=== PATIENT | female | born 1960 | race American Indian/Alaskan Native ===

== ENCOUNTER 2017-01-28 10:41 | Observation (INO) | payer OTHER ==
[2017-01-28 10:41] VITALS: BMI 53.7
[2017-01-28 10:53] VITALS: RESP 16; TEMP 98.1; O2SAT 100
[2017-01-28] MEDS ORDERED: Sodium Chloride 0.9% 500 ML IV STA (11:12)
[2017-01-28 11:28] LABS: ADD MANUAL DIFF? NO
[2017-01-28 11:34] LABS: BASO # 0.02 K/mm3 (0.0-2.0); BASO % 0.5 % (0.0-3.0); EOS % 0.2 % (1.5-5.0); GRAN # 2.98 (1.4-6.5); GRAN % 68.5 % (50.0-68.0); HEMATOCRIT 31.8 % (36.0-48.0); LYMPH # 1.1 (1.2-3.4); LYMPH % 25.5 % (22.0-35.0); MEAN CELL VOLUME 75.7 fL (80.0-105.0); MEAN CORPUSCULAR HEMOGLOBIN 22.9 pg (25.0-35.0); MEAN CORPUSCULAR HGB CONC 30.2 g/dl (31.0-37.0); MEAN PLATELET VOLUME 10.1 fl (7.0-11.0); MONO # 0.2 (0.1-0.6); MONO % 5.3 % (1.0-6.0); PLATELET COUNT 340 10^3/uL (120.0-450.0); RED CELL DISTRIBUTION WIDTH 15.3 % (11.5-14.5); WHITE BLOOD COUNT 4.4 10^3/ul (4.5-11.0)
--- NOTE | 2017-01-28 11:35 | ED PDOC ---
Arrival/HPI - General Chief Complaint: Seizure Time Seen by Provider: 01/28/17 11:12 Historian: Patient - History of Present Illness Narrative History of Present Illness (Text): 01/28/17 11:33 56 year old female whose past medical history includes seizures presents to the emergency department after seizure at grocery store prior to arrival. Patient states she was at the store when she felt a bad taste in her mouth and a flickering in her vision which usually occurs with her seizures. Patient states she fell but was caught by another person who witnessed seizure like activity. No head trauma. No pain. Patient reports she has a history of seizures and is on Trileptal, Topamax, and Keppra. Last seizure was last November which was when she started Topamax. No fever, cough, or urinary symptoms. Neurologist: Dr. Jamison Time/Duration: Prior to Arrival Symptom Onset: Sudden Symptom Course: Resolved Modifying Factors (Text): None Past Medical History - Provider Review Nursing Documentation Reviewed: Yes - Infectious Disease Hx of Infectious Diseases: None - Tetanus Immunization Tetanus Immunization: Unknown - Cardiac Hx Pacemaker: No - Neurological Hx Paralysis: No Hx Seizures: Yes - Hematological/Oncological Hx Blood Transfusions: No - Musculoskeletal/Rheumatological Hx Musculoskeletal Disorders: Yes - Psychiatric Hx Emotional Abuse: No Hx Physical Abuse: No Hx Substance Use: No - Surgical History Hx Coronary Stent: Yes - Anesthesia Hx Anesthesia Reactions: No Hx Malignant Hyperthermia: No - Suicidal Assessment Feels Threatened In Home Enviroment: No Family/Social History - Physician Review Nursing Documentation Reviewed: Yes Family/Social History: Unknown Family HX Smoking Status: Former Smoker Hx Alcohol Use: No Hx Substance Use: No Hx Substance Use Treatment: No Allergies/Home Meds Allergies/Adverse Reactions: Allergies Penicillins Allergy (Verified 01/28/17 10:54) ANAPHYLAXIS Home Medications: Home Meds Medication Instructions Recorded Confirmed Metoprolol Succinate 50 mg PO DAILY 08/01/13 01/28/17 Simvastatin 40 mg PO QPM 12/25/13 01/28/17 Clopidogrel [Plavix] 75 mg PO DAILY 01/28/17 01/28/17 Cyanocobalamin [Vitamin B12] 1,000 mcg PO DAILY 01/28/17 01/28/17 Cyclobenzaprine [Flexeril] 5 mg PO BID 01/28/17 01/28/17 Ergocalciferol [Drisdol 50,000 1 tab PO .WEEKLY 01/28/17 01/28/17 Intl Units Cap] Ibuprofen [Motrin Tab] 800 mg PO QID 01/28/17 01/28/17 Lisinopril [Zestril] 20 mg PO DAILY 01/28/17 01/28/17 OXcarbazepine [Trileptal] 600 mg PO DAILY 01/28/17 01/28/17 Topiramate [Topamax] 100 mg PO BID 01/28/17 01/28/17 amLODIPine [Norvasc] 10 mg PO DAILY 01/28/17 01/28/17 levETIRAcetam [Keppra] 1,000 mg PO DAILY 01/28/17 01/28/17 metFORMIN [glucOPHAGE] 1,000 mg PO BID 01/28/17 01/28/17 Review of Systems - Physician Review All systems were reviewed & negative as marked: Yes - Review of Systems Constitutional: absent: Fevers Respiratory: absent: Cough Neurological: Seizure Physical Exam Vital Signs Reviewed: Yes Vital Signs Temp Pulse Resp BP Pulse Ox 01/28/17 13:47 60 16 136/58 L 100 01/28/17 10:46 98.1 F 61 16 153/69 H 100 Temperature: Afebrile Blood Pressure: Normal Pulse: Regular Respiratory Rate: Normal Appearance: Positive for: Well-Appearing, Non-Toxic, Comfortable Pain Distress: None Mental Status: Positive for: Alert and Oriented X 3 Finger Stick Blood Glucose: 139 - Systems Exam Head: Present: Atraumatic, Normocephalic Pupils: Present: PERRL Extroacular Muscles: Present: EOMI Conjunctiva: Present: Normal Mouth: Present: Moist Mucous Membranes, Other (No tongue biting) Neck: Present: Normal Range of Motion Respiratory/Chest: Present: Clear to Auscultation, Good Air Exchange. No: Respiratory Distress, Accessory Muscle Use Cardiovascular: Present: Regular Rate and Rhythm, Normal S1, S2. No: Murmurs Abdomen: Present: Normal Bowel Sounds. No: Tenderness, Distention, Peritoneal Signs Back: Present: Normal Inspection Upper Extremity: Present: Normal Inspection. No: Cyanosis, Edema Lower Extremity: Present: Normal Inspection. No: Edema Neurological: Present: GCS=15, CN II-XII Intact, Speech Normal, Motor Func Grossly Intact, Normal Sensory Function Skin: Present: Warm, Dry, Normal Color. No: Rashes Psychiatric: Present: Alert, Oriented x 3, Normal Insight, Normal Concentration Medical Decision Making ED Course and Treatment: Impression: 56 year old female whose past medical history includes seizures presents to the emergency department after seizure at grocery store prior to arrival. Differential Diagnosis included but are not limited to: Seizure r/o electrolyte imbalance Plan: -- CT Head, EKG, -- Labs -- Reassess and disposition Prior Visits: Notes and results from previous visits were reviewed. Patient last seen in the ED on 08/01/13 for leg pain and discharged home. - RAD Interpretation Narrative RAD Interpretations (Text): CT Head Laborer Livestock: Franklin Nice MD IMPRESSION: No acute findings. Radiology Orders: 01/28/17 11:12 HEAD W/O CONTRAST [CT] [employer] Project Manager: Radiologist - EKG Interpretation Interpreted by ED Physician: Yes (EKG shows sinus bradycardia at 55 BPM, otherwise normal) Type: 12 lead EKG - Medication Orders Current Medication Orders: Discontinued Medications Sodium Chloride (Sodium Chloride 0.9%) 500 mls @ 1,000 mls/hr IV .Q30M STA Stop: 01/28/17 11:41 Last Admin: 01/28/17 11:46 Dose: 1,000 mls/hr ED OBSERVATION Date of observation admission: 01/28/17 Time of observation admission: 11:15 - Observation admission statement Patient is being placed in observation because:: seizure - Goals of Observation Goals of observation are:: monitor patient in ER - Progress Note Progress Note: 01/28/17 11:15 On initial exam patient is alert, answering questions 01/28/17 13:15 Patient resting comfortably in no acute distress. Labs reviewed normal. CT head negative. Patient was observed in the ED for 3 hours without any seizure activity. She just had her medication changed in November. I put a page out to Dr. Giles, her Neurologist without a call back. She wants to follow up with him and feels safe going home with f/u. She's reliable for follow up. She will return with any concerns or worsening symptoms. - Scribe Statement The provider has reviewed the documentation as recorded by the Homero Mohamud Provider Scribe Attestation: All medical record entries made by the Josueiblupe were at my direction and personally dictated by me. I have reviewed the chart and agree that the record accurately reflects my personal performance of the history, physical exam, medical decision making, and the department course for this patient. I have also personally directed, reviewed, and agree with the discharge instructions and disposition. Disposition/Present on Arrival - Present on Arrival Any Indicators Present on Arrival: No History of DVT/PE: No History of Uncontrolled Diabetes: No Urinary Catheter: No History of Decub. Ulcer: No History Surgical Site Infection Following: None - Disposition Have Diagnosis and Disposition been Completed?: Yes Diagnosis: Seizure Disposition: HOME/ ROUTINE Disposition Time: 14:07 Patient Plan: Discharge Condition: IMPROVED
[2017-01-28 12:05] LABS: ALB/GLOB RATIO 1.5 (1.1-1.8); ALKALINE PHOSPHATASE 110 U/L (38-133); ALT/SGPT 21 U/L (7-56); AST/SGOT 21 U/L (15-39); BILIRUBIN,TOTAL 0.5 mg/dL (0.2-1.3); BLOOD UREA NITROGEN 8 mg/dL (7-21); CALCIUM 9.3 mg/dL (8.4-10.5); CARBON DIOXIDE 22 mmol/L (21-33); GFR AFRICAN-AMERICAN > 60; GLUCOSE,RANDOM 100 mg/dL (70-110); MAGNESIUM 1.8 mg/dL (1.7-2.2); POTASSIUM 3.7 mmol/L (3.6-5.0); SODIUM 142 mmol/L (132-148); TOTAL PROTEIN 7.4 g/dL (5.8-8.3)
[2017-01-28 12:15] LABS: CHLORIDE 111 mmol/L (98-107)
--- NOTE | 2017-01-28 12:24 | CT ---
PROCEDURE: CT HEAD WITHOUT CONTRAST. HISTORY: seizure COMPARISON: None available. TECHNIQUE: Axial computed tomography images were obtained through the head/brain without intravenous contrast. Radiation dose: Total exam DLP = 733 mGy-cm. This CT exam was performed using one or more of the following dose reduction techniques: Automated exposure control, adjustment of the mA and/or kV according to patient size, and/or use of iterative reconstruction technique. FINDINGS: HEMORRHAGE: No intracranial hemorrhage. BRAIN: No mass effect or edema. No atrophy or chronic microvascular ischemic changes. VENTRICLES: Unremarkable. No hydrocephalus. CALVARIUM: Unremarkable. PARANASAL SINUSES: Unremarkable as visualized. No significant inflammatory changes. MASTOID AIR CELLS: Unremarkable as visualized. No inflammatory changes. OTHER FINDINGS: None. IMPRESSION: No acute findings
[2017-01-28 13:50] VITALS: BP 136/58; PULSE 60
--- NOTE | 2017-01-28 16:46 | CARD ---
APPROVED REPORT EKG Measurement Heart [id number] <Conclusion> Sinus bradycardia with sinus arrhythmia Otherwise normal ECG
== END 2017-01-28 13:58 | disposition home or self-care (01) ==
LOC: ED 10:41 → EROBSV 11:15
PROVIDERS: ADMIT Emergency Medicine; ATTEND Emergency Medicine
DX: R56.9 Unspecified convulsions (principal)
CPT/HCPCS: 70450; 80053; 83735; 85025; 93005; 96360; 96361; 99284; G0378; J7040

== ENCOUNTER 2017-11-28 17:08 | Inpatient (IN) | payer OTHER ==
[2017-11-28 17:09] VITALS: BMI 47.2
[2017-11-28] MEDS ORDERED: Sodium Chloride 0.9% 1,000 ML IV STA (17:22)
[2017-11-28] MEDS ORDERED: Fosphenytoin 1,000 MG in Sodium Chloride 0.9% 50 ML IV STA (17:25)
[2017-11-28] MEDS ORDERED: Propofol 10 mg/ml 500 MG/50 ML VIAL IV PRN ×2 (17:25→18:18)
--- NOTE | 2017-11-28 17:31 | ED PDOC ---
Arrival/HPI - General Chief Complaint: Cardiac Arrest Time Seen by Provider: 11/28/17 17:17 - History of Present Illness Narrative History of Present Illness (Text): 11/28/17 17:33 Patient is a 57 y/o F brought in after ROSC. Patient called 911 after finding her daughter collapsed in cardiac arrest. EMS arrived on scene approximately 430 and then found the patient in cardiac arrest also. Patient was found in asystole. Patient inbuated in field and IO placed. ACLS resuscitation with CPR started and was given epi x 3, narcan 6mg, was found to be in vfib, given amiodarone 150 and then 300mg, defibrillated 6 times and then found to have ROSC. [facility] cleared scene of carbon monoxide and paramedics report that apt was dirty but had no drug paraphernalia Past Medical History - Infectious Disease Hx of Infectious Diseases: None - Psychiatric Hx Substance Use: No Family/Social History Family/Social History: No Known Family HX Smoking Status: Unknown If Ever Smoked Hx Alcohol Use: No Hx Substance Use: No Allergies/Home Meds Allergies/Adverse Reactions: Allergies Unobtainable Allergy (Verified 11/28/17 17:09) Home Medications: Home Meds Medication Instructions Recorded Confirmed Unobtainable 11/28/17 11/28/17 Review of Systems - Review of Systems Systems not reviewed;Unavailable: Intubated Physical Exam Vital Signs Temp Pulse Resp BP Pulse Ox 11/28/17 19:05 62 22 94/45 L 100 11/28/17 19:01 84 16 115/60 98 11/28/17 18:29 97.1 F L 89 18 114/49 L 99 11/28/17 17:21 91 H 16 104/60 97 Temperature: Afebrile Blood Pressure: Normal Pulse: Regular Respiratory Rate: Other (spontaneously breathing over vent) Finger Stick Blood Glucose: 232 - Systems Exam Head: Present: Atraumatic, Normocephalic Pupils: Present: Pinpoint Extroacular Muscles: Present: Other (opens eyes spontaneously) Mouth: Present: Moist Mucous Membranes, Other (+ gag, ETT tube in oropharynx) Respiratory/Chest: Present: Other (clear with bagging b/l) Cardiovascular: Present: Regular Rate and Rhythm Abdomen: No: Distention Breast/Axillary: Present: Other (moist axilla) Upper Extremity: Present: Normal Inspection, Other (spontaneous non-purposeful movement of upper extremities) Lower Extremity: Present: Normal Inspection, Other (no movement) Psychiatric: Present: Other (intubated) Medical Decision Making ED Course and Treatment: 11/28/17 17:35 Normal fs on arrival. Non-purposeful movement of upper extremities. EKG showed NSR at 90bpm with non-specific st changes. Dr. Dc, code heart evaluated and cleared from code heart. Began to have seizure like activity of R face. Cerebryx load ordered and versed given. Full set of labs sent. Cxray confirmed tube placement. Spoke to Dr. Dc. Does not meet code heart criteria. 11/28/2017 18:05 Chest X-ray FINDINGS: LUNGS: No active pulmonary disease. PLEURA: No significant pleural effusion identified, no pneumothorax apparent. CARDIOVASCULAR: No radiographic findings to suggest acute or significant cardiovascular disease. OSSEOUS STRUCTURES: No significant abnormalities. VISUALIZED UPPER ABDOMEN: Normal. OTHER FINDINGS: Satisfactory position of endotracheal tube. The nasogastric tube is coiled in the proximal stomach, the tip is distally in the antrum near the pylorus IMPRESSION: No active pulmonary disease. Support apparatus described in detail above including satisfactorily positioned endotracheal tube. Dictator: Rishi Cardoso MD 11/28/2017 18:[address] FINDINGS: HEMORRHAGE: No intracranial hemorrhage. BRAIN: Normal mares-white matter differentiation and density are appreciated throughout the cerebrum and cerebellum with the brainstem appearing unremarkable as well. There is no mass effect. There is no suspicious extra-axial fluid collection and the midline brain anatomy appears diffusely unremarkable. VENTRICLES: Unremarkable. No hydrocephalus. CALVARIUM: Unremarkable. PARANASAL SINUSES: Multifocal ethmoid and left sphenoid sinusitis. MASTOID AIR CELLS: Unremarkable as visualized. No inflammatory changes. OTHER FINDINGS: Nasogastric and endotracheal tubes identified within the oral cavity with the tip off the images. IMPRESSION: Unremarkable unenhanced CT of the Head. Dictator: Matthew Allred MD Spoke to Dr. Martinez. Patient may be a candidate for hypothermic cooling. 11/28/17 18:32 ICU evaluating and are requesting amiodarone. Dr. Ambrose accepted. Broad spectrum antibiotics due to elevated WBC, and elevated lactate ordered and 30cc/ kg IVF ordered after blood and urine culture. It is unclear if this was a primary cardiac event from the shock of daughters or related to tox. Presentation does not fit specific toxidrome and blood tox so far negative. Trop x 1 negative. ICU to consider hypothermic protocol. - Critical Care Critical Care Minutes: 30 minutes - Lab Interpretations Microbiology Results: Microbiology Results 11/28/17 17:17 Blood Blood Culture - Preliminary NO GROWTH AFTER 3 DAYS Lab Results: 11/28/17 17:45 11/28/17 17:45 Lab Results 11/28/17 18:00: TSH 3rd Generation 4.41 11/28/17 18:00: Hemoglobin A1c 6.0 11/28/17 18:00: Magnesium 1.9 11/28/17 18:00: Procalcitonin 0.07 L 11/28/17 18:00: pCO2 34 L, pO2 278.0 H, HCO3 14.2 L, ABG pH 7.23 L, ABG Total CO2 15.2 L, ABG O2 Saturation 99.9 H, ABG Base Excess -12.3 L, ABG Potassium 3.6 , Glucose 195 H, Lactate 4.0 H*, Mechanical Rate 18, FiO2 100.0, Tidal Volume 500, PEEP 5, Sodium 143.0, Chloride 117.0 H, Arterial Blood Potassium 3.6 11/28/17 17:45: Digoxin < 0.4 L 11/28/17 17:45: Alcohol, Quantitative < 10 11/28/17 17:45: Phenytoin < 3 L 11/28/17 17:45: Salicylates < 1 L, Acetaminophen < 10.0 L 11/28/17 17:45: Sodium 144, Potassium 3.7, Chloride 111 H, Carbon Dioxide 12 L, Anion Gap 24 H, BUN 11, Creatinine 1.5 H, Est GFR ( Amer) 44, Est GFR ( Non-Af Amer) 36, Random Glucose 260 H, Calcium 9.1, Phosphorus 7.6 H, Magnesium 1.9, Total Bilirubin 0.3, AST 303 H, ALT 280 H, Alkaline Phosphatase 118, Total Creatine Kinase 156, Troponin I 0.06, Total Protein 7.0, Albumin 4.4, Globulin 2.6, Albumin/Globulin Ratio 1.7 11/28/17 17:45: WBC 20.9 H, RBC 4.25, Hgb 9.9 L, Hct 31.7 L, MCV 74.6 L, MCH 23.3 L, MCHC 31.2, RDW 15.8 H, Plt Count 348, MPV 9.7, Gran % 63.3, Lymph % ( Auto) 31.7, Gilchrist % (Auto) 4.4, Eos % (Auto) 0.4 L, Baso % (Auto) 0.2, Gran # 13.21 H, Lymph # (Auto) 6.6 H, Gilchrist # (Auto) 0.9 H, Eos # (Auto) 0.1, Baso # ( Auto) 0.04 11/28/17 17:18: Iron 104, TIBC 264 L, % Saturation 40 11/28/17 17:18: Ferritin 1140.0 - RAD Interpretation Radiology Orders: 11/28/17 17:18 CHEST PORTABLE [RAD] Stat 11/28/17 17:25 HEAD W/O (CODE STROKE) [CT] Stat - Medication Orders Current Medication Orders: Albuterol/Ipratropium (Duoneb 3 Mg/0.5 Mg (3 Ml) Ud) 3 ml IH Q2H PRN PRN Reason: Shortness of Breath Last Admin: 12/01/17 05:20 Dose: 3 ml Albuterol/Ipratropium (Duoneb 3 Mg/0.5 Mg (3 Ml) Ud) 3 ml IH [id number] ANTONINO Last Admin: 12/02/17 07:30 Dose: 3 ml Amlodipine Besylate (Norvasc) 10 mg PO DAILY [facility] Last Admin: 12/01/17 10:40 Dose: 10 mg MAR Blood Pressure Document 12/01/17 10:40 AE (Rec: 12/01/17 10:40 AE [id number]) Blood Pressure Blood Pressure (100/60-150/90) 151/80 Artificial Tears (Artificial Tears) 1 ml OU TID PRN PRN Reason: Dry eyes Last Admin: 11/30/17 16:00 Dose: 1 drop Aspirin (Aspirin Chewable) 81 mg PO DAILY [facility] Last Admin: 12/01/17 10:40 Dose: 81 mg Hydralazine HCl (Apresoline) 10 mg IVP Q6H PRN PRN Reason: SBP>170 Last Admin: 11/30/17 20:02 Dose: 10 mg IVP Administration Document 11/30/17 20:02 ID (Rec: 11/30/17 20:03 ID [id number]) Charges for Administration # of IVP Administrations 1 OCT Pulse and Blood Pressure Document 11/30/17 20:02 ID (Rec: 11/30/17 20:03 ID [id number]) Pulse Pulse Rate (60-90) 96 Blood Pressure Blood Pressure (100/60-150/90) 173/74 Cefepime HCl (Maxipime 2gm) 2 gm in 100 mls @ 100 mls/hr IVPB Q12 ANTONINO PRN Reason: Protocol Stop: 12/03/17 22:01 Last Admin: 12/01/17 22:44 Dose: 100 mls/hr eMAR Start Stop Document 12/01/17 22:44 ID (Rec: 12/01/17 22:44 ID [id number]) Intravenous Solution Start Date 12/01/17 Start Time 22:44 End Date 12/01/17 Nicardipine HCl (Cardene Iv Premix) 20 mg in 200 mls @ 100 mls/hr IV .Q2H PRN; Protocol; 10 MG/HR PRN Reason: TITRATE PER MD ORDER Last Admin: 11/29/17 16:15 Dose: 100 mls/hr eMAR Start Stop Document 11/29/17 16:15 JFG (Rec: 11/29/17 17:24 JFG [id number]) Intravenous Solution Start Date 11/29/17 Start Time 17:24 Titration Intervention Document 11/29/17 16:15 JFG (Rec: 11/29/17 17:24 JFG [id number]) Titration Dosing Titration Dose 10 IV Rate 100 Insulin Human Regular 100 (units/ Sodium Chloride) 100 mls @ 4 mls/hr IV .Q24H PRN; Protocol; 4 UNITS/HR PRN Reason: TITRATE PER MD ORDER Acetaminophen (Ofirmev) 1,000 mg in 100 mls @ 400 mls/hr IVPB Q6H PRN PRN Reason: Temperature Stop: 12/02/17 10:33 Last Admin: 12/02/17 06:55 Dose: 400 mls/hr eMAR Start Stop Document 12/02/17 06:55 ID (Rec: 12/02/17 06:55 ID [id number]) Intravenous Solution Start Date 12/02/17 Start Time 06:55 End Date 12/02/17 MAR Pain Assessment Document 12/02/17 06:55 ID (Rec: 12/02/17 06:55 ID [id number]) Pain Reassessment Is this a pain reassessment? No Heparin Sodium/Sodium Chloride (Heparin 51347 Units/250ml 1/2 Normal Saline) 25 ,000 units in 250 mls @ 12.474 mls/hr IV .Q20H3M ANTONINO; 10 UNITS/KG/HR PRN Reason: Protocol Last Titration: 12/02/17 06:19 Dose: 12 units/kg/hr, 14.969 mls/hr Titration Intervention Document 12/02/17 06:19 ID (Rec: 12/02/17 06:26 ID [id number]) Titration Intake Titration Intake 50 Cumulative Intake 50 Cumulative Intake (Rx) 300 Waste Amount 0 Container Volume 200 Titration Dosing Titration Dose 12 IV Rate 14.969 Intake/Decrease Increased Cumulative Dose 50398 Levetiracetam 1,000 mg/ Sodium (Chloride) 110 mls @ 460 mls/hr IV Q12 ANTONINO Last Admin: 12/01/17 22:44 Dose: 460 mls/hr eMAR Start Stop Document 12/01/17 22:44 ID (Rec: 12/01/17 22:44 ID [id number]) Intravenous Solution Start Date 12/01/17 Start Time 22:44 End Date 12/01/17 Daptomycin 780 mg/ Sodium (Chloride) 100 mls @ 200 mls/hr IV QOD ANTONINO Stop: 12/11/17 10:29 Last Admin: 12/01/17 10:34 Dose: 200 mls/hr eMAR Start Stop Document 12/01/17 10:34 AE (Rec: 12/01/17 10:34 AE [id number]) Intravenous Solution Start Date 12/01/17 Start Time 10:34 End Date 12/01/17 End time 11:34 Total Infusion Time 60 Propofol (Diprivan) 1,000 mg in 100 mls @ 3.919 mls/hr IV .Q24H PRN; Protocol; 5 MCG/KG/MIN PRN Reason: TITRATE PER MD ORDER Last Admin: 12/02/17 06:17 Dose: 25 mcg/kg/min, 19.595 mls/hr eMAR Start Stop Document 12/02/17 06:17 ID (Rec: 04/30/18 06:17 ID [id number]) Intravenous Solution Start Date 12/02/17 Start Time 06:17 End Date 12/02/17 Herrera Agitation Sedation Document 12/02/17 06:17 ID (Rec: 12/02/17 06:17 ID [id number]) Herrera Agitation Sedation Scale Herrera Agitation Sedation Scale Score +1 Restless Anxious bu movements not aggressive vigorous Titration Intervention Document 12/02/17 06:17 ID (Rec: 12/02/17 06:17 ID [id number]) Titration Intake Cumulative Intake (Rx) 200 Waste Amount 0 Container Volume 100 Titration Dosing Titration Dose 25 IV Rate 19.595 Intake/Decrease Started/Running Cumulative Dose 2000 Lorazepam (Ativan) 2 mg IVP Q6H PRN; Protocol PRN Reason: Seizure activity Last Admin: 12/02/17 06:16 Dose: 2 mg IVP Administration Document 12/02/17 06:16 ID (Rec: 12/02/17 06:16 ID [id number]) Charges for Administration # of IVP Administrations 1 Behavioural Document 12/02/17 06:16 ID (Rec: 12/02/17 06:16 ID [id number]) Maintenance Maintenance Dose Yes Behavior Behavior for Medication: Anxiety Methylprednisolone (Solu-Medrol) 20 mg IVP Q8H [facility] Last Admin: 12/02/17 01:00 Dose: 20 mg IVP Administration Document 12/02/17 01:00 ID (Rec: 12/02/17 02:28 ID [id number]) Charges for Administration # of IVP Administrations 1 Metoprolol Tartrate (Lopressor) 50 mg PO BID [facility] Last Admin: 12/01/17 17:19 Dose: 50 mg MAR Pulse and Blood Pressure Document 12/01/17 17:19 AE (Rec: 12/01/17 17:19 AE [id number]) Pulse Pulse Rate (60-90) 94 Blood Pressure Blood Pressure (100/60-150/90) 146/69 Pantoprazole Sodium (Protonix Inj) 40 mg IVP Q12 [facility] Last Admin: 12/01/17 22:52 Dose: 40 mg IVP Administration Document 12/01/17 22:52 ID (Rec: 12/01/17 22:52 ID [id number]) Charges for Administration # of IVP Administrations 1 Discontinued Medications Albuterol/Ipratropium (Duoneb 3 Mg/0.5 Mg (3 Ml) Ud) 3 ml IH [id number] ANTONINO Last Admin: 12/01/17 11:14 Dose: 3 ml Albuterol/Ipratropium (Duoneb 3 Mg/0.5 Mg (3 Ml) Ud) 3 ml IH Q6 ANTONINO Last Admin: 12/01/17 14:59 Dose: 3 ml Albuterol/Ipratropium (Duoneb 3 Mg/0.5 Mg (3 Ml) Ud) 3 ml IH [id number] ANTONINO Cisatracurium Besylate (Nimbex) 20 mg IV ONCE ONE Stop: 11/29/17 13:15 Cisatracurium Besylate (Nimbex) 19 mg IV ONCE ONE Stop: 11/29/17 13:15 Last Admin: 11/29/17 14:07 Dose: 19 mg eMAR Start Stop Document 11/29/17 14:07 JFG (Rec: 11/29/17 14:07 JFG [id number]) Intravenous Solution Start Date 11/29/17 Start Time 13:55 End Date 11/29/17 Gelatin (Gelfoam Size 100) 1 spg MM ONCE ONE Stop: 11/30/17 00:27 Last Admin: 11/30/17 01:05 Dose: 1 spg Heparin Sodium (Porcine) (Heparin) 5,000 units SC Q12 ANTONINO PRN Reason: Protocol Last Admin: 11/28/17 22:25 Dose: 5,000 units Subcutaneous Administrations Document 11/28/17 22:25 KGD (Rec: 11/28/17 22:25 KGD [facility] [place]) Injection Site MAR Injection Site Right Abdomen Charges for Administration # of Subcutaneous Administrations 1 Heparin Sodium (Porcine) (Heparin) 8,700 units 70 units/kg (8700 units) IV ONCE ONE PRN Reason: Protocol Stop: 11/29/17 08:18 Last Admin: 11/29/17 08:35 Dose: 8,700 units eMAR Start Stop Document 11/29/17 08:35 JFG (Rec: 11/29/17 08:36 JFG [id number]) Intravenous Solution Start Date 11/29/17 Start Time 08:36 Hydralazine HCl (Apresoline) 10 mg IVP Q8 PRN PRN Reason: Systolic Blood Pressure Last Admin: 11/30/17 06:16 Dose: 10 mg IVP Administration Document 11/30/17 06:16 PD (Rec: 11/30/17 06:16 PD [id number]) Charges for Administration # of IVP Administrations 1 MAR Pulse and Blood Pressure Document 11/30/17 06:16 PD (Rec: 11/30/17 06:16 PD [id number]) Pulse Pulse Rate (60-90) 98 Blood Pressure Blood Pressure (100/60-150/90) 193/83 Sodium Chloride (Sodium Chloride 0.9%) 1,000 mls @ 999 mls/hr IV .Q1H1M STA Stop: 11/28/17 18:22 Last Admin: 11/28/17 18:16 Dose: 999 mls/hr eMAR Start Stop Document 11/28/17 18:16 EQ (Rec: 11/28/17 18:16 EQ [id number]) Intravenous Solution Start Date 11/28/17 Start Time 18:16 Fosphenytoin Sodium 1,000 mg/ (Sodium Chloride) 70 mls @ 100 mls/hr IV STAT STA Stop: 11/28/17 18:06 Last Admin: 11/28/17 18:15 Dose: 100 mls/hr eMAR Start Stop Document 11/28/17 18:15 EQ (Rec: 11/28/17 18:15 EQ [id number]) Intravenous Solution Start Date 11/28/17 Start Time 18:15 Propofol (Diprivan) 500 mg in 50 mls @ 3.742 mls/hr IV .[id number] PRN; Protocol; 5 MCG/KG/MIN PRN Reason: TITRATE PER MD ORDER Amiodarone HCl/Dextrose (Nexterone 360 Mg In D5w 200 Ml (Premix)) 360 mg in 200 mls @ 33.333 mls/hr IV .Q6H ANTONINO; 1 MG/MIN PRN Reason: Protocol Last Admin: 11/29/17 00:30 Dose: 33.333 mls/hr eMAR Start Stop Document 11/29/17 00:30 KGD (Rec: 11/29/17 01:08 KGD [id number]) Intravenous Solution Start Date 11/29/17 Start Time 01:08 Vancomycin HCl (Vancomycin 1gm) 1 gm in 250 mls @ 167 mls/hr IVPB STAT STA PRN Reason: Protocol Stop: 11/28/17 20:00 Last Admin: 11/28/17 18:43 Dose: 167 mls/hr eMAR Start Stop Document 11/28/17 18:43 EQ (Rec: 11/28/17 18:43 EQ [id number]) Intravenous Solution Start Date 11/28/17 Start Time 18:43 Piperacillin Sod/Tazobactam Sod (Zosyn 3.375 In Ns 100ml) 100 mls @ 200 mls/hr IVPB STAT STA PRN Reason: Protocol Stop: 11/28/17 19:00 Last Admin: 11/28/17 18:41 Dose: 200 mls/hr eMAR Start Stop Document 11/28/17 18:41 EQ (Rec: 11/28/17 18:42 EQ [id number]) Intravenous Solution Start Date 11/28/17 Start Time 18:42 Sodium Chloride (Sodium Chloride 0.9%) 2,000 mls @ 999 mls/hr IV .Q2H1M STA Stop: 11/28/17 20:32 Last Admin: 11/28/17 18:43 Dose: 999 mls/hr eMAR Start Stop Document 11/28/17 18:43 EQ (Rec: 11/28/17 18:43 EQ [id number]) Intravenous Solution Start Date 11/28/17 Start Time 18:43 Sodium Chloride 1,000 ml/ IV (SUPPLIES) 1,000 mls @ 7,484.28 mls/hr IV ONCE ONE PRN Reason: 60 ML/KG/HR Stop: 11/28/17 18:35 Last Admin: 11/28/17 18:43 Dose: 7,484.28 mls/hr eMAR Start Stop Document 11/28/17 18:43 EQ (Rec: 11/28/17 18:44 EQ [id number]) Intravenous Solution Start Date 11/28/17 Start Time 18:44 Vancomycin HCl (Vancomycin 1gm) 1 gm in 250 mls @ 167 mls/hr IVPB DAILY ANTONINO PRN Reason: Protocol Last Admin: 11/30/17 09:37 Dose: 167 mls/hr eMAR Start Stop Document 11/30/17 09:37 AE (Rec: 11/30/17 09:38 AE [id number]) Intravenous Solution Start Date 11/30/17 Start Time 09:38 End Date 11/30/17 End time 11:00 Total Infusion Time 82 Sodium Chloride (Sodium Chloride 0.9%) 1,000 mls @ 100 mls/hr IV .Q10H ANTONINO Last Admin: 11/29/17 07:06 Dose: 100 mls/hr eMAR Start Stop Document 11/29/17 07:06 JFG (Rec: 11/29/17 09:06 JFG [id number]) Intravenous Solution Start Date 11/29/17 Start Time 07:06 End Date 11/29/17 End time 17:06 Total Infusion Time 600 Propofol (Diprivan) 1,000 mg in 100 mls @ 3.742 mls/hr IV .Q24H PRN; Protocol; 5 MCG/KG/MIN PRN Reason: TITRATE PER MD ORDER Last Admin: 11/30/17 03:15 Dose: 40 mcg/kg/min, 29.937 mls/hr eMAR Start Stop Document 11/30/17 03:15 PD (Rec: 11/30/17 03:16 PD [id number]) Intravenous Solution Start Date 11/30/17 Start Time 03:16 Herrera Agitation Sedation Document 11/30/17 03:15 PD (Rec: 11/30/17 03:16 PD [id number]) Herrera Agitation Sedation Scale Herrera Agitation Sedation Scale Score -1 Drowsy Titration Intervention Document 11/30/17 03:15 PD (Rec: 11/30/17 03:16 PD [id number]) Titration Intake Cumulative Intake (Rx) 700 Waste Amount 0 Container Volume 100 Titration Dosing Titration Dose 40 IV Rate 29.937 Intake/Decrease Started/Running Cumulative Dose 7000 Calcium Gluconate 1,000 mg/ (Dextrose) 110 mls @ 110 mls/hr IVPB ONCE ONE Stop: 11/29/17 08:40 Last Admin: 11/29/17 08:39 Dose: 110 mls/hr eMAR Start Stop Document 11/29/17 08:39 JFG (Rec: 11/29/17 08:39 JFG [id number]) Intravenous Solution Start Date 11/29/17 Start Time 09:39 End Date 11/29/17 End time 10:39 Total Infusion Time 60 Magnesium Sulfate/Dextrose (Magnesium Sulfate 1 Gm/100 Ml D5w) 1 gm in 100 mls @ 100 mls/hr IVPB ONCE ONE Stop: 11/29/17 08:40 Last Admin: 11/29/17 08:38 Dose: 100 mls/hr eMAR Start Stop Document 11/29/17 08:38 [facility] (Rec: 11/29/17 08:39 [facility] [id number]) Intravenous Solution Start Date 11/29/17 Start Time 08:39 End Date 11/29/17 End time 09:39 Total Infusion Time 60 Heparin Sodium/Sodium Chloride (Heparin 63461 Units/250ml 1/2 Normal Saline) 25 ,000 units in 250 mls @ 14.969 mls/hr IV .[id number] ANTONINO; 12 UNITS/KG/HR PRN Reason: Protocol Last Titration: 11/29/17 16:53 Dose: 0 units/kg/hr, 0 mls/hr Titration Intervention Document 11/29/17 16:53 [facility] (Rec: 11/29/17 16:54 [facility] [id number]) Titration Intake Titration Intake 150 Cumulative Intake 150 Cumulative Intake (Rx) 150 Waste Amount 0 Container Volume 100 Titration Dosing Titration Dose 0 IV Rate 0 Intake/Decrease Paused Cumulative Dose 17327 Fentanyl Citrate (Fentanyl Citrate/Sodium Chloride 1 Mg/100 Ml) 1,000 mcg in 100 mls @ 2 mls/hr IV .Q24H PRN; Protocol; 20 MCG/HR PRN Reason: TITRATE PER MD ORDER Last Titration: 11/29/17 19:35 Dose: 30 mcg/hr, 3 mls/hr Herrera Agitation Sedation Document 11/29/17 19:35 [facility] (Rec: 11/29/17 20:18 [facility] [id number]) Herrera Agitation Sedation Scale Herrera Agitation Sedation Scale Score +2 Agitated: Frequent non- purposeful movement, fights ventilator Titration Intervention Document 11/29/17 19:35 [facility] (Rec: 11/29/17 20:18 [facility] [id number]) Titration Intake Titration Intake 1 Cumulative Intake 13 Cumulative Intake (Rx) 13 Waste Amount 0 Container Volume 87 Titration Dosing Titration Dose 30 IV Rate 3 Intake/Decrease Increased Cumulative Dose 130 Levetiracetam 1,000 mg/ Sodium (Chloride) 110 mls @ 440 mls/hr IV ONCE ONE Stop: 11/29/17 13:13 Last Admin: 11/29/17 13:46 Dose: 440 mls/hr eMAR Start Stop Document 11/29/17 13:46 JFG (Rec: 11/29/17 13:46 [facility] [id number]) Intravenous Solution Start Date 11/29/17 Start Time 13:46 End Date 11/29/17 End time 14:01 Total Infusion Time 15 Cisatracurium Besylate 100 mg/ (Sodium Chloride) 260 mls @ 9.72 mls/hr IV .Q24H PRN; Protocol; 0.5 MCG/KG/MIN PRN Reason: TITRATE PER MD ORDER Cisatracurium Besylate 200 mg/ (Sodium Chloride) 270 mls @ 5.05 mls/hr IV .Q24H PRN; Protocol; 0.5 MCG/KG/MIN PRN Reason: TITRATE PER MD ORDER Last Titration: 11/29/17 15:00 Dose: 0 mcg/kg/min, 0 mls/hr Titration Intervention Document 11/29/17 15:00 JF (Rec: 11/29/17 15:39 [facility] [id number]) Titration Intake Titration Intake 2 Cumulative Intake 2 Cumulative Intake (Rx) 2 Waste Amount 0 Container Volume 268 Titration Dosing Titration Dose 0 IV Rate 0 Intake/Decrease Paused Cumulative Dose 1.4814 Levetiracetam 1,000 mg/ Sodium (Chloride) 110 mls @ 460 mls/hr IV DAILY ANTONINO Last Admin: 11/30/17 09:38 Dose: 460 mls/hr eMAR Start Stop Document 11/30/17 09:38 AE (Rec: 11/30/17 09:39 AE [id number]) Intravenous Solution Start Date 11/30/17 Start Time 09:38 End Date 11/30/17 End time 10:00 Total Infusion Time 22 Nicardipine HCl (Cardene Iv Premix) 20 mg in 200 mls @ 50 mls/hr IV .Q4H PRN; Protocol; 5 MG/HR PRN Reason: TITRATE PER MD ORDER Last Admin: 11/29/17 15:29 Dose: 50 mls/hr eMAR Start Stop Document 11/29/17 15:29 JF (Rec: 04/27/18 15:29 JF [id number]) Intravenous Solution Start Date 11/29/17 Start Time 15:29 Nicardipine HCl (Cardene Iv Premix) 20 mg in 200 mls @ 50 mls/hr IV .Q4H PRN; Protocol; 5 MG/HR PRN Reason: TITRATE PER MD ORDER Potassium Chloride (Potassium Chloride 20 Meq/100 Ml) 20 meq in 100 mls @ 50 mls/hr IVPB Q2H ANTONINO Stop: 11/29/17 21:14 Last Admin: 11/29/17 19:45 Dose: 50 mls/hr eMAR Start Stop Document 11/29/17 19:45 PD (Rec: 11/29/17 21:18 PD [id number]) Intravenous Solution Start Date 11/29/17 Start Time 19:45 Sodium Bicarbonate 150 meq/ (Dextrose) 1,150 mls @ 150 mls/hr IV .Q7H40M ANTONINO Last Admin: 11/30/17 03:10 Dose: 150 mls/hr eMAR Start Stop Document 11/30/17 03:10 PD (Rec: 11/30/17 03:10 PD [id number]) Intravenous Solution Start Date 11/30/17 Start Time 03:10 Potassium Chloride (Potassium Chloride 10 Meq/100 Ml) 10 meq in 100 mls @ 50 mls/hr IVPB Q2H ANTONINO Stop: 12/01/17 11:44 Last Admin: 12/01/17 10:35 Dose: 50 mls/hr eMAR Start Stop Document 12/01/17 10:35 AE (Rec: 12/01/17 10:36 AE [id number]) Intravenous Solution Start Date 12/01/17 Start Time 10:35 End Date 12/01/17 End time 12:35 Total Infusion Time 120 Daptomycin 780 mg/ Sodium (Chloride) 100 mls @ 200 mls/hr IV QOD ANTONINO Stop: 12/01/17 10:29 Lorazepam (Ativan) 2 mg IVP ONCE ONE PRN Reason: Protocol Stop: 12/01/17 05:01 Last Admin: 12/01/17 05:09 Dose: 2 mg IVP Administration Document 12/01/17 05:09 ID (Rec: 12/01/17 05:10 ID [id number]) Charges for Administration # of IVP Administrations 1 Behavioural Document 12/01/17 05:09 ID (Rec: 12/01/17 05:10 ID [id number]) Maintenance Maintenance Dose Yes Behavior Behavior for Medication: Dangers to self/others Lorazepam (Ativan) 4 mg IVP ONCE STA PRN Reason: Protocol Stop: 12/01/17 11:40 Last Admin: 12/01/17 12:06 Dose: 4 mg IVP Administration Document 12/01/17 12:06 AE (Rec: 12/01/17 12:06 AE [place] [id number]) Charges for Administration # of IVP Administrations 1 Behavioural Document 12/01/17 12:06 AE (Rec: 12/01/17 12:06 AE [place] [id number]) Maintenance Maintenance Dose No Nonmedicinal Nonmedicinal Interventions See nurse's notes Behavior Behavior for Medication: Anxiety Behavior Comment seizure Metoprolol Tartrate (Lopressor) 25 mg PO BID ANTONINO Last Admin: 11/30/17 17:38 Dose: 25 mg MAR Pulse and Blood Pressure Document 11/30/17 17:38 AE (Rec: 11/30/17 17:39 AE [place] [id number]) Pulse Pulse Rate (60-90) 117 Blood Pressure Blood Pressure (100/60-150/90) 166/68 Midazolam HCl (Versed Inj) 5 mg IV ONCE ONE Stop: 11/28/17 18:31 Last Admin: 11/28/17 18:34 Dose: 5 mg eMAR Start Stop Document 11/28/17 18:34 EQ (Rec: 11/28/17 18:34 EQ [id number]) Intravenous Solution Start Date 11/28/17 Start Time 18:34 Potassium Chloride (Potassium Chloride Oral Soln) 20 meq PO STAT STA Stop: 12/01/17 07:39 Last Admin: 12/01/17 08:22 Dose: 20 meq Sodium Bicarbonate (Sodium Bicarbonate 8.4% (50 Meq) Syringe) 100 meq IVP ONCE ONE Stop: 11/28/17 21:34 Last Admin: 11/28/17 22:19 Dose: 100 meq IVP Administration Document 11/28/17 22:19 KGD (Rec: 11/28/17 22:21 KGD [facility] [place]) Charges for Administration # of IVP Administrations 1 Sodium Bicarbonate (Sodium Bicarbonate 8.4% (50 Meq) Syringe) 100 meq IVP ONCE ONE Stop: 11/29/17 03:56 Last Admin: 11/29/17 04:36 Dose: 100 meq IVP Administration Document 11/29/17 04:36 KGD (Rec: 11/29/17 04:37 KGD [id number]) Charges for Administration # of IVP Administrations 1 NIHSS Scale ([place]) Time Performed: 17:42 - How Severe is the [place]oke Baseline Level of Consciousness: 3=Unresponsive LOC to Questions: 0=Both comments correct (unable to assess) LOC to commands: 0=Obeys both correctly (unable to assess) Best Gaze: 0=Normal (unable to assess) Visual: 0=No visual loss (unable to assess) Facial: 0=Normal Motor Arm - Left: 2=Falls before 10 sec Motor Arm - Right: 2=Falls before 10 sec Motor Leg - Left: 4=No movement Motor Leg - Right: 4=No movement Limb Ataxia: 0=Absent (unable to assess) Sensory: 0=Normal (unable to assess) Best Language: 3=Mute Dysarthia: 0=Normal articulation (unable to assess) Extinction & Inattention (Neglect): 0=Normal, no object (unable to assess) Score: 18 Risk Level: Mod/Sev Stroke Risk Disposition/Present on Arrival - Present on Arrival Any Indicators Present on Arrival: No History of DVT/PE: No History of Uncontrolled Diabetes: No Urinary Catheter: No History of Decub. Ulcer: No History Surgical Site Infection Following: None - Disposition Have Diagnosis and Disposition been Completed?: Yes Diagnosis: Cardiac arrest, Seizure, Altered mental status, Leukocytosis Disposition: HOSPITALIZED Disposition Time: 18:29 Patient Plan: ICU Patient Problems: Current Active Problems Problem Status Onset Acute kidney injury Acute Altered mental status Acute Cardiac arrest Acute HTN (hypertension) Acute Hematuria Acute Leukocytosis Acute SIRS (systemic inflammatory response syndrome) Acute Seizure Acute Condition: CRITICAL
[2017-11-28] MEDS ORDERED: Propofol 10 mg/ml 500 MG/50 ML VIAL IV SCH (17:45)
[2017-11-28 18:01] LABS: BASO # 0.04 K/mm3 (0.0-2.0); BASO % 0.2 % (0.0-3.0); EOS # 0.1 (0.0-0.7); EOS % 0.4 % (1.5-5.0); GRAN # 13.21 (1.4-6.5); GRAN % 63.3 % (50.0-68.0); HEMOGLOBIN 9.9 g/dL (12.0-16.0); LYMPH # 6.6 (1.2-3.4); LYMPH % 31.7 % (22.0-35.0); MEAN CELL VOLUME 74.6 fl (80.0-105.0); MEAN CORPUSCULAR HEMOGLOBIN 23.3 pg (25.0-35.0); MEAN CORPUSCULAR HGB CONC 31.2 g/dl (31.0-37.0); MEAN PLATELET VOLUME 9.7 fl (7.0-11.0); MONO # 0.9 (0.1-0.6); MONO % 4.4 % (1.0-6.0); RBC 4.25 10^6/uL (3.5-6.1); RED CELL DISTRIBUTION WIDTH 15.8 % (11.5-14.5); WHITE BLOOD COUNT 20.9 10^3/ul (4.5-11.0)
--- NOTE | 2017-11-28 18:07 | RAD ---
HISTORY: Cardiac arrest. COMPARISON: No prior. FINDINGS: LUNGS: No active pulmonary disease. PLEURA: No significant pleural effusion identified, no pneumothorax apparent. CARDIOVASCULAR: No radiographic findings to suggest acute or significant cardiovascular disease. OSSEOUS STRUCTURES: No significant abnormalities. VISUALIZED UPPER ABDOMEN: Normal. OTHER FINDINGS: Satisfactory position of endotracheal tube. The nasogastric tube is coiled in the proximal stomach, the tip is distally in the antrum near the pylorus IMPRESSION: No active pulmonary disease. Support apparatus described in detail above including satisfactorily positioned endotracheal tube.
[2017-11-28 18:10] LABS: ALB/GLOB RATIO 1.7 (1.1-1.8); ALBUMIN 4.4 g/dL (3.0-4.8); CALCIUM 9.1 mg/dL (8.4-10.5)
[2017-11-28 18:10] LABS: ARTERIAL BLOOD GAS HCO3 14.2 mmol/L (21-28); ARTERIAL BLOOD GAS O2 SAT 99.9 % (95-98); ARTERIAL BLOOD GAS PCO2 34 mm/Hg (35-45); ARTERIAL BLOOD GAS PH 7.23 (7.35-7.45); ARTERIAL BLOOD GAS TCO2 15.2 mmol.L (22-28)
[2017-11-28 18:11] LABS: ACETAMINOPHEN < 10.0 ug/ml (10.0-20.0); SALICYLATE < 1 mg/dL (2.0-20.0)
--- NOTE | 2017-11-28 18:19 | CT ---
PROCEDURE: CT HEAD WITHOUT CONTRAST. HISTORY: altered COMPARISON: None available. TECHNIQUE: Axial computed tomography images were obtained through the head/brain without intravenous contrast. Radiation dose: Total exam DLP = 936.67 mGy-cm. This CT exam was performed using one or more of the following dose reduction techniques: Automated exposure control, adjustment of the mA and/or kV according to patient size, and/or use of iterative reconstruction technique. FINDINGS: HEMORRHAGE: No intracranial hemorrhage. BRAIN: Normal mares-white matter differentiation and density are appreciated throughout the cerebrum and cerebellum with the brainstem appearing unremarkable as well. There is no mass effect. There is no suspicious extra-axial fluid collection and the midline brain anatomy appears diffusely unremarkable. VENTRICLES: Unremarkable. No hydrocephalus. CALVARIUM: Unremarkable. PARANASAL SINUSES: Multifocal ethmoid and left sphenoid sinusitis. MASTOID AIR CELLS: Unremarkable as visualized. No inflammatory changes. OTHER FINDINGS: Nasogastric and endotracheal tubes identified within the oral cavity with the tip off the images. IMPRESSION: Unremarkable unenhanced CT of the Head. Findings discussed with Dr. Mayo 11/28/2017 6:10 p.m. with written down and read back verification. .
[2017-11-28 18:21] LABS: TROPONIN I 0.06 ng/mL
[2017-11-28] MEDS ORDERED: Midazolam 50 mg/10 ml Inj IVP STA (18:28)
[2017-11-28] MEDS ORDERED: Midazolam 2 MG/2 ML VIAL IV ONE (18:30)
[2017-11-28] MEDS ORDERED: Piperacillin/Tazobact 3.375 gm 100 ML IVPB STA (18:31)
[2017-11-28] MEDS ORDERED: Vancomycin 1gm in NS 250ml 1 GM/250 ML BAG IVPB STA (18:31)
--- NOTE | 2017-11-28 18:31 | CP.PCM.CON ---
History of Present Illness - History of Present Illness History of Present Illness: CRITICAL CARE CONSULT NOTE HPI Patient is 57yo female with unknown PMHx presented to the ER s/p cardiac arrest. As per the ER staff, who provided all of the history, patient called EMS for relative who had collapsed. When EMS arrived patient was found to be pulseless, cardiac arrest, asystole, given multiple epinephrine, and then found to be in VFib, shocked several times, ROSC achieved. Pt had pulse when arrived to the ER, already intubated. Currently intubated, off sedation, no response to noxious/verbal stimuli. CT head negative, CXR clear. NSR on monitor. PMHx unknown PSHx uknown MEds unknown ROS intubated FHX unknown Review of Systems - Review of Systems Review of Systems: intubated Past Patient History - Infectious Disease Hx of Infectious Diseases: None - Past Social History Smoking Status: Unknown If Ever Smoked - PSYCHIATRIC Hx Substance Use: No Meds Allergies/Adverse Reactions: Allergies Allergy/AdvReac Type Severity Reaction Status Date / Time Unobtainable Allergy Verified 11/28/17 17:09 - Medications Medications: Current Medications Amiodarone HCl/Dextrose (Nexterone 360 Mg In D5w 200 Ml (Premix)) 360 mg in 200 mls @ 33.333 mls/hr IV .Q6H ANTONINO; 1 MG/MIN PRN Reason: Protocol Propofol (Diprivan) 500 mg in 50 mls @ 3.742 mls/hr IV .[id number] PRN; Protocol; 5 MCG/KG/MIN PRN Reason: TITRATE PER MD ORDER Physical Exam - Constitutional Appears: Non-toxic, No Acute Distress Additional comments: obese - Head Exam Head Exam: ATRAUMATIC - ENT Exam ENT Exam: Mucous Membranes Moist - Respiratory Exam Respiratory Exam: Clear to Auscultation Bilateral, NORMAL BREATHING PATTERN - Cardiovascular Exam Cardiovascular Exam: REGULAR RHYTHM, +S1, +S2 - GI/Abdominal Exam GI & Abdominal Exam: Normal Bowel Sounds, Soft - Neurological Exam Neurological exam: Altered - Skin Skin Exam: Normal Color, Warm Results - Labs Result Diagrams: 11/28/17 17:45 11/28/17 17:45 Labs: Laboratory Results - last 24 hr 11/28/17 11/28/17 11/28/17 17:45 17:45 17:45 WBC 20.9 H RBC 4.25 Hgb 9.9 L Hct 31.7 L MCV 74.6 L MCH 23.3 L MCHC 31.2 RDW 15.8 H Plt Count 348 MPV 9.7 Gran % 63.3 Lymph % (Auto) 31.7 Ocean % (Auto) 4.4 Eos % (Auto) 0.4 L Baso % (Auto) 0.2 Gran # 13.21 H Lymph # (Auto) 6.6 H Ocean # (Auto) 0.9 H Eos # (Auto) 0.1 Baso # (Auto) 0.04 pCO2 pO2 HCO3 ABG pH ABG Total CO2 ABG O2 Saturation ABG Base Excess ABG Potassium Glucose Lactate Mechanical Rate FiO2 Tidal Volume PEEP Sodium 144 Potassium 3.7 Chloride 111 H Carbon Dioxide 12 L Anion Gap 24 H BUN 11 Creatinine 1.5 H Est GFR ( Amer) 44 Est GFR (Non-Af Amer) 36 Random Glucose 260 H Calcium 9.1 Phosphorus 7.6 H Magnesium 1.9 Total Bilirubin 0.3 AST 303 H ALT 280 H Alkaline Phosphatase 118 Total Creatine Kinase 156 Troponin I 0.06 Total Protein 7.0 Albumin 4.4 Globulin 2.6 Albumin/Globulin Ratio 1.7 Arterial Blood Potassium Digoxin Salicylates < 1 L Acetaminophen < 10.0 L Phenytoin Alcohol, Quantitative 11/28/17 11/28/17 11/28/17 17:45 17:45 17:45 WBC RBC Hgb Hct MCV MCH MCHC RDW Plt Count MPV Gran % Lymph % (Auto) Ocean % (Auto) Eos % (Auto) Baso % (Auto) Gran # Lymph # (Auto) Ocean # (Auto) Eos # (Auto) Baso # (Auto) pCO2 pO2 HCO3 ABG pH ABG Total CO2 ABG O2 Saturation ABG Base Excess ABG Potassium Glucose Lactate Mechanical Rate FiO2 Tidal Volume PEEP Sodium Potassium Chloride Carbon Dioxide Anion Gap BUN Creatinine Est GFR ( Amer) Est GFR (Non-Af Amer) Random Glucose Calcium Phosphorus Magnesium Total Bilirubin AST ALT Alkaline Phosphatase Total Creatine Kinase Troponin I Total Protein Albumin Globulin Albumin/Globulin Ratio Arterial Blood Potassium Digoxin < 0.4 L Salicylates Acetaminophen Phenytoin < 3 L Alcohol, Quantitative < 10 11/28/17 18:00 WBC RBC Hgb Hct MCV MCH MCHC RDW Plt Count MPV Gran % Lymph % (Auto) Ocean % (Auto) Eos % (Auto) Baso % (Auto) Gran # Lymph # (Auto) Ocean # (Auto) Eos # (Auto) Baso # (Auto) pCO2 34 L pO2 278.0 H HCO3 14.2 L ABG pH 7.23 L ABG Total CO2 15.2 L ABG O2 Saturation 99.9 H ABG Base Excess -12.3 L ABG Potassium 3.6 Glucose 195 H Lactate 4.0 H* Mechanical Rate 18 FiO2 100.0 Tidal Volume 500 PEEP 5 Sodium 143.0 Potassium Chloride 117.0 H Carbon Dioxide Anion Gap BUN Creatinine Est GFR ( Amer) Est GFR (Non-Af Amer) Random Glucose Calcium Phosphorus Magnesium Total Bilirubin AST ALT Alkaline Phosphatase Total Creatine Kinase Troponin I Total Protein Albumin Globulin Albumin/Globulin Ratio Arterial Blood Potassium 3.6 Digoxin Salicylates Acetaminophen Phenytoin Alcohol, Quantitative Assessment & Plan - Assessment and Plan (Free Text) Assessment: 57yo female a/w s/p cardiac arrest Cardiac Arrest, s/p ROSC Ventricular fibrillation Leukocytosis - currently afebrile, HD stable, comfortable in NAD, no response to verbal/ noxious stimuli - unknown down time in the field - CT head neg, CXR without consolidation - has leukocytosis on labs, can possibly be reactive - utox pending - given Vfib arerst, would initiate hypothermic protocol Recommend: - cont with vent support, low tidal vol vntilaiton, ABG acceptable oxygenation, lower TV to 400cc - Panculture, UCx, BCx, Procal - Broad spectrum antibiotics, Vanco, Cefepime - obtain ECHO - repeat Cardiac enzymes - cardiology eval - initiate hypothermic protocol - EKG in 6 hours - would start amiodarone drip - monitor electrolytes - monitor HH - obtain UA, Ulytes - Utox - renal sono - FS control - neurology consult - repeat CT head in morning - EEG - NPO - GI ppx - DVT ppx, HSQ - Monitor in MICU Critical care time 40 minutes
[2017-11-28] MEDS ORDERED: Sodium Chloride 0.9% 2,000 ML IV STA (18:32)
[2017-11-28] MEDS: Amiodarone 360 mg/D5W 200 ml 360 MG/200 ML BAG IV SCH (18:34)
--- NOTE | 2017-11-28 18:55 | CP.PCM.HP ---
History of Present Illness - History of Present Illness History of Present Illness: CC: Cardiac Arrest HPI: Pt is a 57 yo F with unknown PMH brought in by EMS due to cardiac arrest. Per EMS, patient lives in an apartment and the neighbor who lives below her heard a loud thump and called EMS. On arrival, patient was found to be in cardiac arrest, pulseless and asystole. In the field, the patient was intubated , given multiple rounds of epinephrine, and eventually converted into ventricular fibrillation. At that point, she was defibrillated multiple times and ROSC was achieved. Of note, patient's daughter was also in cardiac arrest, but was pronounced in the field. At time of examination, patient was still intubated on sedation. ROS limited due to patient's current mental status. PMH: Unknown Surg: Unknown All: Unknown SH: Unknown FHx: Unknown PMD: Joon Present on Admission - Present on Admission Any Indicators Present on Admission: No Review of Systems - Review of Systems Review of Systems: Unable to obtain ROS due to patient's current mental status. Past Patient History - Infectious Disease Hx of Infectious Diseases: None - Past Social History Smoking Status: Unknown If Ever Smoked - PSYCHIATRIC Hx Substance Use: No Meds Allergies/Adverse Reactions: Allergies Allergy/AdvReac Type Severity Reaction Status Date / Time Unobtainable Allergy Verified 11/28/17 17:09 Physical Exam - Constitutional Appears: No Acute Distress - Head Exam Head Exam: NORMAL INSPECTION - Eye Exam Pupil Exam: Miosis - ENT Exam ENT Exam: Mucous Membranes Moist, Normal Exam - Neck Exam Neck exam: Positive for: Normal Inspection - Respiratory Exam Respiratory Exam: Clear to Auscultation Bilateral. absent: Rales, Rhonchi, Wheezes - Cardiovascular Exam Cardiovascular Exam: RRR, +S1, +S2. absent: Diastolic murmur, Gallop, Rubs, Systolic Murmur - GI/Abdominal Exam GI & Abdominal Exam: Soft. absent: Distended, Mass, Rigid - Extremities Exam Extremities exam: Positive for: normal inspection - Neurological Exam Neurological exam: Altered - Skin Skin Exam: Dry, Intact, Normal Color, Warm Results - Vital Signs Recent Vital Signs: Last Vital Signs Temp 97.1 F L 11/28/17 18:29 Pulse 89 11/28/17 18:29 Resp 18 11/28/17 18:29 BP 114/49 L 11/28/17 18:29 Pulse Ox 99 11/28/17 18:29 - Labs Result Diagrams: 11/28/17 17:45 11/28/17 17:45 Assessment & Plan - Assessment and Plan (Free Text) Assessment: 57 yo F with unknown PMH admitted for evaluation and treatment for cardiac arrest with ROSC. Plan: 1. Cardiac Arrest with ROSC - Admitted to ICU, intubated, sedated (propofol) - Vent management per ICU - Initially pulseless, asystole - multiple rounds of epinephrine and amiodarone given - Converted to v-fib - defibrillated multiple times - ROSC achieved - EKG showed NSR at 93 bpm with QTc 507 - Repeat EKG in 6 hrs - Troponin 0.06, trend x2 - CXR showed no active disease - ABG s/p intubation: pH 7.23, pCO2 34, pO2 278, HCO3 13, Lactate 4.0 - HgbA1c, TSH, Lipid panel ordered - Echo ordered - Amiodarone drip - Hypothermic protocol - Cardio consulted 2. Altered Mental Status - NIHSS score in ED 35 - Head CT negative - Repeat Head CT in AM - Digoxin, ASA, phenytoin, EtOH serum negative - UDS ordered - Levetiracetam level ordered - EEG ordered - Aspiration precautions - Seizure precautions - High risk fall precautions - Neurochecks - Neuro consulted 3. Leukocytosis - WBC 20.9 - Blood and urine cultures ordered - Procal ordered - UA ordered - Vancomycin, Zosyn, Cefepime ordered 4. Lactic Acidosis - Likely 2/2 hypoxia - Lactate 4.0 - Anion gap 21 5. Transaminitis - AST/ALT 303/280 - Serum tylenol negative - Hep panel ordered 6. Anemia - Hgb 9.9 - Microcytic, hypochromic - Iron studies ordered - Stool for occult blood ordered 7. LAURITA - Cr 1.5 - IVF - Cont to monitor GI/DVT PPx - Protonix - Heparin Pt seen and discussed in detail with Dr. Pfeiffer. Dillan Cain, PGY1
[2017-11-28 19:59] LABS: IRON 104 ug/dL (45-180)
[2017-11-28 20:08] LABS: % IRON SATURATION 40 % (20-55); TOTAL IRON BINDING CAPACITY 264 ug/dL (265-497)
[2017-11-28 20:50] LABS: VENOUS BLOOD GAS PO2 44 mm/Hg (30-55)
[2017-11-28 21:09] LABS: VENOUS BLOOD PH 7.14 (7.32-7.43)
[2017-11-28] MEDS ORDERED: Sodium Bicarbonate (8.4%) 50 Meq Syringe IVP ONE (21:33)
[2017-11-28 22:00] LABS: URINE BILIRUBIN NEGATIVE (NEGATIVE); URINE BLOOD LARGE (NEGATIVE); URINE GLUCOSE (UA) NEGATIVE (NEGATIVE); URINE LEUKOCYTE ESTERASE NEGATIVE Leu/uL (NEGATIVE); URINE PROTEIN 30 mg/dL (<30 mg/dL); URINE UROBILINOGEN 0.2 E.U./dL (<1 E.U./dL)
[2017-11-28 22:01] LABS: URINE APPEARANCE TURBID (CLEAR); URINE COLOR YELLOW (YELLOW)
[2017-11-28 22:04] LABS: URINE BACTERIA FEW (NEG); URINE WBC 0 - 2 /hpf (0-6)
[2017-11-28 22:05] LABS: URINE COARSE GRANULAR CAST LARGE /hpf (0-2)
[2017-11-28] MEDS: Sodium Chloride 0.9% 1,000 ML IV SCH (22:25)
[2017-11-28 22:34] LABS: BARBITURATES, UR NEGATIVE (NEGATIVE); BENZODIAZEPINES, UR POSITIVE (NEGATIVE); OPIATES, UR NEGATIVE (NEGATIVE); PHENCYCLIDINE, UR NEGATIVE (NEGATIVE)
[2017-11-28] MEDS: Propofol 10 mg/ml 1,000 MG/100 ML VIAL IV PRN (22:41)
[2017-11-28] MEDS: Cefepime IV 2 gm in NS 2 GM/100 ML BAG IVPB SCH (22:41)
[2017-11-29] MEDS: Amiodarone 360 mg/D5W 200 ml 360 MG/200 ML BAG IV SCH (00:30)
[2017-11-29] MEDS: Propofol 10 mg/ml 1,000 MG/100 ML VIAL IV PRN ×5 (01:06→20:42)
[2017-11-29 02:27] LABS: VENOUS BLOOD GAS BASE EXCESS -11.5 mmol/L (0.0-2.0); VENOUS BLOOD GAS PO2 27 mm/Hg (30-55)
[2017-11-29 02:38] LABS: HEMOGLOBIN 10.5 g/dL (12.0-16.0); MEAN CELL VOLUME 75.2 fl (80.0-105.0); MEAN CORPUSCULAR HGB CONC 33.2 g/dl (31.0-37.0); MEAN PLATELET VOLUME 9.7 fl (7.0-11.0); RBC 4.2 10^6/uL (3.5-6.1); RED CELL DISTRIBUTION WIDTH 16.2 % (11.5-14.5); WHITE BLOOD COUNT 17.4 10^3/ul (4.5-11.0)
[2017-11-29 02:45] LABS: VENOUS BLOOD PH 7.12 (7.32-7.43)
[2017-11-29 02:58] LABS: ALB/GLOB RATIO 1.4 (1.1-1.8); CALCIUM 7.9 mg/dL (8.4-10.5)
[2017-11-29 03:02] LABS: PARTIAL THROMBOPLASTIN TIME 25.6 Seconds (25.1-36.5); PROTHROMBIN TIME 11.4 SECONDS (9.4-12.5)
[2017-11-29 03:45] LABS: ARTERIAL BLOOD GAS HCO3 14.7 mmol/L (21-28); ARTERIAL BLOOD GAS O2 SAT 99.7 % (95-98); ARTERIAL BLOOD GAS PCO2 35 mm/Hg (35-45); ARTERIAL BLOOD GAS PH 7.23 (7.35-7.45); ARTERIAL BLOOD GAS TCO2 15.8 mmol.L (22-28)
[2017-11-29] MEDS ORDERED: Sodium Bicarbonate (8.4%) 50 Meq Syringe IVP ONE (03:55)
[2017-11-29] MEDS: Sodium Chloride 0.9% 1,000 ML IV SCH (07:06)
[2017-11-29 07:08] LABS: VENOUS BLOOD GAS BASE EXCESS -11.3 mmol/L (0.0-2.0); VENOUS BLOOD GAS PO2 43 mm/Hg (30-55)
[2017-11-29 07:09] LABS: GRAN # 12.76 (1.4-6.5); GRAN % 85.2 % (50.0-68.0); HEMOGLOBIN 10.1 g/dL (12.0-16.0); LYMPH # 1.3 (1.2-3.4); MEAN CORPUSCULAR HEMOGLOBIN 25.5 pg (25.0-35.0); MEAN PLATELET VOLUME 9.9 fl (7.0-11.0); MONO # 0.9 (0.1-0.6); MONO % 5.8 % (1.0-6.0); RBC 3.96 10^6/uL (3.5-6.1); RED CELL DISTRIBUTION WIDTH 16.3 % (11.5-14.5)
[2017-11-29 07:15] LABS: VENOUS BLOOD PH 7.11 (7.32-7.43)
[2017-11-29 07:16] LABS: INR 1.01 (0.93-1.08); PROTHROMBIN TIME 11.6 SECONDS (9.4-12.5)
[2017-11-29] MEDS ORDERED: Magnesium Sulfate 1 gm in D5W 1 GM/100 ML BAG IVPB ONE (07:41)
[2017-11-29 07:48] LABS: CALCIUM 7.3 mg/dL (8.4-10.5); GFR AFRICAN-AMERICAN 51; GFR NON-AFRICAN AMERICAN 43; HDL CHOLESTEROL 79 mg/dL (29-60)
[2017-11-29 07:54] LABS: ALB/GLOB RATIO 1.3 (1.1-1.8); ALBUMIN 3.8 g/dL (3.0-4.8); ALT/SGPT 217 U/L (7-56); AST/SGOT 332 U/L (14-36); BLOOD UREA NITROGEN 21 mg/dL (7-21)
[2017-11-29 08:13] LABS: LDL CHOLESTEROL < 30 mg/dL (0-129)
[2017-11-29] MEDS ORDERED: Heparin25000 units/250ml 1/2NS 25,000 UNITS/250 ML BAG IV SCH (08:15)
--- NOTE | 2017-11-29 08:21 | CP.CCUPN ---
<Lorenzo Stern - Last Filed: 11/29/17 14:19> CCU Subjective - Physician Review Subjective (Free Text): Patient seen and examined at bedside sedated and intubated. PRVC settings FiO2 40 PEEP 5 RR 20 TV 400. 11/29/17 14:21 CCU Objective - Vital Signs / Intake & Output Vital Signs (Last 4 hours): Vital Signs Pulse BP Pulse Ox 11/29/17 06:00 48 L 11/29/17 04:30 44 L 126/68 100 Intake and Output (Last 8hrs): Intake & Output 11/28/17 11/29/17 11/29/17 22:59 06:59 14:59 Intake Total 200 Balance 200 Weight 124.738 kg Intake: IV 200 Other: Voiding Method Indwelling Catheter - Physical Exam Head: Positive for: Atraumatic, Normocephalic Pupils: Positive for: Pinpoint Extroacular Muscles: Positive for: Other (opens eyes spontaneously) Mouth: Positive for: Moist Mucous Membranes, Other (+ gag, ETT tube in oropharynx) Respiratory/Chest: Positive for: Clear to Auscultation, Other (clear with bagging b/l) Cardiovascular: Positive for: Regular Rate and Rhythm, Bradycardic Abdomen: Negative for: Distention Breast/Axillary: Positive for: Other (moist axilla) Upper Extremity: Positive for: Normal Inspection, Other (spontaneous non- purposeful movement of upper extremities) Lower Extremity: Positive for: Normal Inspection, Other (no movement) Neurological: Negative for: GCS=15 (3), Speech Normal Skin: Positive for: Cold Psychiatric: Positive for: Other (intubated) - Medications Active Medications: Active Medications Generic Name Dose Route Start Last Admin Trade Name Freq PRN Reason Stop Dose Admin Cefepime HCl 2 gm in 100 mls @ 100 mls/hr 11/28/17 22:00 11/28/17 22:41 Maxipime 2gm IVPB 12/03/17 22:01 100 mls/hr Q12 ANTONINO Administration Protocol Vancomycin HCl 1 gm in 250 mls @ 167 mls/hr 11/29/17 10:00 Vancomycin 1gm IVPB DAILY ANTONINO Protocol Sodium Chloride 1,000 mls @ 100 mls/hr 11/28/17 19:45 11/28/17 22:25 Sodium Chloride 0.9% IV 100 mls/hr .Q10H ANTONINO Administration Propofol 1,000 mg in 100 mls @ 3.742 mls/hr 11/28/17 19:00 11/29/17 03:59 Diprivan IV 25 mcg/kg/min .Q24H PRN 18.711 mls/hr TITRATE PER MD ORDER Administration Protocol 5 MCG/KG/MIN Calcium Gluconate 1,000 mg/ 110 mls @ 110 mls/hr 11/29/17 07:41 Dextrose IVPB 11/29/17 08:40 ONCE ONE Magnesium Sulfate/Dextrose 1 gm in 100 mls @ 100 mls/hr 11/29/17 07:41 Magnesium Sulfate 1 Gm/100 Ml D5w IVPB 11/29/17 08:40 ONCE ONE Heparin Sodium/Sodium Chloride 25,000 units in 250 mls @ 14.969 mls/hr 08:15 Heparin 17499 Units/250ml 1/2 Normal Saline IV .[id number] ANTONINO Protocol 12 UNITS/KG/HR Pantoprazole Sodium 40 mg 11/28/17 22:00 11/28/17 22:25 Protonix Inj IVP 40 mg Q12 ANTONINO Administration - Patient Studies Lab Studies: Lab Studies 11/29/17 11/29/17 11/29/17 Range/Units 06:50 06:50 06:50 WBC (4.5-11.0) 10^3/ul RBC (3.5-6.1) 10^6/uL Hgb (12.0-16.0) g/dL Hct (36.0-48.0) % MCV (80.0-105.0) fl MCH (25.0-35.0) pg MCHC (31.0-37.0) g/dl RDW (11.5-14.5) % Plt Count (120.0-450.0) 10^3/uL MPV (7.0-11.0) fl Gran % (50.0-68.0) % Lymph % (Auto) (22.0-35.0) % Ransom % (Auto) (1.0-6.0) % Eos % (Auto) (1.5-5.0) % Baso % (Auto) (0.0-3.0) % Gran # (1.4-6.5) Lymph # (Auto) (1.2-3.4) Ransom # (Auto) (0.1-0.6) Eos # (Auto) (0.0-0.7) Baso # (Auto) (0.0-2.0) K/mm3 PT 11.6 (9.4-12.5) SECONDS INR 1.01 (0.93-1.08) APTT 27.0 (25.1-36.5) Seconds pCO2 (35-45) mm/Hg pO2 43 (30-55) mm/Hg HCO3 (21-28) mmol/L ABG pH (7.35-7.45) ABG Total CO2 (22-28) mmol.L ABG O2 Saturation (95-98) % ABG Base Excess (-2.0-3.0) mmol/L ABG Potassium (3.6-5.2) mmol/L VBG pH 7.11 L* (7.32-7.43) VBG pCO2 59.0 (40-60) VBG HCO3 18.7 L (21-28) mmol/l VBG Total CO2 20.5 L (22-28) mmol.L VBG O2 Sat (Calc) 77.4 H (40-65) % VBG Base Excess -11.3 L (0.0-2.0) mmol/L VBG Potassium 3.9 (3.6-5.2) mmol/L Sodium 138.0 141 (132-148) mmol/L Chloride 109.0 H 109 H (98-107) mmol/L Glucose 116 H (65-105) mg/dl Lactate 4.0 H* (0.7-2.1) mmol/L Mechanical Rate FiO2 21.0 % Tidal Volume PEEP Potassium 4.1 (3.6-5.0) mmol/L Carbon Dioxide 16 L (21-33) mmol/L Anion Gap 21 H (10-20) BUN 21 (7-21) mg/dL Creatinine 1.3 H (0.7-1.2) mg/dl Est GFR ( Amer) 51 Est GFR (Non-Af Amer) 43 POC Glucose (mg/dL) (65-110) mg/dL Random Glucose 110 (70-110) mg/dL Calcium 7.3 L (8.4-10.5) mg/dL Phosphorus 3.6 (2.5-4.5) mg/dL Magnesium 1.5 L (1.7-2.2) mg/dL Total Bilirubin 0.7 (0.2-1.3) mg/dL AST 332 H (14-36) U/L ALT 217 H (7-56) U/L Alkaline Phosphatase 86 (38-126) U/L Troponin I 3.29 H* D ng/mL Total Protein 6.7 (5.8-8.3) g/dL Albumin 3.8 (3.0-4.8) g/dL Globulin 2.9 gm/dL Albumin/Globulin Ratio 1.3 (1.1-1.8) Cholesterol 170 (130-200) mg/dL LDL Cholesterol Direct < 30 (0-129) mg/dL HDL Cholesterol 79 H (29-60) mg/dL Arterial Blood Potassium (3.6-5.2) mmol/L Venous Blood Potassium 3.9 (3.6-5.2) mmol/L Urine Color (YELLOW) Urine Appearance (CLEAR) Urine pH (4.7-8.0) Ur Specific Wolcott (1.005-1.035) Urine Protein (<30 mg/dL) mg/dL Urine Glucose (UA) (NEGATIVE) mg/dL Urine Ketones (NEGATIVE) mg/dL Urine Blood (NEGATIVE) Urine Nitrate (NEGATIVE) Urine Bilirubin (NEGATIVE) Urine Urobilinogen (<1 E.U./dL) E.U./dL Ur Leukocyte Esterase (NEGATIVE) Tree/uL Urine RBC (0-2) /hpf Urine WBC (0-6) /hpf Urine Bacteria (NEG) Coarse Granular Casts (0-2) /hpf Urine Opiates Screen (NEGATIVE) Urine Methadone Screen (NEGATIVE) Ur Barbiturates Screen (NEGATIVE) Ur Phencyclidine Scrn (NEGATIVE) Ur Amphetamines Screen (NEGATIVE) U Benzodiazepines Scrn (NEGATIVE) U Oth Cocaine Metabols (NEGATIVE) U Cannabinoids Screen (NEGATIVE) 11/29/17 11/29/17 11/29/17 Range/Units 06:50 03:41 02:07 WBC 15.0 H (4.5-11.0) 10^3/ul RBC 3.96 (3.5-6.1) 10^6/uL Hgb 10.1 L (12.0-16.0) g/dL Hct 29.7 L (36.0-48.0) % MCV 75.0 L (80.0-105.0) fl MCH 25.5 (25.0-35.0) pg MCHC 34.0 (31.0-37.0) g/dl RDW 16.3 H (11.5-14.5) % Plt Count 294 (120.0-450.0) 10^3/uL MPV 9.9 (7.0-11.0) fl Gran % 85.2 H (50.0-68.0) % Lymph % (Auto) 9.0 L (22.0-35.0) % Ransom % (Auto) 5.8 (1.0-6.0) % Eos % (Auto) 0.0 L (1.5-5.0) % Baso % (Auto) 0.0 (0.0-3.0) % Gran # 12.76 H (1.4-6.5) Lymph # (Auto) 1.3 (1.2-3.4) Ransom # (Auto) 0.9 H (0.1-0.6) Eos # (Auto) 0.0 (0.0-0.7) Baso # (Auto) 0.00 (0.0-2.0) K/mm3 PT 11.4 (9.4-12.5) SECONDS INR 1.00 (0.93-1.08) APTT 25.6 (25.1-36.5) Seconds pCO2 35 (35-45) mm/Hg pO2 237.0 H (30-55) mm/Hg HCO3 14.7 L (21-28) mmol/L ABG pH 7.23 L (7.35-7.45) ABG Total CO2 15.8 L (22-28) mmol.L ABG O2 Saturation 99.7 H (95-98) % ABG Base Excess -11.9 L (-2.0-3.0) mmol/L ABG Potassium 3.4 L (3.6-5.2) mmol/L VBG pH (7.32-7.43) VBG pCO2 (40-60) VBG HCO3 (21-28) mmol/l VBG Total CO2 (22-28) mmol.L VBG O2 Sat (Calc) (40-65) % VBG Base Excess (0.0-2.0) mmol/L VBG Potassium (3.6-5.2) mmol/L Sodium 146.0 (132-148) mmol/L Chloride 120.0 H (98-107) mmol/L Glucose 178 H (65-105) mg/dl Lactate 2.9 H (0.7-2.1) mmol/L Mechanical Rate 20 FiO2 60.0 % Tidal Volume 400 PEEP 5 Potassium (3.6-5.0) mmol/L Carbon Dioxide (21-33) mmol/L Anion Gap (10-20) BUN (7-21) mg/dL Creatinine (0.7-1.2) mg/dl Est GFR ( Amer) Est GFR (Non-Af Amer) POC Glucose (mg/dL) (65-110) mg/dL Random Glucose (70-110) mg/dL Calcium (8.4-10.5) mg/dL Phosphorus (2.5-4.5) mg/dL Magnesium (1.7-2.2) mg/dL Total Bilirubin (0.2-1.3) mg/dL AST (14-36) U/L ALT (7-56) U/L Alkaline Phosphatase (38-126) U/L Troponin I ng/mL Total Protein (5.8-8.3) g/dL Albumin (3.0-4.8) g/dL Globulin gm/dL Albumin/Globulin Ratio (1.1-1.8) Cholesterol (130-200) mg/dL LDL Cholesterol Direct (0-129) mg/dL HDL Cholesterol (29-60) mg/dL Arterial Blood Potassium 3.4 L (3.6-5.2) mmol/L Venous Blood Potassium (3.6-5.2) mmol/L Urine Color (YELLOW) Urine Appearance (CLEAR) Urine pH (4.7-8.0) Ur Specific Wolcott (1.005-1.035) Urine Protein (<30 mg/dL) mg/dL Urine Glucose (UA) (NEGATIVE) mg/dL Urine Ketones (NEGATIVE) mg/dL Urine Blood (NEGATIVE) Urine Nitrate (NEGATIVE) Urine Bilirubin (NEGATIVE) Urine Urobilinogen (<1 E.U./dL) E.U./dL Ur Leukocyte Esterase (NEGATIVE) Tree/uL Urine RBC (0-2) /hpf Urine WBC (0-6) /hpf Urine Bacteria (NEG) Coarse Granular Casts (0-2) /hpf Urine Opiates Screen (NEGATIVE) Urine Methadone Screen (NEGATIVE) Ur Barbiturates Screen (NEGATIVE) Ur Phencyclidine Scrn (NEGATIVE) Ur Amphetamines Screen (NEGATIVE) U Benzodiazepines Scrn (NEGATIVE) U Oth Cocaine Metabols (NEGATIVE) U Cannabinoids Screen (NEGATIVE) 11/29/17 11/29/17 11/29/17 Range/Units 02:07 02:07 02:07 WBC 17.4 H (4.5-11.0) 10^3/ul RBC 4.20 (3.5-6.1) 10^6/uL Hgb 10.5 L (12.0-16.0) g/dL Hct 31.6 L (36.0-48.0) % MCV 75.2 L (80.0-105.0) fl MCH 25.0 (25.0-35.0) pg MCHC 33.2 (31.0-37.0) g/dl RDW 16.2 H (11.5-14.5) % Plt Count 324 (120.0-450.0) 10^3/uL MPV 9.7 (7.0-11.0) fl Gran % (50.0-68.0) % Lymph % (Auto) (22.0-35.0) % Ransom % (Auto) (1.0-6.0) % Eos % (Auto) (1.5-5.0) % Baso % (Auto) (0.0-3.0) % Gran # (1.4-6.5) Lymph # (Auto) (1.2-3.4) Ransom # (Auto) (0.1-0.6) Eos # (Auto) (0.0-0.7) Baso # (Auto) (0.0-2.0) K/mm3 PT (9.4-12.5) SECONDS INR (0.93-1.08) APTT (25.1-36.5) Seconds pCO2 (35-45) mm/Hg pO2 27 L (30-55) mm/Hg HCO3 (21-28) mmol/L ABG pH (7.35-7.45) ABG Total CO2 (22-28) mmol.L ABG O2 Saturation (95-98) % ABG Base Excess (-2.0-3.0) mmol/L ABG Potassium (3.6-5.2) mmol/L VBG pH 7.12 L* (7.32-7.43) VBG pCO2 56.0 (40-60) VBG HCO3 18.2 L (21-28) mmol/l VBG Total CO2 19.9 L (22-28) mmol.L VBG O2 Sat (Calc) 48.3 (40-65) % VBG Base Excess -11.5 L (0.0-2.0) mmol/L VBG Potassium 3.7 (3.6-5.2) mmol/L Sodium 142 139.0 (132-148) mmol/L Chloride 110 H 110.0 H (98-107) mmol/L Glucose 178 H (65-105) mg/dl Lactate 3.4 H (0.7-2.1) mmol/L Mechanical Rate FiO2 21.0 % Tidal Volume PEEP Potassium 3.8 (3.6-5.0) mmol/L Carbon Dioxide 17 L (21-33) mmol/L Anion Gap 19 (10-20) BUN 18 (7-21) mg/dL Creatinine 1.4 H (0.7-1.2) mg/dl Est GFR ( Amer) 47 Est GFR (Non-Af Amer) 39 POC Glucose (mg/dL) (65-110) mg/dL Random Glucose 170 H (70-110) mg/dL Calcium 7.9 L (8.4-10.5) mg/dL Phosphorus 3.5 (2.5-4.5) mg/dL Magnesium 1.6 L (1.7-2.2) mg/dL Total Bilirubin 0.2 (0.2-1.3) mg/dL AST 372 H D (14-36) U/L ALT 258 H (7-56) U/L Alkaline Phosphatase 96 (38-126) U/L Troponin I ng/mL Total Protein 6.8 (5.8-8.3) g/dL Albumin 4.0 (3.0-4.8) g/dL Globulin 2.8 gm/dL Albumin/Globulin Ratio 1.4 (1.1-1.8) Cholesterol (130-200) mg/dL LDL Cholesterol Direct (0-129) mg/dL HDL Cholesterol (29-60) mg/dL Arterial Blood Potassium (3.6-5.2) mmol/L Venous Blood Potassium 3.7 (3.6-5.2) mmol/L Urine Color (YELLOW) Urine Appearance (CLEAR) Urine pH (4.7-8.0) Ur Specific Wolcott (1.005-1.035) Urine Protein (<30 mg/dL) mg/dL Urine Glucose (UA) (NEGATIVE) mg/dL Urine Ketones (NEGATIVE) mg/dL Urine Blood (NEGATIVE) Urine Nitrate (NEGATIVE) Urine Bilirubin (NEGATIVE) Urine Urobilinogen (<1 E.U./dL) E.U./dL Ur Leukocyte Esterase (NEGATIVE) Tree/uL Urine RBC (0-2) /hpf Urine WBC (0-6) /hpf Urine Bacteria (NEG) Coarse Granular Casts (0-2) /hpf Urine Opiates Screen (NEGATIVE) Urine Methadone Screen (NEGATIVE) Ur Barbiturates Screen (NEGATIVE) Ur Phencyclidine Scrn (NEGATIVE) Ur Amphetamines Screen (NEGATIVE) U Benzodiazepines Scrn (NEGATIVE) U Oth Cocaine Metabols (NEGATIVE) U Cannabinoids Screen (NEGATIVE) 11/29/17 11/28/17 11/28/17 Range/Units 01:13 21:40 21:40 WBC (4.5-11.0) 10^3/ul RBC (3.5-6.1) 10^6/uL Hgb (12.0-16.0) g/dL Hct (36.0-48.0) % MCV (80.0-105.0) fl MCH (25.0-35.0) pg MCHC (31.0-37.0) g/dl RDW (11.5-14.5) % Plt Count (120.0-450.0) 10^3/uL MPV (7.0-11.0) fl Gran % (50.0-68.0) % Lymph % (Auto) (22.0-35.0) % Ransom % (Auto) (1.0-6.0) % Eos % (Auto) (1.5-5.0) % Baso % (Auto) (0.0-3.0) % Gran # (1.4-6.5) Lymph # (Auto) (1.2-3.4) Ransom # (Auto) (0.1-0.6) Eos # (Auto) (0.0-0.7) Baso # (Auto) (0.0-2.0) K/mm3 PT (9.4-12.5) SECONDS INR (0.93-1.08) APTT (25.1-36.5) Seconds pCO2 (35-45) mm/Hg pO2 (30-55) mm/Hg HCO3 (21-28) mmol/L ABG pH (7.35-7.45) ABG Total CO2 (22-28) mmol.L ABG O2 Saturation (95-98) % ABG Base Excess (-2.0-3.0) mmol/L ABG Potassium (3.6-5.2) mmol/L VBG pH (7.32-7.43) VBG pCO2 (40-60) VBG HCO3 (21-28) mmol/l VBG Total CO2 (22-28) mmol.L VBG O2 Sat (Calc) (40-65) % VBG Base Excess (0.0-2.0) mmol/L VBG Potassium (3.6-5.2) mmol/L Sodium (132-148) mmol/L Chloride (98-107) mmol/L Glucose (65-105) mg/dl Lactate (0.7-2.1) mmol/L Mechanical Rate FiO2 % Tidal Volume PEEP Potassium (3.6-5.0) mmol/L Carbon Dioxide (21-33) mmol/L Anion Gap (10-20) BUN (7-21) mg/dL Creatinine (0.7-1.2) mg/dl Est GFR ( Amer) Est GFR (Non-Af Amer) POC Glucose (mg/dL) 169 H (65-110) mg/dL Random Glucose (70-110) mg/dL Calcium (8.4-10.5) mg/dL Phosphorus (2.5-4.5) mg/dL Magnesium (1.7-2.2) mg/dL Total Bilirubin (0.2-1.3) mg/dL AST (14-36) U/L ALT (7-56) U/L Alkaline Phosphatase (38-126) U/L Troponin I ng/mL Total Protein (5.8-8.3) g/dL Albumin (3.0-4.8) g/dL Globulin gm/dL Albumin/Globulin Ratio (1.1-1.8) Cholesterol (130-200) mg/dL LDL Cholesterol Direct (0-129) mg/dL HDL Cholesterol (29-60) mg/dL Arterial Blood Potassium (3.6-5.2) mmol/L Venous Blood Potassium (3.6-5.2) mmol/L Urine Color Yellow (YELLOW) Urine Appearance Turbid (CLEAR) Urine pH 5.0 (4.7-8.0) Ur Specific Wolcott 1.025 (1.005-1.035) Urine Protein 30 H (<30 mg/dL) mg/dL Urine Glucose (UA) Negative (NEGATIVE) mg/dL Urine Ketones Negative (NEGATIVE) mg/dL Urine Blood Large H (NEGATIVE) Urine Nitrate Negative (NEGATIVE) Urine Bilirubin Negative (NEGATIVE) Urine Urobilinogen 0.2 (<1 E.U./dL) E.U./dL Ur Leukocyte Esterase Negative (NEGATIVE) Tree/uL Urine RBC 1 - 3 (0-2) /hpf Urine WBC 0 - 2 (0-6) /hpf Urine Bacteria Few (NEG) Coarse Granular Casts Large H (0-2) /hpf Urine Opiates Screen Negative (NEGATIVE) Urine Methadone Screen Negative (NEGATIVE) Ur Barbiturates Screen Negative (NEGATIVE) Ur Phencyclidine Scrn Negative (NEGATIVE) Ur Amphetamines Screen Negative (NEGATIVE) U Benzodiazepines Scrn Positive (NEGATIVE) U Oth Cocaine Metabols Negative (NEGATIVE) U Cannabinoids Screen Negative (NEGATIVE) 11/28/17 11/28/17 Range/Units 20:30 20:30 WBC (4.5-11.0) 10^3/ul RBC (3.5-6.1) 10^6/uL Hgb (12.0-16.0) g/dL Hct (36.0-48.0) % MCV (80.0-105.0) fl MCH (25.0-35.0) pg MCHC (31.0-37.0) g/dl RDW (11.5-14.5) % Plt Count (120.0-450.0) 10^3/uL MPV (7.0-11.0) fl Gran % (50.0-68.0) % Lymph % (Auto) (22.0-35.0) % Ransom % (Auto) (1.0-6.0) % Eos % (Auto) (1.5-5.0) % Baso % (Auto) (0.0-3.0) % Gran # (1.4-6.5) Lymph # (Auto) (1.2-3.4) Ransom # (Auto) (0.1-0.6) Eos # (Auto) (0.0-0.7) Baso # (Auto) (0.0-2.0) K/mm3 PT (9.4-12.5) SECONDS INR (0.93-1.08) APTT (25.1-36.5) Seconds pCO2 (35-45) mm/Hg pO2 44 (30-55) mm/Hg HCO3 (21-28) mmol/L ABG pH (7.35-7.45) ABG Total CO2 (22-28) mmol.L ABG O2 Saturation (95-98) % ABG Base Excess (-2.0-3.0) mmol/L ABG Potassium (3.6-5.2) mmol/L VBG pH 7.14 L* (7.32-7.43) VBG pCO2 50.0 (40-60) VBG HCO3 17.0 L (21-28) mmol/l VBG Total CO2 18.5 L (22-28) mmol.L VBG O2 Sat (Calc) 75.7 H (40-65) % VBG Base Excess -12.0 L (0.0-2.0) mmol/L VBG Potassium 4.3 (3.6-5.2) mmol/L Sodium 144.0 (132-148) mmol/L Chloride 118.0 H (98-107) mmol/L Glucose 241 H (65-105) mg/dl Lactate 2.2 H (0.7-2.1) mmol/L Mechanical Rate FiO2 21.0 % Tidal Volume PEEP Potassium (3.6-5.0) mmol/L Carbon Dioxide (21-33) mmol/L Anion Gap (10-20) BUN (7-21) mg/dL Creatinine (0.7-1.2) mg/dl Est GFR ( Amer) Est GFR (Non-Af Amer) POC Glucose (mg/dL) (65-110) mg/dL Random Glucose (70-110) mg/dL Calcium (8.4-10.5) mg/dL Phosphorus (2.5-4.5) mg/dL Magnesium (1.7-2.2) mg/dL Total Bilirubin (0.2-1.3) mg/dL AST (14-36) U/L ALT (7-56) U/L Alkaline Phosphatase (38-126) U/L Troponin I 1.32 H* D ng/mL Total Protein (5.8-8.3) g/dL Albumin (3.0-4.8) g/dL Globulin gm/dL Albumin/Globulin Ratio (1.1-1.8) Cholesterol (130-200) mg/dL LDL Cholesterol Direct (0-129) mg/dL HDL Cholesterol (29-60) mg/dL Arterial Blood Potassium (3.6-5.2) mmol/L Venous Blood Potassium 4.3 (3.6-5.2) mmol/L Urine Color (YELLOW) Urine Appearance (CLEAR) Urine pH (4.7-8.0) Ur Specific Wolcott (1.005-1.035) Urine Protein (<30 mg/dL) mg/dL Urine Glucose (UA) (NEGATIVE) mg/dL Urine Ketones (NEGATIVE) mg/dL Urine Blood (NEGATIVE) Urine Nitrate (NEGATIVE) Urine Bilirubin (NEGATIVE) Urine Urobilinogen (<1 E.U./dL) E.U./dL Ur Leukocyte Esterase (NEGATIVE) Tree/uL Urine RBC (0-2) /hpf Urine WBC (0-6) /hpf Urine Bacteria (NEG) Coarse Granular Casts (0-2) /hpf Urine Opiates Screen (NEGATIVE) Urine Methadone Screen (NEGATIVE) Ur Barbiturates Screen (NEGATIVE) Ur Phencyclidine Scrn (NEGATIVE) Ur Amphetamines Screen (NEGATIVE) U Benzodiazepines Scrn (NEGATIVE) U Oth Cocaine Metabols (NEGATIVE) U Cannabinoids Screen (NEGATIVE) Laboratory Results - last 24 hr 11/28/17 11/28/17 11/28/17 20:30 20:30 21:40 WBC RBC Hgb Hct MCV MCH MCHC RDW Plt Count MPV Gran % Lymph % (Auto) Ransom % (Auto) Eos % (Auto) Baso % (Auto) Gran # Lymph # (Auto) Ransom # (Auto) Eos # (Auto) Baso # (Auto) PT INR APTT pCO2 pO2 44 HCO3 ABG pH ABG Total CO2 ABG O2 Saturation ABG Base Excess ABG Potassium VBG pH 7.14 L* VBG pCO2 50.0 VBG HCO3 17.0 L VBG Total CO2 18.5 L VBG O2 Sat (Calc) 75.7 H VBG Base Excess -12.0 L VBG Potassium 4.3 Sodium 144.0 Chloride 118.0 H Glucose 241 H Lactate 2.2 H Mechanical Rate FiO2 21.0 Tidal Volume PEEP Potassium Carbon Dioxide Anion Gap BUN Creatinine Est GFR ( Amer) Est GFR (Non-Af Amer) POC Glucose (mg/dL) Random Glucose Calcium Phosphorus Magnesium Total Bilirubin AST ALT Alkaline Phosphatase Troponin I 1.32 H* D Total Protein Albumin Globulin Albumin/Globulin Ratio Cholesterol LDL Cholesterol Direct HDL Cholesterol Arterial Blood Potassium Venous Blood Potassium 4.3 Urine Color Yellow Urine Appearance Turbid Urine pH 5.0 Ur Specific Wolcott 1.025 Urine Protein 30 H Urine Glucose (UA) Negative Urine Ketones Negative Urine Blood Large H Urine Nitrate Negative Urine Bilirubin Negative Urine Urobilinogen 0.2 Ur Leukocyte Esterase Negative Urine RBC 1 - 3 Urine WBC 0 - 2 Urine Bacteria Few Coarse Granular Casts Large H Urine Opiates Screen Urine Methadone Screen Ur Barbiturates Screen Ur Phencyclidine Scrn Ur Amphetamines Screen U Benzodiazepines Scrn U Oth Cocaine Metabols U Cannabinoids Screen 11/28/17 11/29/17 11/29/17 21:40 01:13 02:07 WBC RBC Hgb Hct MCV MCH MCHC RDW Plt Count MPV Gran % Lymph % (Auto) Ransom % (Auto) Eos % (Auto) Baso % (Auto) Gran # Lymph # (Auto) Ransom # (Auto) Eos # (Auto) Baso # (Auto) PT INR APTT pCO2 pO2 27 L HCO3 ABG pH ABG Total CO2 ABG O2 Saturation ABG Base Excess ABG Potassium VBG pH 7.12 L* VBG pCO2 56.0 VBG HCO3 18.2 L VBG Total CO2 19.9 L VBG O2 Sat (Calc) 48.3 VBG Base Excess -11.5 L VBG Potassium 3.7 Sodium 139.0 Chloride 110.0 H Glucose 178 H Lactate 3.4 H Mechanical Rate FiO2 21.0 Tidal Volume PEEP Potassium Carbon Dioxide Anion Gap BUN Creatinine Est GFR ( Amer) Est GFR (Non-Af Amer) POC Glucose (mg/dL) 169 H Random Glucose Calcium Phosphorus Magnesium Total Bilirubin AST ALT Alkaline Phosphatase Troponin I Total Protein Albumin Globulin Albumin/Globulin Ratio Cholesterol LDL Cholesterol Direct HDL Cholesterol Arterial Blood Potassium Venous Blood Potassium 3.7 Urine Color Urine Appearance Urine pH Ur Specific [place] Urine Protein Urine Glucose (UA) Urine Ketones Urine Blood Urine Nitrate Urine Bilirubin Urine Urobilinogen Ur Leukocyte Esterase Urine RBC Urine WBC Urine Bacteria Coarse Granular Casts Urine Opiates Screen Negative Urine Methadone Screen Negative Ur Barbiturates Screen Negative Ur Phencyclidine Scrn Negative Ur Amphetamines Screen Negative U Benzodiazepines Scrn Positive U Oth Cocaine Metabols Negative U Cannabinoids Screen Negative 11/29/17 11/29/17 11/29/17 02:07 02:07 02:07 WBC 17.4 H RBC 4.20 Hgb 10.5 L Hct 31.6 L MCV 75.2 L MCH 25.0 MCHC 33.2 RDW 16.2 H Plt Count 324 MPV 9.7 Gran % Lymph % (Auto) Ransom % (Auto) Eos % (Auto) Baso % (Auto) Gran # Lymph # (Auto) Ransom # (Auto) Eos # (Auto) Baso # (Auto) PT 11.4 INR 1.00 APTT 25.6 pCO2 pO2 HCO3 ABG pH ABG Total CO2 ABG O2 Saturation ABG Base Excess ABG Potassium VBG pH VBG pCO2 VBG HCO3 VBG Total CO2 VBG O2 Sat (Calc) VBG Base Excess VBG Potassium Sodium 142 Chloride 110 H Glucose Lactate Mechanical Rate FiO2 Tidal Volume PEEP Potassium 3.8 Carbon Dioxide 17 L Anion Gap 19 BUN 18 Creatinine 1.4 H Est GFR ( Amer) 47 Est GFR (Non-Af Amer) 39 POC Glucose (mg/dL) Random Glucose 170 H Calcium 7.9 L Phosphorus 3.5 Magnesium 1.6 L Total Bilirubin 0.2 AST 372 H D ALT 258 H Alkaline Phosphatase 96 Troponin I Total Protein 6.8 Albumin 4.0 Globulin 2.8 Albumin/Globulin Ratio 1.4 Cholesterol LDL Cholesterol Direct HDL Cholesterol Arterial Blood Potassium Venous Blood Potassium Urine Color Urine Appearance Urine pH Ur Specific [place] Urine Protein Urine Glucose (UA) Urine Ketones Urine Blood Urine Nitrate Urine Bilirubin Urine Urobilinogen Ur Leukocyte Esterase Urine RBC Urine WBC Urine Bacteria Coarse Granular Casts Urine Opiates Screen Urine Methadone Screen Ur Barbiturates Screen Ur Phencyclidine Scrn Ur Amphetamines Screen U Benzodiazepines Scrn U Oth Cocaine Metabols U Cannabinoids Screen 11/29/17 11/29/17 11/29/17 03:41 06:50 06:50 WBC 15.0 H RBC 3.96 Hgb 10.1 L Hct 29.7 L MCV 75.0 L MCH 25.5 MCHC 34.0 RDW 16.3 H Plt Count 294 MPV 9.9 Gran % 85.2 H Lymph % (Auto) 9.0 L Ransom % (Auto) 5.8 Eos % (Auto) 0.0 L Baso % (Auto) 0.0 Gran # 12.76 H Lymph # (Auto) 1.3 Ransom # (Auto) 0.9 H Eos # (Auto) 0.0 Baso # (Auto) 0.00 PT INR APTT pCO2 35 pO2 237.0 H HCO3 14.7 L ABG pH 7.23 L ABG Total CO2 15.8 L ABG O2 Saturation 99.7 H ABG Base Excess -11.9 L ABG Potassium 3.4 L VBG pH VBG pCO2 VBG HCO3 VBG Total CO2 VBG O2 Sat (Calc) VBG Base Excess VBG Potassium Sodium 146.0 141 Chloride 120.0 H 109 H Glucose 178 H Lactate 2.9 H Mechanical Rate 20 FiO2 60.0 Tidal Volume 400 PEEP 5 Potassium 4.1 Carbon Dioxide 16 L Anion Gap 21 H BUN 21 Creatinine 1.3 H Est GFR ( Amer) 51 Est GFR (Non-Af Amer) 43 POC Glucose (mg/dL) Random Glucose 110 Calcium 7.3 L Phosphorus 3.6 Magnesium 1.5 L Total Bilirubin 0.7 AST 332 H ALT 217 H Alkaline Phosphatase 86 Troponin I 3.29 H* D Total Protein 6.7 Albumin 3.8 Globulin 2.9 Albumin/Globulin Ratio 1.3 Cholesterol 170 LDL Cholesterol Direct < 30 HDL Cholesterol 79 H Arterial Blood Potassium 3.4 L Venous Blood Potassium Urine Color Urine Appearance Urine pH Ur Specific [place] Urine Protein Urine Glucose (UA) Urine Ketones Urine Blood Urine Nitrate Urine Bilirubin Urine Urobilinogen Ur Leukocyte Esterase Urine RBC Urine WBC Urine Bacteria Coarse Granular Casts Urine Opiates Screen Urine Methadone Screen Ur Barbiturates Screen Ur Phencyclidine Scrn Ur Amphetamines Screen U Benzodiazepines Scrn U Oth Cocaine Metabols U Cannabinoids Screen 11/29/17 11/29/17 06:50 06:50 WBC RBC Hgb Hct MCV MCH MCHC RDW Plt Count MPV Gran % Lymph % (Auto) Ransom % (Auto) Eos % (Auto) Baso % (Auto) Gran # Lymph # (Auto) Ransom # (Auto) Eos # (Auto) Baso # (Auto) PT 11.6 INR 1.01 APTT 27.0 pCO2 pO2 43 HCO3 ABG pH ABG Total CO2 ABG O2 Saturation ABG Base Excess ABG Potassium VBG pH 7.11 L* VBG pCO2 59.0 VBG HCO3 18.7 L VBG Total CO2 20.5 L VBG O2 Sat (Calc) 77.4 H VBG Base Excess -11.3 L VBG Potassium 3.9 Sodium 138.0 Chloride 109.0 H Glucose 116 H Lactate 4.0 H* Mechanical Rate FiO2 21.0 Tidal Volume PEEP Potassium Carbon Dioxide Anion Gap BUN Creatinine Est GFR ( Amer) Est GFR (Non-Af Amer) POC Glucose (mg/dL) Random Glucose Calcium Phosphorus Magnesium Total Bilirubin AST ALT Alkaline Phosphatase Troponin I Total Protein Albumin Globulin Albumin/Globulin Ratio Cholesterol LDL Cholesterol Direct HDL Cholesterol Arterial Blood Potassium Venous Blood Potassium 3.9 Urine Color Urine Appearance Urine pH Ur Specific [place] Urine Protein Urine Glucose (UA) Urine Ketones Urine Blood Urine Nitrate Urine Bilirubin Urine Urobilinogen Ur Leukocyte Esterase Urine RBC Urine WBC Urine Bacteria Coarse Granular Casts Urine Opiates Screen Urine Methadone Screen Ur Barbiturates Screen Ur Phencyclidine Scrn Ur Amphetamines Screen U Benzodiazepines Scrn U Oth Cocaine Metabols U Cannabinoids Screen Fingerstick Blood Sugar Results: 232 Review of Systems - Review of Systems Systems not reviewed;Unavailable: Intubated Assessment/Plan - Assessment and Plan (Free Text) Assessment: 57 year old female s/p cardiac arrest found to be in ventricular fibrillation presenting with leukocytosis. Neuro/Psych -Intubated and sedated on fentanyl and propofol. Nimbex started. -GCS 4 -Start keppra IV -Neurology consulted -Carbamazepine and keppra level ordered; results pending -Hypothermia protocol Cardiovascular -Maintain MAP>65 -Amiodarone drip discontinued -Maintain normotensive -Elevated cardiac enzymes; previous EKGs show bradycardia, Heparin drip started -Cardiology on consult -Follow up on official echo read -Hypothermia protocol Pulmonary -Maintain SpO2>92% -FiO2 40 PEEP 5 RR 20 TV 400 -Continuous ABGs -EEG performed; results pending Infectious Disease -Leukocytosis; downtrending -Cefepime and vanc started -Procalcitonin pending -CXR negative Endocrine -Maintain euglycemia and hypothermia -TSH within normal limits Renal -LAURITA -Continue with fluids -Maintain euvolemia -Replete electrolytes as needed -Hypocalcemia and Hypomagnesemia; repleted Gastrointestinal -Monitor liver enzymes; elevation most likely due to shock -GI prophylaxis -accuchecks q2 for hypothermia protocol. Start insulin drip if blood glucose > 250 Hematologic -H&H stable -Heparin drip started -Monitor PT/PTT <Daryl Nina - Last Filed: 11/29/17 17:34> CCU Objective - Vital Signs / Intake & Output Vital Signs (Last 4 hours): Vital Signs Temp Pulse BP Pulse Ox 11/29/17 16:31 91.6 F L 97 H 161/69 H 100 11/29/17 16:30 91.6 F L 98 H 100 11/29/17 16:22 91.4 F L 99 H 187/68 H 100 11/29/17 16:20 91.4 F L 100 H 100 11/29/17 16:10 91.2 F L 99 H 204/72 H 98 11/29/17 16:01 90.9 F L 98 H 201/74 H 98 11/29/17 16:00 90.9 F L 98 H 98 11/29/17 15:50 90.7 F L 96 H 98 11/29/17 15:44 90.5 F L 94 H 240/85 H 99 11/29/17 15:42 90.5 F L 94 H 222/91 H 98 11/29/17 15:40 90.3 F L 91 H 98 11/29/17 15:31 90.1 F L 87 233/96 H 98 11/29/17 15:30 90.1 F L 86 99 11/29/17 15:22 90.1 F L 95 H 251/93 H 100 11/29/17 15:20 32.3 F L 84 100 11/29/17 15:15 32.3 F L 78 232/91 H 11/29/17 15:10 32.3 F L 75 100 11/29/17 15:06 32.4 F L 70 252/88 H 100 11/29/17 15:02 32.4 F L 67 239/101 H 11/29/17 15:00 32.5 F L 68 100 11/29/17 14:50 32.7 F L 55 L 100 11/29/17 14:40 33.0 F L 51 L 100 11/29/17 14:32 33.3 F L 51 L 171/85 H 11/29/17 14:30 33.4 F L 47 L 100 11/29/17 14:20 33.5 F L 48 L 100 11/29/17 14:10 33.6 F L 50 L 100 11/29/17 14:00 33.7 F L 56 L 141/79 11/29/17 13:50 33.8 F L 52 L 100 11/29/17 13:40 33.9 F L 51 L 100 11/29/17 13:31 33.9 F L 50 L 144/84 100 11/29/17 13:30 33.9 F L 50 L 100 11/29/17 13:20 34.0 F L 51 L 100 Intake and Output (Last 8hrs): Intake & Output 11/29/17 11/29/17 11/29/17 06:59 14:59 22:59 Intake Total 200 247 154 Balance 200 247 154 Intake: IV 200 247 154 - Medications Active Medications: Active Medications Generic Name Dose Route Start Last Admin Trade Name Freq PRN Reason Stop Dose Admin Cefepime HCl 2 gm in 100 mls @ 100 mls/hr 11/28/17 22:00 11/29/17 09:50 Maxipime 2gm IVPB 12/03/17 22:01 100 mls/hr Q12 ANTONINO Administration Protocol Vancomycin HCl 1 gm in 250 mls @ 167 mls/hr 11/29/17 10:00 11/29/17 11:35 Vancomycin 1gm IVPB 167 mls/hr DAILY ANTONINO Administration Protocol Propofol 1,000 mg in 100 mls @ 3.742 mls/hr 11/28/17 19:00 11/29/17 16:50 Diprivan IV 5 mcg/kg/min .Q24H PRN 3.742 mls/hr TITRATE PER MD ORDER Titration Protocol 5 MCG/KG/MIN Heparin Sodium/Sodium Chloride 25,000 units in 250 mls @ 14.969 mls/hr 08:15 11/29/17 16:53 Heparin 16701 Units/250ml 1/2 Normal Saline IV 0 units/kg/hr .[id number] ANTONINO 0 mls/hr Protocol Titration 12 UNITS/KG/HR Fentanyl Citrate 1,000 mcg in 100 mls @ 2 mls/hr 11/29/17 12:16 11/29/17 14: 49 Fentanyl Citrate/Sodium Chloride 1 Mg/100 Ml IV 0 mcg/hr .Q24H PRN 0 mls/hr TITRATE PER MD ORDER Titration Protocol 20 MCG/HR Cisatracurium Besylate 200 mg/ 270 mls @ 5.05 mls/hr 11/29/17 13:09 11/29/17 15:00 Sodium Chloride IV 0 mcg/kg/min .Q24H PRN 0 mls/hr TITRATE PER MD ORDER Titration Protocol 0.5 MCG/KG/MIN Levetiracetam 1,000 mg/ Sodium 110 mls @ 460 mls/hr 11/30/17 10:00 Chloride IV DAILY ANTONINO Nicardipine HCl 20 mg in 200 mls @ 100 mls/hr 11/29/17 16:36 Cardene Iv Premix IV .Q2H PRN TITRATE PER MD ORDER Protocol 10 MG/HR Potassium Chloride 20 meq in 100 mls @ 50 mls/hr 11/29/17 17:15 Potassium Chloride 20 Meq/100 Ml IVPB 11/29/17 21:14 Q2H ANTONINO Potassium Chloride 20 meq in 100 mls @ 50 mls/hr 11/29/17 17:15 Potassium Chloride 20 Meq/100 Ml IVPB 11/29/17 21:14 Q2H ANTONINO Sodium Bicarbonate 150 meq/ 1,150 mls @ 150 mls/hr 11/29/17 17:15 Dextrose IV .[id number] ANTONINO Pantoprazole Sodium 40 mg 11/28/17 22:00 11/29/17 09:51 Protonix Inj IVP 40 mg Q12 ANTONINO Administration - Patient Studies Lab Studies: Lab Studies 11/29/17 11/29/17 11/29/17 Range/Units 16:19 16:19 16:19 WBC 20.8 H D (4.5-11.0) 10^3/ul RBC 4.25 (3.5-6.1) 10^6/uL Hgb 9.8 L (12.0-16.0) g/dL Hct 31.4 L (36.0-48.0) % MCV 73.9 L (80.0-105.0) fl MCH 23.1 L (25.0-35.0) pg MCHC 31.2 (31.0-37.0) g/dl RDW 16.1 H (11.5-14.5) % Plt Count 305 (120.0-450.0) 10^3/uL MPV 9.4 (7.0-11.0) fl Gran % 82.1 H (50.0-68.0) % Lymph % (Auto) 12.7 L (22.0-35.0) % Ransom % (Auto) 5.2 (1.0-6.0) % Eos % (Auto) 0.0 L (1.5-5.0) % Baso % (Auto) 0.0 (0.0-3.0) % Gran # 17.04 H (1.4-6.5) Lymph # (Auto) 2.6 (1.2-3.4) Ransom # (Auto) 1.1 H (0.1-0.6) Eos # (Auto) 0.0 (0.0-0.7) Baso # (Auto) 0.01 (0.0-2.0) K/mm3 PT (9.4-12.5) SECONDS INR (0.93-1.08) APTT > 400.0 H* (25.1-36.5) Seconds pCO2 (35-45) mm/Hg pO2 (30-55) mm/Hg HCO3 (21-28) mmol/L ABG pH (7.35-7.45) ABG Total CO2 (22-28) mmol.L ABG O2 Saturation (95-98) % ABG Base Excess (-2.0-3.0) mmol/L ABG Potassium (3.6-5.2) mmol/L VBG pH (7.32-7.43) VBG pCO2 (40-60) VBG HCO3 (21-28) mmol/l VBG Total CO2 (22-28) mmol.L VBG O2 Sat (Calc) (40-65) % VBG Base Excess (0.0-2.0) mmol/L VBG Potassium (3.6-5.2) mmol/L Sodium 142 (132-148) mmol/L Chloride 114 H (98-107) mmol/L Glucose (65-105) mg/dl Lactate (0.7-2.1) mmol/L Mechanical Rate FiO2 % Tidal Volume PEEP Potassium 2.6 L* D (3.6-5.0) mmol/L Carbon Dioxide 13 L (21-33) mmol/L Anion Gap 18 (10-20) BUN 24 H (7-21) mg/dL Creatinine 1.2 (0.7-1.2) mg/dl Est GFR ( Amer) 56 Est GFR (Non-Af Amer) 47 POC Glucose (mg/dL) (65-110) mg/dL Random Glucose 353 H* D (70-110) mg/dL Calcium 7.5 L (8.4-10.5) mg/dL Phosphorus (2.5-4.5) mg/dL Magnesium (1.7-2.2) mg/dL Total Bilirubin (0.2-1.3) mg/dL AST (14-36) U/L ALT (7-56) U/L Alkaline Phosphatase (38-126) U/L Troponin I ng/mL Total Protein (5.8-8.3) g/dL Albumin (3.0-4.8) g/dL Globulin gm/dL Albumin/Globulin Ratio (1.1-1.8) Triglycerides (35-160) mg/dL Cholesterol (130-200) mg/dL LDL Cholesterol Direct (0-129) mg/dL HDL Cholesterol (29-60) mg/dL Arterial Blood Potassium (3.6-5.2) mmol/L Venous Blood Potassium (3.6-5.2) mmol/L Urine Color (YELLOW) Urine Appearance (CLEAR) Urine pH (4.7-8.0) Ur Specific Wolcott (1.005-1.035) Urine Protein (<30 mg/dL) mg/dL Urine Glucose (UA) (NEGATIVE) mg/dL Urine Ketones (NEGATIVE) mg/dL Urine Blood (NEGATIVE) Urine Nitrate (NEGATIVE) Urine Bilirubin (NEGATIVE) Urine Urobilinogen (<1 E.U./dL) E.U./dL Ur Leukocyte Esterase (NEGATIVE) Tree/uL Urine RBC (0-2) /hpf Urine WBC (0-6) /hpf Urine Bacteria (NEG) Coarse Granular Casts (0-2) /hpf Urine Opiates Screen (NEGATIVE) Urine Methadone Screen (NEGATIVE) Ur Barbiturates Screen (NEGATIVE) Ur Phencyclidine Scrn (NEGATIVE) Ur Amphetamines Screen (NEGATIVE) U Benzodiazepines Scrn (NEGATIVE) U Oth Cocaine Metabols (NEGATIVE) U Cannabinoids Screen (NEGATIVE) Hepatitis A IgM Ab (NEGATIVE) Hep Bs Antigen (NEGATIVE) Hep B Core IgM Ab (NEGATIVE) Hepatitis C Antibody (NEGATIVE) 11/29/17 11/29/17 11/29/17 Range/Units 12:42 09:10 06:50 WBC (4.5-11.0) 10^3/ul RBC (3.5-6.1) 10^6/uL Hgb (12.0-16.0) g/dL Hct (36.0-48.0) % MCV (80.0-105.0) fl MCH (25.0-35.0) pg MCHC (31.0-37.0) g/dl RDW (11.5-14.5) % Plt Count (120.0-450.0) 10^3/uL MPV (7.0-11.0) fl Gran % (50.0-68.0) % Lymph % (Auto) (22.0-35.0) % Ransom % (Auto) (1.0-6.0) % Eos % (Auto) (1.5-5.0) % Baso % (Auto) (0.0-3.0) % Gran # (1.4-6.5) Lymph # (Auto) (1.2-3.4) Ransom # (Auto) (0.1-0.6) Eos # (Auto) (0.0-0.7) Baso # (Auto) (0.0-2.0) K/mm3 PT (9.4-12.5) SECONDS INR (0.93-1.08) APTT (25.1-36.5) Seconds pCO2 38 (35-45) mm/Hg pO2 150.0 H 43 (30-55) mm/Hg HCO3 16.7 L (21-28) mmol/L ABG pH 7.25 L (7.35-7.45) ABG Total CO2 17.9 L (22-28) mmol.L ABG O2 Saturation 99.9 H (95-98) % ABG Base Excess -9.9 L (-2.0-3.0) mmol/L ABG Potassium 3.3 L (3.6-5.2) mmol/L VBG pH 7.11 L* (7.32-7.43) VBG pCO2 59.0 (40-60) VBG HCO3 18.7 L (21-28) mmol/l VBG Total CO2 20.5 L (22-28) mmol.L VBG O2 Sat (Calc) 77.4 H (40-65) % VBG Base Excess -11.3 L (0.0-2.0) mmol/L VBG Potassium 3.9 (3.6-5.2) mmol/L Sodium 148.0 138.0 (132-148) mmol/L Chloride 121.0 H 109.0 H (98-107) mmol/L Glucose 119 H 116 H (65-105) mg/dl Lactate 2.4 H 4.0 H* (0.7-2.1) mmol/L Mechanical Rate 20 FiO2 40.0 21.0 % Tidal Volume 400 PEEP 5 Potassium (3.6-5.0) mmol/L Carbon Dioxide (21-33) mmol/L Anion Gap (10-20) BUN (7-21) mg/dL Creatinine (0.7-1.2) mg/dl Est GFR ( Amer) Est GFR (Non-Af Amer) POC Glucose (mg/dL) 129 H (65-110) mg/dL Random Glucose (70-110) mg/dL Calcium (8.4-10.5) mg/dL Phosphorus (2.5-4.5) mg/dL Magnesium (1.7-2.2) mg/dL Total Bilirubin (0.2-1.3) mg/dL AST (14-36) U/L ALT (7-56) U/L Alkaline Phosphatase (38-126) U/L Troponin I ng/mL Total Protein (5.8-8.3) g/dL Albumin (3.0-4.8) g/dL Globulin gm/dL Albumin/Globulin Ratio (1.1-1.8) Triglycerides (35-160) mg/dL Cholesterol (130-200) mg/dL LDL Cholesterol Direct (0-129) mg/dL HDL Cholesterol (29-60) mg/dL Arterial Blood Potassium 3.3 L (3.6-5.2) mmol/L Venous Blood Potassium 3.9 (3.6-5.2) mmol/L Urine Color (YELLOW) Urine Appearance (CLEAR) Urine pH (4.7-8.0) Ur Specific Wolcott (1.005-1.035) Urine Protein (<30 mg/dL) mg/dL Urine Glucose (UA) (NEGATIVE) mg/dL Urine Ketones (NEGATIVE) mg/dL Urine Blood (NEGATIVE) Urine Nitrate (NEGATIVE) Urine Bilirubin (NEGATIVE) Urine Urobilinogen (<1 E.U./dL) E.U./dL Ur Leukocyte Esterase (NEGATIVE) Tree/uL Urine RBC (0-2) /hpf Urine WBC (0-6) /hpf Urine Bacteria (NEG) Coarse Granular Casts (0-2) /hpf Urine Opiates Screen (NEGATIVE) Urine Methadone Screen (NEGATIVE) Ur Barbiturates Screen (NEGATIVE) Ur Phencyclidine Scrn (NEGATIVE) Ur Amphetamines Screen (NEGATIVE) U Benzodiazepines Scrn (NEGATIVE) U Oth Cocaine Metabols (NEGATIVE) U Cannabinoids Screen (NEGATIVE) Hepatitis A IgM Ab (NEGATIVE) Hep Bs Antigen (NEGATIVE) Hep B Core IgM Ab (NEGATIVE) Hepatitis C Antibody (NEGATIVE) 11/29/17 11/29/17 11/29/17 Range/Units 06:50 06:50 06:50 WBC 15.0 H (4.5-11.0) 10^3/ul RBC 3.96 (3.5-6.1) 10^6/uL Hgb 10.1 L (12.0-16.0) g/dL Hct 29.7 L (36.0-48.0) % MCV 75.0 L (80.0-105.0) fl MCH 25.5 (25.0-35.0) pg MCHC 34.0 (31.0-37.0) g/dl RDW 16.3 H (11.5-14.5) % Plt Count 294 (120.0-450.0) 10^3/uL MPV 9.9 (7.0-11.0) fl Gran % 85.2 H (50.0-68.0) % Lymph % (Auto) 9.0 L (22.0-35.0) % Ransom % (Auto) 5.8 (1.0-6.0) % Eos % (Auto) 0.0 L (1.5-5.0) % Baso % (Auto) 0.0 (0.0-3.0) % Gran # 12.76 H (1.4-6.5) Lymph # (Auto) 1.3 (1.2-3.4) Ransom # (Auto) 0.9 H (0.1-0.6) Eos # (Auto) 0.0 (0.0-0.7) Baso # (Auto) 0.00 (0.0-2.0) K/mm3 PT 11.6 (9.4-12.5) SECONDS INR 1.01 (0.93-1.08) APTT 27.0 (25.1-36.5) Seconds pCO2 (35-45) mm/Hg pO2 (30-55) mm/Hg HCO3 (21-28) mmol/L ABG pH (7.35-7.45) ABG Total CO2 (22-28) mmol.L ABG O2 Saturation (95-98) % ABG Base Excess (-2.0-3.0) mmol/L ABG Potassium (3.6-5.2) mmol/L VBG pH (7.32-7.43) VBG pCO2 (40-60) VBG HCO3 (21-28) mmol/l VBG Total CO2 (22-28) mmol.L VBG O2 Sat (Calc) (40-65) % VBG Base Excess (0.0-2.0) mmol/L VBG Potassium (3.6-5.2) mmol/L Sodium 141 (132-148) mmol/L Chloride 109 H (98-107) mmol/L Glucose (65-105) mg/dl Lactate (0.7-2.1) mmol/L Mechanical Rate FiO2 % Tidal Volume PEEP Potassium 4.1 (3.6-5.0) mmol/L Carbon Dioxide 16 L (21-33) mmol/L Anion Gap 21 H (10-20) BUN 21 (7-21) mg/dL Creatinine 1.3 H (0.7-1.2) mg/dl Est GFR ( Amer) 51 Est GFR (Non-Af Amer) 43 POC Glucose (mg/dL) (65-110) mg/dL Random Glucose 110 (70-110) mg/dL Calcium 7.3 L (8.4-10.5) mg/dL Phosphorus 3.6 (2.5-4.5) mg/dL Magnesium 1.5 L (1.7-2.2) mg/dL Total Bilirubin 0.7 (0.2-1.3) mg/dL AST 332 H (14-36) U/L ALT 217 H (7-56) U/L Alkaline Phosphatase 86 (38-126) U/L Troponin I 3.29 H* D ng/mL Total Protein 6.7 (5.8-8.3) g/dL Albumin 3.8 (3.0-4.8) g/dL Globulin 2.9 gm/dL Albumin/Globulin Ratio 1.3 (1.1-1.8) Triglycerides 3074 H (35-160) mg/dL Cholesterol 170 (130-200) mg/dL LDL Cholesterol Direct < 30 (0-129) mg/dL HDL Cholesterol 79 H (29-60) mg/dL Arterial Blood Potassium (3.6-5.2) mmol/L Venous Blood Potassium (3.6-5.2) mmol/L Urine Color (YELLOW) Urine Appearance (CLEAR) Urine pH (4.7-8.0) Ur Specific Wolcott (1.005-1.035) Urine Protein (<30 mg/dL) mg/dL Urine Glucose (UA) (NEGATIVE) mg/dL Urine Ketones (NEGATIVE) mg/dL Urine Blood (NEGATIVE) Urine Nitrate (NEGATIVE) Urine Bilirubin (NEGATIVE) Urine Urobilinogen (<1 E.U./dL) E.U./dL Ur Leukocyte Esterase (NEGATIVE) Tree/uL Urine RBC (0-2) /hpf Urine WBC (0-6) /hpf Urine Bacteria (NEG) Coarse Granular Casts (0-2) /hpf Urine Opiates Screen (NEGATIVE) Urine Methadone Screen (NEGATIVE) Ur Barbiturates Screen (NEGATIVE) Ur Phencyclidine Scrn (NEGATIVE) Ur Amphetamines Screen (NEGATIVE) U Benzodiazepines Scrn (NEGATIVE) U Oth Cocaine Metabols (NEGATIVE) U Cannabinoids Screen (NEGATIVE) Hepatitis A IgM Ab (NEGATIVE) Hep Bs Antigen (NEGATIVE) Hep B Core IgM Ab (NEGATIVE) Hepatitis C Antibody (NEGATIVE) 11/29/17 11/29/17 11/29/17 Range/Units 03:41 02:07 02:07 WBC 17.4 H (4.5-11.0) 10^3/ul RBC 4.20 (3.5-6.1) 10^6/uL Hgb 10.5 L (12.0-16.0) g/dL Hct 31.6 L (36.0-48.0) % MCV 75.2 L (80.0-105.0) fl MCH 25.0 (25.0-35.0) pg MCHC 33.2 (31.0-37.0) g/dl RDW 16.2 H (11.5-14.5) % Plt Count 324 (120.0-450.0) 10^3/uL MPV 9.7 (7.0-11.0) fl Gran % (50.0-68.0) % Lymph % (Auto) (22.0-35.0) % Ransom % (Auto) (1.0-6.0) % Eos % (Auto) (1.5-5.0) % Baso % (Auto) (0.0-3.0) % Gran # (1.4-6.5) Lymph # (Auto) (1.2-3.4) Ransom # (Auto) (0.1-0.6) Eos # (Auto) (0.0-0.7) Baso # (Auto) (0.0-2.0) K/mm3 PT 11.4 (9.4-12.5) SECONDS INR 1.00 (0.93-1.08) APTT 25.6 (25.1-36.5) Seconds pCO2 35 (35-45) mm/Hg pO2 237.0 H (30-55) mm/Hg HCO3 14.7 L (21-28) mmol/L ABG pH 7.23 L (7.35-7.45) ABG Total CO2 15.8 L (22-28) mmol.L ABG O2 Saturation 99.7 H (95-98) % ABG Base Excess -11.9 L (-2.0-3.0) mmol/L ABG Potassium 3.4 L (3.6-5.2) mmol/L VBG pH (7.32-7.43) VBG pCO2 (40-60) VBG HCO3 (21-28) mmol/l VBG Total CO2 (22-28) mmol.L VBG O2 Sat (Calc) (40-65) % VBG Base Excess (0.0-2.0) mmol/L VBG Potassium (3.6-5.2) mmol/L Sodium 146.0 (132-148) mmol/L Chloride 120.0 H (98-107) mmol/L Glucose 178 H (65-105) mg/dl Lactate 2.9 H (0.7-2.1) mmol/L Mechanical Rate 20 FiO2 60.0 % Tidal Volume 400 PEEP 5 Potassium (3.6-5.0) mmol/L Carbon Dioxide (21-33) mmol/L Anion Gap (10-20) BUN (7-21) mg/dL Creatinine (0.7-1.2) mg/dl Est GFR ( Amer) Est GFR (Non-Af Amer) POC Glucose (mg/dL) (65-110) mg/dL Random Glucose (70-110) mg/dL Calcium (8.4-10.5) mg/dL Phosphorus (2.5-4.5) mg/dL Magnesium (1.7-2.2) mg/dL Total Bilirubin (0.2-1.3) mg/dL AST (14-36) U/L ALT (7-56) U/L Alkaline Phosphatase (38-126) U/L Troponin I ng/mL Total Protein (5.8-8.3) g/dL Albumin (3.0-4.8) g/dL Globulin gm/dL Albumin/Globulin Ratio (1.1-1.8) Triglycerides (35-160) mg/dL Cholesterol (130-200) mg/dL LDL Cholesterol Direct (0-129) mg/dL HDL Cholesterol (29-60) mg/dL Arterial Blood Potassium 3.4 L (3.6-5.2) mmol/L Venous Blood Potassium (3.6-5.2) mmol/L Urine Color (YELLOW) Urine Appearance (CLEAR) Urine pH (4.7-8.0) Ur Specific Wolcott (1.005-1.035) Urine Protein (<30 mg/dL) mg/dL Urine Glucose (UA) (NEGATIVE) mg/dL Urine Ketones (NEGATIVE) mg/dL Urine Blood (NEGATIVE) Urine Nitrate (NEGATIVE) Urine Bilirubin (NEGATIVE) Urine Urobilinogen (<1 E.U./dL) E.U./dL Ur Leukocyte Esterase (NEGATIVE) Tree/uL Urine RBC (0-2) /hpf Urine WBC (0-6) /hpf Urine Bacteria (NEG) Coarse Granular Casts (0-2) /hpf Urine Opiates Screen (NEGATIVE) Urine Methadone Screen (NEGATIVE) Ur Barbiturates Screen (NEGATIVE) Ur Phencyclidine Scrn (NEGATIVE) Ur Amphetamines Screen (NEGATIVE) U Benzodiazepines Scrn (NEGATIVE) U Oth Cocaine Metabols (NEGATIVE) U Cannabinoids Screen (NEGATIVE) Hepatitis A IgM Ab (NEGATIVE) Hep Bs Antigen (NEGATIVE) Hep B Core IgM Ab (NEGATIVE) Hepatitis C Antibody (NEGATIVE) 11/29/17 11/29/17 11/29/17 Range/Units 02:07 02:07 01:13 WBC (4.5-11.0) 10^3/ul RBC (3.5-6.1) 10^6/uL Hgb (12.0-16.0) g/dL Hct (36.0-48.0) % MCV (80.0-105.0) fl MCH (25.0-35.0) pg MCHC (31.0-37.0) g/dl RDW (11.5-14.5) % Plt Count (120.0-450.0) 10^3/uL MPV (7.0-11.0) fl Gran % (50.0-68.0) % Lymph % (Auto) (22.0-35.0) % Ransom % (Auto) (1.0-6.0) % Eos % (Auto) (1.5-5.0) % Baso % (Auto) (0.0-3.0) % Gran # (1.4-6.5) Lymph # (Auto) (1.2-3.4) Ransom # (Auto) (0.1-0.6) Eos # (Auto) (0.0-0.7) Baso # (Auto) (0.0-2.0) K/mm3 PT (9.4-12.5) SECONDS INR (0.93-1.08) APTT (25.1-36.5) Seconds pCO2 (35-45) mm/Hg pO2 27 L (30-55) mm/Hg HCO3 (21-28) mmol/L ABG pH (7.35-7.45) ABG Total CO2 (22-28) mmol.L ABG O2 Saturation (95-98) % ABG Base Excess (-2.0-3.0) mmol/L ABG Potassium (3.6-5.2) mmol/L VBG pH 7.12 L* (7.32-7.43) VBG pCO2 56.0 (40-60) VBG HCO3 18.2 L (21-28) mmol/l VBG Total CO2 19.9 L (22-28) mmol.L VBG O2 Sat (Calc) 48.3 (40-65) % VBG Base Excess -11.5 L (0.0-2.0) mmol/L VBG Potassium 3.7 (3.6-5.2) mmol/L Sodium 142 139.0 (132-148) mmol/L Chloride 110 H 110.0 H (98-107) mmol/L Glucose 178 H (65-105) mg/dl Lactate 3.4 H (0.7-2.1) mmol/L Mechanical Rate FiO2 21.0 % Tidal Volume PEEP Potassium 3.8 (3.6-5.0) mmol/L Carbon Dioxide 17 L (21-33) mmol/L Anion Gap 19 (10-20) BUN 18 (7-21) mg/dL Creatinine 1.4 H (0.7-1.2) mg/dl Est GFR ( Amer) 47 Est GFR (Non-Af Amer) 39 POC Glucose (mg/dL) 169 H (65-110) mg/dL Random Glucose 170 H (70-110) mg/dL Calcium 7.9 L (8.4-10.5) mg/dL Phosphorus 3.5 (2.5-4.5) mg/dL Magnesium 1.6 L (1.7-2.2) mg/dL Total Bilirubin 0.2 (0.2-1.3) mg/dL AST 372 H D (14-36) U/L ALT 258 H (7-56) U/L Alkaline Phosphatase 96 (38-126) U/L Troponin I ng/mL Total Protein 6.8 (5.8-8.3) g/dL Albumin 4.0 (3.0-4.8) g/dL Globulin 2.8 gm/dL Albumin/Globulin Ratio 1.4 (1.1-1.8) Triglycerides (35-160) mg/dL Cholesterol (130-200) mg/dL LDL Cholesterol Direct (0-129) mg/dL HDL Cholesterol (29-60) mg/dL Arterial Blood Potassium (3.6-5.2) mmol/L Venous Blood Potassium 3.7 (3.6-5.2) mmol/L Urine Color (YELLOW) Urine Appearance (CLEAR) Urine pH (4.7-8.0) Ur Specific Wolcott (1.005-1.035) Urine Protein (<30 mg/dL) mg/dL Urine Glucose (UA) (NEGATIVE) mg/dL Urine Ketones (NEGATIVE) mg/dL Urine Blood (NEGATIVE) Urine Nitrate (NEGATIVE) Urine Bilirubin (NEGATIVE) Urine Urobilinogen (<1 E.U./dL) E.U./dL Ur Leukocyte Esterase (NEGATIVE) Tree/uL Urine RBC (0-2) /hpf Urine WBC (0-6) /hpf Urine Bacteria (NEG) Coarse Granular Casts (0-2) /hpf Urine Opiates Screen (NEGATIVE) Urine Methadone Screen (NEGATIVE) Ur Barbiturates Screen (NEGATIVE) Ur Phencyclidine Scrn (NEGATIVE) Ur Amphetamines Screen (NEGATIVE) U Benzodiazepines Scrn (NEGATIVE) U Oth Cocaine Metabols (NEGATIVE) U Cannabinoids Screen (NEGATIVE) Hepatitis A IgM Ab (NEGATIVE) Hep Bs Antigen (NEGATIVE) Hep B Core IgM Ab (NEGATIVE) Hepatitis C Antibody (NEGATIVE) 11/28/17 11/28/17 11/28/17 Range/Units 21:40 21:40 20:30 WBC (4.5-11.0) 10^3/ul RBC (3.5-6.1) 10^6/uL Hgb (12.0-16.0) g/dL Hct (36.0-48.0) % MCV (80.0-105.0) fl MCH (25.0-35.0) pg MCHC (31.0-37.0) g/dl RDW (11.5-14.5) % Plt Count (120.0-450.0) 10^3/uL MPV (7.0-11.0) fl Gran % (50.0-68.0) % Lymph % (Auto) (22.0-35.0) % Ransom % (Auto) (1.0-6.0) % Eos % (Auto) (1.5-5.0) % Baso % (Auto) (0.0-3.0) % Gran # (1.4-6.5) Lymph # (Auto) (1.2-3.4) Ransom # (Auto) (0.1-0.6) Eos # (Auto) (0.0-0.7) Baso # (Auto) (0.0-2.0) K/mm3 PT (9.4-12.5) SECONDS INR (0.93-1.08) APTT (25.1-36.5) Seconds pCO2 (35-45) mm/Hg pO2 (30-55) mm/Hg HCO3 (21-28) mmol/L ABG pH (7.35-7.45) ABG Total CO2 (22-28) mmol.L ABG O2 Saturation (95-98) % ABG Base Excess (-2.0-3.0) mmol/L ABG Potassium (3.6-5.2) mmol/L VBG pH (7.32-7.43) VBG pCO2 (40-60) VBG HCO3 (21-28) mmol/l VBG Total CO2 (22-28) mmol.L VBG O2 Sat (Calc) (40-65) % VBG Base Excess (0.0-2.0) mmol/L VBG Potassium (3.6-5.2) mmol/L Sodium (132-148) mmol/L Chloride (98-107) mmol/L Glucose (65-105) mg/dl Lactate (0.7-2.1) mmol/L Mechanical Rate FiO2 % Tidal Volume PEEP Potassium (3.6-5.0) mmol/L Carbon Dioxide (21-33) mmol/L Anion Gap (10-20) BUN (7-21) mg/dL Creatinine (0.7-1.2) mg/dl Est GFR ( Amer) Est GFR (Non-Af Amer) POC Glucose (mg/dL) (65-110) mg/dL Random Glucose (70-110) mg/dL Calcium (8.4-10.5) mg/dL Phosphorus (2.5-4.5) mg/dL Magnesium (1.7-2.2) mg/dL Total Bilirubin (0.2-1.3) mg/dL AST (14-36) U/L ALT (7-56) U/L Alkaline Phosphatase (38-126) U/L Troponin I 1.32 H* D ng/mL Total Protein (5.8-8.3) g/dL Albumin (3.0-4.8) g/dL Globulin gm/dL Albumin/Globulin Ratio (1.1-1.8) Triglycerides (35-160) mg/dL Cholesterol (130-200) mg/dL LDL Cholesterol Direct (0-129) mg/dL HDL Cholesterol (29-60) mg/dL Arterial Blood Potassium (3.6-5.2) mmol/L Venous Blood Potassium (3.6-5.2) mmol/L Urine Color Yellow (YELLOW) Urine Appearance Turbid (CLEAR) Urine pH 5.0 (4.7-8.0) Ur Specific Wolcott 1.025 (1.005-1.035) Urine Protein 30 H (<30 mg/dL) mg/dL Urine Glucose (UA) Negative (NEGATIVE) mg/dL Urine Ketones Negative (NEGATIVE) mg/dL Urine Blood Large H (NEGATIVE) Urine Nitrate Negative (NEGATIVE) Urine Bilirubin Negative (NEGATIVE) Urine Urobilinogen 0.2 (<1 E.U./dL) E.U./dL Ur Leukocyte Esterase Negative (NEGATIVE) Tree/uL Urine RBC 1 - 3 (0-2) /hpf Urine WBC 0 - 2 (0-6) /hpf Urine Bacteria Few (NEG) Coarse Granular Casts Large H (0-2) /hpf Urine Opiates Screen Negative (NEGATIVE) Urine Methadone Screen Negative (NEGATIVE) Ur Barbiturates Screen Negative (NEGATIVE) Ur Phencyclidine Scrn Negative (NEGATIVE) Ur Amphetamines Screen Negative (NEGATIVE) U Benzodiazepines Scrn Positive (NEGATIVE) U Oth Cocaine Metabols Negative (NEGATIVE) U Cannabinoids Screen Negative (NEGATIVE) Hepatitis A IgM Ab (NEGATIVE) Hep Bs Antigen (NEGATIVE) Hep B Core IgM Ab (NEGATIVE) Hepatitis C Antibody (NEGATIVE) 11/28/17 11/28/17 Range/Units 20:30 20:30 WBC (4.5-11.0) 10^3/ul RBC (3.5-6.1) 10^6/uL Hgb (12.0-16.0) g/dL Hct (36.0-48.0) % MCV (80.0-105.0) fl MCH (25.0-35.0) pg MCHC (31.0-37.0) g/dl RDW (11.5-14.5) % Plt Count (120.0-450.0) 10^3/uL MPV (7.0-11.0) fl Gran % (50.0-68.0) % Lymph % (Auto) (22.0-35.0) % Ransom % (Auto) (1.0-6.0) % Eos % (Auto) (1.5-5.0) % Baso % (Auto) (0.0-3.0) % Gran # (1.4-6.5) Lymph # (Auto) (1.2-3.4) Ransom # (Auto) (0.1-0.6) Eos # (Auto) (0.0-0.7) Baso # (Auto) (0.0-2.0) K/mm3 PT (9.4-12.5) SECONDS INR (0.93-1.08) APTT (25.1-36.5) Seconds pCO2 (35-45) mm/Hg pO2 44 (30-55) mm/Hg HCO3 (21-28) mmol/L ABG pH (7.35-7.45) ABG Total CO2 (22-28) mmol.L ABG O2 Saturation (95-98) % ABG Base Excess (-2.0-3.0) mmol/L ABG Potassium (3.6-5.2) mmol/L VBG pH 7.14 L* (7.32-7.43) VBG pCO2 50.0 (40-60) VBG HCO3 17.0 L (21-28) mmol/l VBG Total CO2 18.5 L (22-28) mmol.L VBG O2 Sat (Calc) 75.7 H (40-65) % VBG Base Excess -12.0 L (0.0-2.0) mmol/L VBG Potassium 4.3 (3.6-5.2) mmol/L Sodium 144.0 (132-148) mmol/L Chloride 118.0 H (98-107) mmol/L Glucose 241 H (65-105) mg/dl Lactate 2.2 H (0.7-2.1) mmol/L Mechanical Rate FiO2 21.0 % Tidal Volume PEEP Potassium (3.6-5.0) mmol/L Carbon Dioxide (21-33) mmol/L Anion Gap (10-20) BUN (7-21) mg/dL Creatinine (0.7-1.2) mg/dl Est GFR ( Amer) Est GFR (Non-Af Amer) POC Glucose (mg/dL) (65-110) mg/dL Random Glucose (70-110) mg/dL Calcium (8.4-10.5) mg/dL Phosphorus (2.5-4.5) mg/dL Magnesium (1.7-2.2) mg/dL Total Bilirubin (0.2-1.3) mg/dL AST (14-36) U/L ALT (7-56) U/L Alkaline Phosphatase (38-126) U/L Troponin I ng/mL Total Protein (5.8-8.3) g/dL Albumin (3.0-4.8) g/dL Globulin gm/dL Albumin/Globulin Ratio (1.1-1.8) Triglycerides (35-160) mg/dL Cholesterol (130-200) mg/dL LDL Cholesterol Direct (0-129) mg/dL HDL Cholesterol (29-60) mg/dL Arterial Blood Potassium (3.6-5.2) mmol/L Venous Blood Potassium 4.3 (3.6-5.2) mmol/L Urine Color (YELLOW) Urine Appearance (CLEAR) Urine pH (4.7-8.0) Ur Specific [place] (1.005-1.035) Urine Protein (<30 mg/dL) mg/dL Urine Glucose (UA) (NEGATIVE) mg/dL Urine Ketones (NEGATIVE) mg/dL Urine Blood (NEGATIVE) Urine Nitrate (NEGATIVE) Urine Bilirubin (NEGATIVE) Urine Urobilinogen (<1 E.U./dL) E.U./dL Ur Leukocyte Esterase (NEGATIVE) Tree/uL Urine RBC (0-2) /hpf Urine WBC (0-6) /hpf Urine Bacteria (NEG) Coarse Granular Casts (0-2) /hpf Urine Opiates Screen (NEGATIVE) Urine Methadone Screen (NEGATIVE) Ur Barbiturates Screen (NEGATIVE) Ur Phencyclidine Scrn (NEGATIVE) Ur Amphetamines Screen (NEGATIVE) U Benzodiazepines Scrn (NEGATIVE) U Oth Cocaine Metabols (NEGATIVE) U Cannabinoids Screen (NEGATIVE) Hepatitis A IgM Ab Negative (NEGATIVE) Hep Bs Antigen Negative (NEGATIVE) Hep B Core IgM Ab Negative (NEGATIVE) Hepatitis C Antibody Negative (NEGATIVE) Laboratory Results - last 24 hr 11/28/17 11/28/17 11/28/17 20:30 20:30 20:30 WBC RBC Hgb Hct MCV MCH MCHC RDW Plt Count MPV Gran % Lymph % (Auto) Ransom % (Auto) Eos % (Auto) Baso % (Auto) Gran # Lymph # (Auto) Ransom # (Auto) Eos # (Auto) Baso # (Auto) PT INR APTT pCO2 pO2 44 HCO3 ABG pH ABG Total CO2 ABG O2 Saturation ABG Base Excess ABG Potassium VBG pH 7.14 L* VBG pCO2 50.0 VBG HCO3 17.0 L VBG Total CO2 18.5 L VBG O2 Sat (Calc) 75.7 H VBG Base Excess -12.0 L VBG Potassium 4.3 Sodium 144.0 Chloride 118.0 H Glucose 241 H Lactate 2.2 H Mechanical Rate FiO2 21.0 Tidal Volume PEEP Potassium Carbon Dioxide Anion Gap BUN Creatinine Est GFR ( Amer) Est GFR (Non-Af Amer) POC Glucose (mg/dL) Random Glucose Calcium Phosphorus Magnesium Total Bilirubin AST ALT Alkaline Phosphatase Troponin I 1.32 H* D Total Protein Albumin Globulin Albumin/Globulin Ratio Triglycerides Cholesterol LDL Cholesterol Direct HDL Cholesterol Arterial Blood Potassium Venous Blood Potassium 4.3 Urine Color Urine Appearance Urine pH Ur Specific Wol[place] Urine Protein Urine Glucose (UA) Urine Ketones Urine Blood Urine Nitrate Urine Bilirubin Urine Urobilinogen Ur Leukocyte Esterase Urine RBC Urine WBC Urine Bacteria Coarse Granular Casts Urine Opiates Screen Urine Methadone Screen Ur Barbiturates Screen Ur Phencyclidine Scrn Ur Amphetamines Screen U Benzodiazepines Scrn U Oth Cocaine Metabols U Cannabinoids Screen Hepatitis A IgM Ab Negative Hep Bs Antigen Negative Hep B Core IgM Ab Negative Hepatitis C Antibody Negative 11/28/17 11/28/17 11/29/17 21:40 21:40 01:13 WBC RBC Hgb Hct MCV MCH MCHC RDW Plt Count MPV Gran % Lymph % (Auto) Ransom % (Auto) Eos % (Auto) Baso % (Auto) Gran # Lymph # (Auto) Ransom # (Auto) Eos # (Auto) Baso # (Auto) PT INR APTT pCO2 pO2 HCO3 ABG pH ABG Total CO2 ABG O2 Saturation ABG Base Excess ABG Potassium VBG pH VBG pCO2 VBG HCO3 VBG Total CO2 VBG O2 Sat (Calc) VBG Base Excess VBG Potassium Sodium Chloride Glucose Lactate Mechanical Rate FiO2 Tidal Volume PEEP Potassium Carbon Dioxide Anion Gap BUN Creatinine Est GFR ( Amer) Est GFR (Non-Af Amer) POC Glucose (mg/dL) 169 H Random Glucose Calcium Phosphorus Magnesium Total Bilirubin AST ALT Alkaline Phosphatase Troponin I Total Protein Albumin Globulin Albumin/Globulin Ratio Triglycerides Cholesterol LDL Cholesterol Direct HDL Cholesterol Arterial Blood Potassium Venous Blood Potassium Urine Color Yellow Urine Appearance Turbid Urine pH 5.0 Ur Specific Wolcott 1.025 Urine Protein 30 H Urine Glucose (UA) Negative Urine Ketones Negative Urine Blood Large H Urine Nitrate Negative Urine Bilirubin Negative Urine Urobilinogen 0.2 Ur Leukocyte Esterase Negative Urine RBC 1 - 3 Urine WBC 0 - 2 Urine Bacteria Few Coarse Granular Casts Large H Urine Opiates Screen Negative Urine Methadone Screen Negative Ur Barbiturates Screen Negative Ur Phencyclidine Scrn Negative Ur Amphetamines Screen Negative U Benzodiazepines Scrn Positive U Oth Cocaine Metabols Negative U Cannabinoids Screen Negative Hepatitis A IgM Ab Hep Bs Antigen Hep B Core IgM Ab Hepatitis C Antibody 11/29/17 11/29/17 11/29/17 02:07 02:07 02:07 WBC 17.4 H RBC 4.20 Hgb 10.5 L Hct 31.6 L MCV 75.2 L MCH 25.0 MCHC 33.2 RDW 16.2 H Plt Count 324 MPV 9.7 Gran % Lymph % (Auto) Ransom % (Auto) Eos % (Auto) Baso % (Auto) Gran # Lymph # (Auto) Ransom # (Auto) Eos # (Auto) Baso # (Auto) PT INR APTT pCO2 pO2 27 L HCO3 ABG pH ABG Total CO2 ABG O2 Saturation ABG Base Excess ABG Potassium VBG pH 7.12 L* VBG pCO2 56.0 VBG HCO3 18.2 L VBG Total CO2 19.9 L VBG O2 Sat (Calc) 48.3 VBG Base Excess -11.5 L VBG Potassium 3.7 Sodium 139.0 142 Chloride 110.0 H 110 H Glucose 178 H Lactate 3.4 H Mechanical Rate FiO2 21.0 Tidal Volume PEEP Potassium 3.8 Carbon Dioxide 17 L Anion Gap 19 BUN 18 Creatinine 1.4 H Est GFR ( Amer) 47 Est GFR (Non-Af Amer) 39 POC Glucose (mg/dL) Random Glucose 170 H Calcium 7.9 L Phosphorus 3.5 Magnesium 1.6 L Total Bilirubin 0.2 AST 372 H D ALT 258 H Alkaline Phosphatase 96 Troponin I Total Protein 6.8 Albumin 4.0 Globulin 2.8 Albumin/Globulin Ratio 1.4 Triglycerides Cholesterol LDL Cholesterol Direct HDL Cholesterol Arterial Blood Potassium Venous Blood Potassium 3.7 Urine Color Urine Appearance Urine pH Ur Specific Wol[place] Urine Protein Urine Glucose (UA) Urine Ketones Urine Blood Urine Nitrate Urine Bilirubin Urine Urobilinogen Ur Leukocyte Esterase Urine RBC Urine WBC Urine Bacteria Coarse Granular Casts Urine Opiates Screen Urine Methadone Screen Ur Barbiturates Screen Ur Phencyclidine Scrn Ur Amphetamines Screen U Benzodiazepines Scrn U Oth Cocaine Metabols U Cannabinoids Screen Hepatitis A IgM Ab Hep Bs Antigen Hep B Core IgM Ab Hepatitis C Antibody 11/29/17 11/29/17 11/29/17 02:07 03:41 06:50 WBC 15.0 H RBC 3.96 Hgb 10.1 L Hct 29.7 L MCV 75.0 L MCH 25.5 MCHC 34.0 RDW 16.3 H Plt Count 294 MPV 9.9 Gran % 85.2 H Lymph % (Auto) 9.0 L Ransom % (Auto) 5.8 Eos % (Auto) 0.0 L Baso % (Auto) 0.0 Gran # 12.76 H Lymph # (Auto) 1.3 Ransom # (Auto) 0.9 H Eos # (Auto) 0.0 Baso # (Auto) 0.00 PT 11.4 INR 1.00 APTT 25.6 pCO2 35 pO2 237.0 H HCO3 14.7 L ABG pH 7.23 L ABG Total CO2 15.8 L ABG O2 Saturation 99.7 H ABG Base Excess -11.9 L ABG Potassium 3.4 L VBG pH VBG pCO2 VBG HCO3 VBG Total CO2 VBG O2 Sat (Calc) VBG Base Excess VBG Potassium Sodium 146.0 Chloride 120.0 H Glucose 178 H Lactate 2.9 H Mechanical Rate 20 FiO2 60.0 Tidal Volume 400 PEEP 5 Potassium Carbon Dioxide Anion Gap BUN Creatinine Est GFR ( Amer) Est GFR (Non-Af Amer) POC Glucose (mg/dL) Random Glucose Calcium Phosphorus Magnesium Total Bilirubin AST ALT Alkaline Phosphatase Troponin I Total Protein Albumin Globulin Albumin/Globulin Ratio Triglycerides Cholesterol LDL Cholesterol Direct HDL Cholesterol Arterial Blood Potassium 3.4 L Venous Blood Potassium Urine Color Urine Appearance Urine pH Ur Specific [place] Urine Protein Urine Glucose (UA) Urine Ketones Urine Blood Urine Nitrate Urine Bilirubin Urine Urobilinogen Ur Leukocyte Esterase Urine RBC Urine WBC Urine Bacteria Coarse Granular Casts Urine Opiates Screen Urine Methadone Screen Ur Barbiturates Screen Ur Phencyclidine Scrn Ur Amphetamines Screen U Benzodiazepines Scrn U Oth Cocaine Metabols U Cannabinoids Screen Hepatitis A IgM Ab Hep Bs Antigen Hep B Core IgM Ab Hepatitis C Antibody 11/29/17 11/29/17 11/29/17 06:50 06:50 06:50 WBC RBC Hgb Hct MCV MCH MCHC RDW Plt Count MPV Gran % Lymph % (Auto) Ransom % (Auto) Eos % (Auto) Baso % (Auto) Gran # Lymph # (Auto) Ransom # (Auto) Eos # (Auto) Baso # (Auto) PT 11.6 INR 1.01 APTT 27.0 pCO2 pO2 43 HCO3 ABG pH ABG Total CO2 ABG O2 Saturation ABG Base Excess ABG Potassium VBG pH 7.11 L* VBG pCO2 59.0 VBG HCO3 18.7 L VBG Total CO2 20.5 L VBG O2 Sat (Calc) 77.4 H VBG Base Excess -11.3 L VBG Potassium 3.9 Sodium 141 138.0 Chloride 109 H 109.0 H Glucose 116 H Lactate 4.0 H* Mechanical Rate FiO2 21.0 Tidal Volume PEEP Potassium 4.1 Carbon Dioxide 16 L Anion Gap 21 H BUN 21 Creatinine 1.3 H Est GFR ( Amer) 51 Est GFR (Non-Af Amer) 43 POC Glucose (mg/dL) Random Glucose 110 Calcium 7.3 L Phosphorus 3.6 Magnesium 1.5 L Total Bilirubin 0.7 AST 332 H ALT 217 H Alkaline Phosphatase 86 Troponin I 3.29 H* D Total Protein 6.7 Albumin 3.8 Globulin 2.9 Albumin/Globulin Ratio 1.3 Triglycerides 3074 H Cholesterol 170 LDL Cholesterol Direct < 30 HDL Cholesterol 79 H Arterial Blood Potassium Venous Blood Potassium 3.9 Urine Color Urine Appearance Urine pH Ur Specific [place] Urine Protein Urine Glucose (UA) Urine Ketones Urine Blood Urine Nitrate Urine Bilirubin Urine Urobilinogen Ur Leukocyte Esterase Urine RBC Urine WBC Urine Bacteria Coarse Granular Casts Urine Opiates Screen Urine Methadone Screen Ur Barbiturates Screen Ur Phencyclidine Scrn Ur Amphetamines Screen U Benzodiazepines Scrn U Oth Cocaine Metabols U Cannabinoids Screen Hepatitis A IgM Ab Hep Bs Antigen Hep B Core IgM Ab Hepatitis C Antibody 11/29/17 11/29/17 11/29/17 09:10 12:42 16:19 WBC RBC Hgb Hct MCV MCH MCHC RDW Plt Count MPV Gran % Lymph % (Auto) Ransom % (Auto) Eos % (Auto) Baso % (Auto) Gran # Lymph # (Auto) Ransom # (Auto) Eos # (Auto) Baso # (Auto) PT INR APTT > 400.0 H* pCO2 38 pO2 150.0 H HCO3 16.7 L ABG pH 7.25 L ABG Total CO2 17.9 L ABG O2 Saturation 99.9 H ABG Base Excess -9.9 L ABG Potassium 3.3 L VBG pH VBG pCO2 VBG HCO3 VBG Total CO2 VBG O2 Sat (Calc) VBG Base Excess VBG Potassium Sodium 148.0 Chloride 121.0 H Glucose 119 H Lactate 2.4 H Mechanical Rate 20 FiO2 40.0 Tidal Volume 400 PEEP 5 Potassium Carbon Dioxide Anion Gap BUN Creatinine Est GFR ( Amer) Est GFR (Non-Af Amer) POC Glucose (mg/dL) 129 H Random Glucose Calcium Phosphorus Magnesium Total Bilirubin AST ALT Alkaline Phosphatase Troponin I Total Protein Albumin Globulin Albumin/Globulin Ratio Triglycerides Cholesterol LDL Cholesterol Direct HDL Cholesterol Arterial Blood Potassium 3.3 L Venous Blood Potassium Urine Color Urine Appearance Urine pH Ur Specific [place] Urine Protein Urine Glucose (UA) Urine Ketones Urine Blood Urine Nitrate Urine Bilirubin Urine Urobilinogen Ur Leukocyte Esterase Urine RBC Urine WBC Urine Bacteria Coarse Granular Casts Urine Opiates Screen Urine Methadone Screen Ur Barbiturates Screen Ur Phencyclidine Scrn Ur Amphetamines Screen U Benzodiazepines Scrn U Oth Cocaine Metabols U Cannabinoids Screen Hepatitis A IgM Ab Hep Bs Antigen Hep B Core IgM Ab Hepatitis C Antibody 11/29/17 11/29/17 16:19 16:19 WBC 20.8 H D RBC 4.25 Hgb 9.8 L Hct 31.4 L MCV 73.9 L MCH 23.1 L MCHC 31.2 RDW 16.1 H Plt Count 305 MPV 9.4 Gran % 82.1 H Lymph % (Auto) 12.7 L Ransom % (Auto) 5.2 Eos % (Auto) 0.0 L Baso % (Auto) 0.0 Gran # 17.04 H Lymph # (Auto) 2.6 Ransom # (Auto) 1.1 H Eos # (Auto) 0.0 Baso # (Auto) 0.01 PT INR APTT pCO2 pO2 HCO3 ABG pH ABG Total CO2 ABG O2 Saturation ABG Base Excess ABG Potassium VBG pH VBG pCO2 VBG HCO3 VBG Total CO2 VBG O2 Sat (Calc) VBG Base Excess VBG Potassium Sodium 142 Chloride 114 H Glucose Lactate Mechanical Rate FiO2 Tidal Volume PEEP Potassium 2.6 L* D Carbon Dioxide 13 L Anion Gap 18 BUN 24 H Creatinine 1.2 Est GFR ( Amer) 56 Est GFR (Non-Af Amer) 47 POC Glucose (mg/dL) Random Glucose 353 H* D Calcium 7.5 L Phosphorus Magnesium Total Bilirubin AST ALT Alkaline Phosphatase Troponin I Total Protein Albumin Globulin Albumin/Globulin Ratio Triglycerides Cholesterol LDL Cholesterol Direct HDL Cholesterol Arterial Blood Potassium Venous Blood Potassium Urine Color Urine Appearance Urine pH Ur Specific [place] Urine Protein Urine Glucose (UA) Urine Ketones Urine Blood Urine Nitrate Urine Bilirubin Urine Urobilinogen Ur Leukocyte Esterase Urine RBC Urine WBC Urine Bacteria Coarse Granular Casts Urine Opiates Screen Urine Methadone Screen Ur Barbiturates Screen Ur Phencyclidine Scrn Ur Amphetamines Screen U Benzodiazepines Scrn U Oth Cocaine Metabols U Cannabinoids Screen Hepatitis A IgM Ab Hep Bs Antigen Hep B Core IgM Ab Hepatitis C Antibody EKG/Cardiology Studies: Cardiology / EKG Studies 11/28/17 17:11 EKG [ELECTROCARDIOGRAM] Stat Comment: Reason For Exam: CARDIAC ARREST 11/29/17 10:30 EKG [ELECTROCARDIOGRAM] Routine Comment: Reason For Exam: cardiac arrest Attending/Attestation - Attestation I have personally seen and examined this patient.: Yes I have fully participated in the care of the patient.: Yes I have reviewed all pertinent clinical information: Yes Notes (Text): 11/29/17 17:13 57 yo female admitted to [facility] for out of hospital cardiac arrest, now on therapeutic hypothermia, which will be completed around 6:30 pm, at which point we will start gradual warming up (not to exceed 0.5 C/hr). 1. Neuro: EEG done: no seizures, on propofol for sedation, keppra, nimbex to prevent shivering, will repeat CTH and EEG as per protocol 2. CVS: Echo: no significant RV or LV dysfunction, bradycardia resolved spontaneously, now hypertensive_nuicardipine started. cardiology is following up -->will decide timing of PCI, meanwhile on heparin drip, troponin trending, aspirin. no bb-ers as was bradycardic, no statins--transaminitis 3. Lungs: Low vt vent 4-8 cc/pbw, ppl<30, HOB>35, oral hygiene 4. GI: NPO until warmed up, GI prophylaxis, LFTs are up due to shock liver likely, will hold statins 5. ID: leukocytosis-->septic workup, ID consult, abx, procal 6. Endo: low threshold for insulin drip if BG starts rising (hypothermia can cause insulin resistance), meanwhile accu q2 7. Nephro/fluids: correct lites aggressively, switch ivf to bicarb drip, correct hyperchloremia, supplement IVF for "cold" diuresis ccm time 40 min
[2017-11-29 08:52] LABS: TROPONIN I 3.29 ng/mL
--- NOTE | 2017-11-29 08:56 | CARD ---
APPROVED REPORT EKG Measurement Heart [id number] <Conclusion> Normal sinus rhythm Non Specific ST_T Changes.
--- NOTE | 2017-11-29 09:18 | RAD ---
HISTORY: intubated COMPARISON: November 28, 2017. FINDINGS: LUNGS: No active pulmonary disease. PLEURA: No significant pleural effusion identified, no pneumothorax apparent. CARDIOVASCULAR: No radiographic findings to suggest acute or significant cardiovascular disease. OSSEOUS STRUCTURES: No significant abnormalities. VISUALIZED UPPER ABDOMEN: Normal. OTHER FINDINGS: Satisfactory position of endotracheal tube. Stable position of nasogastric tube which appears to be coiled in the stomach. IMPRESSION: No significant interval change compared to the prior examination(s).
[2017-11-29 09:22] LABS: ARTERIAL BLOOD GAS HCO3 16.7 mmol/L (21-28); ARTERIAL BLOOD GAS O2 SAT 99.9 % (95-98); ARTERIAL BLOOD GAS PCO2 38 mm/Hg (35-45); ARTERIAL BLOOD GAS PH 7.25 (7.35-7.45); ARTERIAL BLOOD GAS TCO2 17.9 mmol.L (22-28)
--- NOTE | 2017-11-29 09:25 | CP.PCM.PN ---
<PaytonKrystian - Last Filed: 11/29/17 11:35> Subjective - Date & Time of Evaluation Date of Evaluation: 11/29/17 Time of Evaluation: 09:21 - Subjective Subjective: Medicine Progress Note Pt seen and examined at bedside. No acute overnight events. On further chart review, patient had some [facility] ED visits in the past under , which revealed history of seizures on Trileptal, Keprra, and Topamax in 2017. Patient currently intubated and sedated on propofol. ROS unobtainable due to patients current mental status. Objective - Vital Signs/Intake and Output Vital Signs (last 24 hours): Temp Pulse Resp BP Pulse Ox 35.2 F L 48 L 30 H 126/68 100 11/28/17 22:10 11/29/17 06:00 11/28/17 23:20 11/29/17 04:30 11/29/17 04:30 Intake and Output: 11/29/17 11/29/17 06:59 18:59 Intake Total 200 Balance 200 - Medications Medications: Current Medications Cefepime HCl (Maxipime 2gm) 2 gm in 100 mls @ 100 mls/hr IVPB Q12 ANTONINO PRN Reason: Protocol Stop: 12/03/17 22:01 Last Admin: 11/28/17 22:41 Dose: 100 mls/hr Vancomycin HCl (Vancomycin 1gm) 1 gm in 250 mls @ 167 mls/hr IVPB DAILY ANTONINO PRN Reason: Protocol Sodium Chloride (Sodium Chloride 0.9%) 1,000 mls @ 100 mls/hr IV .Q10H ANTONINO Last Admin: 11/29/17 07:06 Dose: 100 mls/hr Propofol (Diprivan) 1,000 mg in 100 mls @ 3.742 mls/hr IV .Q24H PRN; Protocol; 5 MCG/KG/MIN PRN Reason: TITRATE PER MD ORDER Last Admin: 11/29/17 03:59 Dose: 25 mcg/kg/min, 18.711 mls/hr Heparin Sodium/Sodium Chloride (Heparin 70141 Units/250ml 1/2 Normal Saline) 25 ,000 units in 250 mls @ 14.969 mls/hr IV .[id number] ANTONINO; 12 UNITS/KG/HR PRN Reason: Protocol Last Admin: 11/29/17 08:36 Dose: 12 units/kg/hr, 14.969 mls/hr Pantoprazole Sodium (Protonix Inj) 40 mg IVP Q12 [facility] Last Admin: 11/28/17 22:25 Dose: 40 mg - Labs Labs: 11/29/17 06:50 11/29/17 06:50 PT 11.6 SECONDS (9.4-12.5) 11/29/17 06:50 INR 1.01 (0.93-1.08) 11/29/17 06:50 APTT 27.0 Seconds (25.1-36.5) 11/29/17 06:50 - Constitutional Appears: No Acute Distress - Head Exam Head Exam: NORMAL INSPECTION - Eye Exam Eye Exam: Normal appearance - ENT Exam ENT Exam: Normal Exam - Neck Exam Neck Exam: Normal Inspection - Respiratory Exam Respiratory Exam: Clear to Ausculation Bilateral. absent: Rales, Rhonchi, Wheezes - Cardiovascular Exam Cardiovascular Exam: RRR, +S1, +S2. absent: Gallop, Rubs, Murmur - GI/Abdominal Exam GI & Abdominal Exam: Soft. absent: Firm, Rigid, Tenderness, Rebound - Extremities Exam Extremities Exam: Normal Inspection - Neurological Exam Neurological Exam: absent: Alert, Awake, Oriented x3 - Skin Skin Exam: Dry, Intact, Normal Color, Warm Assessment and Plan - Assessment and Plan (Free Text) Assessment: 57 yo F with unknown PMH admitted for evaluation and treatment for cardiac arrest with ROSC. Plan: 1. Cardiac Arrest with ROSC - Admitted to ICU, intubated, sedated (propofol) - Vent management per ICU - Initially pulseless, asystole - multiple rounds of epinephrine and amiodarone given - Converted to v-fib - defibrillated multiple times - ROSC achieved - EKG showed NSR at 93 bpm with QTc 507 - Troponin 0.06, 1.32, 3.29 - Heparin drip started - CXR showed no active disease - ABG s/p intubation: pH 7.23, pCO2 34, pO2 278, HCO3 13, Lactate 4.0 - HgbA1c ordered - TSH WNL - Lipid panel: Total 170, LDL < 30, HDL 79, TG 3074 - Echo ordered - Hypothermic protocol - Cardio consulted 2. Altered Mental Status - NIHSS score in ED 35 - Head CT negative - Repeat Head CT in AM - Digoxin, ASA, phenytoin, EtOH serum negative - UDS positive for benzodiazepines - Levetiracetam level ordered - EEG ordered - Aspiration precautions - Seizure precautions - High risk fall precautions - Neurochecks - Neuro consulted 3. Leukocytosis - WBC 20.9 -> 15 - Blood and urine cultures ordered - Procal ordered - UA ordered - Cont Vancomycin, Cefepime 4. Lactic Acidosis - Likely 2/2 hypoxia - Lactate 4.0, 2.2, 3.4, 2.9, 4.0 - Anion gap 21 -> 15 5. Transaminitis - AST/ALT 303/280 -> 372/258 - Serum tylenol negative - Hep panel ordered 6. Anemia - Hgb stable - Microcytic, hypochromic - Iron studies ordered - Stool for occult blood ordered 7. LAURITA - Cr 1.4 - Baseline on previous ED admission WNL - IVF - Cont to monitor GI/DVT PPx - Protonix - Heparin Pt seen and discussed in detail with Dr. Ambrose. Dillan Cain, PGY1 <[place] Ambrose - Last Filed: 12/01/17 11:19> Objective - Vital Signs/Intake and Output Vital Signs (last 24 hours): Temp Pulse Resp BP Pulse Ox 34.0 F L 51 L 22 147/77 100 11/29/17 13:20 11/29/17 13:20 11/29/17 07:37 11/29/17 13:01 11/29/17 13:20 Intake and Output: 11/29/17 11/29/17 06:59 18:59 Intake Total 200 249 Balance 200 249 - Medications Medications: Current Medications Cefepime HCl (Maxipime 2gm) 2 gm in 100 mls @ 100 mls/hr IVPB Q12 ANTONINO PRN Reason: Protocol Stop: 12/03/17 22:01 Last Admin: 11/29/17 09:50 Dose: 100 mls/hr Vancomycin HCl (Vancomycin 1gm) 1 gm in 250 mls @ 167 mls/hr IVPB DAILY ANTONINO PRN Reason: Protocol Last Admin: 11/29/17 11:35 Dose: 167 mls/hr Sodium Chloride (Sodium Chloride 0.9%) 1,000 mls @ 100 mls/hr IV .Q10H [facility] Last Admin: 11/29/17 07:06 Dose: 100 mls/hr Propofol (Diprivan) 1,000 mg in 100 mls @ 3.742 mls/hr IV .Q24H PRN; Protocol; 5 MCG/KG/MIN PRN Reason: TITRATE PER MD ORDER Last Titration: 11/29/17 14:49 Dose: 0 mcg/kg/min, 0 mls/hr Heparin Sodium/Sodium Chloride (Heparin 57631 Units/250ml 1/2 Normal Saline) 25 ,000 units in 250 mls @ 14.969 mls/hr IV .[id number] ANTONINO; 12 UNITS/KG/HR PRN Reason: Protocol Last Admin: 11/29/17 08:36 Dose: 12 units/kg/hr, 14.969 mls/hr Fentanyl Citrate (Fentanyl Citrate/Sodium Chloride 1 Mg/100 Ml) 1,000 mcg in 100 mls @ 2 mls/hr IV .Q24H PRN; Protocol; 20 MCG/HR PRN Reason: TITRATE PER MD ORDER Last Titration: 11/29/17 14:49 Dose: 0 mcg/hr, 0 mls/hr Cisatracurium Besylate 200 mg/ (Sodium Chloride) 270 mls @ 5.05 mls/hr IV .Q24H PRN; Protocol; 0.5 MCG/KG/MIN PRN Reason: TITRATE PER MD ORDER Last Titration: 11/29/17 15:00 Dose: 0 mcg/kg/min, 0 mls/hr Levetiracetam 1,000 mg/ Sodium (Chloride) 110 mls @ 460 mls/hr IV DAILY [facility] Nicardipine HCl (Cardene Iv Premix) 20 mg in 200 mls @ 50 mls/hr IV .Q4H PRN; Protocol; 5 MG/HR PRN Reason: TITRATE PER MD ORDER Pantoprazole Sodium (Protonix Inj) 40 mg IVP Q12 ANTONINO Last Admin: 11/29/17 09:51 Dose: 40 mg - Labs Labs: 11/29/17 06:50 11/29/17 06:50 PT 11.6 SECONDS (9.4-12.5) 11/29/17 06:50 INR 1.01 (0.93-1.08) 11/29/17 06:50 APTT 27.0 Seconds (25.1-36.5) 11/29/17 06:50 Attending/Attestation - Attestation I have personally seen and examined this patient.: Yes I have fully participated in the care of the patient.: Yes I have reviewed all pertinent clinical information, including history, physical exam and plan: Yes Notes (Text): I have seen and examined the patient at bedside. Agree with the above note with the following additions/ exceptions: Briefly this is 57 year old female with possible seizure history who was admitted with cardiac arrest with ROSC. Patient was intubated in the field. Downtime is unknown. She is on propofol, fentanyl and neuromuscular blockade cisatracurium. Upon admission, she had leukocytosis and elevated LA. Cultures pending. She is on vancomycin and cefepime. Echo revealed EF of 55% and mild LV diastolic dysfunction. Troponins are elevated post cardiac arrest/ debrillation. She is on heparin drip. Neuro and cardio on board. EEG result pending. She is on hypothermia protocol. Patient has transaminitis. UDS positive for BZ only. Patient has a son who is on his way from [place]. Prognosis is poor. Patient is critically ill.
[2017-11-29] MEDS: Cefepime IV 2 gm in NS 2 GM/100 ML BAG IVPB SCH ×2 (09:50→21:28)
--- NOTE | 2017-11-29 10:50 | CP.PCM.CON ---
<Santy Nj - Last Filed: 11/29/17 13:14> History of Present Illness - History of Present Illness History of Present Illness: Neurology Consult Note - Dr. Martinez CC: Cardiac Arrest HPI: 57 F with a PMHx of seizures on Trileptal, Keprra, and Topamax presented to [facility] with ROSC s/p cardiac arrest in the field. As per chart review, EMS found patient unresponsive and pulseless after the patient made a phonecall to EMS for help regarding her daughter being unresponsive. EMS arrived on scene approximately 4:30pm and found the patient in cardiac arrest as well. Patient was found in asystole. Patient inbuated in field and IO placed. ACLS resuscitation with CPR started and was given epinephrine x 3, narcan 6mg, was found to be in vfib, given amiodarone 150 and then 300mg, defibrillated 6 times and then found to have ROSC. As per EMS, pt's home was cleared of carbon monoxide and paramedics report that apt was dirty but had no drug paraphernalia. Pt had ROSC when arrived to the ER, already intubated. Pt was seen and examined at bedside. Pt is intubated, off sedation, no response to noxious/verbal stimuli. CT head negative, CXR clear. NSR on monitor. 12 point ROS unobtainable due to pt condition. PMHx: seizures on Trileptal, Keprra, and Topamax (as per most recent chart - 2017 under different name) PSHx: uknown FamHx: Unknown Meds: MAR Reviewed Allergies: Unobtainable Review of Systems - Review of Systems Systems not reviewed;Unavailable: Acuity of Condition, Altered Mental Status Past Patient History - Infectious Disease Hx of Infectious Diseases: None - Past Social History Smoking Status: Unknown If Ever Smoked - CARDIAC Hx Hypertension: Yes - NEUROLOGICAL Hx Seizures: Yes - MUSCULOSKELETAL/RHEUMATOLOGICAL Hx Falls: Yes (SEIZURES) - PSYCHIATRIC Hx Substance Use: No Meds Allergies/Adverse Reactions: Allergies Allergy/AdvReac Type Severity Reaction Status Date / Time Unobtainable Allergy Verified 11/28/17 17:09 - Medications Medications: Current Medications Cefepime HCl (Maxipime 2gm) 2 gm in 100 mls @ 100 mls/hr IVPB Q12 ANTONINO PRN Reason: Protocol Stop: 12/03/17 22:01 Last Admin: 11/29/17 09:50 Dose: 100 mls/hr Vancomycin HCl (Vancomycin 1gm) 1 gm in 250 mls @ 167 mls/hr IVPB DAILY ANTONINO PRN Reason: Protocol Sodium Chloride (Sodium Chloride 0.9%) 1,000 mls @ 100 mls/hr IV .Q10H ANTONINO Last Admin: 11/29/17 07:06 Dose: 100 mls/hr Propofol (Diprivan) 1,000 mg in 100 mls @ 3.742 mls/hr IV .Q24H PRN; Protocol; 5 MCG/KG/MIN PRN Reason: TITRATE PER MD ORDER Last Admin: 11/29/17 09:48 Dose: 25 mcg/kg/min, 18.711 mls/hr Heparin Sodium/Sodium Chloride (Heparin 61653 Units/250ml 1/2 Normal Saline) 25 ,000 units in 250 mls @ 14.969 mls/hr IV .[id number] ANTONINO; 12 UNITS/KG/HR PRN Reason: Protocol Last Admin: 11/29/17 08:36 Dose: 12 units/kg/hr, 14.969 mls/hr Pantoprazole Sodium (Protonix Inj) 40 mg IVP Q12 ANTONINO Last Admin: 11/29/17 09:51 Dose: 40 mg Results - Vital Signs Recent Vital Signs: Last Vital Signs Temp 35.2 F L 11/28/17 22:10 Pulse 49 L 11/29/17 09:31 Resp 22 11/29/17 07:37 BP 141/67 11/29/17 09:31 Pulse Ox 100 11/29/17 09:31 - Labs Result Diagrams: 11/29/17 06:50 11/29/17 06:50 Labs: Laboratory Results - last 24 hr 11/28/17 11/28/17 11/28/17 20:30 20:30 21:40 WBC RBC Hgb Hct MCV MCH MCHC RDW Plt Count MPV Gran % Lymph % (Auto) [place] % (Auto) Eos % (Auto) Baso % (Auto) Gran # Lymph # (Auto) Fleming # (Auto) Eos # (Auto) Baso # (Auto) PT INR APTT pCO2 pO2 44 HCO3 ABG pH ABG Total CO2 ABG O2 Saturation ABG Base Excess ABG Potassium VBG pH 7.14 L* VBG pCO2 50.0 VBG HCO3 17.0 L VBG Total CO2 18.5 L VBG O2 Sat (Calc) 75.7 H VBG Base Excess -12.0 L VBG Potassium 4.3 Sodium 144.0 Chloride 118.0 H Glucose 241 H Lactate 2.2 H Mechanical Rate FiO2 21.0 Tidal Volume PEEP Potassium Carbon Dioxide Anion Gap BUN Creatinine Est GFR ( Amer) Est GFR (Non-Af Amer) POC Glucose (mg/dL) Random Glucose Calcium Phosphorus Magnesium Total Bilirubin AST ALT Alkaline Phosphatase Troponin I 1.32 H* D Total Protein Albumin Globulin Albumin/Globulin Ratio Triglycerides Cholesterol LDL Cholesterol Direct HDL Cholesterol Arterial Blood Potassium Venous Blood Potassium 4.3 Urine Color Yellow Urine Appearance Turbid Urine pH 5.0 Ur Specific [place] 1.025 Urine Protein 30 H Urine Glucose (UA) Negative Urine Ketones Negative Urine Blood Large H Urine Nitrate Negative Urine Bilirubin Negative Urine Urobilinogen 0.2 Ur Leukocyte Esterase Negative Urine RBC 1 - 3 Urine WBC 0 - 2 Urine Bacteria Few Coarse Granular Casts Large H Urine Opiates Screen Urine Methadone Screen Ur Barbiturates Screen Ur Phencyclidine Scrn Ur Amphetamines Screen U Benzodiazepines Scrn U Oth Cocaine Metabols U Cannabinoids Screen 11/28/17 11/29/17 11/29/17 21:40 01:13 02:07 WBC RBC Hgb Hct MCV MCH MCHC RDW Plt Count MPV Gran % Lymph % (Auto) [place] % (Auto) Eos % (Auto) Baso % (Auto) Gran # Lymph # (Auto) [place] # (Auto) Eos # (Auto) Baso # (Auto) PT INR APTT pCO2 pO2 27 L HCO3 ABG pH ABG Total CO2 ABG O2 Saturation ABG Base Excess ABG Potassium VBG pH 7.12 L* VBG pCO2 56.0 VBG HCO3 18.2 L VBG Total CO2 19.9 L VBG O2 Sat (Calc) 48.3 VBG Base Excess -11.5 L VBG Potassium 3.7 Sodium 139.0 Chloride 110.0 H Glucose 178 H Lactate 3.4 H Mechanical Rate FiO2 21.0 Tidal Volume PEEP Potassium Carbon Dioxide Anion Gap BUN Creatinine Est GFR ( Amer) Est GFR (Non-Af Amer) POC Glucose (mg/dL) 169 H Random Glucose Calcium Phosphorus Magnesium Total Bilirubin AST ALT Alkaline Phosphatase Troponin I Total Protein Albumin Globulin Albumin/Globulin Ratio Triglycerides Cholesterol LDL Cholesterol Direct HDL Cholesterol Arterial Blood Potassium Venous Blood Potassium 3.7 Urine Color Urine Appearance Urine pH Ur Specific [place] Urine Protein Urine Glucose (UA) Urine Ketones Urine Blood Urine Nitrate Urine Bilirubin Urine Urobilinogen Ur Leukocyte Esterase Urine RBC Urine WBC Urine Bacteria Coarse Granular Casts Urine Opiates Screen Negative Urine Methadone Screen Negative Ur Barbiturates Screen Negative Ur Phencyclidine Scrn Negative Ur Amphetamines Screen Negative U Benzodiazepines Scrn Positive U Oth Cocaine Metabols Negative U Cannabinoids Screen Negative 11/29/17 11/29/17 11/29/17 02:07 02:07 02:07 WBC 17.4 H RBC 4.20 Hgb 10.5 L Hct 31.6 L MCV 75.2 L MCH 25.0 MCHC 33.2 RDW 16.2 H Plt Count 324 MPV 9.7 Gran % Lymph % (Auto) [place] % (Auto) Eos % (Auto) Baso % (Auto) Gran # Lymph # (Auto) [place] # (Auto) Eos # (Auto) Baso # (Auto) PT 11.4 INR 1.00 APTT 25.6 pCO2 pO2 HCO3 ABG pH ABG Total CO2 ABG O2 Saturation ABG Base Excess ABG Potassium VBG pH VBG pCO2 VBG HCO3 VBG Total CO2 VBG O2 Sat (Calc) VBG Base Excess VBG Potassium Sodium 142 Chloride 110 H Glucose Lactate Mechanical Rate FiO2 Tidal Volume PEEP Potassium 3.8 Carbon Dioxide 17 L Anion Gap 19 BUN 18 Creatinine 1.4 H Est GFR ( Amer) 47 Est GFR (Non-Af Amer) 39 POC Glucose (mg/dL) Random Glucose 170 H Calcium 7.9 L Phosphorus 3.5 Magnesium 1.6 L Total Bilirubin 0.2 AST 372 H D ALT 258 H Alkaline Phosphatase 96 Troponin I Total Protein 6.8 Albumin 4.0 Globulin 2.8 Albumin/Globulin Ratio 1.4 Triglycerides Cholesterol LDL Cholesterol Direct HDL Cholesterol Arterial Blood Potassium Venous Blood Potassium Urine Color Urine Appearance Urine pH Ur Specific [place] Urine Protein Urine Glucose (UA) Urine Ketones Urine Blood Urine Nitrate Urine Bilirubin Urine Urobilinogen Ur Leukocyte Esterase Urine RBC Urine WBC Urine Bacteria Coarse Granular Casts Urine Opiates Screen Urine Methadone Screen Ur Barbiturates Screen Ur Phencyclidine Scrn Ur Amphetamines Screen U Benzodiazepines Scrn U Oth Cocaine Metabols U Cannabinoids Screen 11/29/17 11/29/1718 03:41 06:50 06:50 WBC 15.0 H RBC 3.96 Hgb 10.1 L Hct 29.7 L MCV 75.0 L MCH 25.5 MCHC 34.0 RDW 16.3 H Plt Count 294 MPV 9.9 Gran % 85.2 H Lymph % (Auto) 9.0 L [place] % (Auto) 5.8 Eos % (Auto) 0.0 L Baso % (Auto) 0.0 Gran # 12.76 H Lymph # (Auto) 1.3 Fleming # (Auto) 0.9 H Eos # (Auto) 0.0 Baso # (Auto) 0.00 PT INR APTT pCO2 35 pO2 237.0 H HCO3 14.7 L ABG pH 7.23 L ABG Total CO2 15.8 L ABG O2 Saturation 99.7 H ABG Base Excess -11.9 L ABG Potassium 3.4 L VBG pH VBG pCO2 VBG HCO3 VBG Total CO2 VBG O2 Sat (Calc) VBG Base Excess VBG Potassium Sodium 146.0 141 Chloride 120.0 H 109 H Glucose 178 H Lactate 2.9 H Mechanical Rate 20 FiO2 60.0 Tidal Volume 400 PEEP 5 Potassium 4.1 Carbon Dioxide 16 L Anion Gap 21 H BUN 21 Creatinine 1.3 H Est GFR ( Amer) 51 Est GFR (Non-Af Amer) 43 POC Glucose (mg/dL) Random Glucose 110 Calcium 7.3 L Phosphorus 3.6 Magnesium 1.5 L Total Bilirubin 0.7 AST 332 H ALT 217 H Alkaline Phosphatase 86 Troponin I 3.29 H* D Total Protein 6.7 Albumin 3.8 Globulin 2.9 Albumin/Globulin Ratio 1.3 Triglycerides 3074 H Cholesterol 170 LDL Cholesterol Direct < 30 HDL Cholesterol 79 H Arterial Blood Potassium 3.4 L Venous Blood Potassium Urine Color Urine Appearance Urine pH Ur Specific [place] Urine Protein Urine Glucose (UA) Urine Ketones Urine Blood Urine Nitrate Urine Bilirubin Urine Urobilinogen Ur Leukocyte Esterase Urine RBC Urine WBC Urine Bacteria Coarse Granular Casts Urine Opiates Screen Urine Methadone Screen Ur Barbiturates Screen Ur Phencyclidine Scrn Ur Amphetamines Screen U Benzodiazepines Scrn U Oth Cocaine Metabols U Cannabinoids Screen 11/29/17 11/29/17 11/29/17 06:50 06:50 09:10 WBC RBC Hgb Hct MCV MCH MCHC RDW Plt Count MPV Gran % Lymph % (Auto) [place] % (Auto) Eos % (Auto) Baso % (Auto) Gran # Lymph # (Auto) [place] # (Auto) Eos # (Auto) Baso # (Auto) PT 11.6 INR 1.01 APTT 27.0 pCO2 38 pO2 43 150.0 H HCO3 16.7 L ABG pH 7.25 L ABG Total CO2 17.9 L ABG O2 Saturation 99.9 H ABG Base Excess -9.9 L ABG Potassium 3.3 L VBG pH 7.11 L* VBG pCO2 59.0 VBG HCO3 18.7 L VBG Total CO2 20.5 L VBG O2 Sat (Calc) 77.4 H VBG Base Excess -11.3 L VBG Potassium 3.9 Sodium 138.0 148.0 Chloride 109.0 H 121.0 H Glucose 116 H 119 H Lactate 4.0 H* 2.4 H Mechanical Rate 20 FiO2 21.0 40.0 Tidal Volume 400 PEEP 5 Potassium Carbon Dioxide Anion Gap BUN Creatinine Est GFR ( Amer) Est GFR (Non-Af Amer) POC Glucose (mg/dL) Random Glucose Calcium Phosphorus Magnesium Total Bilirubin AST ALT Alkaline Phosphatase Troponin I Total Protein Albumin Globulin Albumin/Globulin Ratio Triglycerides Cholesterol LDL Cholesterol Direct HDL Cholesterol Arterial Blood Potassium 3.3 L Venous Blood Potassium 3.9 Urine Color Urine Appearance Urine pH Ur Specific [place] Urine Protein Urine Glucose (UA) Urine Ketones Urine Blood Urine Nitrate Urine Bilirubin Urine Urobilinogen Ur Leukocyte Esterase Urine RBC Urine WBC Urine Bacteria Coarse Granular Casts Urine Opiates Screen Urine Methadone Screen Ur Barbiturates Screen Ur Phencyclidine Scrn Ur Amphetamines Screen U Benzodiazepines Scrn U Oth Cocaine Metabols U Cannabinoids Screen Assessment & Plan - Assessment and Plan (Free Text) Assessment: 57 F with a PMHx of seizures on Trileptal, Keprra, and Topamax presented to [facility] ED with ROSC s/p Vfib arrest in the field. Pt was administered epinephrine x 3 , narcan 6mg, was found to be in vfib, given amiodarone 150 and then 300mg, defibrillated 6 times and then found to have ROSC. Unknown downtime in field. NIHHS of 35 in ED. Hypothermic protocol initiated, on amiodarone drip, UDS positive for benzodiazepines, Levetiracetam level ordered, TG profoundly elevated. Pt is currently afebrile with leukocytosis, HD stable, no response to verbal/noxious stimuli. Maintain aspiration precautions, Seizure precautions, and continue neurochecks. Recommend repeat imaging, MRI, EEG, Echocardiogram, fu septic workup and renal us. <Ronald Martinez - Last Filed: 11/29/17 18:32> Meds - Medications Medications: Current Medications Cefepime HCl (Maxipime 2gm) 2 gm in 100 mls @ 100 mls/hr IVPB Q12 ANTONINO PRN Reason: Protocol Stop: 12/03/17 22:01 Last Admin: 11/29/17 09:50 Dose: 100 mls/hr Vancomycin HCl (Vancomycin 1gm) 1 gm in 250 mls @ 167 mls/hr IVPB DAILY ANTONINO PRN Reason: Protocol Last Admin: 11/29/17 11:35 Dose: 167 mls/hr Propofol (Diprivan) 1,000 mg in 100 mls @ 3.742 mls/hr IV .Q24H PRN; Protocol; 5 MCG/KG/MIN PRN Reason: TITRATE PER MD ORDER Last Titration: 11/29/17 17:30 Dose: 15 mcg/kg/min, 11.226 mls/hr Heparin Sodium/Sodium Chloride (Heparin 13749 Units/250ml 1/2 Normal Saline) 25 ,000 units in 250 mls @ 14.969 mls/hr IV .[id number] ANTONINO; 12 UNITS/KG/HR PRN Reason: Protocol Last Titration: 11/29/17 16:53 Dose: 0 units/kg/hr, 0 mls/hr Fentanyl Citrate (Fentanyl Citrate/Sodium Chloride 1 Mg/100 Ml) 1,000 mcg in 100 mls @ 2 mls/hr IV .Q24H PRN; Protocol; 20 MCG/HR PRN Reason: TITRATE PER MD ORDER Last Titration: 11/29/17 14:49 Dose: 0 mcg/hr, 0 mls/hr Cisatracurium Besylate 200 mg/ (Sodium Chloride) 270 mls @ 5.05 mls/hr IV .Q24H PRN; Protocol; 0.5 MCG/KG/MIN PRN Reason: TITRATE PER MD ORDER Last Titration: 11/29/17 15:00 Dose: 0 mcg/kg/min, 0 mls/hr Levetiracetam 1,000 mg/ Sodium (Chloride) 110 mls @ 460 mls/hr IV DAILY ANTONINO Nicardipine HCl (Cardene Iv Premix) 20 mg in 200 mls @ 100 mls/hr IV .Q2H PRN; Protocol; 10 MG/HR PRN Reason: TITRATE PER MD ORDER Last Admin: 11/29/17 16:15 Dose: 100 mls/hr Potassium Chloride (Potassium Chloride 20 Meq/100 Ml) 20 meq in 100 mls @ 50 mls/hr IVPB Q2H ANTONINO Stop: 11/29/17 21:14 Last Admin: 11/29/17 17:22 Dose: 50 mls/hr Sodium Bicarbonate 150 meq/ (Dextrose) 1,150 mls @ 150 mls/hr IV .Q7H40M ANTONINO Insulin Human Regular 100 (units/ Sodium Chloride) 100 mls @ 4 mls/hr IV .Q24H PRN; Protocol; 4 UNITS/HR PRN Reason: TITRATE PER MD ORDER Pantoprazole Sodium (Protonix Inj) 40 mg IVP Q12 ANTONINO Last Admin: 11/29/17 09:51 Dose: 40 mg Results - Vital Signs Recent Vital Signs: Last Vital Signs Temp 91.6 F L 11/29/17 16:31 Pulse 97 H 11/29/17 16:31 Resp 22 11/29/17 07:37 BP 161/69 H 11/29/17 16:31 Pulse Ox 100 11/29/17 16:31 - Labs Result Diagrams: 11/29/17 16:19 11/29/17 16:19 Labs: Laboratory Results - last 24 hr 11/28/17 11/28/17 11/28/17 20:30 20:30 20:30 WBC RBC Hgb Hct MCV MCH MCHC RDW Plt Count MPV Gran % Lymph % (Auto) [place] % (Auto) Eos % (Auto) Baso % (Auto) Gran # Lymph # (Auto) [place] # (Auto) Eos # (Auto) Baso # (Auto) PT INR APTT pCO2 pO2 44 HCO3 ABG pH ABG Total CO2 ABG O2 Saturation ABG Base Excess ABG Potassium VBG pH 7.14 L* VBG pCO2 50.0 VBG HCO3 17.0 L VBG Total CO2 18.5 L VBG O2 Sat (Calc) 75.7 H VBG Base Excess -12.0 L VBG Potassium 4.3 Sodium 144.0 Chloride 118.0 H Glucose 241 H Lactate 2.2 H Mechanical Rate FiO2 21.0 Tidal Volume PEEP Potassium Carbon Dioxide Anion Gap BUN Creatinine Est GFR ( Amer) Est GFR (Non-Af Amer) POC Glucose (mg/dL) Random Glucose Calcium Phosphorus Magnesium Total Bilirubin AST ALT Alkaline Phosphatase Troponin I 1.32 H* D Total Protein Albumin Globulin Albumin/Globulin Ratio Triglycerides Cholesterol LDL Cholesterol Direct HDL Cholesterol Arterial Blood Potassium Venous Blood Potassium 4.3 Urine Color Urine Appearance Urine pH Ur Specific [place] Urine Protein Urine Glucose (UA) Urine Ketones Urine Blood Urine Nitrate Urine Bilirubin Urine Urobilinogen Ur Leukocyte Esterase Urine RBC Urine WBC Urine Bacteria Coarse Granular Casts Urine Opiates Screen Urine Methadone Screen Ur Barbiturates Screen Ur Phencyclidine Scrn Ur Amphetamines Screen U Benzodiazepines Scrn U Oth Cocaine Metabols U Cannabinoids Screen Hepatitis A IgM Ab Negative Hep Bs Antigen Negative Hep B Core IgM Ab Negative Hepatitis C Antibody Negative 11/28/17 11/28/17 11/29/17 21:40 21:40 01:13 WBC RBC Hgb Hct MCV MCH MCHC RDW Plt Count MPV Gran % Lymph % (Auto) [place] % (Auto) Eos % (Auto) Baso % (Auto) Gran # Lymph # (Auto) [place] # (Auto) Eos # (Auto) Baso # (Auto) PT INR APTT pCO2 pO2 HCO3 ABG pH ABG Total CO2 ABG O2 Saturation ABG Base Excess ABG Potassium VBG pH VBG pCO2 VBG HCO3 VBG Total CO2 VBG O2 Sat (Calc) VBG Base Excess VBG Potassium Sodium Chloride Glucose Lactate Mechanical Rate FiO2 Tidal Volume PEEP Potassium Carbon Dioxide Anion Gap BUN Creatinine Est GFR ( Amer) Est GFR (Non-Af Amer) POC Glucose (mg/dL) 169 H Random Glucose Calcium Phosphorus Magnesium Total Bilirubin AST ALT Alkaline Phosphatase Troponin I Total Protein Albumin Globulin Albumin/Globulin Ratio Triglycerides Cholesterol LDL Cholesterol Direct HDL Cholesterol Arterial Blood Potassium Venous Blood Potassium Urine Color Yellow Urine Appearance Turbid Urine pH 5.0 Ur Specific [place] 1.025 Urine Protein 30 H Urine Glucose (UA) Negative Urine Ketones Negative Urine Blood Large H Urine Nitrate Negative Urine Bilirubin Negative Urine Urobilinogen 0.2 Ur Leukocyte Esterase Negative Urine RBC 1 - 3 Urine WBC 0 - 2 Urine Bacteria Few Coarse Granular Casts Large H Urine Opiates Screen Negative Urine Methadone Screen Negative Ur Barbiturates Screen Negative Ur Phencyclidine Scrn Negative Ur Amphetamines Screen Negative U Benzodiazepines Scrn Positive U Oth Cocaine Metabols Negative U Cannabinoids Screen Negative Hepatitis A IgM Ab Hep Bs Antigen Hep B Core IgM Ab Hepatitis C Antibody 11/29/17 11/29/17 11/29/17 02:07 02:07 02:07 WBC 17.4 H RBC 4.20 Hgb 10.5 L Hct 31.6 L MCV 75.2 L MCH 25.0 MCHC 33.2 RDW 16.2 H Plt Count 324 MPV 9.7 Gran % Lymph % (Auto) [place] % (Auto) Eos % (Auto) Baso % (Auto) Gran # Lymph # (Auto) [place] # (Auto) Eos # (Auto) Baso # (Auto) PT INR APTT pCO2 pO2 27 L HCO3 ABG pH ABG Total CO2 ABG O2 Saturation ABG Base Excess ABG Potassium VBG pH 7.12 L* VBG pCO2 56.0 VBG HCO3 18.2 L VBG Total CO2 19.9 L VBG O2 Sat (Calc) 48.3 VBG Base Excess -11.5 L VBG Potassium 3.7 Sodium 139.0 142 Chloride 110.0 H 110 H Glucose 178 H Lactate 3.4 H Mechanical Rate FiO2 21.0 Tidal Volume PEEP Potassium 3.8 Carbon Dioxide 17 L Anion Gap 19 BUN 18 Creatinine 1.4 H Est GFR ( Amer) 47 Est GFR (Non-Af Amer) 39 POC Glucose (mg/dL) Random Glucose 170 H Calcium 7.9 L Phosphorus 3.5 Magnesium 1.6 L Total Bilirubin 0.2 AST 372 H D ALT 258 H Alkaline Phosphatase 96 Troponin I Total Protein 6.8 Albumin 4.0 Globulin 2.8 Albumin/Globulin Ratio 1.4 Triglycerides Cholesterol LDL Cholesterol Direct HDL Cholesterol Arterial Blood Potassium Venous Blood Potassium 3.7 Urine Color Urine Appearance Urine pH Ur Specific [place] Urine Protein Urine Glucose (UA) Urine Ketones Urine Blood Urine Nitrate Urine Bilirubin Urine Urobilinogen Ur Leukocyte Esterase Urine RBC Urine WBC Urine Bacteria Coarse Granular Casts Urine Opiates Screen Urine Methadone Screen Ur Barbiturates Screen Ur Phencyclidine Scrn Ur Amphetamines Screen U Benzodiazepines Scrn U Oth Cocaine Metabols U Cannabinoids Screen Hepatitis A IgM Ab Hep Bs Antigen Hep B Core IgM Ab Hepatitis C Antibody 04/11/29/17 11/29/17 02:07 03:41 06:50 WBC 15.0 H RBC 3.96 Hgb 10.1 L Hct 29.7 L MCV 75.0 L MCH 25.5 MCHC 34.0 RDW 16.3 H Plt Count 294 MPV 9.9 Gran % 85.2 H Lymph % (Auto) 9.0 L [place] % (Auto) 5.8 Eos % (Auto) 0.0 L Baso % (Auto) 0.0 Gran # 12.76 H Lymph # (Auto) 1.3 [place] # (Auto) 0.9 H Eos # (Auto) 0.0 Baso # (Auto) 0.00 PT 11.4 INR 1.00 APTT 25.6 pCO2 35 pO2 237.0 H HCO3 14.7 L ABG pH 7.23 L ABG Total CO2 15.8 L ABG O2 Saturation 99.7 H ABG Base Excess -11.9 L ABG Potassium 3.4 L VBG pH VBG pCO2 VBG HCO3 VBG Total CO2 VBG O2 Sat (Calc) VBG Base Excess VBG Potassium Sodium 146.0 Chloride 120.0 H Glucose 178 H Lactate 2.9 H Mechanical Rate 20 FiO2 60.0 Tidal Volume 400 PEEP 5 Potassium Carbon Dioxide Anion Gap BUN Creatinine Est GFR ( Amer) Est GFR (Non-Af Amer) POC Glucose (mg/dL) Random Glucose Calcium Phosphorus Magnesium Total Bilirubin AST ALT Alkaline Phosphatase Troponin I Total Protein Albumin Globulin Albumin/Globulin Ratio Triglycerides Cholesterol LDL Cholesterol Direct HDL Cholesterol Arterial Blood Potassium 3.4 L Venous Blood Potassium Urine Color Urine Appearance Urine pH Ur Specific [place] Urine Protein Urine Glucose (UA) Urine Ketones Urine Blood Urine Nitrate Urine Bilirubin Urine Urobilinogen Ur Leukocyte Esterase Urine RBC Urine WBC Urine Bacteria Coarse Granular Casts Urine Opiates Screen Urine Methadone Screen Ur Barbiturates Screen Ur Phencyclidine Scrn Ur Amphetamines Screen U Benzodiazepines Scrn U Oth Cocaine Metabols U Cannabinoids Screen Hepatitis A IgM Ab Hep Bs Antigen Hep B Core IgM Ab Hepatitis C Antibody 11/29/17 11/29/17 11/29/17 06:50 06:50 06:50 WBC RBC Hgb Hct MCV MCH MCHC RDW Plt Count MPV Gran % Lymph % (Auto) [place] % (Auto) Eos % (Auto) Baso % (Auto) Gran # Lymph # (Auto) [place] # (Auto) Eos # (Auto) Baso # (Auto) PT 11.6 INR 1.01 APTT 27.0 pCO2 pO2 43 HCO3 ABG pH ABG Total CO2 ABG O2 Saturation ABG Base Excess ABG Potassium VBG pH 7.11 L* VBG pCO2 59.0 VBG HCO3 18.7 L VBG Total CO2 20.5 L VBG O2 Sat (Calc) 77.4 H VBG Base Excess -11.3 L VBG Potassium 3.9 Sodium 141 138.0 Chloride 109 H 109.0 H Glucose 116 H Lactate 4.0 H* Mechanical Rate FiO2 21.0 Tidal Volume PEEP Potassium 4.1 Carbon Dioxide 16 L Anion Gap 21 H BUN 21 Creatinine 1.3 H Est GFR ( Amer) 51 Est GFR (Non-Af Amer) 43 POC Glucose (mg/dL) Random Glucose 110 Calcium 7.3 L Phosphorus 3.6 Magnesium 1.5 L Total Bilirubin 0.7 AST 332 H ALT 217 H Alkaline Phosphatase 86 Troponin I 3.29 H* D Total Protein 6.7 Albumin 3.8 Globulin 2.9 Albumin/Globulin Ratio 1.3 Triglycerides 3074 H Cholesterol 170 LDL Cholesterol Direct < 30 HDL Cholesterol 79 H Arterial Blood Potassium Venous Blood Potassium 3.9 Urine Color Urine Appearance Urine pH Ur Specific [place] Urine Protein Urine Glucose (UA) Urine Ketones Urine Blood Urine Nitrate Urine Bilirubin Urine Urobilinogen Ur Leukocyte Esterase Urine RBC Urine WBC Urine Bacteria Coarse Granular Casts Urine Opiates Screen Urine Methadone Screen Ur Barbiturates Screen Ur Phencyclidine Scrn Ur Amphetamines Screen U Benzodiazepines Scrn U Oth Cocaine Metabols U Cannabinoids Screen Hepatitis A IgM Ab Hep Bs Antigen Hep B Core IgM Ab Hepatitis C Antibody 11/29/17 11/29/17 11/29/17 09:10 12:42 16:19 WBC RBC Hgb Hct MCV MCH MCHC RDW Plt Count MPV Gran % Lymph % (Auto) [place] % (Auto) Eos % (Auto) Baso % (Auto) Gran # Lymph # (Auto) [place] # (Auto) Eos # (Auto) Baso # (Auto) PT INR APTT > 400.0 H* pCO2 38 pO2 150.0 H HCO3 16.7 L ABG pH 7.25 L ABG Total CO2 17.9 L ABG O2 Saturation 99.9 H ABG Base Excess -9.9 L ABG Potassium 3.3 L VBG pH VBG pCO2 VBG HCO3 VBG Total CO2 VBG O2 Sat (Calc) VBG Base Excess VBG Potassium Sodium 148.0 Chloride 121.0 H Glucose 119 H Lactate 2.4 H Mechanical Rate 20 FiO2 40.0 Tidal Volume 400 PEEP 5 Potassium Carbon Dioxide Anion Gap BUN Creatinine Est GFR ( Amer) Est GFR (Non-Af Amer) POC Glucose (mg/dL) 129 H Random Glucose Calcium Phosphorus Magnesium Total Bilirubin AST ALT Alkaline Phosphatase Troponin I Total Protein Albumin Globulin Albumin/Globulin Ratio Triglycerides Cholesterol LDL Cholesterol Direct HDL Cholesterol Arterial Blood Potassium 3.3 L Venous Blood Potassium Urine Color Urine Appearance Urine pH Ur Specific [place] Urine Protein Urine Glucose (UA) Urine Ketones Urine Blood Urine Nitrate Urine Bilirubin Urine Urobilinogen Ur Leukocyte Esterase Urine RBC Urine WBC Urine Bacteria Coarse Granular Casts Urine Opiates Screen Urine Methadone Screen Ur Barbiturates Screen Ur Phencyclidine Scrn Ur Amphetamines Screen U Benzodiazepines Scrn U Oth Cocaine Metabols U Cannabinoids Screen Hepatitis A IgM Ab Hep Bs Antigen Hep B Core IgM Ab Hepatitis C Antibody 11/29/17 11/29/17 16:19 16:19 WBC 20.8 H D RBC 4.25 Hgb 9.8 L Hct 31.4 L MCV 73.9 L MCH 23.1 L MCHC 31.2 RDW 16.1 H Plt Count 305 MPV 9.4 Gran % 82.1 H Lymph % (Auto) 12.7 L [place] % (Auto) 5.2 Eos % (Auto) 0.0 L Baso % (Auto) 0.0 Gran # 17.04 H Lymph # (Auto) 2.6 [place] # (Auto) 1.1 H Eos # (Auto) 0.0 Baso # (Auto) 0.01 PT INR APTT pCO2 pO2 HCO3 ABG pH ABG Total CO2 ABG O2 Saturation ABG Base Excess ABG Potassium VBG pH VBG pCO2 VBG HCO3 VBG Total CO2 VBG O2 Sat (Calc) VBG Base Excess VBG Potassium Sodium 142 Chloride 114 H Glucose Lactate Mechanical Rate FiO2 Tidal Volume PEEP Potassium 2.6 L* D Carbon Dioxide 13 L Anion Gap 18 BUN 24 H Creatinine 1.2 Est GFR ( Amer) 56 Est GFR (Non-Af Amer) 47 POC Glucose (mg/dL) Random Glucose 353 H* D Calcium 7.5 L Phosphorus Magnesium Total Bilirubin AST ALT Alkaline Phosphatase Troponin I Total Protein Albumin Globulin Albumin/Globulin Ratio Triglycerides Cholesterol LDL Cholesterol Direct HDL Cholesterol Arterial Blood Potassium Venous Blood Potassium Urine Color Urine Appearance Urine pH Ur Specific [place] Urine Protein Urine Glucose (UA) Urine Ketones Urine Blood Urine Nitrate Urine Bilirubin Urine Urobilinogen Ur Leukocyte Esterase Urine RBC Urine WBC Urine Bacteria Coarse Granular Casts Urine Opiates Screen Urine Methadone Screen Ur Barbiturates Screen Ur Phencyclidine Scrn Ur Amphetamines Screen U Benzodiazepines Scrn U Oth Cocaine Metabols U Cannabinoids Screen Hepatitis A IgM Ab Hep Bs Antigen Hep B Core IgM Ab Hepatitis C Antibody Attending/Attestation - Attestation I have personally seen and examined this patient.: Yes I have fully participated in the care of the patient.: Yes I have reviewed all pertinent clinical information: Yes
[2017-11-29] MEDS: Vancomycin 1gm in NS 250ml 1 GM/250 ML BAG IVPB SCH (11:35)
[2017-11-29] MEDS ORDERED: Fentanyl 1000mcg/100ml NS 1,000 MCG/100 ML BAG IV PRN (12:16)
[2017-11-29 12:44] LABS: HEPATITIS B SURFACE AG Negative (NEGATIVE)
[2017-11-29 12:51] LABS: HEPATITIS B CORE AB NEGATIVE (NEGATIVE)
[2017-11-29] MEDS ORDERED: levETIRAcetam 1,000 MG in Sodium Chloride 0.9% 100 ML IV ONE (12:59)
[2017-11-29 13:02] LABS: HEPATITIS C ANTIBODY NEGATIVE (NEGATIVE)
[2017-11-29] MEDS ORDERED: Cisatracurium Besylate 100 MG in Sodium Chloride 0.9% 250 ML IV PRN (13:02)
[2017-11-29] MEDS ORDERED: Cisatracurium Besylate 200 MG in Sodium Chloride 0.9% 250 ML IV PRN (13:09)
[2017-11-29 13:26] LABS: HEPATITIS A IGM NEGATIVE (NEGATIVE)
--- NOTE | 2017-11-29 14:39 | CARD ---
APPROVED REPORT EKG Measurement Heart [id number] <Conclusion> Marked sinus bradycardia Nonspecific T wave abnormality Prolonged QT Abnormal ECG
[2017-11-29] MEDS ORDERED: Nicardipine 20 MG/200 ML 20 MG/200 ML BAG IV PRN ×3 (15:18→16:36)
--- NOTE | 2017-11-29 16:05 | CARD ---
APPROVED REPORT EXAM: Two-dimensional and M-mode echocardiogram with Doppler and color Doppler. INDICATION 2D DIMENSIONS IVSd1.0 (0.7-1.1cm)LVDd4.8 (3.9-5.9cm) PWd1.1 (0.7-1.1cm)LVDs3.4 (2.5-4.0cm) FS (%) 28.9 %LVEF (%)55.6 (>50%) M-Mode DIMENSIONS Left Atrium (MM)3.60 (2.5-4.0cm)Aortic Root3.10 (2.2-3.7cm) Aortic Cusp Exc.1.60 (1.5-2.0cm) Aortic Valve AoV Peak Ythjhdwl630.0cm/[place] Peak GR.16mmHg Mitral Valve MV E Rrigmwkc084.0cm/sMV A Eynqporv47.3cm/sE/A ratio1.2 TDI Lateral E' Peak V9.36cm/sMedial E' Peak V7.60cm/sE/Lateral E'12.3 E/Medial E'15.1 Tricuspid Valve TR Peak Aoxzqqqk082fs/sRAP [id number] Peak Gr.25mmHg [id number] LEFT VENTRICLE The left ventricle is normal size. There is normal left ventricular wall thickness. LV Anterior Wall shows mild Hypokinesis. Overall LV Systolic Function is still Adequate with LV Ej Fr 55%. RIGHT VENTRICLE The right ventricle is normal size. The right ventricular systolic function is normal. ATRIA The left atrium size is normal. The right atrium size is normal. AORTIC VALVE The aortic valve is thickened but opens well. MITRAL VALVE The mitral valve is thickened but opens well. Mitral regurgitation is mild. TRICUSPID VALVE The tricuspid valve is normal in structure. There is trace tricuspid regurgitation. RVSP 35mm Hg. PULMONIC VALVE There is trace pulmonic valvular regurgitation. PERICARDIAL EFFUSION There is no pericardial effusion. <Conclusion> ECHO Done while Patient lying in Supine Position and on Respirator. The left ventricle is normal size. There is normal left ventricular wall thickness. LV Anterior Wall shows mild Hypokinesis. Overall LV Systolic Function is still Adequate with LV Ej Fr 55%. Mild LV Diastolic Dysfunction Present. The right ventricle is normal size. The right ventricular systolic function is normal. The right atrium size is normal. The left atrium size is normal. The aortic valve is thickened but opens well. The mitral valve is thickened but opens well. Mitral regurgitation is mild. The tricuspid valve is normal in structure.RVSP 35mm Hg. There is trace tricuspid regurgitation. There is trace pulmonic valvular regurgitation. There is no pericardial effusion.
[2017-11-29 16:35] LABS: BASO # 0.01 K/mm3 (0.0-2.0); GRAN # 17.04 (1.4-6.5); GRAN % 82.1 % (50.0-68.0); HEMOGLOBIN 9.8 g/dL (12.0-16.0); LYMPH # 2.6 (1.2-3.4); LYMPH % 12.7 % (22.0-35.0); MEAN CELL VOLUME 73.9 fl (80.0-105.0); MEAN CORPUSCULAR HEMOGLOBIN 23.1 pg (25.0-35.0); MEAN CORPUSCULAR HGB CONC 31.2 g/dl (31.0-37.0); MEAN PLATELET VOLUME 9.4 fl (7.0-11.0); MONO # 1.1 (0.1-0.6); MONO % 5.2 % (1.0-6.0); RBC 4.25 10^6/uL (3.5-6.1); RED CELL DISTRIBUTION WIDTH 16.1 % (11.5-14.5); WHITE BLOOD COUNT 20.8 10^3/ul (4.5-11.0)
[2017-11-29 16:59] LABS: CALCIUM 7.5 mg/dL (8.4-10.5)
[2017-11-29] MEDS ORDERED: Insulin Regular 100 UNITS in Sodium Chloride 0.9% 99 ML IV PRN (17:32)
[2017-11-29] MEDS: Sodium Bicarbonate 8.4% 150 MEQ in Dextrose 5% In Water 1,000 ML IV SCH (18:32)
--- NOTE | 2017-11-29 20:01 | CP.PCM.PN ---
Addendum entered and electronically signed by Linnea Crobin DO 11/30/17 00:27 : Bleeding from venapuncture site from phelebotomy. Gelfoam ordered VS stable Original Note: <Linnea Corbin - Last Filed: 11/29/17 23:22> Subjective - Date & Time of Evaluation Date of Evaluation: 11/29/17 Time of Evaluation: 19:55 - Subjective Subjective: PGY-[address] Bentley CC: blood in ET tube S: Pt coughs and bright red blood seen in ET tube. Respiratory therapist flushes the ET tube and confirmed that there is no more bleed. APTT was 400 at around 4pm. Heparin gtt was stopped at 4pm O: HR 67, 143/74, RR 18, POx 99, PRVC O2 40/Peep 5/rr 20/tv 400 GEN: Intubated, sedated by fentynl Card: regular s1 s2 Pulm: BS CTA b/l but diminished throughout. (+) rhonchi Skin: cap refill < 2s A/P: Transient bleed seen in ET tube due to supratherapeutic INR in the setting of possible platelet dysfunction during hypothermic protocol - CBC, coags stat - CXR - Continue to hold heparin - Notified Dr. eBntley Objective - Vital Signs/Intake and Output Vital Signs (last 24 hours): Temp Pulse Resp BP Pulse Ox 94.3 F L 65 22 139/60 100 11/29/17 18:50 11/29/17 18:50 11/29/17 07:37 11/29/17 18:30 11/29/17 18:50 Intake and Output: 11/29/17 11/30/17 18:59 06:59 Intake Total 420 Balance 420 - Medications Medications: Current Medications Cefepime HCl (Maxipime 2gm) 2 gm in 100 mls @ 100 mls/hr IVPB Q12 [facility] PRN Reason: Protocol Stop: 12/03/17 22:01 Last Admin: 11/29/17 09:50 Dose: 100 mls/hr Vancomycin HCl (Vancomycin 1gm) 1 gm in 250 mls @ 167 mls/hr IVPB DAILY [facility] PRN Reason: Protocol Last Admin: 11/29/17 11:35 Dose: 167 mls/hr Propofol (Diprivan) 1,000 mg in 100 mls @ 3.742 mls/hr IV .Q24H PRN; Protocol; 5 MCG/KG/MIN PRN Reason: TITRATE PER MD ORDER Last Titration: 11/29/17 18:50 Dose: 20 mcg/kg/min, 14.969 mls/hr Heparin Sodium/Sodium Chloride (Heparin 65779 Units/250ml 1/2 Normal Saline) 25 ,000 units in 250 mls @ 14.969 mls/hr IV .[id number] [facility]; 12 UNITS/KG/HR PRN Reason: Protocol Last Titration: 11/29/17 16:53 Dose: 0 units/kg/hr, 0 mls/hr Fentanyl Citrate (Fentanyl Citrate/Sodium Chloride 1 Mg/100 Ml) 1,000 mcg in 100 mls @ 2 mls/hr IV .Q24H PRN; Protocol; 20 MCG/HR PRN Reason: TITRATE PER MD ORDER Last Titration: 11/29/17 18:45 Dose: 10 mcg/hr, 1 mls/hr Cisatracurium Besylate 200 mg/ (Sodium Chloride) 270 mls @ 5.05 mls/hr IV .Q24H PRN; Protocol; 0.5 MCG/KG/MIN PRN Reason: TITRATE PER MD ORDER Last Titration: 11/29/17 15:00 Dose: 0 mcg/kg/min, 0 mls/hr Levetiracetam 1,000 mg/ Sodium (Chloride) 110 mls @ 460 mls/hr IV DAILY [facility] Nicardipine HCl (Cardene Iv Premix) 20 mg in 200 mls @ 100 mls/hr IV .Q2H PRN; Protocol; 10 MG/HR PRN Reason: TITRATE PER MD ORDER Last Admin: 11/29/17 16:15 Dose: 100 mls/hr Potassium Chloride (Potassium Chloride 20 Meq/100 Ml) 20 meq in 100 mls @ 50 mls/hr IVPB Q2H [facility] Stop: 11/29/17 21:14 Last Admin: 11/29/17 17:22 Dose: 50 mls/hr Sodium Bicarbonate 150 meq/ (Dextrose) 1,150 mls @ 150 mls/hr IV .Q7H40M [facility] Last Admin: 11/29/17 18:32 Dose: 150 mls/hr Insulin Human Regular 100 (units/ Sodium Chloride) 100 mls @ 4 mls/hr IV .Q24H PRN; Protocol; 4 UNITS/HR PRN Reason: TITRATE PER MD ORDER Pantoprazole Sodium (Protonix Inj) 40 mg IVP Q12 [facility] Last Admin: 11/29/17 09:51 Dose: 40 mg - Labs Labs: 11/29/17 16:19 11/29/17 16:19 PT 11.6 SECONDS (9.4-12.5) 11/29/17 06:50 INR 1.01 (0.93-1.08) 11/29/17 06:50 APTT > 400.0 Seconds (25.1-36.5) H* 11/29/17 16:19 <Sukhwinder Bentley - Last Filed: 12/01/17 02:23> Objective - Vital Signs/Intake and Output Vital Signs (last 24 hours): Temp Pulse Resp BP Pulse Ox 101.5 F H 109 H 23 173/74 H 99 11/30/17 18:01 11/30/17 22:00 11/30/17 13:42 11/30/17 20:02 11/30/17 18:01 Intake and Output: 11/30/17 12/01/17 18:59 06:59 Intake Total 1338 Output Total 650 Balance 688 - Medications Medications: Current Medications Albuterol/Ipratropium (Duoneb 3 Mg/0.5 Mg (3 Ml) Ud) 3 ml IH [id number] [facility] Last Admin: 11/30/17 20:51 Dose: 3 ml Amlodipine Besylate (Norvasc) 10 mg PO DAILY [facility] Last Admin: 11/30/17 11:25 Dose: 10 mg Artificial Tears (Artificial Tears) 1 ml OU TID PRN PRN Reason: Dry eyes Last Admin: 11/30/17 16:00 Dose: 1 drop Aspirin (Aspirin Chewable) 81 mg PO DAILY [facility] Last Admin: 11/30/17 11:26 Dose: 81 mg Hydralazine HCl (Apresoline) 10 mg IVP Q6H PRN PRN Reason: SBP>170 Last Admin: 11/30/17 20:02 Dose: 10 mg Cefepime HCl (Maxipime 2gm) 2 gm in 100 mls @ 100 mls/hr IVPB Q12 [facility] PRN Reason: Protocol Stop: 12/03/17 22:01 Last Admin: 11/30/17 21:03 Dose: 100 mls/hr Vancomycin HCl (Vancomycin 1gm) 1 gm in 250 mls @ 167 mls/hr IVPB DAILY [facility] PRN Reason: Protocol Last Admin: 11/30/17 09:37 Dose: 167 mls/hr Heparin Sodium/Sodium Chloride (Heparin 45288 Units/250ml 1/2 Normal Saline) 25 ,000 units in 250 mls @ 14.969 mls/hr IV .[id number] [facility]; 12 UNITS/KG/HR PRN Reason: Protocol Last Titration: 11/29/17 16:53 Dose: 0 units/kg/hr, 0 mls/hr Levetiracetam 1,000 mg/ Sodium (Chloride) 110 mls @ 460 mls/hr IV DAILY [facility] Last Admin: 11/30/17 09:38 Dose: 460 mls/hr Nicardipine HCl (Cardene Iv Premix) 20 mg in 200 mls @ 100 mls/hr IV .Q2H PRN; Protocol; 10 MG/HR PRN Reason: TITRATE PER MD ORDER Last Admin: 11/29/17 16:15 Dose: 100 mls/hr Insulin Human Regular 100 (units/ Sodium Chloride) 100 mls @ 4 mls/hr IV .Q24H PRN; Protocol; 4 UNITS/HR PRN Reason: TITRATE PER MD ORDER Acetaminophen (Ofirmev) 1,000 mg in 100 mls @ 400 mls/hr IVPB Q6H PRN PRN Reason: Temperature Stop: 12/02/17 10:33 Last Admin: 11/30/17 21:51 Dose: 400 mls/hr Heparin Sodium/Sodium Chloride (Heparin 22659 Units/250ml 1/2 Normal Saline) 25 ,000 units in 250 mls @ 12.474 mls/hr IV .Q20H3M [facility]; 10 UNITS/KG/HR PRN Reason: Protocol Last Admin: 11/30/17 20:01 Dose: 10 units/kg/hr, 12.474 mls/hr Methylprednisolone (Solu-Medrol) 20 mg IVP Q8H [facility] Last Admin: 11/30/17 17:38 Dose: 20 mg Metoprolol Tartrate (Lopressor) 25 mg PO BID [facility] Last Admin: 11/30/17 17:38 Dose: 25 mg Pantoprazole Sodium (Protonix Inj) 40 mg IVP Q12 [facility] Last Admin: 11/30/17 21:56 Dose: 40 mg - Labs Labs: 11/30/17 07:50 11/30/17 07:50 PT 12.0 SECONDS (9.4-12.5) 11/30/17 07:50 INR 1.04 (0.93-1.08) 11/30/17 07:50 APTT 28.1 Seconds (25.1-36.5) 11/30/17 07:50 Attending/Attestation - Attestation I have personally seen and examined this patient.: Yes I have fully participated in the care of the patient.: Yes I have reviewed all pertinent clinical information, including history, physical exam and plan: Yes Notes (Text): 12/01/17 02:23 Agree.
[2017-11-29 20:42] LABS: BASO # 0.01 K/mm3 (0.0-2.0); BASO % 0.1 % (0.0-3.0); EOS % 0.1 % (1.5-5.0); GRAN # 17.15 (1.4-6.5); GRAN % 88.9 % (50.0-68.0); HEMOGLOBIN 9.9 g/dL (12.0-16.0); LYMPH # 1.1 (1.2-3.4); LYMPH % 5.9 % (22.0-35.0); MEAN CELL VOLUME 75.4 fl (80.0-105.0); MEAN CORPUSCULAR HEMOGLOBIN 23.4 pg (25.0-35.0); MEAN PLATELET VOLUME 9.8 fl (7.0-11.0); RBC 4.23 10^6/uL (3.5-6.1); RED CELL DISTRIBUTION WIDTH 16.4 % (11.5-14.5); WHITE BLOOD COUNT 19.3 10^3/ul (4.5-11.0)
[2017-11-29 21:01] LABS: INR 1.14 (0.93-1.08)
[2017-11-29 21:02] LABS: PARTIAL THROMBOPLASTIN TIME > 400.0 Seconds (25.1-36.5)
[2017-11-30] MEDS: Propofol 10 mg/ml 1,000 MG/100 ML VIAL IV PRN ×2 (00:10→03:15)
[2017-11-30] MEDS ORDERED: Absorbable Gelatin Sponge Size 100 MM ONE (00:26)
[2017-11-30] MEDS: Sodium Bicarbonate 8.4% 150 MEQ in Dextrose 5% In Water 1,000 ML IV SCH (03:10)
[2017-11-30 06:01] LABS: ARTERIAL BLOOD GAS HCO3 17.5 mmol/L (21-28); ARTERIAL BLOOD GAS O2 SAT 99.8 % (95-98); ARTERIAL BLOOD GAS PCO2 31 mm/Hg (35-45); ARTERIAL BLOOD GAS PH 7.36 (7.35-7.45); ARTERIAL BLOOD GAS TCO2 18.5 mmol.L (22-28)
--- NOTE | 2017-11-30 07:47 | CP.PCM.PN ---
<Jose Ramsey - Last Filed: 11/30/17 10:13> Subjective - Date & Time of Evaluation Date of Evaluation: 11/30/17 Time of Evaluation: 09:50 - Subjective Subjective: Subjective: Patient seen and examined. Overnight there was bright red blood noted in the ET tube. ET tube was flushed and it was confirmed that there is active bleed. Heparin gtt was stopped at 4pm due to elevated aPTT. Taken off sedation. Eyes open spontaneous. Does not respond to verbal stimuli or follow commands. 12-point review of systems cannot be ascertained at this time due to altered mental status Physical Examination: - Constitutional Appears: No Acute Distress - Head Exam Head Exam: NORMAL INSPECTION - Eye Exam Eye Exam: Normal appearance - ENT Exam ENT Exam: Normal Exam - Neck Exam Neck Exam: Normal Inspection - Respiratory Exam Respiratory Exam: Clear to Ausculation Bilateral. absent: Rales, Rhonchi, Wheezes - Cardiovascular Exam Cardiovascular Exam: RRR, +S1, +S2. absent: Gallop, Rubs, Murmur - GI/Abdominal Exam GI & Abdominal Exam: Soft. absent: Firm, Rigid, Tenderness, Rebound - Extremities Exam Extremities Exam: Normal Inspection - Neurological Exam Neurological Exam: Eyes open spontaneously, breathing over vent, absent: Alert, Awake, Oriented x3 - Skin Skin Exam: Dry, Intact, Normal Color, Warm Assessment and Plan: Patient is a 57 yo F with unknown PMHx admitted for evaluation and treatment for cardiac arrest with ROSC. Cardiac Arrest with ROSC - Admitted to ICU, intubated, sedated (propofol) - Vent management per ICU - Initially pulseless, asystole - multiple rounds of epinephrine and amiodarone given - Converted to v-fib - defibrillated multiple times - ROSC achieved - EKG showed NSR at 93 bpm with QTc 507 - Troponin 0.06, 1.32, 3.29 - Heparin drip --stopped due to blood in ET tube, maintained as per cardiology - CXR showed no active disease - HgbA1c ordered - TSH WNL - Lipid panel: Total 170, LDL < 30, HDL 79, TG 3074 - Echo- LVEF 55.6% , mild anterior wall hypokinesis - Hypothermic protocol - Cardio consulted Altered Mental Status - NIHSS score in ED 35 - Head CT negative - Digoxin, ASA, phenytoin, EtOH serum negative - UDS positive for benzodiazepines - Levetiracetam level ordered - EEG ordered - Aspiration precautions - Seizure precautions - High risk fall precautions - Neurochecks - Neuro consulted Leukocytosis - WBC 20.9 -> 15--> 22.9 - Blood cultures- no growth after 24 hours - Cont Vancomycin, Cefepime Lactic Acidosis - Likely 2/2 hypoxia - resolved Transaminitis - AST/ALT downtrending - Serum tylenol negative - Hep panel pending Anemia - Hgb stable - Microcytic, hypochromic - Iron studies ordered and previewed- TIBC is low LAURITA - Cr 2.1- elevated - nephrology consulted- appreciate recommendations - IVF - Cont to monitor GI/DVT PPx - Protonix - Heparin Patient seen, case discussed with, and plan approved by attending physician. Objective - Vital Signs/Intake and Output Vital Signs (last 24 hours): Temp Pulse Resp BP Pulse Ox 98.4 F 100 H 22 193/83 H 100 11/30/17 06:20 11/30/17 06:20 11/29/17 07:37 11/30/17 06:16 11/30/17 01:10 Intake and Output: 11/30/17 11/30/17 06:59 18:59 Intake Total 245 Balance 245 - Medications Medications: Current Medications Hydralazine HCl (Apresoline) 10 mg IVP Q8 PRN PRN Reason: Systolic Blood Pressure Last Admin: 11/30/17 06:16 Dose: 10 mg Cefepime HCl (Maxipime 2gm) 2 gm in 100 mls @ 100 mls/hr IVPB Q12 [facility] PRN Reason: Protocol Stop: 12/03/17 22:01 Last Admin: 11/29/17 21:28 Dose: 100 mls/hr Vancomycin HCl (Vancomycin 1gm) 1 gm in 250 mls @ 167 mls/hr IVPB DAILY [facility] PRN Reason: Protocol Last Admin: 11/29/17 11:35 Dose: 167 mls/hr Propofol (Diprivan) 1,000 mg in 100 mls @ 3.742 mls/hr IV .Q24H PRN; Protocol; 5 MCG/KG/MIN PRN Reason: TITRATE PER MD ORDER Last Admin: 11/30/17 03:15 Dose: 40 mcg/kg/min, 29.937 mls/hr Heparin Sodium/Sodium Chloride (Heparin 91540 Units/250ml 1/2 Normal Saline) 25 ,000 units in 250 mls @ 14.969 mls/hr IV .[id number] [facility]; 12 UNITS/KG/HR PRN Reason: Protocol Last Titration: 11/29/17 16:53 Dose: 0 units/kg/hr, 0 mls/hr Fentanyl Citrate (Fentanyl Citrate/Sodium Chloride 1 Mg/100 Ml) 1,000 mcg in 100 mls @ 2 mls/hr IV .Q24H PRN; Protocol; 20 MCG/HR PRN Reason: TITRATE PER MD ORDER Last Titration: 11/29/17 19:35 Dose: 30 mcg/hr, 3 mls/hr Cisatracurium Besylate 200 mg/ (Sodium Chloride) 270 mls @ 5.05 mls/hr IV .Q24H PRN; Protocol; 0.5 MCG/KG/MIN PRN Reason: TITRATE PER MD ORDER Last Titration: 11/29/17 15:00 Dose: 0 mcg/kg/min, 0 mls/hr Levetiracetam 1,000 mg/ Sodium (Chloride) 110 mls @ 460 mls/hr IV DAILY [facility] Nicardipine HCl (Cardene Iv Premix) 20 mg in 200 mls @ 100 mls/hr IV .Q2H PRN; Protocol; 10 MG/HR PRN Reason: TITRATE PER MD ORDER Last Admin: 11/29/17 16:15 Dose: 100 mls/hr Sodium Bicarbonate 150 meq/ (Dextrose) 1,150 mls @ 150 mls/hr IV .Q7H40M [facility] Last Admin: 11/30/17 03:10 Dose: 150 mls/hr Insulin Human Regular 100 (units/ Sodium Chloride) 100 mls @ 4 mls/hr IV .Q24H PRN; Protocol; 4 UNITS/HR PRN Reason: TITRATE PER MD ORDER Pantoprazole Sodium (Protonix Inj) 40 mg IVP Q12 [facility] Last Admin: 11/29/17 21:36 Dose: 40 mg - Labs Labs: 11/29/17 20:38 11/29/17 16:19 PT 13.0 SECONDS (9.4-12.5) H 11/29/17 20:38 INR 1.14 (0.93-1.08) H 11/29/17 20:38 APTT > 400.0 Seconds (25.1-36.5) H* 11/29/17 20:38 <Ashley Phan - Last Filed: 11/30/17 13:45> Objective - Vital Signs/Intake and Output Vital Signs (last 24 hours): Temp Pulse Resp BP Pulse Ox 99.9 F H 99 H 22 213/103 H 100 11/30/17 11:00 11/30/17 13:01 11/29/17 07:37 11/30/17 13:01 11/30/17 11:00 Intake and Output: 11/30/17 11/30/17 06:59 18:59 Intake Total 245 Balance 245 - Medications Medications: Current Medications Albuterol/Ipratropium (Duoneb 3 Mg/0.5 Mg (3 Ml) Ud) 3 ml IH [id number] [facility] Last Admin: 11/30/17 10:45 Dose: 3 ml Amlodipine Besylate (Norvasc) 10 mg PO DAILY [facility] Last Admin: 11/30/17 11:25 Dose: 10 mg Artificial Tears (Artificial Tears) 1 ml OU TID PRN PRN Reason: Dry eyes Aspirin (Aspirin Chewable) 81 mg PO DAILY [facility] Last Admin: 11/30/17 11:26 Dose: 81 mg Hydralazine HCl (Apresoline) 10 mg IVP Q6H PRN PRN Reason: SBP>170 Last Admin: 11/30/17 13:01 Dose: 10 mg Cefepime HCl (Maxipime 2gm) 2 gm in 100 mls @ 100 mls/hr IVPB Q12 [facility] PRN Reason: Protocol Stop: 12/03/17 22:01 Last Admin: 11/30/17 09:38 Dose: 100 mls/hr Vancomycin HCl (Vancomycin 1gm) 1 gm in 250 mls @ 167 mls/hr IVPB DAILY [facility] PRN Reason: Protocol Last Admin: 11/30/17 09:37 Dose: 167 mls/hr Propofol (Diprivan) 1,000 mg in 100 mls @ 3.742 mls/hr IV .Q24H PRN; Protocol; 5 MCG/KG/MIN PRN Reason: TITRATE PER MD ORDER Last Admin: 11/30/17 03:15 Dose: 40 mcg/kg/min, 29.937 mls/hr Heparin Sodium/Sodium Chloride (Heparin 65510 Units/250ml 1/2 Normal Saline) 25 ,000 units in 250 mls @ 14.969 mls/hr IV .[id number] [facility]; 12 UNITS/KG/HR PRN Reason: Protocol Last Titration: 11/29/17 16:53 Dose: 0 units/kg/hr, 0 mls/hr Fentanyl Citrate (Fentanyl Citrate/Sodium Chloride 1 Mg/100 Ml) 1,000 mcg in 100 mls @ 2 mls/hr IV .Q24H PRN; Protocol; 20 MCG/HR PRN Reason: TITRATE PER MD ORDER Last Titration: 11/29/17 19:35 Dose: 30 mcg/hr, 3 mls/hr Cisatracurium Besylate 200 mg/ (Sodium Chloride) 270 mls @ 5.05 mls/hr IV .Q24H PRN; Protocol; 0.5 MCG/KG/MIN PRN Reason: TITRATE PER MD ORDER Last Titration: 11/29/17 15:00 Dose: 0 mcg/kg/min, 0 mls/hr Levetiracetam 1,000 mg/ Sodium (Chloride) 110 mls @ 460 mls/hr IV DAILY [facility] Last Admin: 11/30/17 09:38 Dose: 460 mls/hr Nicardipine HCl (Cardene Iv Premix) 20 mg in 200 mls @ 100 mls/hr IV .Q2H PRN; Protocol; 10 MG/HR PRN Reason: TITRATE PER MD ORDER Last Admin: 11/29/17 16:15 Dose: 100 mls/hr Insulin Human Regular 100 (units/ Sodium Chloride) 100 mls @ 4 mls/hr IV .Q24H PRN; Protocol; 4 UNITS/HR PRN Reason: TITRATE PER MD ORDER Acetaminophen (Ofirmev) 1,000 mg in 100 mls @ 400 mls/hr IVPB Q6H PRN PRN Reason: Temperature Stop: 12/02/17 10:33 Methylprednisolone (Solu-Medrol) 20 mg IVP Q8H [facility] Last Admin: 11/30/17 09:40 Dose: 20 mg Metoprolol Tartrate (Lopressor) 25 mg PO BID [facility] Last Admin: 11/30/17 11:24 Dose: 25 mg Pantoprazole Sodium (Protonix Inj) 40 mg IVP Q12 [facility] Last Admin: 11/30/17 09:37 Dose: 40 mg - Labs Labs: 11/30/17 07:50 11/30/17 07:50 PT 12.0 SECONDS (9.4-12.5) 11/30/17 07:50 INR 1.04 (0.93-1.08) 11/30/17 07:50 APTT 28.1 Seconds (25.1-36.5) 11/30/17 07:50 Attending/Attestation - Attestation I have personally seen and examined this patient.: Yes I have fully participated in the care of the patient.: Yes I have reviewed all pertinent clinical information, including history, physical exam and plan: Yes Notes (Text): 11/30/17 13:31 Attending note; Patient seen and examined with resident. Patient is a 57-year-old female admitted post cardiac arrest at home. Patient was shocked multiple times with return of spontaneous circulation. The exact downtime is not known. Status post hypothermia protocol. Currently patient is intubated and sedated. Weaning protocol as per ICU. Monitor mental status closely. Neurology evaluation appreciated. History of seizure disorder. Continue Keppra. Initial CT head is negative. Elevated troponin; post cardiac arrest/defibrillation. Heparin drip on hold due to hematuria. 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 Hypertension; continue nicardipine drip. Acute renal insufficiency; monitor urine output closely. Hematuria is clearing. Nephrology evaluation requested. Leukocytosis; patient is afebrile and nontoxic. Monitor closely. Possibly reactive. Pro-calcitonin is negative. Blood cultures negative. Monitor closely. Prognosis is poor. Monitor the patient closely in ICU. 11/30/17 13:44
[2017-11-30 08:07] LABS: GRAN # 19.96 (1.4-6.5); GRAN % 87.1 % (50.0-68.0); HEMOGLOBIN 9.7 g/dL (12.0-16.0); LYMPH # 1.5 (1.2-3.4); LYMPH % 6.6 % (22.0-35.0); MEAN CELL VOLUME 72.7 fl (80.0-105.0); MEAN CORPUSCULAR HEMOGLOBIN 23.3 pg (25.0-35.0); MEAN PLATELET VOLUME 9.9 fl (7.0-11.0); MONO # 1.4 (0.1-0.6); MONO % 6.3 % (1.0-6.0); RBC 4.17 10^6/uL (3.5-6.1); WHITE BLOOD COUNT 22.9 10^3/ul (4.5-11.0)
[2017-11-30 08:13] LABS: INR 1.04 (0.93-1.08); PARTIAL THROMBOPLASTIN TIME 28.1 Seconds (25.1-36.5)
[2017-11-30 08:25] LABS: ALB/GLOB RATIO 1.5 (1.1-1.8); ALBUMIN 3.9 g/dL (3.0-4.8); CALCIUM 7.8 mg/dL (8.4-10.5)
--- NOTE | 2017-11-30 09:19 | RAD ---
HISTORY: intubated COMPARISON: Yesterday FINDINGS: LUNGS: Patient is intubated. Endotracheal is unchanged in position. Motion artifact limits study. NG tube is seen within the stomach. There are low lung volumes with possible mild congestion. PLEURA: No significant pleural effusion identified, no pneumothorax apparent. CARDIOVASCULAR: Unchanged. OSSEOUS STRUCTURES: No significant abnormalities. VISUALIZED UPPER ABDOMEN: Normal. OTHER FINDINGS: None. IMPRESSION: Suboptimal radiograph due to under penetration and motion. Endotracheal tube and NG tube unchanged. Low lung volumes with possible mild congestion.
[2017-11-30] MEDS: Vancomycin 1gm in NS 250ml 1 GM/250 ML BAG IVPB SCH (09:37)
[2017-11-30] MEDS: Cefepime IV 2 gm in NS 2 GM/100 ML BAG IVPB SCH ×2 (09:38→21:03)
[2017-11-30] MEDS: MethylPREDNISolone 40 mg Vial IVP SCH ×2 (09:40→17:38)
--- NOTE | 2017-11-30 09:52 | RAD ---
HISTORY: blood in ET tube COMPARISON: 11/29/2017 at 6:11 FINDINGS: LUNGS: No appreciable new infiltrate is seen. Endotracheal tube and NG tube are unchanged. PLEURA: No significant pleural effusion identified, no pneumothorax apparent. CARDIOVASCULAR: Mild vascular congestion is not excluded. OSSEOUS STRUCTURES: No significant abnormalities. VISUALIZED UPPER ABDOMEN: Normal. OTHER FINDINGS: None. IMPRESSION: No new infiltrate. Mild vascular congestion. Status post intubation.
[2017-11-30] MEDS ORDERED: levETIRAcetam 1,000 MG in Sodium Chloride 0.9% 100 ML IV SCH (10:00)
[2017-11-30] MEDS: Albuterol-Ipratrop 3 mg / 0.5 (3 ml) UD IH SCH ×3 (10:45→20:51)
[2017-11-30] MEDS ORDERED: Aritificial Tears (15ml) OU PRN ×2 (12:35→12:49)
--- NOTE | 2017-11-30 14:03 | PN ---
DATE: 11/30/2017 SUBJECTIVE: The patient is seen and examined at the bedside. She is off of sedation, still appears to be comfortable. She is on bicarb drip at 150 mL per hour. She tolerates pressure support very well (5/5 with FiO2 40%). However, she is still not responding to painful touch or verbal stimuli. She is going for CT head shortly. OBJECTIVE: VITAL SIGNS: Heart rate 94, blood pressure 172/86, temperature 98.6, end-tidal CO2 on the monitor is 30, respiratory rate 20. ENT: Head and neck atraumatic. LUNGS: Some wheezes bilaterally. HEART: Regular rate and rhythm. S1, S2 normal. ABDOMEN: Soft, nontender, nondistended. MUSCULOSKELETAL: Trace bilateral pedal and ankle edema. NEUROLOGICAL: The patient was not observed moving extremities spontaneously. SKIN: Moist. PSYCHIATRIC: The patient poorly responding to verbal touch or painful stimuli. LABORATORY DATA Sodium 145; potassium 3.7; chloride 111; carbon dioxide 19, up from 15. BUN 33, creatinine 2.1. Glucose 149. WBC 22.9, hemoglobin 9.7, platelet count 283. AST 281, ALT 197, bilirubin 0.8. Blood gas 7.36/31/168 on 40% FiO2. MEDICATIONS: DuoNeb every 4 hours, heparin drip, Keppra, cefepime, Solu-Medrol 20 mg IV every 8 hours, Protonix, and vancomycin. Chest x-ray today shows some increased haziness, which may or may not represent increased vascular congestion ASSESSMENT AND PLAN: This is 57-year-old lady who presented with cardiac arrest, likely secondary to primary cardiac events (the patient had shockable rhythm and troponin levels were going up) complicated by cardiogenic shock with multiorgan system failure. Neurology: At present time, we will repeat CT scan. EEG yesterday did not show any seizures. The patient is on Keppra. At present time, Propofol was stopped to assess the patient's mental function. Therapeutic hypothermia protocol was completed yesterday and she was gradually warmed up yesterday as well. Neurology service is following the patient as well. Pulmonary: The patient tolerates pressure support trial well; however, she is not following commands. She is wheezing and will be started on steroids and bronchodilators. We might repeat ABG later on to follow on her gas exchange and ventilatory parameters. We will continue with head of bed elevated at >35 degrees, oral hygiene and VAP bundle. Cardiovascular: The patient probably had primary cardiac event as outlined above. The patient is on heparin drip. We will start antiplatelet therapy. Due to LFT elevation, statins were held. We will also start the patient on beta-blockers as bradycardia resolved and the patient is relatively hypertensive. CT scan will be done to ascertain that the hypertension is not related to [employer] causes. ID: The patient is antibiotics. She still has leukocytosis. Septic workup negative so far. Procalcitonin will be followed. GI and Nephro: We will start feeding through NG tube. We will start hydrating her through NG tube as well. I would avoid significantly positive fluid balance and thus, I will hold IV fluids at present time (especially provided possibility of of increased vascular congestion on chest imaging), but will proceed with free water flushes through NGT. Continue with GI prophylaxis. The patient made about 200 mL of urine over 12 hours of period. We will try to avoid nephrotoxic medication but, not at expense of treating underlying disease. We will maintain mean arterial pressure more than 65. Glucose control. Endocrinology: The patient will be started on Solu-Medrol for bronchospasm. She is wheezing. We will maintain blood glucose within 140 to 180 range according to NICE-Sugar trial . We are waiting for her son to come from [place] to start conversation about potential outcomes. Addendum: Patient cant get CTH as she could not fit to available CT scanner ccm time 40 min Daryl Nina MD MTDJessika
--- NOTE | 2017-11-30 14:18 | PN ---
DATE: 11/30/2017 REASON FOR CONSULTATION AND FOLLOWUP: Status post cardiac arrest, status post CPR, status post intubated, hypothermic septic. SUBJECTIVE: The patient remains on the vent, not responding to verbal stimuli. OBJECTIVE: GENERAL: Not in apparent distress, on vent. VITAL SIGNS: Temperature afebrile, temperature earlier was , now is off warming blanket. Heart rate 100, blood pressure 193/83. HEENT: PERRLA. Extraocular muscles intact. NECK: Supple. No carotid bruit or thyromegaly. CHEST: Clear to auscultation. HEART: S1 and S2 regular. ABDOMEN: Soft. EXTREMITIES: Clubbing and cyanosis negative. LABORATORY DATA: Blood workup as follows: WBC 22.8, hemoglobin 9, hematocrit 30.3, platelet count 283. Chemistry shows sodium 145, potassium 3.7, chloride 111, carbon dioxide 19, anion gap of 19, BUN 33, creatinine 2.1. IMPRESSION: Status post cardiopulmonary resuscitation; status post cardiac arrest, intubated; respiratory failure, status post cardiopulmonary resuscitation; unknown downtime; acute kidney injury, sepsis, hypothermic, on code chill protocol of hypothermia treatment; hypertensive shunt. The patient had echocardiography done yesterday that revealed ejection fraction 55%, mild diastolic dysfunction, right ventricle normal size, right atrium normal, aortic valve thick and opens well, mitral valve thick and opens well, mild mitral regurgitation, trace tricuspid regurgitation, right ventricular systolic pressure of 35, trace pulmonary insufficiency, no pericardial effusion, and acute kidney injury. RECOMMENDATIONS: Continue vent management; continue hydralazine, increase to 10 mg IV every 6 hours systolic more than 160. The patient is already on heparin, broad spectrum antibiotic. Monitor electrolytes, start free fluid through NG tube and start low-dose beta sharan as blood pressure is tolerated. We will put through the NG tube baby aspirin, beta sharan and free fluid for insensible loss. We will increase hydralazine 10 mg IV every 6 hours p.r.n. for systolic more than 170. The patient's condition is grave, long-term prognosis is guarded. We will follow with you. We will get EKG in the morning. Thank you Dr. Julien for providing us the opportunity in taking care of the patient Dale Pringle. Catherine Dc MD
[2017-11-30 16:25] LABS: PH,URINE 5.5 (4.7-8.0); URINE APPEARANCE SLIGHT-CLOUDY (CLEAR); URINE BILIRUBIN NEGATIVE (NEGATIVE); URINE BLOOD LARGE (NEGATIVE); URINE COLOR BROWN (YELLOW); URINE GLUCOSE (UA) NEGATIVE (NEGATIVE); URINE LEUKOCYTE ESTERASE NEGATIVE Leu/uL (NEGATIVE); URINE PROTEIN 100 mg/dL (<30 mg/dL); URINE UROBILINOGEN 0.2 E.U./dL (<1 E.U./dL)
[2017-11-30 16:37] LABS: URINE AMORPHOUS SEDIMENT TRACE; URINE EPITHELIAL CELLS 0 - 2 /hpf (0-5); URINE RBC TNTC /hpf (0-2); URINE WBC 0 - 2 /hpf (0-6)
[2017-11-30 16:46] LABS: CREATININE,RANDOM URINE 111 mg/dL
[2017-11-30] MEDS: Heparin25000 units/250ml 1/2NS 25,000 UNITS/250 ML BAG IV SCH (20:01)
--- NOTE | 2017-11-30 22:44 | CON ---
DATE: NEPHROLOGY CONSULTATION HISTORY OF PRESENT ILLNESS: A 57-year-old female with past medical history of obesity, seizure disorder, brought in by EMS status post cardiac arrest; Nephrology being consulted for acute renal failure. History only able to be obtained from medical record as patient is intubated and unresponsive. Family at bedside, unable to give further details. Patient reportedly was found to be in cardiac arrest and in asystole, was given CPR and six rounds of epinephrine; was in Vfib at one point and was defibrillated several times before return of spontaneous circulation was achieved. Patient initially was hypotensive; however, blood pressures by yesterday had increased enough to be placed on nicardipine drip, which has been continued until today. Patient was also acidotic and placed on bicarb drip. Today, patient was placed on CPAP trial and able to tolerate. Patient had been placed on heparin drip due to concern for NSTEMI; has been having gross hematuria since then. PAST MEDICAL HISTORY: Unable to obtain; however, patient was on antihypertensive medications and antiseizure medications. FAMILY HISTORY: Unable to obtain. SOCIAL HISTORY: Unable to obtain. REVIEW OF SYSTEMS: Limited, unable to obtain from patient or family. PHYSICAL EXAMINATION: VITAL SIGNS: Blood pressure this morning is 182/102, heart rate 111, T-max 99.9. GENERAL: Patient is currently on CPAP, tachypneic. HEENT: Moist mucous membranes. Elevated JVD. RESPIRATORY: Mild rhonchorous sounds heard. CARDIOVASCULAR: Tachycardic. S1, S2 normal. No murmurs, no gallops, no rubs. GASTROINTESTINAL: Abdomen soft, nontender, nondistended. GENITOURINARY: Bojorquez in place. No bladder distention. EXTREMITIES: 1+ bilateral lower leg edema. SKIN: Warm. No cyanosis. NEUROLOGIC: Not responsive to tactile stimuli. No overt seizure activity. LABORATORY DATA: labs this morning, CBC: WBC 22.9, hemoglobin 9.7, hematocrit 30.3, platelets 283. Chemistry panel: Sodium 145; potassium 3.7; chloride 111; bicarb 19; BUN 33; creatinine 2.1, increased from 1.2 yesterday afternoon; glucose 154; calcium 7.8. ALT 197, AST 281, albumin 3.9. Chest x-ray: Directly observed, unable to appreciate vascular congestion due to inadequate penetrance. Urine micro . UA from admission showed 30 mg per dL of protein, large blood, 1 to 3 rbc's per high-power field, and coarse granular casts. ASSESSMENT AND PLAN: 1. Acute renal failure. Etiology thus far is unclear. Acute tubular necrosis in the setting of prolonged cardiac arrest, should have given worsening serum creatinine by yesterday; however, serum creatinine was actually improving with IV fluids; patient may have been having significant natriuresis in the setting of uncontrolled hypertension; however, had been on aggressive intravascular volume replenishment with bicarb drip running at 150 mL per hour. No overt nephrotoxic medications identified. Patient had been having gross hematuria, which can possibly cause partial obstruction. Checking urine lytes and microscopy. Nursing staff instructed to flush Bojorquez. Agree with holding bicarb drip as patient has become hypocalcemic because of it; also has evidence of volume access on exam and continues to be markedly hypertensive. 2. Leukocytosis. Patient currently on vancomycin and cefepime. Recommend to check random vancomycin level before re-dosing. 3. Hypertensive urgency. Patient is started on amlodipine 10 mg and metoprolol 25 mg b.i.d. today; recommend to change metoprolol to Coreg for better antihypertensive effect; need to reassess with patient off IV fluids. Thank you for this referral. We will be following up closely. Arvind Gutierres MD
[2017-12-01] MEDS: Albuterol-Ipratrop 3 mg / 0.5 (3 ml) UD IH SCH ×5 (00:05→21:37)
[2017-12-01] MEDS: MethylPREDNISolone 40 mg Vial IVP SCH ×2 (01:00→10:39)
[2017-12-01 03:15] LABS: PARTIAL THROMBOPLASTIN TIME 86.6 Seconds (25.1-36.5)
[2017-12-01 03:19] LABS: INR 1.09 (0.93-1.08); PROTHROMBIN TIME 12.5 SECONDS (9.4-12.5)
[2017-12-01 04:06] LABS: BASO # 0.01 K/mm3 (0.0-2.0); GRAN # 18.37 (1.4-6.5); GRAN % 83.6 % (50.0-68.0); HEMOGLOBIN 9.1 g/dL (12.0-16.0); LYMPH # 2.3 (1.2-3.4); LYMPH % 10.2 % (22.0-35.0); MEAN CELL VOLUME 71.6 fl (80.0-105.0); MEAN CORPUSCULAR HEMOGLOBIN 22.7 pg (25.0-35.0); MEAN CORPUSCULAR HGB CONC 31.7 g/dl (31.0-37.0); MEAN PLATELET VOLUME 10.7 fl (7.0-11.0); MONO # 1.4 (0.1-0.6); MONO % 6.2 % (1.0-6.0); RBC 4.01 10^6/uL (3.5-6.1)
[2017-12-01 04:44] LABS: ALB/GLOB RATIO 1.3 (1.1-1.8); ALBUMIN 3.9 g/dL (3.0-4.8); CALCIUM 8.2 mg/dL (8.4-10.5)
[2017-12-01] MEDS ORDERED: Albuterol-Ipratrop 3 mg / 0.5 (3 ml) UD IH PRN (05:09)
[2017-12-01] MEDS ORDERED: Albuterol-Ipratrop 3 mg / 0.5 (3 ml) UD ONE (05:15)
--- NOTE | 2017-12-01 06:31 | CP.PCM.PN ---
Subjective - Date & Time of Evaluation Date of Evaluation: 12/01/17 Time of Evaluation: 06:28 - Subjective Subjective: Ms. Hunter was seen and examined at the bedside in ICU. She is on mechanical ventilator on PRVC mode, She can open her eyes spontaneously but unable to follow simple commands. She is able to response to pain with facial grimacing. She had an episode of generalized seizure at around 0400, approximately 30 seconds, with HR increased to 160 ,ativan was given. She is receiving heparin drip. Objective - Vital Signs/Intake and Output Vital Signs (last 24 hours): Temp Pulse Resp BP Pulse Ox 100.8 F H 129 H 24 143/62 98 11/30/17 21:00 12/01/17 03:20 12/01/17 01:20 12/01/17 03:01 12/01/17 03:20 Intake and Output: 11/30/17 12/01/17 18:59 06:59 Intake Total 1338 50 Output Total 650 Balance 688 50 - Medications Medications: Current Medications Albuterol/Ipratropium (Duoneb 3 Mg/0.5 Mg (3 Ml) Ud) 3 ml IH [id number] [facility] Last Admin: 12/01/17 03:05 Dose: 3 ml Albuterol/Ipratropium (Duoneb 3 Mg/0.5 Mg (3 Ml) Ud) 3 ml IH Q2H PRN PRN Reason: Shortness of Breath Last Admin: 12/01/17 05:20 Dose: 3 ml Amlodipine Besylate (Norvasc) 10 mg PO DAILY [facility] Last Admin: 11/30/17 11:25 Dose: 10 mg Artificial Tears (Artificial Tears) 1 ml OU TID PRN PRN Reason: Dry eyes Last Admin: 11/30/17 16:00 Dose: 1 drop Aspirin (Aspirin Chewable) 81 mg PO DAILY [facility] Last Admin: 11/30/17 11:26 Dose: 81 mg Hydralazine HCl (Apresoline) 10 mg IVP Q6H PRN PRN Reason: SBP>170 Last Admin: 11/30/17 20:02 Dose: 10 mg Cefepime HCl (Maxipime 2gm) 2 gm in 100 mls @ 100 mls/hr IVPB Q12 ANTONINO PRN Reason: Protocol Stop: 12/03/17 22:01 Last Admin: 11/30/17 21:03 Dose: 100 mls/hr Vancomycin HCl (Vancomycin 1gm) 1 gm in 250 mls @ 167 mls/hr IVPB DAILY ANTONINO PRN Reason: Protocol Last Admin: 11/30/17 09:37 Dose: 167 mls/hr Heparin Sodium/Sodium Chloride (Heparin 43258 Units/250ml 1/2 Normal Saline) 25 ,000 units in 250 mls @ 14.969 mls/hr IV .[id number] ANTONINO; 12 UNITS/KG/HR PRN Reason: Protocol Last Titration: 11/29/17 16:53 Dose: 0 units/kg/hr, 0 mls/hr Nicardipine HCl (Cardene Iv Premix) 20 mg in 200 mls @ 100 mls/hr IV .Q2H PRN; Protocol; 10 MG/HR PRN Reason: TITRATE PER MD ORDER Last Admin: 11/29/17 16:15 Dose: 100 mls/hr Insulin Human Regular 100 (units/ Sodium Chloride) 100 mls @ 4 mls/hr IV .Q24H PRN; Protocol; 4 UNITS/HR PRN Reason: TITRATE PER MD ORDER Acetaminophen (Ofirmev) 1,000 mg in 100 mls @ 400 mls/hr IVPB Q6H PRN PRN Reason: Temperature Stop: 12/02/17 10:33 Last Admin: 11/30/17 21:51 Dose: 400 mls/hr Heparin Sodium/Sodium Chloride (Heparin 20196 Units/250ml 1/2 Normal Saline) 25 ,000 units in 250 mls @ 12.474 mls/hr IV .Q20H3M ANTONINO; 10 UNITS/KG/HR PRN Reason: Protocol Last Titration: 12/01/17 03:00 Dose: 10 units/kg/hr, 12.474 mls/hr Levetiracetam 1,000 mg/ Sodium (Chloride) 110 mls @ 460 mls/hr IV Q12 ANTONINO Methylprednisolone (Solu-Medrol) 20 mg IVP Q8H ANTNOINO Last Admin: 12/01/17 01:00 Dose: 20 mg Metoprolol Tartrate (Lopressor) 25 mg PO BID ANTONINO Last Admin: 11/30/17 17:38 Dose: 25 mg Pantoprazole Sodium (Protonix Inj) 40 mg IVP Q12 ANTONINO Last Admin: 11/30/17 21:56 Dose: 40 mg - Labs Labs: 12/01/17 04:00 12/01/17 04:00 PT 12.5 SECONDS (9.4-12.5) 12/01/17 02:50 INR 1.09 (0.93-1.08) H 12/01/17 02:50 APTT 86.6 Seconds (25.1-36.5) H 12/01/17 02:50 - Constitutional Appears: No Acute Distress - Head Exam Head Exam: NORMAL INSPECTION - Eye Exam Pupil Exam: Unequal Additional comments: right eye 3 mm (sluggish) and left eye 4 mm. brisk - Neurological Exam Neurological Exam: Awake Neuro motor strength exam: Left Upper Extremity: 0, Right Upper Extremity: 0, Left Lower Extremity: 0, Right Lower Extremity: 0 Additional comments: She is awake, unable to follow simple commands. Assessment and Plan (1) Seizure Assessment & Plan: Case discussed with DR. Martinez, continue all current medical regimen. Recommend to increase keppra from 1000 mg IV daily to q 12. Pending CT scan of the head without contrast and keppra level. Status: Acute
[2017-12-01] MEDS ORDERED: Potassium Chloride 20 mEq/15 ml LIQ UD PO STA (07:38)
[2017-12-01] MEDS ORDERED: DAPTOmycin 500 mg Inj (Cubicin) IV SCH (08:00)
--- NOTE | 2017-12-01 08:42 | RAD ---
HISTORY: intubated COMPARISON: Yesterday FINDINGS: LUNGS: Lung hale are slightly improved aeration. Endotracheal tube and NG tube are unchanged. No pneumothorax is seen. No new effusion or infiltrate is noted. PLEURA: See above CARDIOVASCULAR: Vasculature is once again congested. OSSEOUS STRUCTURES: No change VISUALIZED UPPER ABDOMEN: No change OTHER FINDINGS: None. IMPRESSION: Mild improvement in aeration. Status post intubation. Stable vascular congestion.
[2017-12-01] MEDS ORDERED: DAPTOMYCIN IV SCH (10:00)
[2017-12-01] MEDS ORDERED: SODIUM CHLORIDE 0.9% IV SCH (10:00)
[2017-12-01] MEDS: levETIRAcetam 1,000 MG in Sodium Chloride 0.9% 100 ML IV SCH ×2 (10:34→22:44)
[2017-12-01] MEDS: Cefepime IV 2 gm in NS 2 GM/100 ML BAG IVPB SCH ×2 (10:35→22:44)
[2017-12-01] MEDS ORDERED: Albuterol-Ipratrop 3 mg / 0.5 (3 ml) UD IH SCH ×2 (12:00→18:24)
[2017-12-01] MEDS: Propofol 10 mg/ml 1,000 MG/100 ML VIAL IV PRN (12:07)
--- NOTE | 2017-12-01 12:16 | CP.PCM.CON ---
History of Present Illness - History of Present Illness History of Present Illness: 57 year old female with PMH of seizure disorder, morbid obesity with BMI 49 was brought in to [facility] [place] because the patient was found arrested in the field and unresponsive. The patient was resuscitated en route and in the ED was placed on the ventilator and is now in the ICU for close observation and care. The patient has been having fevers yesterday and blood cx drawn are showing gram positive cocci in clusters. There is no note of convulsions but the patient is sedated, no vomiting, no diarrhea. Infectious diseases consult is requested to further evaluate and manage. Review of Systems - Review of Systems Systems not reviewed;Unavailable: Intubated Past Patient History - Infectious Disease Hx of Infectious Diseases: None - Past Social History Smoking Status: Unknown If Ever Smoked - CARDIAC Hx Hypertension: Yes - NEUROLOGICAL Hx Seizures: Yes - MUSCULOSKELETAL/RHEUMATOLOGICAL Hx Falls: Yes (SEIZURES) - PSYCHIATRIC Hx Substance Use: No Meds Allergies/Adverse Reactions: Allergies Allergy/AdvReac Type Severity Reaction Status Date / Time Unobtainable Allergy Verified 11/28/17 17:09 - Medications Medications: Current Medications Albuterol/Ipratropium (Duoneb 3 Mg/0.5 Mg (3 Ml) Ud) 3 ml IH [id number] [facility] Last Admin: 12/01/17 03:05 Dose: 3 ml Albuterol/Ipratropium (Duoneb 3 Mg/0.5 Mg (3 Ml) Ud) 3 ml IH Q2H PRN PRN Reason: Shortness of Breath Last Admin: 12/01/17 05:20 Dose: 3 ml Amlodipine Besylate (Norvasc) 10 mg PO DAILY [facility] Last Admin: 11/30/17 11:25 Dose: 10 mg Artificial Tears (Artificial Tears) 1 ml OU TID PRN PRN Reason: Dry eyes Last Admin: 11/30/17 16:00 Dose: 1 drop Aspirin (Aspirin Chewable) 81 mg PO DAILY [facility] Last Admin: 11/30/17 11:26 Dose: 81 mg Daptomycin (Cubicin) 780 mg 6 mg/kg (780 mg) IV QOTHERDAY [facility] PRN Reason: Protocol Stop: 12/06/17 08:01 Hydralazine HCl (Apresoline) 10 mg IVP Q6H PRN PRN Reason: SBP>170 Last Admin: 11/30/17 20:02 Dose: 10 mg Cefepime HCl (Maxipime 2gm) 2 gm in 100 mls @ 100 mls/hr IVPB Q12 [facility] PRN Reason: Protocol Stop: 12/03/17 22:01 Last Admin: 11/30/17 21:03 Dose: 100 mls/hr Heparin Sodium/Sodium Chloride (Heparin 78595 Units/250ml 1/2 Normal Saline) 25 ,000 units in 250 mls @ 14.969 mls/hr IV .[id number] [facility]; 12 UNITS/KG/HR PRN Reason: Protocol Last Titration: 11/29/17 16:53 Dose: 0 units/kg/hr, 0 mls/hr Nicardipine HCl (Cardene Iv Premix) 20 mg in 200 mls @ 100 mls/hr IV .Q2H PRN; Protocol; 10 MG/HR PRN Reason: TITRATE PER MD ORDER Last Admin: 11/29/17 16:15 Dose: 100 mls/hr Insulin Human Regular 100 (units/ Sodium Chloride) 100 mls @ 4 mls/hr IV .Q24H PRN; Protocol; 4 UNITS/HR PRN Reason: TITRATE PER MD ORDER Acetaminophen (Ofirmev) 1,000 mg in 100 mls @ 400 mls/hr IVPB Q6H PRN PRN Reason: Temperature Stop: 12/02/17 10:33 Last Admin: 11/30/17 21:51 Dose: 400 mls/hr Heparin Sodium/Sodium Chloride (Heparin 45388 Units/250ml 1/2 Normal Saline) 25 ,000 units in 250 mls @ 12.474 mls/hr IV .Q20H3M [facility]INO; 10 UNITS/KG/HR PRN Reason: Protocol Last Titration: 12/01/17 03:00 Dose: 10 units/kg/hr, 12.474 mls/hr Levetiracetam 1,000 mg/ Sodium (Chloride) 110 mls @ 460 mls/hr IV Q12 [facility] Potassium Chloride (Potassium Chloride 10 Meq/100 Ml) 10 meq in 100 mls @ 50 mls/hr IVPB Q2H [facility] Stop: 12/01/17 11:44 Lorazepam (Ativan) 2 mg IVP Q6H PRN; Protocol PRN Reason: Seizure activity Methylprednisolone (Solu-Medrol) 20 mg IVP Q8H [facility] Last Admin: 12/01/17 01:00 Dose: 20 mg Metoprolol Tartrate (Lopressor) 25 mg PO BID [facility] Last Admin: 11/30/17 17:38 Dose: 25 mg Pantoprazole Sodium (Protonix Inj) 40 mg IVP Q12 [facility] Last Admin: 11/30/17 21:56 Dose: 40 mg Physical Exam - Constitutional Appears: Other (intubated, sedated) - Head Exam Head Exam: NORMAL INSPECTION - ENT Exam Additional comments: ET tube in place - Respiratory Exam Respiratory Exam: Decreased Breath Sounds - Cardiovascular Exam Cardiovascular Exam: +S1, +S2 - GI/Abdominal Exam GI & Abdominal Exam: Soft. absent: Tenderness Results - Vital Signs Recent Vital Signs: Last Vital Signs Temp 100.8 F H 11/30/17 21:00 Pulse 106 H 12/01/17 06:40 Resp 24 12/01/17 01:20 BP 135/67 12/01/17 06:30 Pulse Ox 100 12/01/17 06:40 - Labs Result Diagrams: 12/01/17 04:00 12/01/17 04:00 Labs: Laboratory Results - last 24 hr 11/29/17 11/30/17 11/30/17 02:07 07:50 07:50 WBC 22.9 H RBC 4.17 Hgb 9.7 L Hct 30.3 L MCV 72.7 L MCH 23.3 L MCHC 32.0 RDW 16.0 H Plt Count 283 MPV 9.9 Gran % 87.1 H Lymph % (Auto) 6.6 L [place] % (Auto) 6.3 H Eos % (Auto) 0.0 L Baso % (Auto) 0.0 Gran # 19.96 H Lymph # (Auto) 1.5 [place] # (Auto) 1.4 H Eos # (Auto) 0.0 Baso # (Auto) 0.00 PT INR APTT Sodium 145 Potassium 3.7 Chloride 111 H Carbon Dioxide 19 L Anion Gap 19 BUN 33 H Creatinine 2.1 H Est GFR ( Amer) 30 Est GFR (Non-Af Amer) 24 POC Glucose (mg/dL) Random Glucose 154 H Calcium 7.8 L Ionized Calcium TNP Total Bilirubin 0.8 AST 281 H ALT 197 H Alkaline Phosphatase 95 Total Protein 6.6 Albumin 3.9 Globulin 2.7 Albumin/Globulin Ratio 1.5 Urine Color Urine Appearance Urine pH Ur Specific [place] Urine Protein Urine Glucose (UA) Urine Ketones Urine Blood Urine Nitrate Urine Bilirubin Urine Urobilinogen Ur Leukocyte Esterase Urine RBC Urine WBC Ur Epithelial Cells Amorphous Sediment Ur Random Creatinine Ur Random Sodium 11/30/17 11/30/17 11/30/17 07:50 08:03 09:50 WBC RBC Hgb Hct MCV MCH MCHC RDW Plt Count MPV Gran % Lymph % (Auto) [place] % (Auto) Eos % (Auto) Baso % (Auto) Gran # Lymph # (Auto) [place] # (Auto) Eos # (Auto) Baso # (Auto) PT 12.0 INR 1.04 APTT 28.1 Sodium Potassium Chloride Carbon Dioxide Anion Gap BUN Creatinine Est GFR ( Amer) Est GFR (Non-Af Amer) POC Glucose (mg/dL) 149 H 140 H Random Glucose Calcium Ionized Calcium Total Bilirubin AST ALT Alkaline Phosphatase Total Protein Albumin Globulin Albumin/Globulin Ratio Urine Color Urine Appearance Urine pH Ur Specific [place] Urine Protein Urine Glucose (UA) Urine Ketones Urine Blood Urine Nitrate Urine Bilirubin Urine Urobilinogen Ur Leukocyte Esterase Urine RBC Urine WBC Ur Epithelial Cells Amorphous Sediment Ur Random Creatinine Ur Random Sodium 11/30/17 11/30/17 11/30/17 11:25 12:45 12:45 WBC RBC Hgb Hct MCV MCH MCHC RDW Plt Count MPV Gran % Lymph % (Auto) [place] % (Auto) Eos % (Auto) Baso % (Auto) Gran # Lymph # (Auto) [place] # (Auto) Eos # (Auto) Baso # (Auto) PT INR APTT Sodium Potassium Chloride Carbon Dioxide Anion Gap BUN Creatinine Est GFR ( Amer) Est GFR (Non-Af Amer) POC Glucose (mg/dL) 138 H Random Glucose Calcium Ionized Calcium Total Bilirubin AST ALT Alkaline Phosphatase Total Protein Albumin Globulin Albumin/Globulin Ratio Urine Color Brown Urine Appearance Slight-cloudy Urine pH 5.5 Ur Specific [place] 1.020 Urine Protein 100 H Urine Glucose (UA) Negative Urine Ketones Negative Urine Blood Large H Urine Nitrate Negative Urine Bilirubin Negative Urine Urobilinogen 0.2 Ur Leukocyte Esterase Negative Urine RBC Tntc Urine WBC 0 - 2 Ur Epithelial Cells 0 - 2 Amorphous Sediment Trace Ur Random Creatinine 111 Ur Random Sodium 57 11/30/17 11/30/17 11/30/17 14:00 16:11 17:51 WBC RBC Hgb Hct MCV MCH MCHC RDW Plt Count MPV Gran % Lymph % (Auto) [place] % (Auto) Eos % (Auto) Baso % (Auto) Gran # Lymph # (Auto) [place] # (Auto) Eos # (Auto) Baso # (Auto) PT INR APTT Sodium Potassium Chloride Carbon Dioxide Anion Gap BUN Creatinine Est GFR ( Amer) Est GFR (Non-Af Amer) POC Glucose (mg/dL) 147 H 137 H 122 H Random Glucose Calcium Ionized Calcium Total Bilirubin AST ALT Alkaline Phosphatase Total Protein Albumin Globulin Albumin/Globulin Ratio Urine Color Urine Appearance Urine pH Ur Specific [place] Urine Protein Urine Glucose (UA) Urine Ketones Urine Blood Urine Nitrate Urine Bilirubin Urine Urobilinogen Ur Leukocyte Esterase Urine RBC Urine WBC Ur Epithelial Cells Amorphous Sediment Ur Random Creatinine Ur Random Sodium 11/30/17 11/30/17 12/01/17 20:19 22:22 00:30 WBC RBC Hgb Hct MCV MCH MCHC RDW Plt Count MPV Gran % Lymph % (Auto) [place] % (Auto) Eos % (Auto) Baso % (Auto) Gran # Lymph # (Auto) [place] # (Auto) Eos # (Auto) Baso # (Auto) PT INR APTT Sodium Potassium Chloride Carbon Dioxide Anion Gap BUN Creatinine Est GFR ( Amer) Est GFR (Non-Af Amer) POC Glucose (mg/dL) 137 H 152 H 131 H Random Glucose Calcium Ionized Calcium Total Bilirubin AST ALT Alkaline Phosphatase Total Protein Albumin Globulin Albumin/Globulin Ratio Urine Color Urine Appearance Urine pH Ur Specific [place] Urine Protein Urine Glucose (UA) Urine Ketones Urine Blood Urine Nitrate Urine Bilirubin Urine Urobilinogen Ur Leukocyte Esterase Urine RBC Urine WBC Ur Epithelial Cells Amorphous Sediment Ur Random Creatinine Ur Random Sodium 12/01/17 12/01/17 12/01/17 02:02 02:50 04:00 WBC 22.0 H RBC 4.01 Hgb 9.1 L Hct 28.7 L MCV 71.6 L MCH 22.7 L MCHC 31.7 RDW 16.0 H Plt Count 287 MPV 10.7 Gran % 83.6 H Lymph % (Auto) 10.2 L [place] % (Auto) 6.2 H Eos % (Auto) 0.0 L Baso % (Auto) 0.0 Gran # 18.37 H Lymph # (Auto) 2.3 [place] # (Auto) 1.4 H Eos # (Auto) 0.0 Baso # (Auto) 0.01 PT 12.5 INR 1.09 H APTT 86.6 H Sodium Potassium Chloride Carbon Dioxide Anion Gap BUN Creatinine Est GFR ( Amer) Est GFR (Non-Af Amer) POC Glucose (mg/dL) 145 H Random Glucose Calcium Ionized Calcium Total Bilirubin AST ALT Alkaline Phosphatase Total Protein Albumin Globulin Albumin/Globulin Ratio Urine Color Urine Appearance Urine pH Ur Specific [place] Urine Protein Urine Glucose (UA) Urine Ketones Urine Blood Urine Nitrate Urine Bilirubin Urine Urobilinogen Ur Leukocyte Esterase Urine RBC Urine WBC Ur Epithelial Cells Amorphous Sediment Ur Random Creatinine Ur Random Sodium 12/01/17 12/01/17 12/01/17 04:00 04:14 06:20 WBC RBC Hgb Hct MCV MCH MCHC RDW Plt Count MPV Gran % Lymph % (Auto) [place] % (Auto) Eos % (Auto) Baso % (Auto) Gran # Lymph # (Auto) [place] # (Auto) Eos # (Auto) Baso # (Auto) PT INR APTT Sodium 146 Potassium 3.3 L Chloride 111 H Carbon Dioxide 20 L Anion Gap 18 BUN 30 H Creatinine 2.1 H Est GFR ( Amer) 30 Est GFR (Non-Af Amer) 24 POC Glucose (mg/dL) 152 H 163 H Random Glucose 160 H Calcium 8.2 L Ionized Calcium Total Bilirubin 0.6 AST 244 H ALT 167 H Alkaline Phosphatase 100 Total Protein 6.8 Albumin 3.9 Globulin 3.0 Albumin/Globulin Ratio 1.3 Urine Color Urine Appearance Urine pH Ur Specific [place] Urine Protein Urine Glucose (UA) Urine Ketones Urine Blood Urine Nitrate Urine Bilirubin Urine Urobilinogen Ur Leukocyte Esterase Urine RBC Urine WBC Ur Epithelial Cells Amorphous Sediment Ur Random Creatinine Ur Random Sodium Assessment & Plan - Assessment and Plan (Free Text) Plan: Assessment Systemic inflammatory response syndrome with ventilator-dependent respiratory failure, acute renal failure after patient was found in cardiorespiratory arrest , R/O sepsis source to be determined - R/O sepsis from gram positive cocci in clusters bacteremia seizure disorder morbid obesity with BMI 49 Plan started Daptomycin renally-adjusted and will continue Cefepime and will repeat blood, urine cx, PCT, CXR will monitor clinically overall prognosis is poor
--- NOTE | 2017-12-01 12:47 | CP.PCM.PN ---
<Jose Ramsey - Last Filed: 12/01/17 12:34> Subjective - Date & Time of Evaluation Date of Evaluation: 12/01/17 Time of Evaluation: 09:00 - Subjective Subjective: Subjective: Patient seen and examined. Patient experienced seizure like activity yesterday evening and this morning. Relieved with ativan. Patient able to open her eyes spontaneously. Does not responds to verbal stimuli or follow commands. 12-point review of systems cannot be ascertained at this time due to altered mental status Physical Examination: - Constitutional Appears: No Acute Distress - Head Exam Head Exam: NORMAL INSPECTION - Eye Exam Eye Exam: Normal appearance - ENT Exam ENT Exam: Normal Exam - Neck Exam Neck Exam: Normal Inspection - Respiratory Exam Respiratory Exam: Clear to Ausculation Bilateral. absent: Rales, Rhonchi, Wheezes - Cardiovascular Exam Cardiovascular Exam: RRR, +S1, +S2. absent: Gallop, Rubs, Murmur - GI/Abdominal Exam GI & Abdominal Exam: Soft. absent: Firm, Rigid, Tenderness, Rebound - Extremities Exam Extremities Exam: Normal Inspection - Neurological Exam Neurological Exam: Eyes open spontaneously, breathing over vent - Skin Skin Exam: Dry, Intact, Normal Color, Warm Assessment and Plan: Patient is a 57 yo F with unknown PMHx admitted for evaluation and treatment for cardiac arrest with ROSC. Ventilator-dependent respiratory failure s/p Cardiac Arrest - Vent management per ICU - c/w heparin drip - CXR showed no active disease - Echo- LVEF 55.6% , mild anterior wall hypokinesis - Hypothermic protocol completed - Cardio consulted- appreciate recommendations Altered Mental Status; Seizures - Head CT negative - Digoxin, ASA, phenytoin, EtOH serum negative - UDS positive for benzodiazepines - Levetiracetam level ordered - EEG ordered and pending - Aspiration precautions - Seizure precautions - High risk fall precautions - Neurochecks - Neuro consulted appreciate recommendations- increase keppra from 1000 mg IV daily to q 12. Leukocytosis - WBC 20.9 -> 15--> 22.9--> 22.0 - Blood cultures- gram positive cocci - Infectious disease consulted- appreciate recommendations started Daptomycin renally-adjusted and will continue Cefepime and will repeat blood, urine cx, PCT , CXR Lactic Acidosis - Likely 2/2 hypoxia - resolved Transaminitis - AST/ALT downtrending - Serum tylenol negative - Hep panel negative Anemia - Hgb stable - Microcytic, hypochromic - Iron studies ordered and previewed- TIBC is low LAURITA - Cr 2.1- elevated - nephrology consulted- appreciate recommendations- checking urine lytes and microscopy - IVF - Cont to monitor GI/DVT PPx - Protonix - Heparin Patient seen, case discussed with, and plan approved by attending physician. Objective - Vital Signs/Intake and Output Vital Signs (last 24 hours): Temp Pulse Resp BP Pulse Ox 100.4 F H 115 H 24 151/80 H 100 12/01/17 09:30 12/01/17 10:39 12/01/17 01:20 12/01/17 10:40 12/01/17 09:30 Intake and Output: 12/01/17 12/01/17 06:59 18:59 Intake Total 437 Output Total 800 Balance -363 - Medications Medications: Current Medications Albuterol/Ipratropium (Duoneb 3 Mg/0.5 Mg (3 Ml) Ud) 3 ml IH Q2H PRN PRN Reason: Shortness of Breath Last Admin: 12/01/17 05:20 Dose: 3 ml Albuterol/Ipratropium (Duoneb 3 Mg/0.5 Mg (3 Ml) Ud) 3 ml IH Q6 [facility] Amlodipine Besylate (Norvasc) 10 mg PO DAILY [facility] Last Admin: 12/01/17 10:40 Dose: 10 mg Artificial Tears (Artificial Tears) 1 ml OU TID PRN PRN Reason: Dry eyes Last Admin: 11/30/17 16:00 Dose: 1 drop Aspirin (Aspirin Chewable) 81 mg PO DAILY [facility] Last Admin: 12/01/17 10:40 Dose: 81 mg Hydralazine HCl (Apresoline) 10 mg IVP Q6H PRN PRN Reason: SBP>170 Last Admin: 11/30/17 20:02 Dose: 10 mg Cefepime HCl (Maxipime 2gm) 2 gm in 100 mls @ 100 mls/hr IVPB Q12 [facility] PRN Reason: Protocol Stop: 12/03/17 22:01 Last Admin: 12/01/17 10:35 Dose: 100 mls/hr Heparin Sodium/Sodium Chloride (Heparin 95224 Units/250ml 1/2 Normal Saline) 25 ,000 units in 250 mls @ 14.969 mls/hr IV .[id number] ANTONINO; 12 UNITS/KG/HR PRN Reason: Protocol Last Titration: 11/29/17 16:53 Dose: 0 units/kg/hr, 0 mls/hr Nicardipine HCl (Cardene Iv Premix) 20 mg in 200 mls @ 100 mls/hr IV .Q2H PRN; Protocol; 10 MG/HR PRN Reason: TITRATE PER MD ORDER Last Admin: 11/29/17 16:15 Dose: 100 mls/hr Insulin Human Regular 100 (units/ Sodium Chloride) 100 mls @ 4 mls/hr IV .Q24H PRN; Protocol; 4 UNITS/HR PRN Reason: TITRATE PER MD ORDER Acetaminophen (Ofirmev) 1,000 mg in 100 mls @ 400 mls/hr IVPB Q6H PRN PRN Reason: Temperature Stop: 12/02/17 10:33 Last Admin: 12/01/17 08:24 Dose: 400 mls/hr Heparin Sodium/Sodium Chloride (Heparin 70762 Units/250ml 1/2 Normal Saline) 25 ,000 units in 250 mls @ 12.474 mls/hr IV .Q20H3M [facility]INO; 10 UNITS/KG/HR PRN Reason: Protocol Last Titration: 12/01/17 03:00 Dose: 10 units/kg/hr, 12.474 mls/hr Levetiracetam 1,000 mg/ Sodium (Chloride) 110 mls @ 460 mls/hr IV Q12 [facility] Last Admin: 12/01/17 10:34 Dose: 460 mls/hr Daptomycin 780 mg/ Sodium (Chloride) 100 mls @ 200 mls/hr IV QOD [facility] Stop: 12/11/17 10:29 Last Admin: 12/01/17 10:34 Dose: 200 mls/hr Propofol (Diprivan) 1,000 mg in 100 mls @ 3.919 mls/hr IV .Q24H PRN; Protocol; 5 MCG/KG/MIN PRN Reason: TITRATE PER MD ORDER Last Admin: 12/01/17 12:07 Dose: 5 mcg/kg/min, 3.919 mls/hr Lorazepam (Ativan) 2 mg IVP Q6H PRN; Protocol PRN Reason: Seizure activity Last Admin: 12/01/17 08:09 Dose: 2 mg Methylprednisolone (Solu-Medrol) 20 mg IVP Q8H [facility] Last Admin: 12/01/17 10:39 Dose: 20 mg Metoprolol Tartrate (Lopressor) 50 mg PO BID [facility] Last Admin: 12/01/17 10:39 Dose: 50 mg Pantoprazole Sodium (Protonix Inj) 40 mg IVP Q12 [facility] Last Admin: 12/01/17 10:39 Dose: 40 mg - Labs Labs: 12/01/17 04:00 12/01/17 04:00 PT 12.5 SECONDS (9.4-12.5) 12/01/17 02:50 INR 1.09 (0.93-1.08) H 12/01/17 02:50 APTT 86.6 Seconds (25.1-36.5) H 12/01/17 02:50 <[place] Ambrose B - Last Filed: 12/01/17 14:22> Objective - Vital Signs/Intake and Output Vital Signs (last 24 hours): Temp Pulse Resp BP Pulse Ox 100.4 F H 115 H 24 151/80 H 100 12/01/17 09:30 12/01/17 10:39 12/01/17 01:20 12/01/17 10:40 12/01/17 09:30 Intake and Output: 12/01/17 12/01/17 06:59 18:59 Intake Total 437 Output Total 800 Balance -363 - Medications Medications: Current Medications Albuterol/Ipratropium (Duoneb 3 Mg/0.5 Mg (3 Ml) Ud) 3 ml IH Q2H PRN PRN Reason: Shortness of Breath Last Admin: 12/01/17 05:20 Dose: 3 ml Albuterol/Ipratropium (Duoneb 3 Mg/0.5 Mg (3 Ml) Ud) 3 ml IH Q6 [facility] Amlodipine Besylate (Norvasc) 10 mg PO DAILY [facility] Last Admin: 12/01/17 10:40 Dose: 10 mg Artificial Tears (Artificial Tears) 1 ml OU TID PRN PRN Reason: Dry eyes Last Admin: 11/30/17 16:00 Dose: 1 drop Aspirin (Aspirin Chewable) 81 mg PO DAILY [facility] Last Admin: 12/01/17 10:40 Dose: 81 mg Hydralazine HCl (Apresoline) 10 mg IVP Q6H PRN PRN Reason: SBP>170 Last Admin: 11/30/17 20:02 Dose: 10 mg Cefepime HCl (Maxipime 2gm) 2 gm in 100 mls @ 100 mls/hr IVPB Q12 [facility] PRN Reason: Protocol Stop: 12/03/17 22:01 Last Admin: 12/01/17 10:35 Dose: 100 mls/hr Heparin Sodium/Sodium Chloride (Heparin 72878 Units/250ml 1/2 Normal Saline) 25 ,000 units in 250 mls @ 14.969 mls/hr IV .[id number] [facility]; 12 UNITS/KG/HR PRN Reason: Protocol Last Titration: 11/29/17 16:53 Dose: 0 units/kg/hr, 0 mls/hr Nicardipine HCl (Cardene Iv Premix) 20 mg in 200 mls @ 100 mls/hr IV .Q2H PRN; Protocol; 10 MG/HR PRN Reason: TITRATE PER MD ORDER Last Admin: 11/29/17 16:15 Dose: 100 mls/hr Insulin Human Regular 100 (units/ Sodium Chloride) 100 mls @ 4 mls/hr IV .Q24H PRN; Protocol; 4 UNITS/HR PRN Reason: TITRATE PER MD ORDER Acetaminophen (Ofirmev) 1,000 mg in 100 mls @ 400 mls/hr IVPB Q6H PRN PRN Reason: Temperature Stop: 12/02/17 10:33 Last Admin: 12/01/17 08:24 Dose: 400 mls/hr Heparin Sodium/Sodium Chloride (Heparin 28647 Units/250ml 1/2 Normal Saline) 25 ,000 units in 250 mls @ 12.474 mls/hr IV .Q20H3M [facility]; 10 UNITS/KG/HR PRN Reason: Protocol Last Titration: 12/01/17 03:00 Dose: 10 units/kg/hr, 12.474 mls/hr Levetiracetam 1,000 mg/ Sodium (Chloride) 110 mls @ 460 mls/hr IV Q12 [facility] Last Admin: 12/01/17 10:34 Dose: 460 mls/hr Daptomycin 780 mg/ Sodium (Chloride) 100 mls @ 200 mls/hr IV QOD [facility] Stop: 12/11/17 10:29 Last Admin: 12/01/17 10:34 Dose: 200 mls/hr Propofol (Diprivan) 1,000 mg in 100 mls @ 3.919 mls/hr IV .Q24H PRN; Protocol; 5 MCG/KG/MIN PRN Reason: TITRATE PER MD ORDER Last Admin: 12/01/17 12:07 Dose: 5 mcg/kg/min, 3.919 mls/hr Lorazepam (Ativan) 2 mg IVP Q6H PRN; Protocol PRN Reason: Seizure activity Last Admin: 12/01/17 08:09 Dose: 2 mg Methylprednisolone (Solu-Medrol) 20 mg IVP Q8H [facility] Last Admin: 12/01/17 10:39 Dose: 20 mg Metoprolol Tartrate (Lopressor) 50 mg PO BID [facility] Last Admin: 12/01/17 10:39 Dose: 50 mg Pantoprazole Sodium (Protonix Inj) 40 mg IVP Q12 [facility] Last Admin: 12/01/17 10:39 Dose: 40 mg - Labs Labs: 12/01/17 04:00 12/01/17 04:00 PT 12.5 SECONDS (9.4-12.5) 12/01/17 02:50 INR 1.09 (0.93-1.08) H 12/01/17 02:50 APTT 86.6 Seconds (25.1-36.5) H 12/01/17 02:50 Attending/Attestation - Attestation I have personally seen and examined this patient.: Yes I have fully participated in the care of the patient.: Yes I have reviewed all pertinent clinical information, including history, physical exam and plan: Yes Notes (Text): 12/01/17 14:14 I have seen and examined the patient at bedside. Agree with the above note with the following additions/ exceptions: Briefly this is 57 year old female with possible seizure history who was admitted with cardiac arrest with ROSC. Patient was intubated in the field. Downtime is unknown. She is on propofol, fentanyl and neuromuscular blockade cisatracurium. Upon admission, she had leukocytosis and elevated LA. Cultures pending. She is on vancomycin and cefepime. Echo revealed EF of 55% and mild LV diastolic dysfunction. Troponins are elevated post cardiac arrest/ debrillation. She is on heparin drip. Neuro and cardio on board. EEG result pending. She is on hypothermia protocol. Patient has transaminitis. UDS positive for BZ only. Patient has a son who is on his way from [place]. Prognosis is poor. Patient is critically ill.
--- NOTE | 2017-12-01 15:16 | PN ---
DATE: 12/01/2017 REASON FOR CONSULTATION AND FOLLOWUP: Status post cardiac arrest, status post CPR, status post intubated, hypothermic, septic rule out anoxic encephalopathy. SUBJECTIVE: The patient remains on the vent, having a seizure now, does not respond to the verbal stimuli, only pharyngeal gag reflex present. PHYSICAL EXAMINATION: GENERAL: Not in any apparent distress, being intubated, having seizure activity. VITAL SIGNS: Temperature 100.4, heart rate 108, blood pressure 158/63. HEENT: PERRLA. Extraocular muscles intact. NECK: Supple. No carotid bruit or thyromegaly. CHEST: Clear to auscultation. HEART: S1 and S2 regular. ABDOMEN: Soft. EXTREMITIES: Clubbing and cyanosis negative. LABORATORY DATA: Blood workup as follows: WBC 22, hemoglobin 9.6, hematocrit 28.7 and platelet count 287. Chemistry shows sodium , potassium 3.3, chloride 111, carbon dioxide 20, anion gap of 18, BUN 20 and creatinine of 2.1. IMPRESSION: Status post cardiac arrest, status post CPR, downtime unknown, rule out anoxic encephalopathy, seizure, tachycardia, hypertension, hyperthermia, rule out central fever. RECOMMENDATIONS: Continue vent management. Continue anti-seizure medication. We will start Lopressor IV every 12 hours. Overall, the patient's condition is critical. media consultant prognosis guarded. We will follow with you. Continue free fluid. The patient is on Lopressor. We will increase to 50 mg b.i.d. and put IV hydralazine p.r.n. We will follow with you. The patient's condition is critical. media consultant prognosis is extremely guarded. Possibly anoxic encephalopathy. We will supplement potassium and electrolytes as needed. Catherine Dc MD
--- NOTE | 2017-12-01 15:18 | PN ---
DATE: 12/01/2017 SUBJECTIVE: The patient seen and examined at bedside. She is not on any sedation, however, received 2 mg of Ativan overnight for perceived stereotypical movements/seizures. The patient did not have any stereotypical movements since then. The patient at present time is on PRVC 400/200/5/40. PHYSICAL EXAMINATION: VITAL SIGNS: On that setting, her oxygen saturation is 100%, blood pressure 158/63, temperature 100, end-tidal CO2 on the monitor 33, respiratory rate 24. The patient tolerates enteral nutrition well. Heparin and enteral nutrition on hold for now for central line placement. ENT: Head and neck atraumatic. LUNGS: Clear to auscultation bilaterally. HEART: Regular rate and rhythm. S1, S2 normal. ABDOMEN: Soft, nontender, nondistended. MUSCULOSKELETAL: No C/C/E. NEUROLOGIC: The patient was not seen moving all extremities spontaneously. SKIN: Moist. PSYCHIATRIC: The patient is not responding to touch, verbal or painful stimuli. LABORATORY DATA: Sodium 146; potassium 3.3, supplemented; chloride 111; carbon dioxide 20; BUN 30; creatinine 2.1; glucose 152; AST 244; ALT 167; total bilirubin 0.6. WBC 22, hemoglobin 9.1, platelet count 287. MEDICATIONS: Tylenol IV p.r.n., DuoNeb every 4 hours, Norvasc, aspirin, daptomycin, heparin drip, now on hold, hydralazine p.r.n., Keppra, Ativan p.r.n., cefepime, Solu-Medrol 20 mg IV every 8, metoprolol, Protonix, potassium supplementation. ASSESSMENT AND PLAN: This is a 57-year-old lady status post cardiac arrest with subsequent ROSC, likely secondary to primary cardiac ischemic event ( shockable rhythm, subsequent substantial troponin leak) and following MODS. Hypothermia protocol completed 2 days ago. The patient is not waking up. Unfortunately, we cannot do CT head as she does not seem to fit in only functioning CAT scanner. We will repeat EEG to see if the patient is in status; however, at present time, the patient is getting Keppra and Neurology service is following her as well. From cardiovascular perspective, she is hemodynamically stable. She is on heparin, aspirin, beta-blockers. Statins are on hold as the patient has transaminitis. We will put central venous line as the patient has very poor IV access. Pulmonary-rock, the patient appeared to be able to tolerate pressure support trial well. She was put back on PRVC overnight. Once central venous line is placed, the patient will be put back on pressure support with subsequent reassessment. Head of bed elevated more than 35 degrees. Oral hygiene, VAP bundle. Deep vein thrombosis and gastrointestinal prophylaxis. Renal-rock, the patient had urine output 800 mL overnight. Her creatinine level plateaued. Renal service is following the patient as well. We will maintain mean arterial pressure more than 65. We will try to avoid hyperchloremia and nephrotoxins. We will try to maintain euvolemia and euglycemia. We will be aggressively treating fever and the patient is on IV Tylenol p.r.n. as well as cooling blanket. ID rock, the patient was found to have gram-positive cocci in clusters and the patient is on cefepime and daptomycin. ID service is following the patient as well. We will repeat procalcitonin. Overall, we are at Day#2 after therapeutic hypothermia protocol completion. At this point patient does not appear to have supratentorial activity. Repeating CAT scan will be important as well. Will repeat EEG We will be in constant touch with Neurology service. Addendum: patient had clinical seizures: Ativan 4 mg IV given immediately, Keppra given and propofol drip re-started, neurology service is aware (Dr. Martinez) ccm time 40 min Daryl Nina MD MTDJessika
--- NOTE | 2017-12-01 15:18 | PCM.PROC ---
Procedures Attestation:: I certify that I have explained the specified Operation(s) or Procedure(s), risks, benefits and reasonable alternatives to the Patient and/or other person responsible. The opportunity was given to ask questions and all questions answered - Central Line Placement Triple Lumen Catheter Aseptic technique was employed throughout the procedure: Hand Hygiene done prior to procedure, Full sterile barriers (mask, hair cover, sterile gown, sterile gloves), Full body sterile drape, Chloraprep Antiseptic: 30 second prep for IJ or SC sites CVP Time Out Performed: Yes Pt. Placed on Pulse Ox Monitor: Yes Central Line Prep: Chlorhexidine-Alcohol Combination Local Anesthesia Used: Lidocaine 2% (Procedure done by Dr. Nina with Dr. Stern as assistant professor in family studies) Ultrasound Used for Placement: Yes Central Line Lumen Inserted: triple Central Line Length: 20 cm Post Procedure: Sutured in Place, Good Blood Return, All Ports Aspirated, Flushed, Capped, Sterile Dressing Applied Secured by: Suture Post procedure dressing: Gauze, Chlorhexidine disc (Biopatch) Post Procedure X-Ray: Yes Patient Tolerated Procedure: Well, No Complications Immediate Complications: None
--- NOTE | 2017-12-01 15:25 | CP.CCUPN ---
<Lorenzo Stern - Last Filed: 12/01/17 15:25> CCU Subjective - Physician Review Subjective (Free Text): Patient seen and examined at bedside intubated. Patient did not tolerate pressure support overnight and needed as a result to be placed back on PRVC. ROS unobtainable due to patient being intubated. CCU Objective - Vital Signs / Intake & Output Intake and Output (Last 8hrs): Intake & Output 12/01/17 12/01/17 12/01/17 06:59 14:59 22:59 Intake Total 437 Output Total 800 Balance -363 Weight 130.635 kg Intake: IV 200 Right Hand 150 Tube Feeding 237 Output: Urine 800 Urethral (Bojorquez) 800 - Physical Exam Head: Positive for: Atraumatic, Normocephalic Pupils: Positive for: Pinpoint Extroacular Muscles: Positive for: Other (opens eyes spontaneously) Mouth: Positive for: Moist Mucous Membranes, Other (+ gag, ETT tube in oropharynx) Respiratory/Chest: Positive for: Wheezes (bilateral), Other (clear with bagging b/l) Cardiovascular: Positive for: Regular Rate and Rhythm, Tachycardic Abdomen: Negative for: Distention Breast/Axillary: Positive for: Other (moist axilla) Upper Extremity: Positive for: Normal Inspection, Other (spontaneous non- purposeful movement of upper extremities) Lower Extremity: Positive for: Normal Inspection, Other (no movement) Neurological: Negative for: GCS=15 (3), Speech Normal Skin: Positive for: Cold Psychiatric: Positive for: Other (intubated) - Medications Active Medications: Active Medications Generic Name Dose Route Start Last Admin Trade Name Freq PRN Reason Stop Dose Admin Albuterol/Ipratropium 3 ml 12/01/17 05:09 12/01/17 05:20 Duoneb 3 Mg/0.5 Mg (3 Ml) Ud IH 3 ml Q2H PRN Administration Shortness of Breath Albuterol/Ipratropium 3 ml 12/01/17 12:00 12/01/17 14:59 Duoneb 3 Mg/0.5 Mg (3 Ml) Ud IH 3 ml Q6 ANTONINO Administration Amlodipine Besylate 10 mg 11/30/17 10:00 12/01/17 10:40 Norvasc PO 10 mg DAILY ANTONINO Administration Artificial Tears 1 ml 11/30/17 12:49 04/28/18 16:00 Artificial Tears OU 1 drop TID PRN Administration Dry eyes Aspirin 81 mg 11/30/17 10:00 12/01/17 10:40 Aspirin Chewable PO 81 mg DAILY ANTONINO Administration Hydralazine HCl 10 mg 11/30/17 09:49 11/30/17 20:02 Apresoline IVP 10 mg Q6H PRN Administration SBP>170 Cefepime HCl 2 gm in 100 mls @ 100 mls/hr 11/28/17 22:00 12/01/17 10:35 Maxipime 2gm IVPB 12/03/17 22:01 100 mls/hr Q12 ANTONINO Administration Protocol Heparin Sodium/Sodium Chloride 25,000 units in 250 mls @ 14.969 mls/hr 08:15 11/29/17 16:53 Heparin 09671 Units/250ml 1/2 Normal Saline IV 0 units/kg/hr .[id number] ANTONINO 0 mls/hr Protocol Titration 12 UNITS/KG/HR Nicardipine HCl 20 mg in 200 mls @ 100 mls/hr 11/29/17 16:36 11/29/17 16:15 Cardene Iv Premix IV 100 mls/hr .Q2H PRN Administration TITRATE PER MD ORDER Protocol 10 MG/HR Insulin Human Regular 100 100 mls @ 4 mls/hr 11/29/17 17:32 units/ Sodium Chloride IV .Q24H PRN TITRATE PER MD ORDER Protocol 4 UNITS/HR Acetaminophen 1,000 mg in 100 mls @ 400 mls/hr 11/30/17 10:32 12/01/17 08:24 Ofirmev IVPB 12/02/17 10:33 400 mls/hr Q6H PRN Administration Temperature Heparin Sodium/Sodium Chloride 25,000 units in 250 mls @ 12.474 mls/hr 19:00 12/01/17 03:00 Heparin 07873 Units/250ml 1/2 Normal Saline IV 10 units/kg/hr .Q20H3M ANTONINO 12.474 mls/hr Protocol Titration 10 UNITS/KG/HR Levetiracetam 1,000 mg/ Sodium 110 mls @ 460 mls/hr 12/01/17 10:00 12/01/17 10:34 Chloride IV 460 mls/hr Q12 ANTONINO Administration Daptomycin 780 mg/ Sodium 100 mls @ 200 mls/hr 12/01/17 10:00 12/01/17 10:34 Chloride IV 12/11/17 10:29 200 mls/hr QOD ANTONINO Administration Propofol 1,000 mg in 100 mls @ 3.919 mls/hr 12/01/17 11:42 12/01/17 12:07 Diprivan IV 5 mcg/kg/min .Q24H PRN 3.919 mls/hr TITRATE PER MD ORDER Administration Protocol 5 MCG/KG/MIN Lorazepam 2 mg 12/01/17 07:35 12/01/17 08:09 Ativan IVP 2 mg Q6H PRN Administration Seizure activity Protocol Methylprednisolone 20 mg 11/30/17 08:45 12/01/17 10:39 Solu-Medrol IVP 20 mg Q8H ANTONINO Administration Metoprolol Tartrate 50 mg 12/01/17 10:00 12/01/17 10:39 Lopressor PO 50 mg BID ANTONINO Administration Pantoprazole Sodium 40 mg 11/28/17 22:00 12/01/17 10:39 Protonix Inj IVP 40 mg Q12 ANTONINO Administration - Patient Studies Lab Studies: Microbiology Studies 11/28/17 20:30 S.aureus & Coag-Neg Staph PNA FISH - Final Blood Blood Culture - Preliminary Gram Positive Cocci Gram Stain - Final 11/28/17 19:45 MRSA Culture (Admit) - Final Naris MRSA NOT DETECTED 11/28/17 21:40 Urine Culture - Final Urine No Growth (<1,000 CFU/ML) Lab Studies 12/01/17 12/01/17 12/01/17 Range/Units 13:46 11:21 09:36 WBC (4.5-11.0) 10^3/ul RBC (3.5-6.1) 10^6/uL Hgb (12.0-16.0) g/dL Hct (36.0-48.0) % MCV (80.0-105.0) fl MCH (25.0-35.0) pg MCHC (31.0-37.0) g/dl RDW (11.5-14.5) % Plt Count (120.0-450.0) 10^3/uL MPV (7.0-11.0) fl Gran % (50.0-68.0) % Lymph % (Auto) (22.0-35.0) % Perkins % (Auto) (1.0-6.0) % Eos % (Auto) (1.5-5.0) % Baso % (Auto) (0.0-3.0) % Gran # (1.4-6.5) Lymph # (Auto) (1.2-3.4) Perkins # (Auto) (0.1-0.6) Eos # (Auto) (0.0-0.7) Baso # (Auto) (0.0-2.0) K/mm3 PT (9.4-12.5) SECONDS INR (0.93-1.08) APTT (25.1-36.5) Seconds Sodium (132-148) mmol/L Potassium (3.6-5.0) mmol/L Chloride (98-107) mmol/L Carbon Dioxide (21-33) mmol/L Anion Gap (10-20) BUN (7-21) mg/dL Creatinine (0.7-1.2) mg/dl Est GFR ( Amer) Est GFR (Non-Af Amer) POC Glucose (mg/dL) 116 H 123 H 131 H (65-110) mg/dL Random Glucose (70-110) mg/dL Calcium (8.4-10.5) mg/dL Phosphorus (2.5-4.5) mg/dL Magnesium (1.7-2.2) mg/dL Total Bilirubin (0.2-1.3) mg/dL AST (14-36) U/L ALT (7-56) U/L Alkaline Phosphatase (38-126) U/L Total Protein (5.8-8.3) g/dL Albumin (3.0-4.8) g/dL Globulin gm/dL Albumin/Globulin Ratio (1.1-1.8) Urine Color (YELLOW) Urine Appearance (CLEAR) Urine pH (4.7-8.0) Ur Specific Tucker (1.005-1.035) Urine Protein (<30 mg/dL) mg/dL Urine Glucose (UA) (NEGATIVE) mg/dL Urine Ketones (NEGATIVE) mg/dL Urine Blood (NEGATIVE) Urine Nitrate (NEGATIVE) Urine Bilirubin (NEGATIVE) Urine Urobilinogen (<1 E.U./dL) E.U./dL Ur Leukocyte Esterase (NEGATIVE) Tree/uL Urine RBC (0-2) /hpf Urine WBC (0-6) /hpf Ur Epithelial Cells (0-5) /hpf Amorphous Sediment Ur Random Creatinine mg/dL Ur Random Sodium meq/L 12/01/17 12/01/17 12/01/17 Range/Units 07:59 06:20 04:30 WBC (4.5-11.0) 10^3/ul RBC (3.5-6.1) 10^6/uL Hgb (12.0-16.0) g/dL Hct (36.0-48.0) % MCV (80.0-105.0) fl MCH (25.0-35.0) pg MCHC (31.0-37.0) g/dl RDW (11.5-14.5) % Plt Count (120.0-450.0) 10^3/uL MPV (7.0-11.0) fl Gran % (50.0-68.0) % Lymph % (Auto) (22.0-35.0) % Perkins % (Auto) (1.0-6.0) % Eos % (Auto) (1.5-5.0) % Baso % (Auto) (0.0-3.0) % Gran # (1.4-6.5) Lymph # (Auto) (1.2-3.4) Perkins # (Auto) (0.1-0.6) Eos # (Auto) (0.0-0.7) Baso # (Auto) (0.0-2.0) K/mm3 PT (9.4-12.5) SECONDS INR (0.93-1.08) APTT (25.1-36.5) Seconds Sodium (132-148) mmol/L Potassium (3.6-5.0) mmol/L Chloride (98-107) mmol/L Carbon Dioxide (21-33) mmol/L Anion Gap (10-20) BUN (7-21) mg/dL Creatinine (0.7-1.2) mg/dl Est GFR ( Amer) Est GFR (Non-Af Amer) POC Glucose (mg/dL) 141 H 163 H (65-110) mg/dL Random Glucose (70-110) mg/dL Calcium (8.4-10.5) mg/dL Phosphorus 3.8 (2.5-4.5) mg/dL Magnesium 1.8 (1.7-2.2) mg/dL Total Bilirubin (0.2-1.3) mg/dL AST (14-36) U/L ALT (7-56) U/L Alkaline Phosphatase (38-126) U/L Total Protein (5.8-8.3) g/dL Albumin (3.0-4.8) g/dL Globulin gm/dL Albumin/Globulin Ratio (1.1-1.8) Urine Color (YELLOW) Urine Appearance (CLEAR) Urine pH (4.7-8.0) Ur Specific Tucker (1.005-1.035) Urine Protein (<30 mg/dL) mg/dL Urine Glucose (UA) (NEGATIVE) mg/dL Urine Ketones (NEGATIVE) mg/dL Urine Blood (NEGATIVE) Urine Nitrate (NEGATIVE) Urine Bilirubin (NEGATIVE) Urine Urobilinogen (<1 E.U./dL) E.U./dL Ur Leukocyte Esterase (NEGATIVE) Tree/uL Urine RBC (0-2) /hpf Urine WBC (0-6) /hpf Ur Epithelial Cells (0-5) /hpf Amorphous Sediment Ur Random Creatinine mg/dL Ur Random Sodium meq/L 12/01/17 12/01/17 12/01/17 Range/Units 04:14 04:00 04:00 WBC 22.0 H (4.5-11.0) 10^3/ul RBC 4.01 (3.5-6.1) 10^6/uL Hgb 9.1 L (12.0-16.0) g/dL Hct 28.7 L (36.0-48.0) % MCV 71.6 L (80.0-105.0) fl MCH 22.7 L (25.0-35.0) pg MCHC 31.7 (31.0-37.0) g/dl RDW 16.0 H (11.5-14.5) % Plt Count 287 (120.0-450.0) 10^3/uL MPV 10.7 (7.0-11.0) fl Gran % 83.6 H (50.0-68.0) % Lymph % (Auto) 10.2 L (22.0-35.0) % Perkins % (Auto) 6.2 H (1.0-6.0) % Eos % (Auto) 0.0 L (1.5-5.0) % Baso % (Auto) 0.0 (0.0-3.0) % Gran # 18.37 H (1.4-6.5) Lymph # (Auto) 2.3 (1.2-3.4) Perkins # (Auto) 1.4 H (0.1-0.6) Eos # (Auto) 0.0 (0.0-0.7) Baso # (Auto) 0.01 (0.0-2.0) K/mm3 PT (9.4-12.5) SECONDS INR (0.93-1.08) APTT (25.1-36.5) Seconds Sodium 146 (132-148) mmol/L Potassium 3.3 L (3.6-5.0) mmol/L Chloride 111 H (98-107) mmol/L Carbon Dioxide 20 L (21-33) mmol/L Anion Gap 18 (10-20) BUN 30 H (7-21) mg/dL Creatinine 2.1 H (0.7-1.2) mg/dl Est GFR ( Amer) 30 Est GFR (Non-Af Amer) 24 POC Glucose (mg/dL) 152 H (65-110) mg/dL Random Glucose 160 H (70-110) mg/dL Calcium 8.2 L (8.4-10.5) mg/dL Phosphorus (2.5-4.5) mg/dL Magnesium (1.7-2.2) mg/dL Total Bilirubin 0.6 (0.2-1.3) mg/dL AST 244 H (14-36) U/L ALT 167 H (7-56) U/L Alkaline Phosphatase 100 (38-126) U/L Total Protein 6.8 (5.8-8.3) g/dL Albumin 3.9 (3.0-4.8) g/dL Globulin 3.0 gm/dL Albumin/Globulin Ratio 1.3 (1.1-1.8) Urine Color (YELLOW) Urine Appearance (CLEAR) Urine pH (4.7-8.0) Ur Specific Tucker (1.005-1.035) Urine Protein (<30 mg/dL) mg/dL Urine Glucose (UA) (NEGATIVE) mg/dL Urine Ketones (NEGATIVE) mg/dL Urine Blood (NEGATIVE) Urine Nitrate (NEGATIVE) Urine Bilirubin (NEGATIVE) Urine Urobilinogen (<1 E.U./dL) E.U./dL Ur Leukocyte Esterase (NEGATIVE) Tree/uL Urine RBC (0-2) /hpf Urine WBC (0-6) /hpf Ur Epithelial Cells (0-5) /hpf Amorphous Sediment Ur Random Creatinine mg/dL Ur Random Sodium meq/L 12/01/17 12/01/17 12/01/17 Range/Units 02:50 02:02 00:30 WBC (4.5-11.0) 10^3/ul RBC (3.5-6.1) 10^6/uL Hgb (12.0-16.0) g/dL Hct (36.0-48.0) % MCV (80.0-105.0) fl MCH (25.0-35.0) pg MCHC (31.0-37.0) g/dl RDW (11.5-14.5) % Plt Count (120.0-450.0) 10^3/uL MPV (7.0-11.0) fl Gran % (50.0-68.0) % Lymph % (Auto) (22.0-35.0) % Perkins % (Auto) (1.0-6.0) % Eos % (Auto) (1.5-5.0) % Baso % (Auto) (0.0-3.0) % Gran # (1.4-6.5) Lymph # (Auto) (1.2-3.4) Perkins # (Auto) (0.1-0.6) Eos # (Auto) (0.0-0.7) Baso # (Auto) (0.0-2.0) K/mm3 PT 12.5 (9.4-12.5) SECONDS INR 1.09 H (0.93-1.08) APTT 86.6 H (25.1-36.5) Seconds Sodium (132-148) mmol/L Potassium (3.6-5.0) mmol/L Chloride (98-107) mmol/L Carbon Dioxide (21-33) mmol/L Anion Gap (10-20) BUN (7-21) mg/dL Creatinine (0.7-1.2) mg/dl Est GFR ( Amer) Est GFR (Non-Af Amer) POC Glucose (mg/dL) 145 H 131 H (65-110) mg/dL Random Glucose (70-110) mg/dL Calcium (8.4-10.5) mg/dL Phosphorus (2.5-4.5) mg/dL Magnesium (1.7-2.2) mg/dL Total Bilirubin (0.2-1.3) mg/dL AST (14-36) U/L ALT (7-56) U/L Alkaline Phosphatase (38-126) U/L Total Protein (5.8-8.3) g/dL Albumin (3.0-4.8) g/dL Globulin gm/dL Albumin/Globulin Ratio (1.1-1.8) Urine Color (YELLOW) Urine Appearance (CLEAR) Urine pH (4.7-8.0) Ur Specific Tucker (1.005-1.035) Urine Protein (<30 mg/dL) mg/dL Urine Glucose (UA) (NEGATIVE) mg/dL Urine Ketones (NEGATIVE) mg/dL Urine Blood (NEGATIVE) Urine Nitrate (NEGATIVE) Urine Bilirubin (NEGATIVE) Urine Urobilinogen (<1 E.U./dL) E.U./dL Ur Leukocyte Esterase (NEGATIVE) Tree/uL Urine RBC (0-2) /hpf Urine WBC (0-6) /hpf Ur Epithelial Cells (0-5) /hpf Amorphous Sediment Ur Random Creatinine mg/dL Ur Random Sodium meq/L 11/30/17 11/30/17 11/30/17 Range/Units 22:22 20:19 17:51 WBC (4.5-11.0) 10^3/ul RBC (3.5-6.1) 10^6/uL Hgb (12.0-16.0) g/dL Hct (36.0-48.0) % MCV (80.0-105.0) fl MCH (25.0-35.0) pg MCHC (31.0-37.0) g/dl RDW (11.5-14.5) % Plt Count (120.0-450.0) 10^3/uL MPV (7.0-11.0) fl Gran % (50.0-68.0) % Lymph % (Auto) (22.0-35.0) % Perkins % (Auto) (1.0-6.0) % Eos % (Auto) (1.5-5.0) % Baso % (Auto) (0.0-3.0) % Gran # (1.4-6.5) Lymph # (Auto) (1.2-3.4) Perkins # (Auto) (0.1-0.6) Eos # (Auto) (0.0-0.7) Baso # (Auto) (0.0-2.0) K/mm3 PT (9.4-12.5) SECONDS INR (0.93-1.08) APTT (25.1-36.5) Seconds Sodium (132-148) mmol/L Potassium (3.6-5.0) mmol/L Chloride (98-107) mmol/L Carbon Dioxide (21-33) mmol/L Anion Gap (10-20) BUN (7-21) mg/dL Creatinine (0.7-1.2) mg/dl Est GFR ( Amer) Est GFR (Non-Af Amer) POC Glucose (mg/dL) 152 H 137 H 122 H (65-110) mg/dL Random Glucose (70-110) mg/dL Calcium (8.4-10.5) mg/dL Phosphorus (2.5-4.5) mg/dL Magnesium (1.7-2.2) mg/dL Total Bilirubin (0.2-1.3) mg/dL AST (14-36) U/L ALT (7-56) U/L Alkaline Phosphatase (38-126) U/L Total Protein (5.8-8.3) g/dL Albumin (3.0-4.8) g/dL Globulin gm/dL Albumin/Globulin Ratio (1.1-1.8) Urine Color (YELLOW) Urine Appearance (CLEAR) Urine pH (4.7-8.0) Ur Specific Tucker (1.005-1.035) Urine Protein (<30 mg/dL) mg/dL Urine Glucose (UA) (NEGATIVE) mg/dL Urine Ketones (NEGATIVE) mg/dL Urine Blood (NEGATIVE) Urine Nitrate (NEGATIVE) Urine Bilirubin (NEGATIVE) Urine Urobilinogen (<1 E.U./dL) E.U./dL Ur Leukocyte Esterase (NEGATIVE) Tree/uL Urine RBC (0-2) /hpf Urine WBC (0-6) /hpf Ur Epithelial Cells (0-5) /hpf Amorphous Sediment Ur Random Creatinine mg/dL Ur Random Sodium meq/L 11/30/17 11/30/17 11/30/17 Range/Units 16:11 12:45 12:45 WBC (4.5-11.0) 10^3/ul RBC (3.5-6.1) 10^6/uL Hgb (12.0-16.0) g/dL Hct (36.0-48.0) % MCV (80.0-105.0) fl MCH (25.0-35.0) pg MCHC (31.0-37.0) g/dl RDW (11.5-14.5) % Plt Count (120.0-450.0) 10^3/uL MPV (7.0-11.0) fl Gran % (50.0-68.0) % Lymph % (Auto) (22.0-35.0) % Perkins % (Auto) (1.0-6.0) % Eos % (Auto) (1.5-5.0) % Baso % (Auto) (0.0-3.0) % Gran # (1.4-6.5) Lymph # (Auto) (1.2-3.4) Perkins # (Auto) (0.1-0.6) Eos # (Auto) (0.0-0.7) Baso # (Auto) (0.0-2.0) K/mm3 PT (9.4-12.5) SECONDS INR (0.93-1.08) APTT (25.1-36.5) Seconds Sodium (132-148) mmol/L Potassium (3.6-5.0) mmol/L Chloride (98-107) mmol/L Carbon Dioxide (21-33) mmol/L Anion Gap (10-20) BUN (7-21) mg/dL Creatinine (0.7-1.2) mg/dl Est GFR ( Amer) Est GFR (Non-Af Amer) POC Glucose (mg/dL) 137 H (65-110) mg/dL Random Glucose (70-110) mg/dL Calcium (8.4-10.5) mg/dL Phosphorus (2.5-4.5) mg/dL Magnesium (1.7-2.2) mg/dL Total Bilirubin (0.2-1.3) mg/dL AST (14-36) U/L ALT (7-56) U/L Alkaline Phosphatase (38-126) U/L Total Protein (5.8-8.3) g/dL Albumin (3.0-4.8) g/dL Globulin gm/dL Albumin/Globulin Ratio (1.1-1.8) Urine Color Brown (YELLOW) Urine Appearance Slight-cloudy (CLEAR) Urine pH 5.5 (4.7-8.0) Ur Specific Tucker 1.020 (1.005-1.035) Urine Protein 100 H (<30 mg/dL) mg/dL Urine Glucose (UA) Negative (NEGATIVE) mg/dL Urine Ketones Negative (NEGATIVE) mg/dL Urine Blood Large H (NEGATIVE) Urine Nitrate Negative (NEGATIVE) Urine Bilirubin Negative (NEGATIVE) Urine Urobilinogen 0.2 (<1 E.U./dL) E.U./dL Ur Leukocyte Esterase Negative (NEGATIVE) Tree/uL Urine RBC Tntc (0-2) /hpf Urine WBC 0 - 2 (0-6) /hpf Ur Epithelial Cells 0 - 2 (0-5) /hpf Amorphous Sediment Trace Ur Random Creatinine 111 mg/dL Ur Random Sodium 57 meq/L Laboratory Results - last 24 hr 11/30/17 11/30/17 11/30/17 12:45 12:45 16:11 WBC RBC Hgb Hct MCV MCH MCHC RDW Plt Count MPV Gran % Lymph % (Auto) Perkins % (Auto) Eos % (Auto) Baso % (Auto) Gran # Lymph # (Auto) Perkins # (Auto) Eos # (Auto) Baso # (Auto) PT INR APTT Sodium Potassium Chloride Carbon Dioxide Anion Gap BUN Creatinine Est GFR ( Amer) Est GFR (Non-Af Amer) POC Glucose (mg/dL) 137 H Random Glucose Calcium Phosphorus Magnesium Total Bilirubin AST ALT Alkaline Phosphatase Total Protein Albumin Globulin Albumin/Globulin Ratio Urine Color Brown Urine Appearance Slight-cloudy Urine pH 5.5 Ur Specific Tucker 1.020 Urine Protein 100 H Urine Glucose (UA) Negative Urine Ketones Negative Urine Blood Large H Urine Nitrate Negative Urine Bilirubin Negative Urine Urobilinogen 0.2 Ur Leukocyte Esterase Negative Urine RBC Tntc Urine WBC 0 - 2 Ur Epithelial Cells 0 - 2 Amorphous Sediment Trace Ur Random Creatinine 111 Ur Random Sodium 57 11/30/17 11/30/17 11/30/17 17:51 20:19 22:22 WBC RBC Hgb Hct MCV MCH MCHC RDW Plt Count MPV Gran % Lymph % (Auto) Perkins % (Auto) Eos % (Auto) Baso % (Auto) Gran # Lymph # (Auto) Perkins # (Auto) Eos # (Auto) Baso # (Auto) PT INR APTT Sodium Potassium Chloride Carbon Dioxide Anion Gap BUN Creatinine Est GFR ( Amer) Est GFR (Non-Af Amer) POC Glucose (mg/dL) 122 H 137 H 152 H Random Glucose Calcium Phosphorus Magnesium Total Bilirubin AST ALT Alkaline Phosphatase Total Protein Albumin Globulin Albumin/Globulin Ratio Urine Color Urine Appearance Urine pH Ur Specific Tucker Urine Protein Urine Glucose (UA) Urine Ketones Urine Blood Urine Nitrate Urine Bilirubin Urine Urobilinogen Ur Leukocyte Esterase Urine RBC Urine WBC Ur Epithelial Cells Amorphous Sediment Ur Random Creatinine Ur Random Sodium 12/01/17 12/01/17 12/01/17 00:30 02:02 02:50 WBC RBC Hgb Hct MCV MCH MCHC RDW Plt Count MPV Gran % Lymph % (Auto) Perkins % (Auto) Eos % (Auto) Baso % (Auto) Gran # Lymph # (Auto) Perkins # (Auto) Eos # (Auto) Baso # (Auto) PT 12.5 INR 1.09 H APTT 86.6 H Sodium Potassium Chloride Carbon Dioxide Anion Gap BUN Creatinine Est GFR ( Amer) Est GFR (Non-Af Amer) POC Glucose (mg/dL) 131 H 145 H Random Glucose Calcium Phosphorus Magnesium Total Bilirubin AST ALT Alkaline Phosphatase Total Protein Albumin Globulin Albumin/Globulin Ratio Urine Color Urine Appearance Urine pH Ur Specific Tucker Urine Protein Urine Glucose (UA) Urine Ketones Urine Blood Urine Nitrate Urine Bilirubin Urine Urobilinogen Ur Leukocyte Esterase Urine RBC Urine WBC Ur Epithelial Cells Amorphous Sediment Ur Random Creatinine Ur Random Sodium 04/29/18 04/29/18 04/29/18 04:00 04:00 04:14 WBC 22.0 H RBC 4.01 Hgb 9.1 L Hct 28.7 L MCV 71.6 L MCH 22.7 L MCHC 31.7 RDW 16.0 H Plt Count 287 MPV 10.7 Gran % 83.6 H Lymph % (Auto) 10.2 L Perkins % (Auto) 6.2 H Eos % (Auto) 0.0 L Baso % (Auto) 0.0 Gran # 18.37 H Lymph # (Auto) 2.3 Perkins # (Auto) 1.4 H Eos # (Auto) 0.0 Baso # (Auto) 0.01 PT INR APTT Sodium 146 Potassium 3.3 L Chloride 111 H Carbon Dioxide 20 L Anion Gap 18 BUN 30 H Creatinine 2.1 H Est GFR ( Amer) 30 Est GFR (Non-Af Amer) 24 POC Glucose (mg/dL) 152 H Random Glucose 160 H Calcium 8.2 L Phosphorus Magnesium Total Bilirubin 0.6 AST 244 H ALT 167 H Alkaline Phosphatase 100 Total Protein 6.8 Albumin 3.9 Globulin 3.0 Albumin/Globulin Ratio 1.3 Urine Color Urine Appearance Urine pH Ur Specific Tucker Urine Protein Urine Glucose (UA) Urine Ketones Urine Blood Urine Nitrate Urine Bilirubin Urine Urobilinogen Ur Leukocyte Esterase Urine RBC Urine WBC Ur Epithelial Cells Amorphous Sediment Ur Random Creatinine Ur Random Sodium 12/01/17 12/01/17 12/01/17 04:30 06:20 07:59 WBC RBC Hgb Hct MCV MCH MCHC RDW Plt Count MPV Gran % Lymph % (Auto) Perkins % (Auto) Eos % (Auto) Baso % (Auto) Gran # Lymph # (Auto) Perkins # (Auto) Eos # (Auto) Baso # (Auto) PT INR APTT Sodium Potassium Chloride Carbon Dioxide Anion Gap BUN Creatinine Est GFR ( Amer) Est GFR (Non-Af Amer) POC Glucose (mg/dL) 163 H 141 H Random Glucose Calcium Phosphorus 3.8 Magnesium 1.8 Total Bilirubin AST ALT Alkaline Phosphatase Total Protein Albumin Globulin Albumin/Globulin Ratio Urine Color Urine Appearance Urine pH Ur Specific Tucker Urine Protein Urine Glucose (UA) Urine Ketones Urine Blood Urine Nitrate Urine Bilirubin Urine Urobilinogen Ur Leukocyte Esterase Urine RBC Urine WBC Ur Epithelial Cells Amorphous Sediment Ur Random Creatinine Ur Random Sodium 12/01/17 12/01/17 12/01/17 09:36 11:21 13:46 WBC RBC Hgb Hct MCV MCH MCHC RDW Plt Count MPV Gran % Lymph % (Auto) Perkins % (Auto) Eos % (Auto) Baso % (Auto) Gran # Lymph # (Auto) Perkins # (Auto) Eos # (Auto) Baso # (Auto) PT INR APTT Sodium Potassium Chloride Carbon Dioxide Anion Gap BUN Creatinine Est GFR ( Amer) Est GFR (Non-Af Amer) POC Glucose (mg/dL) 131 H 123 H 116 H Random Glucose Calcium Phosphorus Magnesium Total Bilirubin AST ALT Alkaline Phosphatase Total Protein Albumin Globulin Albumin/Globulin Ratio Urine Color Urine Appearance Urine pH Ur Specific Tucker Urine Protein Urine Glucose (UA) Urine Ketones Urine Blood Urine Nitrate Urine Bilirubin Urine Urobilinogen Ur Leukocyte Esterase Urine RBC Urine WBC Ur Epithelial Cells Amorphous Sediment Ur Random Creatinine Ur Random Sodium EKG/Cardiology Studies: Cardiology / EKG Studies 12/01/17 07:00 ELECTROCARDIOGRAM Routine Comment: s/p[ Cardiac arrest Reason For Exam: CAD PRE OP:: N Does Patient Have a Pacemaker?: No Fingerstick Blood Sugar Results: 141 Review of Systems - Review of Systems Systems not reviewed;Unavailable: Intubated Assessment/Plan - Assessment and Plan (Free Text) Assessment: 57 F presenting s/p cardiac arrest due to primary cardiac event presenting with cardiogenic shock and multi-organ system failure. Plan: Neuro -Intubated and sedated on propofol -Neurology on consult -Seziure activity observed -Keppra dosage increased, Ativan PRN also added -Patient should be monitored with constant EEG which cannot be done at this facility, transfer although considered cannot be done due to patient's unstable status -Continue with neuro checks, aspiration precautions, seizure precautions, and head above bed 35 degrees Cardiovascular -Maintain MAP>65 -Cardiology consulted -Continue norvasc, aspirin, heparin, hydralazine, metoprolol as per Cardio -Maintain normotensive Pulmonary -Maintain SpO2>92% -Continue with duonebs -Currently on PRVC 60 5 20 400 Gastrointestinal -Receiving tube feedings -Continue with GI prophylaxis Renal -Maintain euvolemia -Maintain electrolytes and replete as needed Endocrine -Maintain euglycemia and normothermia Infectious disease -Blood cultures positive for bacteremia -ID on consult -Continue with cefepime as per ID -Daptomycin started -Follow up on procalcitonin -Continue with aspiration precautions Hematologic -Continue to monitor H&H -Already on heparin drip which can also serve as DVT prophylaxis <Daryl Nina - Last Filed: 12/01/17 15:53> CCU Objective - Vital Signs / Intake & Output Intake and Output (Last 8hrs): Intake & Output 12/01/17 12/01/17 12/01/17 06:59 14:59 22:59 Intake Total 437 Output Total 800 Balance -363 Weight 288 lb Intake: IV 200 Right Hand 150 Tube Feeding 237 Output: Urine 800 Urethral (Bojorquez) 800 - Medications Active Medications: Active Medications Generic Name Dose Route Start Last Admin Trade Name Freq PRN Reason Stop Dose Admin Albuterol/Ipratropium 3 ml 12/01/17 05:09 12/01/17 05:20 Duoneb 3 Mg/0.5 Mg (3 Ml) Ud IH 3 ml Q2H PRN Administration Shortness of Breath Albuterol/Ipratropium 3 ml 12/01/17 12:00 12/01/17 14:59 Duoneb 3 Mg/0.5 Mg (3 Ml) Ud IH 3 ml Q6 ANTONINO Administration Amlodipine Besylate 10 mg 11/30/17 10:00 12/01/17 10:40 Norvasc PO 10 mg DAILY ANTONINO Administration Artificial Tears 1 ml 11/30/17 12:49 11/30/17 16:00 Artificial Tears OU 1 drop TID PRN Administration Dry eyes Aspirin 81 mg 11/30/17 10:00 12/01/17 10:40 Aspirin Chewable PO 81 mg DAILY ANTONINO Administration Hydralazine HCl 10 mg 11/30/17 09:49 11/30/17 20:02 Apresoline IVP 10 mg Q6H PRN Administration SBP>170 Cefepime HCl 2 gm in 100 mls @ 100 mls/hr 11/28/17 22:00 12/01/17 10:35 Maxipime 2gm IVPB 12/03/17 22:01 100 mls/hr Q12 ANTONINO Administration Protocol Heparin Sodium/Sodium Chloride 25,000 units in 250 mls @ 14.969 mls/hr 08:15 11/29/17 16:53 Heparin 35049 Units/250ml 1/2 Normal Saline IV 0 units/kg/hr .[id number] ANTONINO 0 mls/hr Protocol Titration 12 UNITS/KG/HR Nicardipine HCl 20 mg in 200 mls @ 100 mls/hr 11/29/17 16:36 11/29/17 16:15 Cardene Iv Premix IV 100 mls/hr .Q2H PRN Administration TITRATE PER MD ORDER Protocol 10 MG/HR Insulin Human Regular 100 100 mls @ 4 mls/hr 11/29/17 17:32 units/ Sodium Chloride IV .Q24H PRN TITRATE PER MD ORDER Protocol 4 UNITS/HR Acetaminophen 1,000 mg in 100 mls @ 400 mls/hr 11/30/17 10:32 12/01/17 08:24 Ofirmev IVPB 12/02/17 10:33 400 mls/hr Q6H PRN Administration Temperature Heparin Sodium/Sodium Chloride 25,000 units in 250 mls @ 12.474 mls/hr 19:00 12/01/17 03:00 Heparin 82504 Units/250ml 1/2 Normal Saline IV 10 units/kg/hr .[id number] ANTONINO 12.474 mls/hr Protocol Titration 10 UNITS/KG/HR Levetiracetam 1,000 mg/ Sodium 110 mls @ 460 mls/hr 12/01/17 10:00 12/01/17 10:34 Chloride IV 460 mls/hr Q12 ANTONINO Administration Daptomycin 780 mg/ Sodium 100 mls @ 200 mls/hr 12/01/17 10:00 12/01/17 10:34 Chloride IV 12/11/17 10:29 200 mls/hr QOD ANTONINO Administration Propofol 1,000 mg in 100 mls @ 3.919 mls/hr 12/01/17 11:42 12/01/17 12:07 Diprivan IV 5 mcg/kg/min .Q24H PRN 3.919 mls/hr TITRATE PER MD ORDER Administration Protocol 5 MCG/KG/MIN Lorazepam 2 mg 12/01/17 07:35 12/01/17 08:09 Ativan IVP 2 mg Q6H PRN Administration Seizure activity Protocol Methylprednisolone 20 mg 11/30/17 08:45 12/01/17 10:39 Solu-Medrol IVP 20 mg Q8H ANTONINO Administration Metoprolol Tartrate 50 mg 12/01/17 10:00 12/01/17 10:39 Lopressor PO 50 mg BID ANTONINO Administration Pantoprazole Sodium 40 mg 11/28/17 22:00 12/01/17 10:39 Protonix Inj IVP 40 mg Q12 ANTONINO Administration - Patient Studies Lab Studies: Microbiology Studies 11/28/17 20:30 S.aureus & Coag-Neg Staph PNA FISH - Final Blood Blood Culture - Preliminary Gram Positive Cocci Gram Stain - Final 11/28/17 19:45 MRSA Culture (Admit) - Final Naris MRSA NOT DETECTED 11/28/17 21:40 Urine Culture - Final Urine No Growth (<1,000 CFU/ML) Lab Studies 12/01/17 12/01/17 12/01/17 Range/Units 15:42 13:46 11:21 WBC (4.5-11.0) 10^3/ul RBC (3.5-6.1) 10^6/uL Hgb (12.0-16.0) g/dL Hct (36.0-48.0) % MCV (80.0-105.0) fl MCH (25.0-35.0) pg MCHC (31.0-37.0) g/dl RDW (11.5-14.5) % Plt Count (120.0-450.0) 10^3/uL MPV (7.0-11.0) fl Gran % (50.0-68.0) % Lymph % (Auto) (22.0-35.0) % Perkins % (Auto) (1.0-6.0) % Eos % (Auto) (1.5-5.0) % Baso % (Auto) (0.0-3.0) % Gran # (1.4-6.5) Lymph # (Auto) (1.2-3.4) Perkins # (Auto) (0.1-0.6) Eos # (Auto) (0.0-0.7) Baso # (Auto) (0.0-2.0) K/mm3 PT (9.4-12.5) SECONDS INR (0.93-1.08) APTT (25.1-36.5) Seconds Sodium (132-148) mmol/L Potassium (3.6-5.0) mmol/L Chloride (98-107) mmol/L Carbon Dioxide (21-33) mmol/L Anion Gap (10-20) BUN (7-21) mg/dL Creatinine (0.7-1.2) mg/dl Est GFR ( Amer) Est GFR (Non-Af Amer) POC Glucose (mg/dL) 106 116 H 123 H (65-110) mg/dL Random Glucose (70-110) mg/dL Calcium (8.4-10.5) mg/dL Phosphorus (2.5-4.5) mg/dL Magnesium (1.7-2.2) mg/dL Total Bilirubin (0.2-1.3) mg/dL AST (14-36) U/L ALT (7-56) U/L Alkaline Phosphatase (38-126) U/L Total Protein (5.8-8.3) g/dL Albumin (3.0-4.8) g/dL Globulin gm/dL Albumin/Globulin Ratio (1.1-1.8) Urine Color (YELLOW) Urine Appearance (CLEAR) Urine pH (4.7-8.0) Ur Specific Tucker (1.005-1.035) Urine Protein (<30 mg/dL) mg/dL Urine Glucose (UA) (NEGATIVE) mg/dL Urine Ketones (NEGATIVE) mg/dL Urine Blood (NEGATIVE) Urine Nitrate (NEGATIVE) Urine Bilirubin (NEGATIVE) Urine Urobilinogen (<1 E.U./dL) E.U./dL Ur Leukocyte Esterase (NEGATIVE) Tree/uL Urine RBC (0-2) /hpf Urine WBC (0-6) /hpf Ur Epithelial Cells (0-5) /hpf Amorphous Sediment Ur Random Creatinine mg/dL Ur Random Sodium meq/L 12/01/17 12/01/17 12/01/17 Range/Units 09:36 07:59 06:20 WBC (4.5-11.0) 10^3/ul RBC (3.5-6.1) 10^6/uL Hgb (12.0-16.0) g/dL Hct (36.0-48.0) % MCV (80.0-105.0) fl MCH (25.0-35.0) pg MCHC (31.0-37.0) g/dl RDW (11.5-14.5) % Plt Count (120.0-450.0) 10^3/uL MPV (7.0-11.0) fl Gran % (50.0-68.0) % Lymph % (Auto) (22.0-35.0) % Perkins % (Auto) (1.0-6.0) % Eos % (Auto) (1.5-5.0) % Baso % (Auto) (0.0-3.0) % Gran # (1.4-6.5) Lymph # (Auto) (1.2-3.4) Perkins # (Auto) (0.1-0.6) Eos # (Auto) (0.0-0.7) Baso # (Auto) (0.0-2.0) K/mm3 PT (9.4-12.5) SECONDS INR (0.93-1.08) APTT (25.1-36.5) Seconds Sodium (132-148) mmol/L Potassium (3.6-5.0) mmol/L Chloride (98-107) mmol/L Carbon Dioxide (21-33) mmol/L Anion Gap (10-20) BUN (7-21) mg/dL Creatinine (0.7-1.2) mg/dl Est GFR ( Amer) Est GFR (Non-Af Amer) POC Glucose (mg/dL) 131 H 141 H 163 H (65-110) mg/dL Random Glucose (70-110) mg/dL Calcium (8.4-10.5) mg/dL Phosphorus (2.5-4.5) mg/dL Magnesium (1.7-2.2) mg/dL Total Bilirubin (0.2-1.3) mg/dL AST (14-36) U/L ALT (7-56) U/L Alkaline Phosphatase (38-126) U/L Total Protein (5.8-8.3) g/dL Albumin (3.0-4.8) g/dL Globulin gm/dL Albumin/Globulin Ratio (1.1-1.8) Urine Color (YELLOW) Urine Appearance (CLEAR) Urine pH (4.7-8.0) Ur Specific Tucker (1.005-1.035) Urine Protein (<30 mg/dL) mg/dL Urine Glucose (UA) (NEGATIVE) mg/dL Urine Ketones (NEGATIVE) mg/dL Urine Blood (NEGATIVE) Urine Nitrate (NEGATIVE) Urine Bilirubin (NEGATIVE) Urine Urobilinogen (<1 E.U./dL) E.U./dL Ur Leukocyte Esterase (NEGATIVE) Tree/uL Urine RBC (0-2) /hpf Urine WBC (0-6) /hpf Ur Epithelial Cells (0-5) /hpf Amorphous Sediment Ur Random Creatinine mg/dL Ur Random Sodium meq/L 12/01/17 12/01/17 12/01/17 Range/Units 04:30 04:14 04:00 WBC (4.5-11.0) 10^3/ul RBC (3.5-6.1) 10^6/uL Hgb (12.0-16.0) g/dL Hct (36.0-48.0) % MCV (80.0-105.0) fl MCH (25.0-35.0) pg MCHC (31.0-37.0) g/dl RDW (11.5-14.5) % Plt Count (120.0-450.0) 10^3/uL MPV (7.0-11.0) fl Gran % (50.0-68.0) % Lymph % (Auto) (22.0-35.0) % Perkins % (Auto) (1.0-6.0) % Eos % (Auto) (1.5-5.0) % Baso % (Auto) (0.0-3.0) % Gran # (1.4-6.5) Lymph # (Auto) (1.2-3.4) Perkins # (Auto) (0.1-0.6) Eos # (Auto) (0.0-0.7) Baso # (Auto) (0.0-2.0) K/mm3 PT (9.4-12.5) SECONDS INR (0.93-1.08) APTT (25.1-36.5) Seconds Sodium 146 (132-148) mmol/L Potassium 3.3 L (3.6-5.0) mmol/L Chloride 111 H (98-107) mmol/L Carbon Dioxide 20 L (21-33) mmol/L Anion Gap 18 (10-20) BUN 30 H (7-21) mg/dL Creatinine 2.1 H (0.7-1.2) mg/dl Est GFR ( Amer) 30 Est GFR (Non-Af Amer) 24 POC Glucose (mg/dL) 152 H (65-110) mg/dL Random Glucose 160 H (70-110) mg/dL Calcium 8.2 L (8.4-10.5) mg/dL Phosphorus 3.8 (2.5-4.5) mg/dL Magnesium 1.8 (1.7-2.2) mg/dL Total Bilirubin 0.6 (0.2-1.3) mg/dL AST 244 H (14-36) U/L ALT 167 H (7-56) U/L Alkaline Phosphatase 100 (38-126) U/L Total Protein 6.8 (5.8-8.3) g/dL Albumin 3.9 (3.0-4.8) g/dL Globulin 3.0 gm/dL Albumin/Globulin Ratio 1.3 (1.1-1.8) Urine Color (YELLOW) Urine Appearance (CLEAR) Urine pH (4.7-8.0) Ur Specific Tucker (1.005-1.035) Urine Protein (<30 mg/dL) mg/dL Urine Glucose (UA) (NEGATIVE) mg/dL Urine Ketones (NEGATIVE) mg/dL Urine Blood (NEGATIVE) Urine Nitrate (NEGATIVE) Urine Bilirubin (NEGATIVE) Urine Urobilinogen (<1 E.U./dL) E.U./dL Ur Leukocyte Esterase (NEGATIVE) Tree/uL Urine RBC (0-2) /hpf Urine WBC (0-6) /hpf Ur Epithelial Cells (0-5) /hpf Amorphous Sediment Ur Random Creatinine mg/dL Ur Random Sodium meq/L 12/01/17 12/01/17 12/01/17 Range/Units 04:00 02:50 02:02 WBC 22.0 H (4.5-11.0) 10^3/ul RBC 4.01 (3.5-6.1) 10^6/uL Hgb 9.1 L (12.0-16.0) g/dL Hct 28.7 L (36.0-48.0) % MCV 71.6 L (80.0-105.0) fl MCH 22.7 L (25.0-35.0) pg MCHC 31.7 (31.0-37.0) g/dl RDW 16.0 H (11.5-14.5) % Plt Count 287 (120.0-450.0) 10^3/uL MPV 10.7 (7.0-11.0) fl Gran % 83.6 H (50.0-68.0) % Lymph % (Auto) 10.2 L (22.0-35.0) % Perkins % (Auto) 6.2 H (1.0-6.0) % Eos % (Auto) 0.0 L (1.5-5.0) % Baso % (Auto) 0.0 (0.0-3.0) % Gran # 18.37 H (1.4-6.5) Lymph # (Auto) 2.3 (1.2-3.4) Perkins # (Auto) 1.4 H (0.1-0.6) Eos # (Auto) 0.0 (0.0-0.7) Baso # (Auto) 0.01 (0.0-2.0) K/mm3 PT 12.5 (9.4-12.5) SECONDS INR 1.09 H (0.93-1.08) APTT 86.6 H (25.1-36.5) Seconds Sodium (132-148) mmol/L Potassium (3.6-5.0) mmol/L Chloride (98-107) mmol/L Carbon Dioxide (21-33) mmol/L Anion Gap (10-20) BUN (7-21) mg/dL Creatinine (0.7-1.2) mg/dl Est GFR ( Amer) Est GFR (Non-Af Amer) POC Glucose (mg/dL) 145 H (65-110) mg/dL Random Glucose (70-110) mg/dL Calcium (8.4-10.5) mg/dL Phosphorus (2.5-4.5) mg/dL Magnesium (1.7-2.2) mg/dL Total Bilirubin (0.2-1.3) mg/dL AST (14-36) U/L ALT (7-56) U/L Alkaline Phosphatase (38-126) U/L Total Protein (5.8-8.3) g/dL Albumin (3.0-4.8) g/dL Globulin gm/dL Albumin/Globulin Ratio (1.1-1.8) Urine Color (YELLOW) Urine Appearance (CLEAR) Urine pH (4.7-8.0) Ur Specific Tucker (1.005-1.035) Urine Protein (<30 mg/dL) mg/dL Urine Glucose (UA) (NEGATIVE) mg/dL Urine Ketones (NEGATIVE) mg/dL Urine Blood (NEGATIVE) Urine Nitrate (NEGATIVE) Urine Bilirubin (NEGATIVE) Urine Urobilinogen (<1 E.U./dL) E.U./dL Ur Leukocyte Esterase (NEGATIVE) Tree/uL Urine RBC (0-2) /hpf Urine WBC (0-6) /hpf Ur Epithelial Cells (0-5) /hpf Amorphous Sediment Ur Random Creatinine mg/dL Ur Random Sodium meq/L 12/01/17 11/30/17 11/30/17 Range/Units 00:30 22:22 20:19 WBC (4.5-11.0) 10^3/ul RBC (3.5-6.1) 10^6/uL Hgb (12.0-16.0) g/dL Hct (36.0-48.0) % MCV (80.0-105.0) fl MCH (25.0-35.0) pg MCHC (31.0-37.0) g/dl RDW (11.5-14.5) % Plt Count (120.0-450.0) 10^3/uL MPV (7.0-11.0) fl Gran % (50.0-68.0) % Lymph % (Auto) (22.0-35.0) % Perkins % (Auto) (1.0-6.0) % Eos % (Auto) (1.5-5.0) % Baso % (Auto) (0.0-3.0) % Gran # (1.4-6.5) Lymph # (Auto) (1.2-3.4) Perkins # (Auto) (0.1-0.6) Eos # (Auto) (0.0-0.7) Baso # (Auto) (0.0-2.0) K/mm3 PT (9.4-12.5) SECONDS INR (0.93-1.08) APTT (25.1-36.5) Seconds Sodium (132-148) mmol/L Potassium (3.6-5.0) mmol/L Chloride (98-107) mmol/L Carbon Dioxide (21-33) mmol/L Anion Gap (10-20) BUN (7-21) mg/dL Creatinine (0.7-1.2) mg/dl Est GFR ( Amer) Est GFR (Non-Af Amer) POC Glucose (mg/dL) 131 H 152 H 137 H (65-110) mg/dL Random Glucose (70-110) mg/dL Calcium (8.4-10.5) mg/dL Phosphorus (2.5-4.5) mg/dL Magnesium (1.7-2.2) mg/dL Total Bilirubin (0.2-1.3) mg/dL AST (14-36) U/L ALT (7-56) U/L Alkaline Phosphatase (38-126) U/L Total Protein (5.8-8.3) g/dL Albumin (3.0-4.8) g/dL Globulin gm/dL Albumin/Globulin Ratio (1.1-1.8) Urine Color (YELLOW) Urine Appearance (CLEAR) Urine pH (4.7-8.0) Ur Specific Tucker (1.005-1.035) Urine Protein (<30 mg/dL) mg/dL Urine Glucose (UA) (NEGATIVE) mg/dL Urine Ketones (NEGATIVE) mg/dL Urine Blood (NEGATIVE) Urine Nitrate (NEGATIVE) Urine Bilirubin (NEGATIVE) Urine Urobilinogen (<1 E.U./dL) E.U./dL Ur Leukocyte Esterase (NEGATIVE) Tree/uL Urine RBC (0-2) /hpf Urine WBC (0-6) /hpf Ur Epithelial Cells (0-5) /hpf Amorphous Sediment Ur Random Creatinine mg/dL Ur Random Sodium meq/L 11/30/17 11/30/17 11/30/17 Range/Units 17:51 16:11 12:45 WBC (4.5-11.0) 10^3/ul RBC (3.5-6.1) 10^6/uL Hgb (12.0-16.0) g/dL Hct (36.0-48.0) % MCV (80.0-105.0) fl MCH (25.0-35.0) pg MCHC (31.0-37.0) g/dl RDW (11.5-14.5) % Plt Count (120.0-450.0) 10^3/uL MPV (7.0-11.0) fl Gran % (50.0-68.0) % Lymph % (Auto) (22.0-35.0) % Perkins % (Auto) (1.0-6.0) % Eos % (Auto) (1.5-5.0) % Baso % (Auto) (0.0-3.0) % Gran # (1.4-6.5) Lymph # (Auto) (1.2-3.4) Perkins # (Auto) (0.1-0.6) Eos # (Auto) (0.0-0.7) Baso # (Auto) (0.0-2.0) K/mm3 PT (9.4-12.5) SECONDS INR (0.93-1.08) APTT (25.1-36.5) Seconds Sodium (132-148) mmol/L Potassium (3.6-5.0) mmol/L Chloride (98-107) mmol/L Carbon Dioxide (21-33) mmol/L Anion Gap (10-20) BUN (7-21) mg/dL Creatinine (0.7-1.2) mg/dl Est GFR ( Amer) Est GFR (Non-Af Amer) POC Glucose (mg/dL) 122 H 137 H (65-110) mg/dL Random Glucose (70-110) mg/dL Calcium (8.4-10.5) mg/dL Phosphorus (2.5-4.5) mg/dL Magnesium (1.7-2.2) mg/dL Total Bilirubin (0.2-1.3) mg/dL AST (14-36) U/L ALT (7-56) U/L Alkaline Phosphatase (38-126) U/L Total Protein (5.8-8.3) g/dL Albumin (3.0-4.8) g/dL Globulin gm/dL Albumin/Globulin Ratio (1.1-1.8) Urine Color Brown (YELLOW) Urine Appearance Slight-cloudy (CLEAR) Urine pH 5.5 (4.7-8.0) Ur Specific Tucker 1.020 (1.005-1.035) Urine Protein 100 H (<30 mg/dL) mg/dL Urine Glucose (UA) Negative (NEGATIVE) mg/dL Urine Ketones Negative (NEGATIVE) mg/dL Urine Blood Large H (NEGATIVE) Urine Nitrate Negative (NEGATIVE) Urine Bilirubin Negative (NEGATIVE) Urine Urobilinogen 0.2 (<1 E.U./dL) E.U./dL Ur Leukocyte Esterase Negative (NEGATIVE) Tree/uL Urine RBC Tntc (0-2) /hpf Urine WBC 0 - 2 (0-6) /hpf Ur Epithelial Cells 0 - 2 (0-5) /hpf Amorphous Sediment Trace Ur Random Creatinine mg/dL Ur Random Sodium meq/L 11/30/17 Range/Units 12:45 WBC (4.5-11.0) 10^3/ul RBC (3.5-6.1) 10^6/uL Hgb (12.0-16.0) g/dL Hct (36.0-48.0) % MCV (80.0-105.0) fl MCH (25.0-35.0) pg MCHC (31.0-37.0) g/dl RDW (11.5-14.5) % Plt Count (120.0-450.0) 10^3/uL MPV (7.0-11.0) fl Gran % (50.0-68.0) % Lymph % (Auto) (22.0-35.0) % Perkins % (Auto) (1.0-6.0) % Eos % (Auto) (1.5-5.0) % Baso % (Auto) (0.0-3.0) % Gran # (1.4-6.5) Lymph # (Auto) (1.2-3.4) Perkins # (Auto) (0.1-0.6) Eos # (Auto) (0.0-0.7) Baso # (Auto) (0.0-2.0) K/mm3 PT (9.4-12.5) SECONDS INR (0.93-1.08) APTT (25.1-36.5) Seconds Sodium (132-148) mmol/L Potassium (3.6-5.0) mmol/L Chloride (98-107) mmol/L Carbon Dioxide (21-33) mmol/L Anion Gap (10-20) BUN (7-21) mg/dL Creatinine (0.7-1.2) mg/dl Est GFR ( Amer) Est GFR (Non-Af Amer) POC Glucose (mg/dL) (65-110) mg/dL Random Glucose (70-110) mg/dL Calcium (8.4-10.5) mg/dL Phosphorus (2.5-4.5) mg/dL Magnesium (1.7-2.2) mg/dL Total Bilirubin (0.2-1.3) mg/dL AST (14-36) U/L ALT (7-56) U/L Alkaline Phosphatase (38-126) U/L Total Protein (5.8-8.3) g/dL Albumin (3.0-4.8) g/dL Globulin gm/dL Albumin/Globulin Ratio (1.1-1.8) Urine Color (YELLOW) Urine Appearance (CLEAR) Urine pH (4.7-8.0) Ur Specific Tucker (1.005-1.035) Urine Protein (<30 mg/dL) mg/dL Urine Glucose (UA) (NEGATIVE) mg/dL Urine Ketones (NEGATIVE) mg/dL Urine Blood (NEGATIVE) Urine Nitrate (NEGATIVE) Urine Bilirubin (NEGATIVE) Urine Urobilinogen (<1 E.U./dL) E.U./dL Ur Leukocyte Esterase (NEGATIVE) Tree/uL Urine RBC (0-2) /hpf Urine WBC (0-6) /hpf Ur Epithelial Cells (0-5) /hpf Amorphous Sediment Ur Random Creatinine 111 mg/dL Ur Random Sodium 57 meq/L Laboratory Results - last 24 hr 11/30/17 11/30/17 11/30/17 12:45 12:45 16:11 WBC RBC Hgb Hct MCV MCH MCHC RDW Plt Count MPV Gran % Lymph % (Auto) Perkins % (Auto) Eos % (Auto) Baso % (Auto) Gran # Lymph # (Auto) Perkins # (Auto) Eos # (Auto) Baso # (Auto) PT INR APTT Sodium Potassium Chloride Carbon Dioxide Anion Gap BUN Creatinine Est GFR ( Amer) Est GFR (Non-Af Amer) POC Glucose (mg/dL) 137 H Random Glucose Calcium Phosphorus Magnesium Total Bilirubin AST ALT Alkaline Phosphatase Total Protein Albumin Globulin Albumin/Globulin Ratio Urine Color Brown Urine Appearance Slight-cloudy Urine pH 5.5 Ur Specific Tucker 1.020 Urine Protein 100 H Urine Glucose (UA) Negative Urine Ketones Negative Urine Blood Large H Urine Nitrate Negative Urine Bilirubin Negative Urine Urobilinogen 0.2 Ur Leukocyte Esterase Negative Urine RBC Tntc Urine WBC 0 - 2 Ur Epithelial Cells 0 - 2 Amorphous Sediment Trace Ur Random Creatinine 111 Ur Random Sodium 57 11/30/17 11/30/17 11/30/17 17:51 20:19 22:22 WBC RBC Hgb Hct MCV MCH MCHC RDW Plt Count MPV Gran % Lymph % (Auto) Perkins % (Auto) Eos % (Auto) Baso % (Auto) Gran # Lymph # (Auto) Perkins # (Auto) Eos # (Auto) Baso # (Auto) PT INR APTT Sodium Potassium Chloride Carbon Dioxide Anion Gap BUN Creatinine Est GFR ( Amer) Est GFR (Non-Af Amer) POC Glucose (mg/dL) 122 H 137 H 152 H Random Glucose Calcium Phosphorus Magnesium Total Bilirubin AST ALT Alkaline Phosphatase Total Protein Albumin Globulin Albumin/Globulin Ratio Urine Color Urine Appearance Urine pH Ur Specific Tucker Urine Protein Urine Glucose (UA) Urine Ketones Urine Blood Urine Nitrate Urine Bilirubin Urine Urobilinogen Ur Leukocyte Esterase Urine RBC Urine WBC Ur Epithelial Cells Amorphous Sediment Ur Random Creatinine Ur Random Sodium 12/01/17 12/01/17 12/01/17 00:30 02:02 02:50 WBC RBC Hgb Hct MCV MCH MCHC RDW Plt Count MPV Gran % Lymph % (Auto) Perkins % (Auto) Eos % (Auto) Baso % (Auto) Gran # Lymph # (Auto) Perkins # (Auto) Eos # (Auto) Baso # (Auto) PT 12.5 INR 1.09 H APTT 86.6 H Sodium Potassium Chloride Carbon Dioxide Anion Gap BUN Creatinine Est GFR ( Amer) Est GFR (Non-Af Amer) POC Glucose (mg/dL) 131 H 145 H Random Glucose Calcium Phosphorus Magnesium Total Bilirubin AST ALT Alkaline Phosphatase Total Protein Albumin Globulin Albumin/Globulin Ratio Urine Color Urine Appearance Urine pH Ur Specific Tucker Urine Protein Urine Glucose (UA) Urine Ketones Urine Blood Urine Nitrate Urine Bilirubin Urine Urobilinogen Ur Leukocyte Esterase Urine RBC Urine WBC Ur Epithelial Cells Amorphous Sediment Ur Random Creatinine Ur Random Sodium 12/01/17 12/01/17 12/01/17 04:00 04:00 04:14 WBC 22.0 H RBC 4.01 Hgb 9.1 L Hct 28.7 L MCV 71.6 L MCH 22.7 L MCHC 31.7 RDW 16.0 H Plt Count 287 MPV 10.7 Gran % 83.6 H Lymph % (Auto) 10.2 L Perkins % (Auto) 6.2 H Eos % (Auto) 0.0 L Baso % (Auto) 0.0 Gran # 18.37 H Lymph # (Auto) 2.3 Perkins # (Auto) 1.4 H Eos # (Auto) 0.0 Baso # (Auto) 0.01 PT INR APTT Sodium 146 Potassium 3.3 L Chloride 111 H Carbon Dioxide 20 L Anion Gap 18 BUN 30 H Creatinine 2.1 H Est GFR ( Amer) 30 Est GFR (Non-Af Amer) 24 POC Glucose (mg/dL) 152 H Random Glucose 160 H Calcium 8.2 L Phosphorus Magnesium Total Bilirubin 0.6 AST 244 H ALT 167 H Alkaline Phosphatase 100 Total Protein 6.8 Albumin 3.9 Globulin 3.0 Albumin/Globulin Ratio 1.3 Urine Color Urine Appearance Urine pH Ur Specific Tucker Urine Protein Urine Glucose (UA) Urine Ketones Urine Blood Urine Nitrate Urine Bilirubin Urine Urobilinogen Ur Leukocyte Esterase Urine RBC Urine WBC Ur Epithelial Cells Amorphous Sediment Ur Random Creatinine Ur Random Sodium 12/01/17 12/01/17 12/01/17 04:30 06:20 07:59 WBC RBC Hgb Hct MCV MCH MCHC RDW Plt Count MPV Gran % Lymph % (Auto) Perkins % (Auto) Eos % (Auto) Baso % (Auto) Gran # Lymph # (Auto) Perkins # (Auto) Eos # (Auto) Baso # (Auto) PT INR APTT Sodium Potassium Chloride Carbon Dioxide Anion Gap BUN Creatinine Est GFR ( Amer) Est GFR (Non-Af Amer) POC Glucose (mg/dL) 163 H 141 H Random Glucose Calcium Phosphorus 3.8 Magnesium 1.8 Total Bilirubin AST ALT Alkaline Phosphatase Total Protein Albumin Globulin Albumin/Globulin Ratio Urine Color Urine Appearance Urine pH Ur Specific Tucker Urine Protein Urine Glucose (UA) Urine Ketones Urine Blood Urine Nitrate Urine Bilirubin Urine Urobilinogen Ur Leukocyte Esterase Urine RBC Urine WBC Ur Epithelial Cells Amorphous Sediment Ur Random Creatinine Ur Random Sodium 12/01/17 12/01/17 12/01/17 09:36 11:21 13:46 WBC RBC Hgb Hct MCV MCH MCHC RDW Plt Count MPV Gran % Lymph % (Auto) Perkins % (Auto) Eos % (Auto) Baso % (Auto) Gran # Lymph # (Auto) Perkins # (Auto) Eos # (Auto) Baso # (Auto) PT INR APTT Sodium Potassium Chloride Carbon Dioxide Anion Gap BUN Creatinine Est GFR ( Amer) Est GFR (Non-Af Amer) POC Glucose (mg/dL) 131 H 123 H 116 H Random Glucose Calcium Phosphorus Magnesium Total Bilirubin AST ALT Alkaline Phosphatase Total Protein Albumin Globulin Albumin/Globulin Ratio Urine Color Urine Appearance Urine pH Ur Specific Tucker Urine Protein Urine Glucose (UA) Urine Ketones Urine Blood Urine Nitrate Urine Bilirubin Urine Urobilinogen Ur Leukocyte Esterase Urine RBC Urine WBC Ur Epithelial Cells Amorphous Sediment Ur Random Creatinine Ur Random Sodium 12/01/17 15:42 WBC RBC Hgb Hct MCV MCH MCHC RDW Plt Count MPV Gran % Lymph % (Auto) Perkins % (Auto) Eos % (Auto) Baso % (Auto) Gran # Lymph # (Auto) Perkins # (Auto) Eos # (Auto) Baso # (Auto) PT INR APTT Sodium Potassium Chloride Carbon Dioxide Anion Gap BUN Creatinine Est GFR ( Amer) Est GFR (Non-Af Amer) POC Glucose (mg/dL) 106 Random Glucose Calcium Phosphorus Magnesium Total Bilirubin AST ALT Alkaline Phosphatase Total Protein Albumin Globulin Albumin/Globulin Ratio Urine Color Urine Appearance Urine pH Ur Specific Tucker Urine Protein Urine Glucose (UA) Urine Ketones Urine Blood Urine Nitrate Urine Bilirubin Urine Urobilinogen Ur Leukocyte Esterase Urine RBC Urine WBC Ur Epithelial Cells Amorphous Sediment Ur Random Creatinine Ur Random Sodium EKG/Cardiology Studies: Cardiology / EKG Studies 12/01/17 07:00 ELECTROCARDIOGRAM Routine Comment: s/p[ Cardiac arrest Reason For Exam: CAD PRE OP:: N Does Patient Have a Pacemaker?: No Attending/Attestation - Attestation I have personally seen and examined this patient.: Yes I have fully participated in the care of the patient.: Yes I have reviewed all pertinent clinical information: Yes Notes (Text): 12/01/17 15:[address] Nina note
--- NOTE | 2017-12-01 15:40 | RAD ---
HISTORY: central line placement COMPARISON: 12/01/2017 at 5:50 FINDINGS: LUNGS: Exam is limited by overlying blanket. Left costophrenic angle is excluded from the radiograph. Endotracheal tube is noted and appears in stable position. NG tube is unchanged. No pneumothorax is seen. Stable interstitial thickening or edema is noted. PLEURA: No change. CARDIOVASCULAR: No change OSSEOUS STRUCTURES: No significant abnormalities. VISUALIZED UPPER ABDOMEN: Normal. OTHER FINDINGS: Right central line is unchanged. IMPRESSION: Endotracheal tube and NG tube are stable. Limited study. No new focal infiltrate.
[2017-12-01] MEDS: Heparin25000 units/250ml 1/2NS 25,000 UNITS/250 ML BAG IV SCH (17:21)
[2017-12-01 18:27] LABS: URINE BILIRUBIN NEGATIVE (NEGATIVE); URINE BLOOD LARGE (NEGATIVE); URINE GLUCOSE (UA) NEGATIVE (NEGATIVE); URINE LEUKOCYTE ESTERASE SMALL Leu/uL (NEGATIVE); URINE PROTEIN 100 mg/dL (<30 mg/dL); URINE UROBILINOGEN 0.2 E.U./dL (<1 E.U./dL)
[2017-12-01 18:28] LABS: URINE APPEARANCE CLOUDY (CLEAR); URINE COLOR YELLOW (YELLOW)
--- NOTE | 2017-12-01 18:57 | CP.PCM.PN ---
Subjective - Date & Time of Evaluation Date of Evaluation: 12/01/17 Time of Evaluation: 18:55 - Subjective Subjective: Patient needing to be placed on propofol due to persistent seizures; gross hemturia clearing; Objective - Vital Signs/Intake and Output Vital Signs (last 24 hours): Temp Pulse Resp BP Pulse Ox 99.9 F H 91 H 24 140/65 100 12/01/17 18:20 12/01/17 18:20 12/01/17 01:20 12/01/17 18:00 12/01/17 18:20 Intake and Output: 12/01/17 12/01/17 06:59 18:59 Intake Total 437 1798 Output Total 800 600 Balance -363 1198 - Medications Medications: Current Medications Albuterol/Ipratropium (Duoneb 3 Mg/0.5 Mg (3 Ml) Ud) 3 ml IH Q2H PRN PRN Reason: Shortness of Breath Last Admin: 12/01/17 05:20 Dose: 3 ml Albuterol/Ipratropium (Duoneb 3 Mg/0.5 Mg (3 Ml) Ud) 3 ml IH [id number] [facility] Amlodipine Besylate (Norvasc) 10 mg PO DAILY [facility] Last Admin: 12/01/17 10:40 Dose: 10 mg Artificial Tears (Artificial Tears) 1 ml OU TID PRN PRN Reason: Dry eyes Last Admin: 11/30/17 16:00 Dose: 1 drop Aspirin (Aspirin Chewable) 81 mg PO DAILY [facility] Last Admin: 12/01/17 10:40 Dose: 81 mg Hydralazine HCl (Apresoline) 10 mg IVP Q6H PRN PRN Reason: SBP>170 Last Admin: 11/30/17 20:02 Dose: 10 mg Cefepime HCl (Maxipime 2gm) 2 gm in 100 mls @ 100 mls/hr IVPB Q12 [facility] PRN Reason: Protocol Stop: 12/03/17 22:01 Last Admin: 12/01/17 10:35 Dose: 100 mls/hr Heparin Sodium/Sodium Chloride (Heparin 63107 Units/250ml 1/2 Normal Saline) 25 ,000 units in 250 mls @ 14.969 mls/hr IV .[id number] ANTONINO; 12 UNITS/KG/HR PRN Reason: Protocol Last Titration: 11/29/17 16:53 Dose: 0 units/kg/hr, 0 mls/hr Nicardipine HCl (Cardene Iv Premix) 20 mg in 200 mls @ 100 mls/hr IV .Q2H PRN; Protocol; 10 MG/HR PRN Reason: TITRATE PER MD ORDER Last Admin: 11/29/17 16:15 Dose: 100 mls/hr Insulin Human Regular 100 (units/ Sodium Chloride) 100 mls @ 4 mls/hr IV .Q24H PRN; Protocol; 4 UNITS/HR PRN Reason: TITRATE PER MD ORDER Acetaminophen (Ofirmev) 1,000 mg in 100 mls @ 400 mls/hr IVPB Q6H PRN PRN Reason: Temperature Stop: 12/02/17 10:33 Last Admin: 12/01/17 08:24 Dose: 400 mls/hr Heparin Sodium/Sodium Chloride (Heparin 64675 Units/250ml 1/2 Normal Saline) 25 ,000 units in 250 mls @ 12.474 mls/hr IV .Q20H3M ANTONINO; 10 UNITS/KG/HR PRN Reason: Protocol Last Admin: 12/01/17 17:21 Dose: 10 units/kg/hr, 12.474 mls/hr Levetiracetam 1,000 mg/ Sodium (Chloride) 110 mls @ 460 mls/hr IV Q12 [facility] Last Admin: 12/01/17 10:34 Dose: 460 mls/hr Daptomycin 780 mg/ Sodium (Chloride) 100 mls @ 200 mls/hr IV QOD [facility] Stop: 12/11/17 10:29 Last Admin: 12/01/17 10:34 Dose: 200 mls/hr Propofol (Diprivan) 1,000 mg in 100 mls @ 3.919 mls/hr IV .Q24H PRN; Protocol; 5 MCG/KG/MIN PRN Reason: TITRATE PER MD ORDER Last Admin: 12/01/17 12:07 Dose: 5 mcg/kg/min, 3.919 mls/hr Lorazepam (Ativan) 2 mg IVP Q6H PRN; Protocol PRN Reason: Seizure activity Last Admin: 12/01/17 08:09 Dose: 2 mg Methylprednisolone (Solu-Medrol) 20 mg IVP Q8H [facility] Last Admin: 12/01/17 10:39 Dose: 20 mg Metoprolol Tartrate (Lopressor) 50 mg PO BID [facility] Last Admin: 12/01/17 17:19 Dose: 50 mg Pantoprazole Sodium (Protonix Inj) 40 mg IVP Q12 [facility] Last Admin: 12/01/17 10:39 Dose: 40 mg - Labs Labs: 12/01/17 04:00 12/01/17 04:00 PT 12.5 SECONDS (9.4-12.5) 12/01/17 02:50 INR 1.09 (0.93-1.08) H 12/01/17 02:50 APTT 86.6 Seconds (25.1-36.5) H 12/01/17 02:50 - Constitutional Appears: No Acute Distress - Eye Exam Eye Exam: absent: Scleral icterus - ENT Exam ENT Exam: Mucous Membranes Moist - Respiratory Exam Respiratory Exam: Clear to Ausculation Bilateral. absent: Respiratory Distress - Cardiovascular Exam Cardiovascular Exam: RRR, +S1, +S2 - GI/Abdominal Exam GI & Abdominal Exam: Soft. absent: Distended - Exam Exam: absent: Bladder Distension - Extremities Exam Additional comments: mild edema of dependent area; - Neurological Exam Additional comments: sedated, not responsive to noxious stimuli; - Skin Skin Exam: Warm. absent: Cyanosis Assessment and Plan (1) Acute kidney injury Assessment & Plan: ATN by urine sediment (10-12 coarse granular casts/hpf) in the setting of prolonged cardiac arrest; however, doesn't explain worsening of renal function after initially improving; non-oliguric renal failure with serum creatinine at plateau; mild hypokalemia noted (supplemented by CCM team); -no need for aggressive IVF at this point; keep I/O equal; -continue to avoid nephrotoxic agents; Status: Acute (2) SIRS (systemic inflammatory response syndrome) Assessment & Plan: Switched from vanco to dapto (dosed for CrCl < 30 ml/min) and cefepime 2g q12h; may need to increase dapto frequency soon if renal function improves; Status: Acute (3) HTN (hypertension) Assessment & Plan: BP much improved after stopping IVF; on amlodipine 10 and metoprolol 25 bid, continue same; Status: Acute (4) Hematuria Assessment & Plan: Urine appears clear but still with marked microscopic hematuria with patient still on heparin drip; direct urine micro showed isomorphic RBC's, no cellular casts or dysmorphic RBC's that would be indicative of glomerular hematuria; however, still has 2+ albuminuria on UA despite gross hematuria resolving; -will send serologic workup to look for possible glomerular disease (C3, C4, ANCA, hep B, hep C, HIV serologies); -random urine for protein, creat Status: Acute
[2017-12-01 19:04] LABS: URINE BACTERIA MANY (NEG); URINE RBC TNTC /hpf (0-2)
[2017-12-01 19:05] LABS: URINE COARSE GRANULAR CAST SMALL /hpf (0-2)
--- NOTE | 2017-12-01 22:43 | CARD ---
APPROVED REPORT EKG Measurement Heart [id number] <Conclusion> Poor data quality, interpretation may be adversely affected Sinus tachycardia Nonspecific ST and T wave abnormality Abnormal ECG
[2017-12-02] MEDS: MethylPREDNISolone 40 mg Vial IVP SCH ×3 (01:00→17:01)
--- NOTE | 2017-12-02 02:16 | OP ---
PROCEDURE DATE: 12/01/2017 PROCEDURE: Right IJ CVC placement. INDICATION: Poor IV access. DESCRIPTION OF PROCEDURE: After obtaining an informed consent, operation area was sterilized. Maximum barrier precautions used. Timeout performed. Right IJ was cannulated by sterile Seldinger technique under real time ultrasound-guidance. Guidewire removed. Hemostasis achieved. Sterile dressings applied. Chest x-ray confirmed good position of the right IJ CVC. The patient tolerated procedure well. Daryl Nina MD MTDJessika
[2017-12-02] MEDS: Propofol 10 mg/ml 1,000 MG/100 ML VIAL IV PRN ×6 (02:26→23:25)
[2017-12-02] MEDS: Albuterol-Ipratrop 3 mg / 0.5 (3 ml) UD IH SCH ×4 (02:39→20:48)
[2017-12-02 06:56] LABS: ARTERIAL BLOOD GAS O2 SAT 99.8 % (95-98); ARTERIAL BLOOD GAS PCO2 30 mm/Hg (35-45); ARTERIAL BLOOD GAS PH 7.41 (7.35-7.45); ARTERIAL BLOOD GAS TCO2 19.9 mmol.L (22-28)
[2017-12-02 07:03] LABS: BASO # 0.02 K/mm3 (0.0-2.0); BASO % 0.1 % (0.0-3.0); GRAN # 12.74 (1.4-6.5); GRAN % 83.2 % (50.0-68.0); HEMOGLOBIN 7.8 g/dL (12.0-16.0); LYMPH # 1.9 (1.2-3.4); LYMPH % 12.1 % (22.0-35.0); MEAN CELL VOLUME 72.6 fl (80.0-105.0); MEAN CORPUSCULAR HEMOGLOBIN 23.2 pg (25.0-35.0); MEAN PLATELET VOLUME 10.3 fl (7.0-11.0); MONO # 0.7 (0.1-0.6); MONO % 4.6 % (1.0-6.0); RBC 3.36 10^6/uL (3.5-6.1); WHITE BLOOD COUNT 15.3 10^3/ul (4.5-11.0)
[2017-12-02 07:20] LABS: ALB/GLOB RATIO 1.2 (1.1-1.8); ALBUMIN 3.3 g/dL (3.0-4.8); CALCIUM 8.5 mg/dL (8.4-10.5)
[2017-12-02 07:22] LABS: PROTHROMBIN TIME 11.6 SECONDS (9.4-12.5)
[2017-12-02 07:23] LABS: INR 1.01 (0.93-1.08); PARTIAL THROMBOPLASTIN TIME 39.1 Seconds (25.1-36.5)
--- NOTE | 2017-12-02 08:07 | CON ---
DATE: 11/29/2017 REASON FOR CONSULTATION AND FOLLOWUP: Evaluation for code STEMI, status post cardiac arrest. BRIEF CLINICAL HISTORY: This is a 57-year-old morbidly obese female who had a cardiac arrest at home along with her daughter, where the neighbor heard loud thump who called the EMT and found to be patient in cardiac arrest, pulseless, asystole was carried out and the patient was brought to the [facility]. At that time, called for code STEMI. EKG did not show about the code STEMI. So, the patient was intubated and admitted to the ICU, still being intubated and sedated. PAST MEDICAL HISTORY: Unknown. PAST SURGICAL HISTORY: Unknown. MEDICATION AT HOME: Unobtainable. REVIEW OF SYSTEMS: As per HPI. PHYSICAL EXAMINATION VITAL SIGNS: Temperature hypothermic 91.4, heart rate 99, blood pressure 160/69. HEENT: PERRLA. Extraocular muscles intact. NECK: Supple. No carotid bruit or thyromegaly. CHEST: Clear to auscultation. HEART: S1 and S2 regular. ABDOMEN: Soft. EXTREMITIES: Clubbing and cyanosis negative. LABORATORY DATA: WBC 20.8, hemoglobin , hematocrit 31.4, platelet count 305. Chemistry shows sodium 140, potassium , chloride 114, carbon dioxide 39, anion gap of 18, BUN 24, creatinine 1.2, calcium 7.5. EKG showed normal sinus, nonspecific ST-T changes. IMPRESSION: Status post cardiac arrest. EKG did not show any evidence of acute myocardial infarction. Troponin positive, most likely secondary to ACLS protocol, multiple electrolytes imbalance renal insufficiency; creatinine clearance 40 mL an hour; respiratory failure; cardiac arrest. No evidence of arrhythmia noted. RECOMMENDATION: Continue broad-spectrum antibiotics, panculture. Continue heparin. Continue vent management. Further recommendation for hospital course. We will follow with you. We will get an echo to assess LV function, lipid profile, TSH, hemoglobin A1c. Thank you, Dr. Julien, for providing us the opportunity in taking care of the patient, Yary Hunter. Catherine Dc MD [facility] # [id number]
--- NOTE | 2017-12-02 08:59 | RAD ---
HISTORY: Intubated COMPARISON: December 01, 2017. FINDINGS: LUNGS: Improved aeration of the lungs common no active pulmonary disease. PLEURA: No significant pleural effusion identified, no pneumothorax apparent. CARDIOVASCULAR: Cardiomegaly. No evidence of acute, significant cardiovascular disease. OSSEOUS STRUCTURES: No significant abnormalities. VISUALIZED UPPER ABDOMEN: Normal. OTHER FINDINGS: Stable position of support apparatus including endotracheal tube and nasogastric tube. IMPRESSION: No active pulmonary disease. 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
--- NOTE | 2017-12-02 09:11 | CT ---
PROCEDURE: CT HEAD WITHOUT CONTRAST. HISTORY: anoxic brain injury COMPARISON: 11/28/2017 TECHNIQUE: Axial computed tomography images were obtained through the head/brain without intravenous contrast. Radiation dose: Total exam DLP = 880 mGy-cm. This CT exam was performed using one or more of the following dose reduction techniques: Automated exposure control, adjustment of the mA and/or kV according to patient size, and/or use of iterative reconstruction technique. FINDINGS: HEMORRHAGE: No intracranial hemorrhage. BRAIN: There is diffuse cerebral edema with loss of the mares-white differentiation and diffuse swelling. There is effacement of the sulci and compression of the lateral ventricles. There is sparing of the cerebellum and brainstem. Findings are consistent with the history of anoxic brain injury VENTRICLES: Diminished in size due to cerebral swelling CALVARIUM: Unremarkable. PARANASAL SINUSES: Unremarkable as visualized. No significant inflammatory changes. MASTOID AIR CELLS: Unremarkable as visualized. No inflammatory changes. OTHER FINDINGS: None. IMPRESSION: Two-view cerebral edema and swelling with loss of mares-white differentiation. Findings consistent with anoxic brain injury
[2017-12-02] MEDS: Cefepime IV 2 gm in NS 2 GM/100 ML BAG IVPB SCH ×2 (10:02→22:29)
--- NOTE | 2017-12-02 10:37 | CP.PCM.PN ---
Subjective - Date & Time of Evaluation Date of Evaluation: 12/02/17 Time of Evaluation: 10:00 - Subjective Subjective: Patient remains intubated, has occasional convulsions, controlled with prn Ativan and continues to be on maintenance Keppra. Still having fevers the whole day yesterday. Objective - Vital Signs/Intake and Output Vital Signs (last 24 hours): Temp Pulse Resp BP Pulse Ox 100.9 F H 111 H 24 142/61 98 12/02/17 06:30 12/02/17 06:30 12/01/17 01:20 12/02/17 06:30 12/02/17 06:30 Intake and Output: 12/02/17 12/02/17 06:59 18:59 Intake Total 1087 Output Total 550 Balance 537 - Medications Medications: Current Medications Albuterol/Ipratropium (Duoneb 3 Mg/0.5 Mg (3 Ml) Ud) 3 ml IH Q2H PRN PRN Reason: Shortness of Breath Last Admin: 12/01/17 05:20 Dose: 3 ml Albuterol/Ipratropium (Duoneb 3 Mg/0.5 Mg (3 Ml) Ud) 3 ml IH [id number] [facility] Last Admin: 12/02/17 07:30 Dose: 3 ml Amlodipine Besylate (Norvasc) 10 mg PO DAILY [facility] Last Admin: 12/01/17 10:40 Dose: 10 mg Artificial Tears (Artificial Tears) 1 ml OU TID PRN PRN Reason: Dry eyes Last Admin: 11/30/17 16:00 Dose: 1 drop Aspirin (Aspirin Chewable) 81 mg PO DAILY [facility] Last Admin: 12/01/17 10:40 Dose: 81 mg Hydralazine HCl (Apresoline) 10 mg IVP Q6H PRN PRN Reason: SBP>170 Last Admin: 11/30/17 20:02 Dose: 10 mg Cefepime HCl (Maxipime 2gm) 2 gm in 100 mls @ 100 mls/hr IVPB Q12 [facility] PRN Reason: Protocol Stop: 12/03/17 22:01 Last Admin: 12/01/17 22:44 Dose: 100 mls/hr Nicardipine HCl (Cardene Iv Premix) 20 mg in 200 mls @ 100 mls/hr IV .Q2H PRN; Protocol; 10 MG/HR PRN Reason: TITRATE PER MD ORDER Last Admin: 11/29/17 16:15 Dose: 100 mls/hr Insulin Human Regular 100 (units/ Sodium Chloride) 100 mls @ 4 mls/hr IV .Q24H PRN; Protocol; 4 UNITS/HR PRN Reason: TITRATE PER MD ORDER Acetaminophen (Ofirmev) 1,000 mg in 100 mls @ 400 mls/hr IVPB Q6H PRN PRN Reason: Temperature Stop: 12/02/17 10:33 Last Admin: 12/02/17 06:55 Dose: 400 mls/hr Heparin Sodium/Sodium Chloride (Heparin 19539 Units/250ml 1/2 Normal Saline) 25 ,000 units in 250 mls @ 12.474 mls/hr IV .Q20H3M [facility]INO; 10 UNITS/KG/HR PRN Reason: Protocol Last Titration: 12/02/17 06:19 Dose: 12 units/kg/hr, 14.969 mls/hr Levetiracetam 1,000 mg/ Sodium (Chloride) 110 mls @ 460 mls/hr IV Q12 [facility] Last Admin: 12/01/17 22:44 Dose: 460 mls/hr Daptomycin 780 mg/ Sodium (Chloride) 100 mls @ 200 mls/hr IV QOD [facility] Stop: 12/11/17 10:29 Last Admin: 12/01/17 10:34 Dose: 200 mls/hr Propofol (Diprivan) 1,000 mg in 100 mls @ 3.919 mls/hr IV .Q24H PRN; Protocol; 5 MCG/KG/MIN PRN Reason: TITRATE PER MD ORDER Last Admin: 12/02/17 06:17 Dose: 25 mcg/kg/min, 19.595 mls/hr Lorazepam (Ativan) 2 mg IVP Q6H PRN; Protocol PRN Reason: Seizure activity Last Admin: 12/02/17 06:16 Dose: 2 mg Methylprednisolone (Solu-Medrol) 20 mg IVP Q8H [facility] Last Admin: 12/02/17 01:00 Dose: 20 mg Metoprolol Tartrate (Lopressor) 50 mg PO BID [facility] Last Admin: 12/01/17 17:19 Dose: 50 mg Pantoprazole Sodium (Protonix Inj) 40 mg IVP Q12 [facility] Last Admin: 12/01/17 22:52 Dose: 40 mg - Labs Labs: 12/02/17 06:10 12/02/17 06:10 PT 11.6 SECONDS (9.4-12.5) 12/02/17 06:10 INR 1.01 (0.93-1.08) 12/02/17 06:10 APTT 39.1 Seconds (25.1-36.5) H 12/02/17 06:10 - Constitutional Appears: Other (intubated, on sedation) - Head Exam Head Exam: NORMAL INSPECTION - ENT Exam Additional comments: ET tube in place - Neck Exam Additional comments: right IJ central venous catheter in place, site intact - Respiratory Exam Respiratory Exam: Decreased Breath Sounds - Cardiovascular Exam Cardiovascular Exam: +S1, +S2 - GI/Abdominal Exam GI & Abdominal Exam: Soft. absent: Tenderness Assessment and Plan - Assessment and Plan (Free Text) Plan: Assessment Systemic inflammatory response syndrome with ventilator-dependent respiratory failure, acute renal failure after patient was found in cardiorespiratory arrest , R/O sepsis source to be determined - R/O sepsis from gram positive cocci in clusters bacteremia seizure disorder morbid obesity with BMI 49 Plan continue Daptomycin renally-adjusted and will continue Cefepime pending repeat blood from yesterday will continue to monitor clinically overall prognosis is poor
--- NOTE | 2017-12-02 10:45 | CP.CCUPN ---
<Lorenzo Stern - Last Filed: 12/02/17 11:36> CCU Subjective - Physician Review Subjective (Free Text): Patient seen and examined at bedside in no acute distress. Patient continues to have ocular movements, does not follow commands. Patient is currently intubated and sedated. ROS not obtained due to intubation and sedation. CCU Objective - Vital Signs / Intake & Output Intake and Output (Last 8hrs): Intake & Output 12/01/17 12/02/17 12/02/17 22:59 06:59 14:59 Intake Total 1798 1087 Output Total 600 550 Balance 1198 537 Intake: IV 898 550 Right External Jugular 698 300 Oral 0 Tube Feeding 900 Other 537 Output: Urine 600 550 Urethral (Bojorquez) 600 550 - Physical Exam Head: Positive for: Atraumatic, Normocephalic Pupils: Positive for: Other (pupillary reflex in tact) Extroacular Muscles: Positive for: Other (opens eyes spontaneously and now on sternal rub) Mouth: Positive for: Moist Mucous Membranes, Other (+ gag, ETT tube in oropharynx) Respiratory/Chest: Positive for: Clear to Auscultation. Negative for: Wheezes Cardiovascular: Positive for: Regular Rate and Rhythm Abdomen: Negative for: Distention Breast/Axillary: Positive for: Other (moist axilla) Upper Extremity: Positive for: Normal Inspection, Other (spontaneous non- purposeful movement of upper extremities) Lower Extremity: Positive for: Normal Inspection, Other (no movement) Neurological: Negative for: GCS=15 (3), Speech Normal Skin: Positive for: Warm Psychiatric: Positive for: Other (sedated) - Medications Active Medications: Active Medications Generic Name Dose Route Start Last Admin Trade Name Freq PRN Reason Stop Dose Admin Albuterol/Ipratropium 3 ml 12/01/17 05:09 12/01/17 05:20 Duoneb 3 Mg/0.5 Mg (3 Ml) Ud IH 3 ml Q2H PRN Administration Shortness of Breath Albuterol/Ipratropium 3 ml 12/01/17 20:00 12/02/17 07:30 Duoneb 3 Mg/0.5 Mg (3 Ml) Ud IH 3 ml [id number] ANTONINO Administration Amlodipine Besylate 10 mg 11/30/17 10:00 12/01/17 10:40 Norvasc PO 10 mg DAILY ANTONINO Administration Artificial Tears 1 ml 11/30/17 12:49 11/30/17 16:00 Artificial Tears OU 1 drop TID PRN Administration Dry eyes Aspirin 81 mg 11/30/17 10:00 12/01/17 10:40 Aspirin Chewable PO 81 mg DAILY ANTONINO Administration Hydralazine HCl 10 mg 11/30/17 09:49 11/30/17 20:02 Apresoline IVP 10 mg Q6H PRN Administration SBP>170 Cefepime HCl 2 gm in 100 mls @ 100 mls/hr 11/28/17 22:00 12/02/17 10:02 Maxipime 2gm IVPB 12/03/17 22:01 100 mls/hr Q12 ANTONINO Administration Protocol Nicardipine HCl 20 mg in 200 mls @ 100 mls/hr 11/29/17 16:36 11/29/17 16:15 Cardene Iv Premix IV 100 mls/hr .Q2H PRN Administration TITRATE PER MD ORDER Protocol 10 MG/HR Insulin Human Regular 100 100 mls @ 4 mls/hr 11/29/17 17:32 units/ Sodium Chloride IV .Q24H PRN TITRATE PER MD ORDER Protocol 4 UNITS/HR Heparin Sodium/Sodium Chloride 25,000 units in 250 mls @ 12.474 mls/hr 19:00 12/02/17 06:19 Heparin 81588 Units/250ml 1/2 Normal Saline IV 12 units/kg/hr .Q20H3M ANTONINO 14.969 mls/hr Protocol Titration 10 UNITS/KG/HR Levetiracetam 1,000 mg/ Sodium 110 mls @ 460 mls/hr 12/01/17 10:00 12/01/17 22:44 Chloride IV 460 mls/hr Q12 ANTONINO Administration Daptomycin 780 mg/ Sodium 100 mls @ 200 mls/hr 12/01/17 10:00 12/01/17 10:34 Chloride IV 12/11/17 10:29 200 mls/hr QOD ANTONINO Administration Propofol 1,000 mg in 100 mls @ 3.919 mls/hr 12/01/17 11:42 12/02/17 06:17 Diprivan IV 25 mcg/kg/min .Q24H PRN 19.595 mls/hr TITRATE PER MD ORDER Administration Protocol 5 MCG/KG/MIN Lorazepam 2 mg 12/01/17 07:35 12/02/17 10:16 Ativan IVP 2 mg Q6H PRN Administration Seizure activity Protocol Methylprednisolone 20 mg 11/30/17 08:45 12/02/17 09:57 Solu-Medrol IVP 20 mg Q8H ANTONINO Administration Metoprolol Tartrate 50 mg 12/01/17 10:00 12/01/17 17:19 Lopressor PO 50 mg BID ANTONINO Administration Pantoprazole Sodium 40 mg 11/28/17 22:00 12/01/17 22:52 Protonix Inj IVP 40 mg Q12 ANTONINO Administration - Patient Studies Lab Studies: Microbiology Studies 12/01/17 17:00 Gram Stain - Final Trachasp 11/28/17 20:30 S.aureus & Coag-Neg Staph PNA FISH - Final Blood Blood Culture - Preliminary Gram Positive Cocci Gram Stain - Final Lab Studies 12/02/17 12/02/17 12/02/17 Range/Units 09:15 08:11 06:52 WBC (4.5-11.0) 10^3/ul RBC (3.5-6.1) 10^6/uL Hgb (12.0-16.0) g/dL Hct (36.0-48.0) % MCV (80.0-105.0) fl MCH (25.0-35.0) pg MCHC (31.0-37.0) g/dl RDW (11.5-14.5) % Plt Count (120.0-450.0) 10^3/uL MPV (7.0-11.0) fl Gran % (50.0-68.0) % Lymph % (Auto) (22.0-35.0) % Lucas % (Auto) (1.0-6.0) % Eos % (Auto) (1.5-5.0) % Baso % (Auto) (0.0-3.0) % Gran # (1.4-6.5) Lymph # (Auto) (1.2-3.4) Lucas # (Auto) (0.1-0.6) Eos # (Auto) (0.0-0.7) Baso # (Auto) (0.0-2.0) K/mm3 PT (9.4-12.5) SECONDS INR (0.93-1.08) APTT 58.0 H (25.1-36.5) Seconds pCO2 30 L (35-45) mm/Hg pO2 237.0 H (80-100) mm/Hg HCO3 19.0 L (21-28) mmol/L ABG pH 7.41 (7.35-7.45) ABG Total CO2 19.9 L (22-28) mmol.L ABG O2 Saturation 99.8 H (95-98) % ABG Base Excess -4.5 L (-2.0-3.0) mmol/L ABG Potassium 3.1 L (3.6-5.2) mmol/L Glucose 146 H (65-105) mg/dl Lactate 0.9 (0.7-2.1) mmol/L FiO2 60.0 % Sodium 145.0 (132-148) mmol/L Potassium (3.6-5.0) mmol/L Chloride 120.0 H (98-107) mmol/L Carbon Dioxide (21-33) mmol/L Anion Gap (10-20) BUN (7-21) mg/dL Creatinine (0.7-1.2) mg/dl Est GFR ( Amer) Est GFR (Non-Af Amer) POC Glucose (mg/dL) 144 H (65-110) mg/dL Random Glucose (70-110) mg/dL Calcium (8.4-10.5) mg/dL Total Bilirubin (0.2-1.3) mg/dL AST (14-36) U/L ALT (7-56) U/L Alkaline Phosphatase (38-126) U/L Total Protein (5.8-8.3) g/dL Albumin (3.0-4.8) g/dL Globulin gm/dL Albumin/Globulin Ratio (1.1-1.8) Procalcitonin (0.19-0.49) NG/ML Arterial Blood Potassium 3.1 L (3.6-5.2) mmol/L Urine Color (YELLOW) Urine Appearance (CLEAR) Urine pH (4.7-8.0) Ur Specific [place] (1.005-1.035) Urine Protein (<30 mg/dL) mg/dL Urine Glucose (UA) (NEGATIVE) mg/dL Urine Ketones (NEGATIVE) mg/dL Urine Blood (NEGATIVE) Urine Nitrate (NEGATIVE) Urine Bilirubin (NEGATIVE) Urine Urobilinogen (<1 E.U./dL) E.U./dL Ur Leukocyte Esterase (NEGATIVE) Tree/uL Urine RBC (0-2) /hpf Urine WBC (0-6) /hpf Ur Epithelial Cells (0-5) /hpf Urine Bacteria (NEG) Coarse Granular Casts (0-2) /hpf Levetiracetam mcg/mL Influenza Typ A,B (EIA) (NEGATIVE) 12/02/17 12/02/17 12/02/17 Range/Units 06:10 06:10 06:10 WBC 15.3 H D (4.5-11.0) 10^3/ul RBC 3.36 L (3.5-6.1) 10^6/uL Hgb 7.8 L (12.0-16.0) g/dL Hct 24.4 L (36.0-48.0) % MCV 72.6 L (80.0-105.0) fl MCH 23.2 L (25.0-35.0) pg MCHC 32.0 (31.0-37.0) g/dl RDW 16.0 H (11.5-14.5) % Plt Count 251 (120.0-450.0) 10^3/uL MPV 10.3 (7.0-11.0) fl Gran % 83.2 H (50.0-68.0) % Lymph % (Auto) 12.1 L (22.0-35.0) % Lucas % (Auto) 4.6 (1.0-6.0) % Eos % (Auto) 0.0 L (1.5-5.0) % Baso % (Auto) 0.1 (0.0-3.0) % Gran # 12.74 H (1.4-6.5) Lymph # (Auto) 1.9 (1.2-3.4) Lucas # (Auto) 0.7 H (0.1-0.6) Eos # (Auto) 0.0 (0.0-0.7) Baso # (Auto) 0.02 (0.0-2.0) K/mm3 PT 11.6 (9.4-12.5) SECONDS INR 1.01 (0.93-1.08) APTT 39.1 H (25.1-36.5) Seconds pCO2 (35-45) mm/Hg pO2 (80-100) mm/Hg HCO3 (21-28) mmol/L ABG pH (7.35-7.45) ABG Total CO2 (22-28) mmol.L ABG O2 Saturation (95-98) % ABG Base Excess (-2.0-3.0) mmol/L ABG Potassium (3.6-5.2) mmol/L Glucose (65-105) mg/dl Lactate (0.7-2.1) mmol/L FiO2 % Sodium 144 (132-148) mmol/L Potassium 3.6 (3.6-5.0) mmol/L Chloride 111 H (98-107) mmol/L Carbon Dioxide 22 (21-33) mmol/L Anion Gap 14 (10-20) BUN 36 H (7-21) mg/dL Creatinine 2.0 H (0.7-1.2) mg/dl Est GFR ( Amer) 31 Est GFR (Non-Af Amer) 26 POC Glucose (mg/dL) (65-110) mg/dL Random Glucose 155 H (70-110) mg/dL Calcium 8.5 (8.4-10.5) mg/dL Total Bilirubin 0.5 (0.2-1.3) mg/dL AST 161 H D (14-36) U/L ALT 113 H (7-56) U/L Alkaline Phosphatase 82 (38-126) U/L Total Protein 5.9 (5.8-8.3) g/dL Albumin 3.3 (3.0-4.8) g/dL Globulin 2.6 gm/dL Albumin/Globulin Ratio 1.2 (1.1-1.8) Procalcitonin (0.19-0.49) NG/ML Arterial Blood Potassium (3.6-5.2) mmol/L Urine Color (YELLOW) Urine Appearance (CLEAR) Urine pH (4.7-8.0) Ur Specific [place] (1.005-1.035) Urine Protein (<30 mg/dL) mg/dL Urine Glucose (UA) (NEGATIVE) mg/dL Urine Ketones (NEGATIVE) mg/dL Urine Blood (NEGATIVE) Urine Nitrate (NEGATIVE) Urine Bilirubin (NEGATIVE) Urine Urobilinogen (<1 E.U./dL) E.U./dL Ur Leukocyte Esterase (NEGATIVE) Tree/uL Urine RBC (0-2) /hpf Urine WBC (0-6) /hpf Ur Epithelial Cells (0-5) /hpf Urine Bacteria (NEG) Coarse Granular Casts (0-2) /hpf Levetiracetam mcg/mL Influenza Typ A,B (EIA) (NEGATIVE) 12/02/17 12/02/17 12/02/17 Range/Units 05:54 04:30 01:59 WBC (4.5-11.0) 10^3/ul RBC (3.5-6.1) 10^6/uL Hgb (12.0-16.0) g/dL Hct (36.0-48.0) % MCV (80.0-105.0) fl MCH (25.0-35.0) pg MCHC (31.0-37.0) g/dl RDW (11.5-14.5) % Plt Count (120.0-450.0) 10^3/uL MPV (7.0-11.0) fl Gran % (50.0-68.0) % Lymph % (Auto) (22.0-35.0) % Lucas % (Auto) (1.0-6.0) % Eos % (Auto) (1.5-5.0) % Baso % (Auto) (0.0-3.0) % Gran # (1.4-6.5) Lymph # (Auto) (1.2-3.4) Lucas # (Auto) (0.1-0.6) Eos # (Auto) (0.0-0.7) Baso # (Auto) (0.0-2.0) K/mm3 PT (9.4-12.5) SECONDS INR (0.93-1.08) APTT (25.1-36.5) Seconds pCO2 (35-45) mm/Hg pO2 (80-100) mm/Hg HCO3 (21-28) mmol/L ABG pH (7.35-7.45) ABG Total CO2 (22-28) mmol.L ABG O2 Saturation (95-98) % ABG Base Excess (-2.0-3.0) mmol/L ABG Potassium (3.6-5.2) mmol/L Glucose (65-105) mg/dl Lactate (0.7-2.1) mmol/L FiO2 % Sodium (132-148) mmol/L Potassium (3.6-5.0) mmol/L Chloride (98-107) mmol/L Carbon Dioxide (21-33) mmol/L Anion Gap (10-20) BUN (7-21) mg/dL Creatinine (0.7-1.2) mg/dl Est GFR ( Amer) Est GFR (Non-Af Amer) POC Glucose (mg/dL) 172 H 144 H 120 H (65-110) mg/dL Random Glucose (70-110) mg/dL Calcium (8.4-10.5) mg/dL Total Bilirubin (0.2-1.3) mg/dL AST (14-36) U/L ALT (7-56) U/L Alkaline Phosphatase (38-126) U/L Total Protein (5.8-8.3) g/dL Albumin (3.0-4.8) g/dL Globulin gm/dL Albumin/Globulin Ratio (1.1-1.8) Procalcitonin (0.19-0.49) NG/ML Arterial Blood Potassium (3.6-5.2) mmol/L Urine Color (YELLOW) Urine Appearance (CLEAR) Urine pH (4.7-8.0) Ur Specific [place] (1.005-1.035) Urine Protein (<30 mg/dL) mg/dL Urine Glucose (UA) (NEGATIVE) mg/dL Urine Ketones (NEGATIVE) mg/dL Urine Blood (NEGATIVE) Urine Nitrate (NEGATIVE) Urine Bilirubin (NEGATIVE) Urine Urobilinogen (<1 E.U./dL) E.U./dL Ur Leukocyte Esterase (NEGATIVE) Tree/uL Urine RBC (0-2) /hpf Urine WBC (0-6) /hpf Ur Epithelial Cells (0-5) /hpf Urine Bacteria (NEG) Coarse Granular Casts (0-2) /hpf Levetiracetam mcg/mL Influenza Typ A,B (EIA) (NEGATIVE) 12/02/17 12/02/17 12/01/17 Range/Units 01:00 00:02 20:15 WBC (4.5-11.0) 10^3/ul RBC (3.5-6.1) 10^6/uL Hgb (12.0-16.0) g/dL Hct (36.0-48.0) % MCV (80.0-105.0) fl MCH (25.0-35.0) pg MCHC (31.0-37.0) g/dl RDW (11.5-14.5) % Plt Count (120.0-450.0) 10^3/uL MPV (7.0-11.0) fl Gran % (50.0-68.0) % Lymph % (Auto) (22.0-35.0) % Lucas % (Auto) (1.0-6.0) % Eos % (Auto) (1.5-5.0) % Baso % (Auto) (0.0-3.0) % Gran # (1.4-6.5) Lymph # (Auto) (1.2-3.4) Lucas # (Auto) (0.1-0.6) Eos # (Auto) (0.0-0.7) Baso # (Auto) (0.0-2.0) K/mm3 PT (9.4-12.5) SECONDS INR (0.93-1.08) APTT 39.3 H (25.1-36.5) Seconds pCO2 (35-45) mm/Hg pO2 (80-100) mm/Hg HCO3 (21-28) mmol/L ABG pH (7.35-7.45) ABG Total CO2 (22-28) mmol.L ABG O2 Saturation (95-98) % ABG Base Excess (-2.0-3.0) mmol/L ABG Potassium (3.6-5.2) mmol/L Glucose (65-105) mg/dl Lactate (0.7-2.1) mmol/L FiO2 % Sodium (132-148) mmol/L Potassium (3.6-5.0) mmol/L Chloride (98-107) mmol/L Carbon Dioxide (21-33) mmol/L Anion Gap (10-20) BUN (7-21) mg/dL Creatinine (0.7-1.2) mg/dl Est GFR ( Amer) Est GFR (Non-Af Amer) POC Glucose (mg/dL) 134 H 108 (65-110) mg/dL Random Glucose (70-110) mg/dL Calcium (8.4-10.5) mg/dL Total Bilirubin (0.2-1.3) mg/dL AST (14-36) U/L ALT (7-56) U/L Alkaline Phosphatase (38-126) U/L Total Protein (5.8-8.3) g/dL Albumin (3.0-4.8) g/dL Globulin gm/dL Albumin/Globulin Ratio (1.1-1.8) Procalcitonin (0.19-0.49) NG/ML Arterial Blood Potassium (3.6-5.2) mmol/L Urine Color (YELLOW) Urine Appearance (CLEAR) Urine pH (4.7-8.0) Ur Specific [place] (1.005-1.035) Urine Protein (<30 mg/dL) mg/dL Urine Glucose (UA) (NEGATIVE) mg/dL Urine Ketones (NEGATIVE) mg/dL Urine Blood (NEGATIVE) Urine Nitrate (NEGATIVE) Urine Bilirubin (NEGATIVE) Urine Urobilinogen (<1 E.U./dL) E.U./dL Ur Leukocyte Esterase (NEGATIVE) Tree/uL Urine RBC (0-2) /hpf Urine WBC (0-6) /hpf Ur Epithelial Cells (0-5) /hpf Urine Bacteria (NEG) Coarse Granular Casts (0-2) /hpf Levetiracetam mcg/mL Influenza Typ A,B (EIA) (NEGATIVE) 12/01/17 12/01/17 12/01/17 Range/Units 18:15 18:15 17:48 WBC (4.5-11.0) 10^3/ul RBC (3.5-6.1) 10^6/uL Hgb (12.0-16.0) g/dL Hct (36.0-48.0) % MCV (80.0-105.0) fl MCH (25.0-35.0) pg MCHC (31.0-37.0) g/dl RDW (11.5-14.5) % Plt Count (120.0-450.0) 10^3/uL MPV (7.0-11.0) fl Gran % (50.0-68.0) % Lymph % (Auto) (22.0-35.0) % Lucas % (Auto) (1.0-6.0) % Eos % (Auto) (1.5-5.0) % Baso % (Auto) (0.0-3.0) % Gran # (1.4-6.5) Lymph # (Auto) (1.2-3.4) Lucas # (Auto) (0.1-0.6) Eos # (Auto) (0.0-0.7) Baso # (Auto) (0.0-2.0) K/mm3 PT (9.4-12.5) SECONDS INR (0.93-1.08) APTT (25.1-36.5) Seconds pCO2 (35-45) mm/Hg pO2 (80-100) mm/Hg HCO3 (21-28) mmol/L ABG pH (7.35-7.45) ABG Total CO2 (22-28) mmol.L ABG O2 Saturation (95-98) % ABG Base Excess (-2.0-3.0) mmol/L ABG Potassium (3.6-5.2) mmol/L Glucose (65-105) mg/dl Lactate (0.7-2.1) mmol/L FiO2 % Sodium (132-148) mmol/L Potassium (3.6-5.0) mmol/L Chloride (98-107) mmol/L Carbon Dioxide (21-33) mmol/L Anion Gap (10-20) BUN (7-21) mg/dL Creatinine (0.7-1.2) mg/dl Est GFR ( Amer) Est GFR (Non-Af Amer) POC Glucose (mg/dL) 99 (65-110) mg/dL Random Glucose (70-110) mg/dL Calcium (8.4-10.5) mg/dL Total Bilirubin (0.2-1.3) mg/dL AST (14-36) U/L ALT (7-56) U/L Alkaline Phosphatase (38-126) U/L Total Protein (5.8-8.3) g/dL Albumin (3.0-4.8) g/dL Globulin gm/dL Albumin/Globulin Ratio (1.1-1.8) Procalcitonin (0.19-0.49) NG/ML Arterial Blood Potassium (3.6-5.2) mmol/L Urine Color Yellow (YELLOW) Urine Appearance Cloudy (CLEAR) Urine pH 6.0 (4.7-8.0) Ur Specific [place] 1.025 (1.005-1.035) Urine Protein 100 H (<30 mg/dL) mg/dL Urine Glucose (UA) Negative (NEGATIVE) mg/dL Urine Ketones Negative (NEGATIVE) mg/dL Urine Blood Large H (NEGATIVE) Urine Nitrate Negative (NEGATIVE) Urine Bilirubin Negative (NEGATIVE) Urine Urobilinogen 0.2 (<1 E.U./dL) E.U./dL Ur Leukocyte Esterase Small H (NEGATIVE) Tree/uL Urine RBC Tntc (0-2) /hpf Urine WBC 10 - 15 (0-6) /hpf Ur Epithelial Cells 6 - 8 (0-5) /hpf Urine Bacteria Many (NEG) Coarse Granular Casts Small H (0-2) /hpf Levetiracetam mcg/mL Influenza Typ A,B (EIA) Negative for flu a/b (NEGATIVE) 12/01/17 12/01/17 12/01/17 Range/Units 16:30 15:42 13:46 WBC (4.5-11.0) 10^3/ul RBC (3.5-6.1) 10^6/uL Hgb (12.0-16.0) g/dL Hct (36.0-48.0) % MCV (80.0-105.0) fl MCH (25.0-35.0) pg MCHC (31.0-37.0) g/dl RDW (11.5-14.5) % Plt Count (120.0-450.0) 10^3/uL MPV (7.0-11.0) fl Gran % (50.0-68.0) % Lymph % (Auto) (22.0-35.0) % Lucas % (Auto) (1.0-6.0) % Eos % (Auto) (1.5-5.0) % Baso % (Auto) (0.0-3.0) % Gran # (1.4-6.5) Lymph # (Auto) (1.2-3.4) Lucas # (Auto) (0.1-0.6) Eos # (Auto) (0.0-0.7) Baso # (Auto) (0.0-2.0) K/mm3 PT (9.4-12.5) SECONDS INR (0.93-1.08) APTT (25.1-36.5) Seconds pCO2 (35-45) mm/Hg pO2 (80-100) mm/Hg HCO3 (21-28) mmol/L ABG pH (7.35-7.45) ABG Total CO2 (22-28) mmol.L ABG O2 Saturation (95-98) % ABG Base Excess (-2.0-3.0) mmol/L ABG Potassium (3.6-5.2) mmol/L Glucose (65-105) mg/dl Lactate (0.7-2.1) mmol/L FiO2 % Sodium (132-148) mmol/L Potassium (3.6-5.0) mmol/L Chloride (98-107) mmol/L Carbon Dioxide (21-33) mmol/L Anion Gap (10-20) BUN (7-21) mg/dL Creatinine (0.7-1.2) mg/dl Est GFR ( Amer) Est GFR (Non-Af Amer) POC Glucose (mg/dL) 106 116 H (65-110) mg/dL Random Glucose (70-110) mg/dL Calcium (8.4-10.5) mg/dL Total Bilirubin (0.2-1.3) mg/dL AST (14-36) U/L ALT (7-56) U/L Alkaline Phosphatase (38-126) U/L Total Protein (5.8-8.3) g/dL Albumin (3.0-4.8) g/dL Globulin gm/dL Albumin/Globulin Ratio (1.1-1.8) Procalcitonin 1.37 H (0.19-0.49) NG/ML Arterial Blood Potassium (3.6-5.2) mmol/L Urine Color (YELLOW) Urine Appearance (CLEAR) Urine pH (4.7-8.0) Ur Specific [place] (1.005-1.035) Urine Protein (<30 mg/dL) mg/dL Urine Glucose (UA) (NEGATIVE) mg/dL Urine Ketones (NEGATIVE) mg/dL Urine Blood (NEGATIVE) Urine Nitrate (NEGATIVE) Urine Bilirubin (NEGATIVE) Urine Urobilinogen (<1 E.U./dL) E.U./dL Ur Leukocyte Esterase (NEGATIVE) Tree/uL Urine RBC (0-2) /hpf Urine WBC (0-6) /hpf Ur Epithelial Cells (0-5) /hpf Urine Bacteria (NEG) Coarse Granular Casts (0-2) /hpf Levetiracetam mcg/mL Influenza Typ A,B (EIA) (NEGATIVE) 12/01/17 11/28/17 Range/Units 11:21 20:30 WBC (4.5-11.0) 10^3/ul RBC (3.5-6.1) 10^6/uL Hgb (12.0-16.0) g/dL Hct (36.0-48.0) % MCV (80.0-105.0) fl MCH (25.0-35.0) pg MCHC (31.0-37.0) g/dl RDW (11.5-14.5) % Plt Count (120.0-450.0) 10^3/uL MPV (7.0-11.0) fl Gran % (50.0-68.0) % Lymph % (Auto) (22.0-35.0) % Lucas % (Auto) (1.0-6.0) % Eos % (Auto) (1.5-5.0) % Baso % (Auto) (0.0-3.0) % Gran # (1.4-6.5) Lymph # (Auto) (1.2-3.4) Lucas # (Auto) (0.1-0.6) Eos # (Auto) (0.0-0.7) Baso # (Auto) (0.0-2.0) K/mm3 PT (9.4-12.5) SECONDS INR (0.93-1.08) APTT (25.1-36.5) Seconds pCO2 (35-45) mm/Hg pO2 (80-100) mm/Hg HCO3 (21-28) mmol/L ABG pH (7.35-7.45) ABG Total CO2 (22-28) mmol.L ABG O2 Saturation (95-98) % ABG Base Excess (-2.0-3.0) mmol/L ABG Potassium (3.6-5.2) mmol/L Glucose (65-105) mg/dl Lactate (0.7-2.1) mmol/L FiO2 % Sodium (132-148) mmol/L Potassium (3.6-5.0) mmol/L Chloride (98-107) mmol/L Carbon Dioxide (21-33) mmol/L Anion Gap (10-20) BUN (7-21) mg/dL Creatinine (0.7-1.2) mg/dl Est GFR ( Amer) Est GFR (Non-Af Amer) POC Glucose (mg/dL) 123 H (65-110) mg/dL Random Glucose (70-110) mg/dL Calcium (8.4-10.5) mg/dL Total Bilirubin (0.2-1.3) mg/dL AST (14-36) U/L ALT (7-56) U/L Alkaline Phosphatase (38-126) U/L Total Protein (5.8-8.3) g/dL Albumin (3.0-4.8) g/dL Globulin gm/dL Albumin/Globulin Ratio (1.1-1.8) Procalcitonin (0.19-0.49) NG/ML Arterial Blood Potassium (3.6-5.2) mmol/L Urine Color (YELLOW) Urine Appearance (CLEAR) Urine pH (4.7-8.0) Ur Specific [place] (1.005-1.035) Urine Protein (<30 mg/dL) mg/dL Urine Glucose (UA) (NEGATIVE) mg/dL Urine Ketones (NEGATIVE) mg/dL Urine Blood (NEGATIVE) Urine Nitrate (NEGATIVE) Urine Bilirubin (NEGATIVE) Urine Urobilinogen (<1 E.U./dL) E.U./dL Ur Leukocyte Esterase (NEGATIVE) Tree/uL Urine RBC (0-2) /hpf Urine WBC (0-6) /hpf Ur Epithelial Cells (0-5) /hpf Urine Bacteria (NEG) Coarse Granular Casts (0-2) /hpf Levetiracetam 12.2 mcg/mL Influenza Typ A,B (EIA) (NEGATIVE) Laboratory Results - last 24 hr 11/28/17 12/01/17 12/01/17 20:30 11:21 13:46 WBC RBC Hgb Hct MCV MCH MCHC RDW Plt Count MPV Gran % Lymph % (Auto) Lucas % (Auto) Eos % (Auto) Baso % (Auto) Gran # Lymph # (Auto) Lucas # (Auto) Eos # (Auto) Baso # (Auto) PT INR APTT pCO2 pO2 HCO3 ABG pH ABG Total CO2 ABG O2 Saturation ABG Base Excess ABG Potassium Glucose Lactate FiO2 Sodium Potassium Chloride Carbon Dioxide Anion Gap BUN Creatinine Est GFR ( Amer) Est GFR (Non-Af Amer) POC Glucose (mg/dL) 123 H 116 H Random Glucose Calcium Total Bilirubin AST ALT Alkaline Phosphatase Total Protein Albumin Globulin Albumin/Globulin Ratio Procalcitonin Arterial Blood Potassium Urine Color Urine Appearance Urine pH Ur Specific [place] Urine Protein Urine Glucose (UA) Urine Ketones Urine Blood Urine Nitrate Urine Bilirubin Urine Urobilinogen Ur Leukocyte Esterase Urine RBC Urine WBC Ur Epithelial Cells Urine Bacteria Coarse Granular Casts Levetiracetam 12.2 Influenza Typ A,B (EIA) 12/01/17 12/01/17 12/01/17 15:42 16:30 17:48 WBC RBC Hgb Hct MCV MCH MCHC RDW Plt Count MPV Gran % Lymph % (Auto) Lucas % (Auto) Eos % (Auto) Baso % (Auto) Gran # Lymph # (Auto) Lucas # (Auto) Eos # (Auto) Baso # (Auto) PT INR APTT pCO2 pO2 HCO3 ABG pH ABG Total CO2 ABG O2 Saturation ABG Base Excess ABG Potassium Glucose Lactate FiO2 Sodium Potassium Chloride Carbon Dioxide Anion Gap BUN Creatinine Est GFR ( Amer) Est GFR (Non-Af Amer) POC Glucose (mg/dL) 106 99 Random Glucose Calcium Total Bilirubin AST ALT Alkaline Phosphatase Total Protein Albumin Globulin Albumin/Globulin Ratio Procalcitonin 1.37 H Arterial Blood Potassium Urine Color Urine Appearance Urine pH Ur Specific [place] Urine Protein Urine Glucose (UA) Urine Ketones Urine Blood Urine Nitrate Urine Bilirubin Urine Urobilinogen Ur Leukocyte Esterase Urine RBC Urine WBC Ur Epithelial Cells Urine Bacteria Coarse Granular Casts Levetiracetam Influenza Typ A,B (EIA) 12/01/17 12/01/17 12/01/17 18:15 18:15 20:15 WBC RBC Hgb Hct MCV MCH MCHC RDW Plt Count MPV Gran % Lymph % (Auto) Lucas % (Auto) Eos % (Auto) Baso % (Auto) Gran # Lymph # (Auto) Lucas # (Auto) Eos # (Auto) Baso # (Auto) PT INR APTT pCO2 pO2 HCO3 ABG pH ABG Total CO2 ABG O2 Saturation ABG Base Excess ABG Potassium Glucose Lactate FiO2 Sodium Potassium Chloride Carbon Dioxide Anion Gap BUN Creatinine Est GFR ( Amer) Est GFR (Non-Af Amer) POC Glucose (mg/dL) 108 Random Glucose Calcium Total Bilirubin AST ALT Alkaline Phosphatase Total Protein Albumin Globulin Albumin/Globulin Ratio Procalcitonin Arterial Blood Potassium Urine Color Yellow Urine Appearance Cloudy Urine pH 6.0 Ur Specific [place] 1.025 Urine Protein 100 H Urine Glucose (UA) Negative Urine Ketones Negative Urine Blood Large H Urine Nitrate Negative Urine Bilirubin Negative Urine Urobilinogen 0.2 Ur Leukocyte Esterase Small H Urine RBC Tntc Urine WBC 10 - 15 Ur Epithelial Cells 6 - 8 Urine Bacteria Many Coarse Granular Casts Small H Levetiracetam Influenza Typ A,B (EIA) Negative for flu a/b 12/02/17 12/02/17 12/02/17 00:02 01:00 01:59 WBC RBC Hgb Hct MCV MCH MCHC RDW Plt Count MPV Gran % Lymph % (Auto) Lucas % (Auto) Eos % (Auto) Baso % (Auto) Gran # Lymph # (Auto) Lucas # (Auto) Eos # (Auto) Baso # (Auto) PT INR APTT 39.3 H pCO2 pO2 HCO3 ABG pH ABG Total CO2 ABG O2 Saturation ABG Base Excess ABG Potassium Glucose Lactate FiO2 Sodium Potassium Chloride Carbon Dioxide Anion Gap BUN Creatinine Est GFR ( Amer) Est GFR (Non-Af Amer) POC Glucose (mg/dL) 134 H 120 H Random Glucose Calcium Total Bilirubin AST ALT Alkaline Phosphatase Total Protein Albumin Globulin Albumin/Globulin Ratio Procalcitonin Arterial Blood Potassium Urine Color Urine Appearance Urine pH Ur Specific [place] Urine Protein Urine Glucose (UA) Urine Ketones Urine Blood Urine Nitrate Urine Bilirubin Urine Urobilinogen Ur Leukocyte Esterase Urine RBC Urine WBC Ur Epithelial Cells Urine Bacteria Coarse Granular Casts Levetiracetam Influenza Typ A,B (EIA) 12/02/17 12/02/17 12/02/17 04:30 05:54 06:10 WBC 15.3 H D RBC 3.36 L Hgb 7.8 L Hct 24.4 L MCV 72.6 L MCH 23.2 L MCHC 32.0 RDW 16.0 H Plt Count 251 MPV 10.3 Gran % 83.2 H Lymph % (Auto) 12.1 L Lucas % (Auto) 4.6 Eos % (Auto) 0.0 L Baso % (Auto) 0.1 Gran # 12.74 H Lymph # (Auto) 1.9 Lucas # (Auto) 0.7 H Eos # (Auto) 0.0 Baso # (Auto) 0.02 PT INR APTT pCO2 pO2 HCO3 ABG pH ABG Total CO2 ABG O2 Saturation ABG Base Excess ABG Potassium Glucose Lactate FiO2 Sodium Potassium Chloride Carbon Dioxide Anion Gap BUN Creatinine Est GFR ( Amer) Est GFR (Non-Af Amer) POC Glucose (mg/dL) 144 H 172 H Random Glucose Calcium Total Bilirubin AST ALT Alkaline Phosphatase Total Protein Albumin Globulin Albumin/Globulin Ratio Procalcitonin Arterial Blood Potassium Urine Color Urine Appearance Urine pH Ur Specific [place] Urine Protein Urine Glucose (UA) Urine Ketones Urine Blood Urine Nitrate Urine Bilirubin Urine Urobilinogen Ur Leukocyte Esterase Urine RBC Urine WBC Ur Epithelial Cells Urine Bacteria Coarse Granular Casts Levetiracetam Influenza Typ A,B (EIA) 12/02/17 12/02/17 12/02/17 06:10 06:10 06:52 WBC RBC Hgb Hct MCV MCH MCHC RDW Plt Count MPV Gran % Lymph % (Auto) Lucas % (Auto) Eos % (Auto) Baso % (Auto) Gran # Lymph # (Auto) Lucas # (Auto) Eos # (Auto) Baso # (Auto) PT 11.6 INR 1.01 APTT 39.1 H pCO2 30 L pO2 237.0 H HCO3 19.0 L ABG pH 7.41 ABG Total CO2 19.9 L ABG O2 Saturation 99.8 H ABG Base Excess -4.5 L ABG Potassium 3.1 L Glucose 146 H Lactate 0.9 FiO2 60.0 Sodium 144 145.0 Potassium 3.6 Chloride 111 H 120.0 H Carbon Dioxide 22 Anion Gap 14 BUN 36 H Creatinine 2.0 H Est GFR ( Amer) 31 Est GFR (Non-Af Amer) 26 POC Glucose (mg/dL) Random Glucose 155 H Calcium 8.5 Total Bilirubin 0.5 AST 161 H D ALT 113 H Alkaline Phosphatase 82 Total Protein 5.9 Albumin 3.3 Globulin 2.6 Albumin/Globulin Ratio 1.2 Procalcitonin Arterial Blood Potassium 3.1 L Urine Color Urine Appearance Urine pH Ur Specific [place] Urine Protein Urine Glucose (UA) Urine Ketones Urine Blood Urine Nitrate Urine Bilirubin Urine Urobilinogen Ur Leukocyte Esterase Urine RBC Urine WBC Ur Epithelial Cells Urine Bacteria Coarse Granular Casts Levetiracetam Influenza Typ A,B (EIA) 12/02/17 12/02/17 08:11 09:15 WBC RBC Hgb Hct MCV MCH MCHC RDW Plt Count MPV Gran % Lymph % (Auto) Lucas % (Auto) Eos % (Auto) Baso % (Auto) Gran # Lymph # (Auto) Lucas # (Auto) Eos # (Auto) Baso # (Auto) PT INR APTT 58.0 H pCO2 pO2 HCO3 ABG pH ABG Total CO2 ABG O2 Saturation ABG Base Excess ABG Potassium Glucose Lactate FiO2 Sodium Potassium Chloride Carbon Dioxide Anion Gap BUN Creatinine Est GFR ( Amer) Est GFR (Non-Af Amer) POC Glucose (mg/dL) 144 H Random Glucose Calcium Total Bilirubin AST ALT Alkaline Phosphatase Total Protein Albumin Globulin Albumin/Globulin Ratio Procalcitonin Arterial Blood Potassium Urine Color Urine Appearance Urine pH Ur Specific [place] Urine Protein Urine Glucose (UA) Urine Ketones Urine Blood Urine Nitrate Urine Bilirubin Urine Urobilinogen Ur Leukocyte Esterase Urine RBC Urine WBC Ur Epithelial Cells Urine Bacteria Coarse Granular Casts Levetiracetam Influenza Typ A,B (EIA) Fingerstick Blood Sugar Results: 232 Review of Systems - Review of Systems Systems not reviewed;Unavailable: Intubated Assessment/Plan - Assessment and Plan (Free Text) Assessment: 57 F presenting s/p cardiac arrest due to primary cardiac event presenting with cardiogenic shock and multi-organ system failure. Neuro -Intubated and sedated on propofol; will consider titrating down the propofol -Repeat CT done; reveals anoxic brain injury -Neurology on consult -Seziure activity observed -Continue with Keppra q12h, Ativan PRN, will add trileptal (patient's home medication) -Patient should be monitored with constant EEG which cannot be done at this facility, transfer although considered cannot be done due to patient's unstable status -Continue with neuro checks, aspiration precautions, seizure precautions, and head above bed 35 degrees -Considering anoxic brain injury finding, will repeat EEG and neuro will discuss findings with family Cardiovascular -Maintain MAP>65 -Cardiology consulted -Continue norvasc, aspirin, heparin, hydralazine, metoprolol as per Cardio -Maintain normotensive Pulmonary -Maintain SpO2>92% -Continue with duonebs -Currently on PRVC 40 5 20 400 Gastrointestinal -Receiving tube feedings -Continue with GI prophylaxis Renal -Maintain euvolemia -Maintain electrolytes and replete as needed Endocrine -Maintain euglycemia and normothermia Infectious disease -Blood cultures positive for bacteremia -ID on consult -Continue with cefepime as per ID -Daptomycin started -Follow up on procalcitonin -Continue with aspiration precautions Hematologic -Continue to monitor H&H -Already on heparin drip which can also serve as DVT prophylaxis <Matthew River - Last Filed: 12/02/17 12:56> CCU Objective - Vital Signs / Intake & Output Vital Signs (Last 4 hours): Vital Signs Pulse BP 12/02/17 11:31 110 H 144/65 12/02/17 11:00 144/65 Intake and Output (Last 8hrs): Intake & Output 12/01/17 12/02/17 12/02/17 22:59 06:59 14:59 Intake Total 1798 1087 100 Output Total 600 550 Balance 1198 537 100 Intake: IV 898 550 100 Right External Jugular 698 300 Oral 0 Tube Feeding 900 Other 537 Output: Urine 600 550 Urethral (Bojorquez) 600 550 - Medications Active Medications: Active Medications Generic Name Dose Route Start Last Admin Trade Name Freq PRN Reason Stop Dose Admin Albuterol/Ipratropium 3 ml 12/01/17 05:09 12/01/17 05:20 Duoneb 3 Mg/0.5 Mg (3 Ml) Ud IH 3 ml Q2H PRN Administration Shortness of Breath Albuterol/Ipratropium 3 ml 12/01/17 20:00 12/02/17 07:30 Duoneb 3 Mg/0.5 Mg (3 Ml) Ud IH 3 ml [id number] ANTONINO Administration Amlodipine Besylate 10 mg 11/30/17 10:00 12/02/17 11:00 Norvasc PO 10 mg DAILY ANTONINO Administration Artificial Tears 1 ml 11/30/17 12:49 11/30/17 16:00 Artificial Tears OU 1 drop TID PRN Administration Dry eyes Aspirin 81 mg 11/30/17 10:00 12/02/17 10:30 Aspirin Chewable PO 81 mg DAILY ANTONINO Administration Hydralazine HCl 10 mg 11/30/17 09:49 11/30/17 20:02 Apresoline IVP 10 mg Q6H PRN Administration SBP>170 Cefepime HCl 2 gm in 100 mls @ 100 mls/hr 11/28/17 22:00 12/02/17 10:02 Maxipime 2gm IVPB 12/03/17 22:01 100 mls/hr Q12 ANTONINO Administration Protocol Nicardipine HCl 20 mg in 200 mls @ 100 mls/hr 11/29/17 16:36 11/29/17 16:15 Cardene Iv Premix IV 100 mls/hr .Q2H PRN Administration TITRATE PER MD ORDER Protocol 10 MG/HR Insulin Human Regular 100 100 mls @ 4 mls/hr 11/29/17 17:32 units/ Sodium Chloride IV .Q24H PRN TITRATE PER MD ORDER Protocol 4 UNITS/HR Levetiracetam 1,000 mg/ Sodium 110 mls @ 460 mls/hr 12/01/17 10:00 12/01/17 22:44 Chloride IV 460 mls/hr Q12 ANTONINO Administration Daptomycin 780 mg/ Sodium 100 mls @ 200 mls/hr 12/01/17 10:00 12/01/17 10:34 Chloride IV 12/11/17 10:29 200 mls/hr QOD ANTONINO Administration Propofol 1,000 mg in 100 mls @ 3.919 mls/hr 12/01/17 11:42 12/02/17 12:22 Diprivan IV 25 mcg/kg/min .Q24H PRN 19.595 mls/hr TITRATE PER MD ORDER Administration Protocol 5 MCG/KG/MIN Lorazepam 2 mg 12/01/17 07:35 12/02/17 10:16 Ativan IVP 2 mg Q6H PRN Administration Seizure activity Protocol Methylprednisolone 20 mg 11/30/17 08:45 12/02/17 09:57 Solu-Medrol IVP 20 mg Q8H ANTONINO Administration Metoprolol Tartrate 50 mg 12/01/17 10:00 12/02/17 11:31 Lopressor PO 50 mg BID ANTONINO Administration Oxcarbazepine 300 mg 12/02/17 11:00 Trileptal PO BID [facility] Protocol Pantoprazole Sodium 40 mg 11/28/17 22:00 12/02/17 11:32 Protonix Inj IVP 40 mg Q12 ANTONINO Administration - Patient Studies Lab Studies: Microbiology Studies 11/28/17 20:30 S.aureus & Coag-Neg Staph PNA FISH - Final Blood Blood Culture - Final Coagulase Neg Staphylococcus Gram Stain - Final 12/01/17 17:00 Gram Stain - Final Trachasp Lab Studies 12/02/17 12/02/17 12/02/17 Range/Units 09:15 08:20 08:11 WBC (4.5-11.0) 10^3/ul RBC (3.5-6.1) 10^6/uL Hgb (12.0-16.0) g/dL Hct (36.0-48.0) % MCV (80.0-105.0) fl MCH (25.0-35.0) pg MCHC (31.0-37.0) g/dl RDW (11.5-14.5) % Plt Count (120.0-450.0) 10^3/uL MPV (7.0-11.0) fl Gran % (50.0-68.0) % Lymph % (Auto) (22.0-35.0) % Lucas % (Auto) (1.0-6.0) % Eos % (Auto) (1.5-5.0) % Baso % (Auto) (0.0-3.0) % Gran # (1.4-6.5) Lymph # (Auto) (1.2-3.4) Lucas # (Auto) (0.1-0.6) Eos # (Auto) (0.0-0.7) Baso # (Auto) (0.0-2.0) K/mm3 PT (9.4-12.5) SECONDS INR (0.93-1.08) APTT 58.0 H (25.1-36.5) Seconds pCO2 (35-45) mm/Hg pO2 (80-100) mm/Hg HCO3 (21-28) mmol/L ABG pH (7.35-7.45) ABG Total CO2 (22-28) mmol.L ABG O2 Saturation (95-98) % ABG Base Excess (-2.0-3.0) mmol/L ABG Potassium (3.6-5.2) mmol/L Glucose (65-105) mg/dl Lactate (0.7-2.1) mmol/L FiO2 % Sodium (132-148) mmol/L Potassium (3.6-5.0) mmol/L Chloride (98-107) mmol/L Carbon Dioxide (21-33) mmol/L Anion Gap (10-20) BUN (7-21) mg/dL Creatinine (0.7-1.2) mg/dl Est GFR ( Amer) Est GFR (Non-Af Amer) POC Glucose (mg/dL) 144 H (65-110) mg/dL Random Glucose (70-110) mg/dL Calcium (8.4-10.5) mg/dL Total Bilirubin (0.2-1.3) mg/dL AST (14-36) U/L ALT (7-56) U/L Alkaline Phosphatase (38-126) U/L Total Protein (5.8-8.3) g/dL Albumin (3.0-4.8) g/dL Globulin gm/dL Albumin/Globulin Ratio (1.1-1.8) Procalcitonin (0.19-0.49) NG/ML Arterial Blood Potassium (3.6-5.2) mmol/L Urine Color (YELLOW) Urine Appearance (CLEAR) Urine pH (4.7-8.0) Ur Specific [place] (1.005-1.035) Urine Protein (<30 mg/dL) mg/dL Urine Glucose (UA) (NEGATIVE) mg/dL Urine Ketones (NEGATIVE) mg/dL Urine Blood (NEGATIVE) Urine Nitrate (NEGATIVE) Urine Bilirubin (NEGATIVE) Urine Urobilinogen (<1 E.U./dL) E.U./dL Ur Leukocyte Esterase (NEGATIVE) Tree/uL Urine RBC (0-2) /hpf Urine WBC (0-6) /hpf Ur Epithelial Cells (0-5) /hpf Urine Bacteria (NEG) Coarse Granular Casts (0-2) /hpf Levetiracetam mcg/mL Complement C3 128.0 (88.0-165.0) mg/dL Complement C4 40.4 (14.0-44.0) mg/dL Hep Bs Antigen (NEGATIVE) Hepatitis C Antibody (NEGATIVE) Influenza Typ A,B (EIA) (NEGATIVE) 12/02/17 12/02/17 12/02/17 Range/Units 06:52 06:10 06:10 WBC (4.5-11.0) 10^3/ul RBC (3.5-6.1) 10^6/uL Hgb (12.0-16.0) g/dL Hct (36.0-48.0) % MCV (80.0-105.0) fl MCH (25.0-35.0) pg MCHC (31.0-37.0) g/dl RDW (11.5-14.5) % Plt Count (120.0-450.0) 10^3/uL MPV (7.0-11.0) fl Gran % (50.0-68.0) % Lymph % (Auto) (22.0-35.0) % Lucas % (Auto) (1.0-6.0) % Eos % (Auto) (1.5-5.0) % Baso % (Auto) (0.0-3.0) % Gran # (1.4-6.5) Lymph # (Auto) (1.2-3.4) Lucas # (Auto) (0.1-0.6) Eos # (Auto) (0.0-0.7) Baso # (Auto) (0.0-2.0) K/mm3 PT 11.6 (9.4-12.5) SECONDS INR 1.01 (0.93-1.08) APTT 39.1 H (25.1-36.5) Seconds pCO2 30 L (35-45) mm/Hg pO2 237.0 H (80-100) mm/Hg HCO3 19.0 L (21-28) mmol/L ABG pH 7.41 (7.35-7.45) ABG Total CO2 19.9 L (22-28) mmol.L ABG O2 Saturation 99.8 H (95-98) % ABG Base Excess -4.5 L (-2.0-3.0) mmol/L ABG Potassium 3.1 L (3.6-5.2) mmol/L Glucose 146 H (65-105) mg/dl Lactate 0.9 (0.7-2.1) mmol/L FiO2 60.0 % Sodium 145.0 (132-148) mmol/L Potassium (3.6-5.0) mmol/L Chloride 120.0 H (98-107) mmol/L Carbon Dioxide (21-33) mmol/L Anion Gap (10-20) BUN (7-21) mg/dL Creatinine (0.7-1.2) mg/dl Est GFR ( Amer) Est GFR (Non-Af Amer) POC Glucose (mg/dL) (65-110) mg/dL Random Glucose (70-110) mg/dL Calcium (8.4-10.5) mg/dL Total Bilirubin (0.2-1.3) mg/dL AST (14-36) U/L ALT (7-56) U/L Alkaline Phosphatase (38-126) U/L Total Protein (5.8-8.3) g/dL Albumin (3.0-4.8) g/dL Globulin gm/dL Albumin/Globulin Ratio (1.1-1.8) Procalcitonin (0.19-0.49) NG/ML Arterial Blood Potassium 3.1 L (3.6-5.2) mmol/L Urine Color (YELLOW) Urine Appearance (CLEAR) Urine pH (4.7-8.0) Ur Specific [place] (1.005-1.035) Urine Protein (<30 mg/dL) mg/dL Urine Glucose (UA) (NEGATIVE) mg/dL Urine Ketones (NEGATIVE) mg/dL Urine Blood (NEGATIVE) Urine Nitrate (NEGATIVE) Urine Bilirubin (NEGATIVE) Urine Urobilinogen (<1 E.U./dL) E.U./dL Ur Leukocyte Esterase (NEGATIVE) Tree/uL Urine RBC (0-2) /hpf Urine WBC (0-6) /hpf Ur Epithelial Cells (0-5) /hpf Urine Bacteria (NEG) Coarse Granular Casts (0-2) /hpf Levetiracetam mcg/mL Complement C3 (88.0-165.0) mg/dL Complement C4 (14.0-44.0) mg/dL Hep Bs Antigen Negative (NEGATIVE) Hepatitis C Antibody Negative (NEGATIVE) Influenza Typ A,B (EIA) (NEGATIVE) 12/02/17 12/02/17 12/02/17 Range/Units 06:10 06:10 05:54 WBC 15.3 H D (4.5-11.0) 10^3/ul RBC 3.36 L (3.5-6.1) 10^6/uL Hgb 7.8 L (12.0-16.0) g/dL Hct 24.4 L (36.0-48.0) % MCV 72.6 L (80.0-105.0) fl MCH 23.2 L (25.0-35.0) pg MCHC 32.0 (31.0-37.0) g/dl RDW 16.0 H (11.5-14.5) % Plt Count 251 (120.0-450.0) 10^3/uL MPV 10.3 (7.0-11.0) fl Gran % 83.2 H (50.0-68.0) % Lymph % (Auto) 12.1 L (22.0-35.0) % Lucas % (Auto) 4.6 (1.0-6.0) % Eos % (Auto) 0.0 L (1.5-5.0) % Baso % (Auto) 0.1 (0.0-3.0) % Gran # 12.74 H (1.4-6.5) Lymph # (Auto) 1.9 (1.2-3.4) Lucas # (Auto) 0.7 H (0.1-0.6) Eos # (Auto) 0.0 (0.0-0.7) Baso # (Auto) 0.02 (0.0-2.0) K/mm3 PT (9.4-12.5) SECONDS INR (0.93-1.08) APTT (25.1-36.5) Seconds pCO2 (35-45) mm/Hg pO2 (80-100) mm/Hg HCO3 (21-28) mmol/L ABG pH (7.35-7.45) ABG Total CO2 (22-28) mmol.L ABG O2 Saturation (95-98) % ABG Base Excess (-2.0-3.0) mmol/L ABG Potassium (3.6-5.2) mmol/L Glucose (65-105) mg/dl Lactate (0.7-2.1) mmol/L FiO2 % Sodium 144 (132-148) mmol/L Potassium 3.6 (3.6-5.0) mmol/L Chloride 111 H (98-107) mmol/L Carbon Dioxide 22 (21-33) mmol/L Anion Gap 14 (10-20) BUN 36 H (7-21) mg/dL Creatinine 2.0 H (0.7-1.2) mg/dl Est GFR ( Amer) 31 Est GFR (Non-Af Amer) 26 POC Glucose (mg/dL) 172 H (65-110) mg/dL Random Glucose 155 H (70-110) mg/dL Calcium 8.5 (8.4-10.5) mg/dL Total Bilirubin 0.5 (0.2-1.3) mg/dL AST 161 H D (14-36) U/L ALT 113 H (7-56) U/L Alkaline Phosphatase 82 (38-126) U/L Total Protein 5.9 (5.8-8.3) g/dL Albumin 3.3 (3.0-4.8) g/dL Globulin 2.6 gm/dL Albumin/Globulin Ratio 1.2 (1.1-1.8) Procalcitonin (0.19-0.49) NG/ML Arterial Blood Potassium (3.6-5.2) mmol/L Urine Color (YELLOW) Urine Appearance (CLEAR) Urine pH (4.7-8.0) Ur Specific [place] (1.005-1.035) Urine Protein (<30 mg/dL) mg/dL Urine Glucose (UA) (NEGATIVE) mg/dL Urine Ketones (NEGATIVE) mg/dL Urine Blood (NEGATIVE) Urine Nitrate (NEGATIVE) Urine Bilirubin (NEGATIVE) Urine Urobilinogen (<1 E.U./dL) E.U./dL Ur Leukocyte Esterase (NEGATIVE) Tree/uL Urine RBC (0-2) /hpf Urine WBC (0-6) /hpf Ur Epithelial Cells (0-5) /hpf Urine Bacteria (NEG) Coarse Granular Casts (0-2) /hpf Levetiracetam mcg/mL Complement C3 (88.0-165.0) mg/dL Complement C4 (14.0-44.0) mg/dL Hep Bs Antigen (NEGATIVE) Hepatitis C Antibody (NEGATIVE) Influenza Typ A,B (EIA) (NEGATIVE) 12/02/17 12/02/17 12/02/17 Range/Units 04:30 01:59 01:00 WBC (4.5-11.0) 10^3/ul RBC (3.5-6.1) 10^6/uL Hgb (12.0-16.0) g/dL Hct (36.0-48.0) % MCV (80.0-105.0) fl MCH (25.0-35.0) pg MCHC (31.0-37.0) g/dl RDW (11.5-14.5) % Plt Count (120.0-450.0) 10^3/uL MPV (7.0-11.0) fl Gran % (50.0-68.0) % Lymph % (Auto) (22.0-35.0) % Lucas % (Auto) (1.0-6.0) % Eos % (Auto) (1.5-5.0) % Baso % (Auto) (0.0-3.0) % Gran # (1.4-6.5) Lymph # (Auto) (1.2-3.4) Lucas # (Auto) (0.1-0.6) Eos # (Auto) (0.0-0.7) Baso # (Auto) (0.0-2.0) K/mm3 PT (9.4-12.5) SECONDS INR (0.93-1.08) APTT 39.3 H (25.1-36.5) Seconds pCO2 (35-45) mm/Hg pO2 (80-100) mm/Hg HCO3 (21-28) mmol/L ABG pH (7.35-7.45) ABG Total CO2 (22-28) mmol.L ABG O2 Saturation (95-98) % ABG Base Excess (-2.0-3.0) mmol/L ABG Potassium (3.6-5.2) mmol/L Glucose (65-105) mg/dl Lactate (0.7-2.1) mmol/L FiO2 % Sodium (132-148) mmol/L Potassium (3.6-5.0) mmol/L Chloride (98-107) mmol/L Carbon Dioxide (21-33) mmol/L Anion Gap (10-20) BUN (7-21) mg/dL Creatinine (0.7-1.2) mg/dl Est GFR ( Amer) Est GFR (Non-Af Amer) POC Glucose (mg/dL) 144 H 120 H (65-110) mg/dL Random Glucose (70-110) mg/dL Calcium (8.4-10.5) mg/dL Total Bilirubin (0.2-1.3) mg/dL AST (14-36) U/L ALT (7-56) U/L Alkaline Phosphatase (38-126) U/L Total Protein (5.8-8.3) g/dL Albumin (3.0-4.8) g/dL Globulin gm/dL Albumin/Globulin Ratio (1.1-1.8) Procalcitonin (0.19-0.49) NG/ML Arterial Blood Potassium (3.6-5.2) mmol/L Urine Color (YELLOW) Urine Appearance (CLEAR) Urine pH (4.7-8.0) Ur Specific [place] (1.005-1.035) Urine Protein (<30 mg/dL) mg/dL Urine Glucose (UA) (NEGATIVE) mg/dL Urine Ketones (NEGATIVE) mg/dL Urine Blood (NEGATIVE) Urine Nitrate (NEGATIVE) Urine Bilirubin (NEGATIVE) Urine Urobilinogen (<1 E.U./dL) E.U./dL Ur Leukocyte Esterase (NEGATIVE) Tree/uL Urine RBC (0-2) /hpf Urine WBC (0-6) /hpf Ur Epithelial Cells (0-5) /hpf Urine Bacteria (NEG) Coarse Granular Casts (0-2) /hpf Levetiracetam mcg/mL Complement C3 (88.0-165.0) mg/dL Complement C4 (14.0-44.0) mg/dL Hep Bs Antigen (NEGATIVE) Hepatitis C Antibody (NEGATIVE) Influenza Typ A,B (EIA) (NEGATIVE) 12/02/17 12/01/17 12/01/17 Range/Units 00:02 20:15 18:15 WBC (4.5-11.0) 10^3/ul RBC (3.5-6.1) 10^6/uL Hgb (12.0-16.0) g/dL Hct (36.0-48.0) % MCV (80.0-105.0) fl MCH (25.0-35.0) pg MCHC (31.0-37.0) g/dl RDW (11.5-14.5) % Plt Count (120.0-450.0) 10^3/uL MPV (7.0-11.0) fl Gran % (50.0-68.0) % Lymph % (Auto) (22.0-35.0) % Lucas % (Auto) (1.0-6.0) % Eos % (Auto) (1.5-5.0) % Baso % (Auto) (0.0-3.0) % Gran # (1.4-6.5) Lymph # (Auto) (1.2-3.4) Lucas # (Auto) (0.1-0.6) Eos # (Auto) (0.0-0.7) Baso # (Auto) (0.0-2.0) K/mm3 PT (9.4-12.5) SECONDS INR (0.93-1.08) APTT (25.1-36.5) Seconds pCO2 (35-45) mm/Hg pO2 (80-100) mm/Hg HCO3 (21-28) mmol/L ABG pH (7.35-7.45) ABG Total CO2 (22-28) mmol.L ABG O2 Saturation (95-98) % ABG Base Excess (-2.0-3.0) mmol/L ABG Potassium (3.6-5.2) mmol/L Glucose (65-105) mg/dl Lactate (0.7-2.1) mmol/L FiO2 % Sodium (132-148) mmol/L Potassium (3.6-5.0) mmol/L Chloride (98-107) mmol/L Carbon Dioxide (21-33) mmol/L Anion Gap (10-20) BUN (7-21) mg/dL Creatinine (0.7-1.2) mg/dl Est GFR ( Amer) Est GFR (Non-Af Amer) POC Glucose (mg/dL) 134 H 108 (65-110) mg/dL Random Glucose (70-110) mg/dL Calcium (8.4-10.5) mg/dL Total Bilirubin (0.2-1.3) mg/dL AST (14-36) U/L ALT (7-56) U/L Alkaline Phosphatase (38-126) U/L Total Protein (5.8-8.3) g/dL Albumin (3.0-4.8) g/dL Globulin gm/dL Albumin/Globulin Ratio (1.1-1.8) Procalcitonin (0.19-0.49) NG/ML Arterial Blood Potassium (3.6-5.2) mmol/L Urine Color Yellow (YELLOW) Urine Appearance Cloudy (CLEAR) Urine pH 6.0 (4.7-8.0) Ur Specific [place] 1.025 (1.005-1.035) Urine Protein 100 H (<30 mg/dL) mg/dL Urine Glucose (UA) Negative (NEGATIVE) mg/dL Urine Ketones Negative (NEGATIVE) mg/dL Urine Blood Large H (NEGATIVE) Urine Nitrate Negative (NEGATIVE) Urine Bilirubin Negative (NEGATIVE) Urine Urobilinogen 0.2 (<1 E.U./dL) E.U./dL Ur Leukocyte Esterase Small H (NEGATIVE) Tree/uL Urine RBC Tntc (0-2) /hpf Urine WBC 10 - 15 (0-6) /hpf Ur Epithelial Cells 6 - 8 (0-5) /hpf Urine Bacteria Many (NEG) Coarse Granular Casts Small H (0-2) /hpf Levetiracetam mcg/mL Complement C3 (88.0-165.0) mg/dL Complement C4 (14.0-44.0) mg/dL Hep Bs Antigen (NEGATIVE) Hepatitis C Antibody (NEGATIVE) Influenza Typ A,B (EIA) (NEGATIVE) 12/01/17 12/01/17 12/01/17 Range/Units 18:15 17:48 16:30 WBC (4.5-11.0) 10^3/ul RBC (3.5-6.1) 10^6/uL Hgb (12.0-16.0) g/dL Hct (36.0-48.0) % MCV (80.0-105.0) fl MCH (25.0-35.0) pg MCHC (31.0-37.0) g/dl RDW (11.5-14.5) % Plt Count (120.0-450.0) 10^3/uL MPV (7.0-11.0) fl Gran % (50.0-68.0) % Lymph % (Auto) (22.0-35.0) % Lucas % (Auto) (1.0-6.0) % Eos % (Auto) (1.5-5.0) % Baso % (Auto) (0.0-3.0) % Gran # (1.4-6.5) Lymph # (Auto) (1.2-3.4) Lucas # (Auto) (0.1-0.6) Eos # (Auto) (0.0-0.7) Baso # (Auto) (0.0-2.0) K/mm3 PT (9.4-12.5) SECONDS INR (0.93-1.08) APTT (25.1-36.5) Seconds pCO2 (35-45) mm/Hg pO2 (80-100) mm/Hg HCO3 (21-28) mmol/L ABG pH (7.35-7.45) ABG Total CO2 (22-28) mmol.L ABG O2 Saturation (95-98) % ABG Base Excess (-2.0-3.0) mmol/L ABG Potassium (3.6-5.2) mmol/L Glucose (65-105) mg/dl Lactate (0.7-2.1) mmol/L FiO2 % Sodium (132-148) mmol/L Potassium (3.6-5.0) mmol/L Chloride (98-107) mmol/L Carbon Dioxide (21-33) mmol/L Anion Gap (10-20) BUN (7-21) mg/dL Creatinine (0.7-1.2) mg/dl Est GFR ( Amer) Est GFR (Non-Af Amer) POC Glucose (mg/dL) 99 (65-110) mg/dL Random Glucose (70-110) mg/dL Calcium (8.4-10.5) mg/dL Total Bilirubin (0.2-1.3) mg/dL AST (14-36) U/L ALT (7-56) U/L Alkaline Phosphatase (38-126) U/L Total Protein (5.8-8.3) g/dL Albumin (3.0-4.8) g/dL Globulin gm/dL Albumin/Globulin Ratio (1.1-1.8) Procalcitonin 1.37 H (0.19-0.49) NG/ML Arterial Blood Potassium (3.6-5.2) mmol/L Urine Color (YELLOW) Urine Appearance (CLEAR) Urine pH (4.7-8.0) Ur Specific [place] (1.005-1.035) Urine Protein (<30 mg/dL) mg/dL Urine Glucose (UA) (NEGATIVE) mg/dL Urine Ketones (NEGATIVE) mg/dL Urine Blood (NEGATIVE) Urine Nitrate (NEGATIVE) Urine Bilirubin (NEGATIVE) Urine Urobilinogen (<1 E.U./dL) E.U./dL Ur Leukocyte Esterase (NEGATIVE) Tree/uL Urine RBC (0-2) /hpf Urine WBC (0-6) /hpf Ur Epithelial Cells (0-5) /hpf Urine Bacteria (NEG) Coarse Granular Casts (0-2) /hpf Levetiracetam mcg/mL Complement C3 (88.0-165.0) mg/dL Complement C4 (14.0-44.0) mg/dL Hep Bs Antigen (NEGATIVE) Hepatitis C Antibody (NEGATIVE) Influenza Typ A,B (EIA) Negative for flu a/b (NEGATIVE) 12/01/17 12/01/17 11/28/17 Range/Units 15:42 13:46 20:30 WBC (4.5-11.0) 10^3/ul RBC (3.5-6.1) 10^6/uL Hgb (12.0-16.0) g/dL Hct (36.0-48.0) % MCV (80.0-105.0) fl MCH (25.0-35.0) pg MCHC (31.0-37.0) g/dl RDW (11.5-14.5) % Plt Count (120.0-450.0) 10^3/uL MPV (7.0-11.0) fl Gran % (50.0-68.0) % Lymph % (Auto) (22.0-35.0) % Lucas % (Auto) (1.0-6.0) % Eos % (Auto) (1.5-5.0) % Baso % (Auto) (0.0-3.0) % Gran # (1.4-6.5) Lymph # (Auto) (1.2-3.4) Lucas # (Auto) (0.1-0.6) Eos # (Auto) (0.0-0.7) Baso # (Auto) (0.0-2.0) K/mm3 PT (9.4-12.5) SECONDS INR (0.93-1.08) APTT (25.1-36.5) Seconds pCO2 (35-45) mm/Hg pO2 (80-100) mm/Hg HCO3 (21-28) mmol/L ABG pH (7.35-7.45) ABG Total CO2 (22-28) mmol.L ABG O2 Saturation (95-98) % ABG Base Excess (-2.0-3.0) mmol/L ABG Potassium (3.6-5.2) mmol/L Glucose (65-105) mg/dl Lactate (0.7-2.1) mmol/L FiO2 % Sodium (132-148) mmol/L Potassium (3.6-5.0) mmol/L Chloride (98-107) mmol/L Carbon Dioxide (21-33) mmol/L Anion Gap (10-20) BUN (7-21) mg/dL Creatinine (0.7-1.2) mg/dl Est GFR ( Amer) Est GFR (Non-Af Amer) POC Glucose (mg/dL) 106 116 H (65-110) mg/dL Random Glucose (70-110) mg/dL Calcium (8.4-10.5) mg/dL Total Bilirubin (0.2-1.3) mg/dL AST (14-36) U/L ALT (7-56) U/L Alkaline Phosphatase (38-126) U/L Total Protein (5.8-8.3) g/dL Albumin (3.0-4.8) g/dL Globulin gm/dL Albumin/Globulin Ratio (1.1-1.8) Procalcitonin (0.19-0.49) NG/ML Arterial Blood Potassium (3.6-5.2) mmol/L Urine Color (YELLOW) Urine Appearance (CLEAR) Urine pH (4.7-8.0) Ur Specific [place] (1.005-1.035) Urine Protein (<30 mg/dL) mg/dL Urine Glucose (UA) (NEGATIVE) mg/dL Urine Ketones (NEGATIVE) mg/dL Urine Blood (NEGATIVE) Urine Nitrate (NEGATIVE) Urine Bilirubin (NEGATIVE) Urine Urobilinogen (<1 E.U./dL) E.U./dL Ur Leukocyte Esterase (NEGATIVE) Tree/uL Urine RBC (0-2) /hpf Urine WBC (0-6) /hpf Ur Epithelial Cells (0-5) /hpf Urine Bacteria (NEG) Coarse Granular Casts (0-2) /hpf Levetiracetam 12.2 mcg/mL Complement C3 (88.0-165.0) mg/dL Complement C4 (14.0-44.0) mg/dL Hep Bs Antigen (NEGATIVE) Hepatitis C Antibody (NEGATIVE) Influenza Typ A,B (EIA) (NEGATIVE) Laboratory Results - last 24 hr 11/28/17 12/01/17 12/01/17 20:30 13:46 15:42 WBC RBC Hgb Hct MCV MCH MCHC RDW Plt Count MPV Gran % Lymph % (Auto) Lucas % (Auto) Eos % (Auto) Baso % (Auto) Gran # Lymph # (Auto) Lucas # (Auto) Eos # (Auto) Baso # (Auto) PT INR APTT pCO2 pO2 HCO3 ABG pH ABG Total CO2 ABG O2 Saturation ABG Base Excess ABG Potassium Glucose Lactate FiO2 Sodium Potassium Chloride Carbon Dioxide Anion Gap BUN Creatinine Est GFR ( Amer) Est GFR (Non-Af Amer) POC Glucose (mg/dL) 116 H 106 Random Glucose Calcium Total Bilirubin AST ALT Alkaline Phosphatase Total Protein Albumin Globulin Albumin/Globulin Ratio Procalcitonin Arterial Blood Potassium Urine Color Urine Appearance Urine pH Ur Specific [place] Urine Protein Urine Glucose (UA) Urine Ketones Urine Blood Urine Nitrate Urine Bilirubin Urine Urobilinogen Ur Leukocyte Esterase Urine RBC Urine WBC Ur Epithelial Cells Urine Bacteria Coarse Granular Casts Levetiracetam 12.2 Complement C3 Complement C4 Hep Bs Antigen Hepatitis C Antibody Influenza Typ A,B (EIA) 12/01/17 12/01/17 12/01/17 16:30 17:48 18:15 WBC RBC Hgb Hct MCV MCH MCHC RDW Plt Count MPV Gran % Lymph % (Auto) Lucas % (Auto) Eos % (Auto) Baso % (Auto) Gran # Lymph # (Auto) Lucas # (Auto) Eos # (Auto) Baso # (Auto) PT INR APTT pCO2 pO2 HCO3 ABG pH ABG Total CO2 ABG O2 Saturation ABG Base Excess ABG Potassium Glucose Lactate FiO2 Sodium Potassium Chloride Carbon Dioxide Anion Gap BUN Creatinine Est GFR ( Amer) Est GFR (Non-Af Amer) POC Glucose (mg/dL) 99 Random Glucose Calcium Total Bilirubin AST ALT Alkaline Phosphatase Total Protein Albumin Globulin Albumin/Globulin Ratio Procalcitonin 1.37 H Arterial Blood Potassium Urine Color Urine Appearance Urine pH Ur Specific [place] Urine Protein Urine Glucose (UA) Urine Ketones Urine Blood Urine Nitrate Urine Bilirubin Urine Urobilinogen Ur Leukocyte Esterase Urine RBC Urine WBC Ur Epithelial Cells Urine Bacteria Coarse Granular Casts Levetiracetam Complement C3 Complement C4 Hep Bs Antigen Hepatitis C Antibody Influenza Typ A,B (EIA) Negative for flu a/b 12/01/17 12/01/17 12/02/17 18:15 20:15 00:02 WBC RBC Hgb Hct MCV MCH MCHC RDW Plt Count MPV Gran % Lymph % (Auto) Lucas % (Auto) Eos % (Auto) Baso % (Auto) Gran # Lymph # (Auto) Lucas # (Auto) Eos # (Auto) Baso # (Auto) PT INR APTT pCO2 pO2 HCO3 ABG pH ABG Total CO2 ABG O2 Saturation ABG Base Excess ABG Potassium Glucose Lactate FiO2 Sodium Potassium Chloride Carbon Dioxide Anion Gap BUN Creatinine Est GFR ( Amer) Est GFR (Non-Af Amer) POC Glucose (mg/dL) 108 134 H Random Glucose Calcium Total Bilirubin AST ALT Alkaline Phosphatase Total Protein Albumin Globulin Albumin/Globulin Ratio Procalcitonin Arterial Blood Potassium Urine Color Yellow Urine Appearance Cloudy Urine pH 6.0 Ur Specific [place] 1.025 Urine Protein 100 H Urine Glucose (UA) Negative Urine Ketones Negative Urine Blood Large H Urine Nitrate Negative Urine Bilirubin Negative Urine Urobilinogen 0.2 Ur Leukocyte Esterase Small H Urine RBC Tntc Urine WBC 10 - 15 Ur Epithelial Cells 6 - 8 Urine Bacteria Many Coarse Granular Casts Small H Levetiracetam Complement C3 Complement C4 Hep Bs Antigen Hepatitis C Antibody Influenza Typ A,B (EIA) 12/02/17 12/02/17 12/02/17 01:00 01:59 04:30 WBC RBC Hgb Hct MCV MCH MCHC RDW Plt Count MPV Gran % Lymph % (Auto) Lucas % (Auto) Eos % (Auto) Baso % (Auto) Gran # Lymph # (Auto) Lucas # (Auto) Eos # (Auto) Baso # (Auto) PT INR APTT 39.3 H pCO2 pO2 HCO3 ABG pH ABG Total CO2 ABG O2 Saturation ABG Base Excess ABG Potassium Glucose Lactate FiO2 Sodium Potassium Chloride Carbon Dioxide Anion Gap BUN Creatinine Est GFR ( Amer) Est GFR (Non-Af Amer) POC Glucose (mg/dL) 120 H 144 H Random Glucose Calcium Total Bilirubin AST ALT Alkaline Phosphatase Total Protein Albumin Globulin Albumin/Globulin Ratio Procalcitonin Arterial Blood Potassium Urine Color Urine Appearance Urine pH Ur Specific [place] Urine Protein Urine Glucose (UA) Urine Ketones Urine Blood Urine Nitrate Urine Bilirubin Urine Urobilinogen Ur Leukocyte Esterase Urine RBC Urine WBC Ur Epithelial Cells Urine Bacteria Coarse Granular Casts Levetiracetam Complement C3 Complement C4 Hep Bs Antigen Hepatitis C Antibody Influenza Typ A,B (EIA) 12/02/17 12/02/17 12/02/17 05:54 06:10 06:10 WBC 15.3 H D RBC 3.36 L Hgb 7.8 L Hct 24.4 L MCV 72.6 L MCH 23.2 L MCHC 32.0 RDW 16.0 H Plt Count 251 MPV 10.3 Gran % 83.2 H Lymph % (Auto) 12.1 L Lucas % (Auto) 4.6 Eos % (Auto) 0.0 L Baso % (Auto) 0.1 Gran # 12.74 H Lymph # (Auto) 1.9 Lucas # (Auto) 0.7 H Eos # (Auto) 0.0 Baso # (Auto) 0.02 PT INR APTT pCO2 pO2 HCO3 ABG pH ABG Total CO2 ABG O2 Saturation ABG Base Excess ABG Potassium Glucose Lactate FiO2 Sodium 144 Potassium 3.6 Chloride 111 H Carbon Dioxide 22 Anion Gap 14 BUN 36 H Creatinine 2.0 H Est GFR ( Amer) 31 Est GFR (Non-Af Amer) 26 POC Glucose (mg/dL) 172 H Random Glucose 155 H Calcium 8.5 Total Bilirubin 0.5 AST 161 H D ALT 113 H Alkaline Phosphatase 82 Total Protein 5.9 Albumin 3.3 Globulin 2.6 Albumin/Globulin Ratio 1.2 Procalcitonin Arterial Blood Potassium Urine Color Urine Appearance Urine pH Ur Specific [place] Urine Protein Urine Glucose (UA) Urine Ketones Urine Blood Urine Nitrate Urine Bilirubin Urine Urobilinogen Ur Leukocyte Esterase Urine RBC Urine WBC Ur Epithelial Cells Urine Bacteria Coarse Granular Casts Levetiracetam Complement C3 Complement C4 Hep Bs Antigen Hepatitis C Antibody Influenza Typ A,B (EIA) 12/02/17 12/02/17 12/02/17 06:10 06:10 06:52 WBC RBC Hgb Hct MCV MCH MCHC RDW Plt Count MPV Gran % Lymph % (Auto) Lucas % (Auto) Eos % (Auto) Baso % (Auto) Gran # Lymph # (Auto) Lucas # (Auto) Eos # (Auto) Baso # (Auto) PT 11.6 INR 1.01 APTT 39.1 H pCO2 30 L pO2 237.0 H HCO3 19.0 L ABG pH 7.41 ABG Total CO2 19.9 L ABG O2 Saturation 99.8 H ABG Base Excess -4.5 L ABG Potassium 3.1 L Glucose 146 H Lactate 0.9 FiO2 60.0 Sodium 145.0 Potassium Chloride 120.0 H Carbon Dioxide Anion Gap BUN Creatinine Est GFR ( Amer) Est GFR (Non-Af Amer) POC Glucose (mg/dL) Random Glucose Calcium Total Bilirubin AST ALT Alkaline Phosphatase Total Protein Albumin Globulin Albumin/Globulin Ratio Procalcitonin Arterial Blood Potassium 3.1 L Urine Color Urine Appearance Urine pH Ur Specific [place] Urine Protein Urine Glucose (UA) Urine Ketones Urine Blood Urine Nitrate Urine Bilirubin Urine Urobilinogen Ur Leukocyte Esterase Urine RBC Urine WBC Ur Epithelial Cells Urine Bacteria Coarse Granular Casts Levetiracetam Complement C3 Complement C4 Hep Bs Antigen Negative Hepatitis C Antibody Negative Influenza Typ A,B (EIA) 12/02/17 12/02/17 12/02/17 08:11 08:20 09:15 WBC RBC Hgb Hct MCV MCH MCHC RDW Plt Count MPV Gran % Lymph % (Auto) Lucas % (Auto) Eos % (Auto) Baso % (Auto) Gran # Lymph # (Auto) Lucas # (Auto) Eos # (Auto) Baso # (Auto) PT INR APTT 58.0 H pCO2 pO2 HCO3 ABG pH ABG Total CO2 ABG O2 Saturation ABG Base Excess ABG Potassium Glucose Lactate FiO2 Sodium Potassium Chloride Carbon Dioxide Anion Gap BUN Creatinine Est GFR ( Amer) Est GFR (Non-Af Amer) POC Glucose (mg/dL) 144 H Random Glucose Calcium Total Bilirubin AST ALT Alkaline Phosphatase Total Protein Albumin Globulin Albumin/Globulin Ratio Procalcitonin Arterial Blood Potassium Urine Color Urine Appearance Urine pH Ur Specific [place] Urine Protein Urine Glucose (UA) Urine Ketones Urine Blood Urine Nitrate Urine Bilirubin Urine Urobilinogen Ur Leukocyte Esterase Urine RBC Urine WBC Ur Epithelial Cells Urine Bacteria Coarse Granular Casts Levetiracetam Complement C3 128.0 Complement C4 40.4 Hep Bs Antigen Hepatitis C Antibody Influenza Typ A,B (EIA) Attending/Attestation - Attestation I have personally seen and examined this patient.: Yes I have fully participated in the care of the patient.: Yes I have reviewed all pertinent clinical information: Yes Notes (Text): 12/02/17 12:51 The patient was seen and examined at the bedside. Patient care was discussed with resident and ICU team in MDR rounds. Medical records, lab studies, and imaging were reviewed and management issues were discussed and formulated. Last 24H events reviewed. Agree with above treatment plans as outlined in 's note with addition of the following: Cardiopulmonary Arrest \ Acute Respiratory Failure \ Hypoxemia \ LAURITA on CKD \ Sepsis \ Seizures \ Anoxic Brain injury -hemodynamic monitoring to maintain MAP>65; continue ASA; cardiology team following; d\c Heparin drip, no plan for PCI at this time -mechanical ventilation to maintain Spo2>90 Pao2>60; current mode PRVC -monitor for TV 6ml\kg IBW and plateau pressure <30 -ABG reviewed and CXR reviewed -continue nebs and steroids -Continue broad spectrum Abx as per ID team and f\u cultures -f\u Bun\Cr and U\o; renal team f\u -continue antiseizure meds (Keppra) and f\u EEG results; seizure precautions and Ativan PRN -neurology f\u appreciated; CT head is consistent with anoxic brain injury -tube feeds diet and aspiration precautions -DVT \ PUD prophylaxis -consider palliation team eval CCM time 36min
--- NOTE | 2017-12-02 11:17 | CP.PCM.PN ---
<Krystian Cain - Last Filed: 12/02/17 11:10> Subjective - Date & Time of Evaluation Date of Evaluation: 12/02/17 Time of Evaluation: 11:10 - Subjective Subjective: Medicine Progress Note Pt seen and examined at bedside. No acute overnight events. Patient is currently intubated and sedated. ROS limited due to patient's current mental status. Objective - Vital Signs/Intake and Output Vital Signs (last 24 hours): Temp Pulse Resp BP Pulse Ox 100.9 F H 111 H 24 142/61 98 12/02/17 06:30 12/02/17 06:30 12/01/17 01:20 12/02/17 06:30 12/02/17 06:30 Intake and Output: 12/02/17 12/02/17 06:59 18:59 Intake Total 1087 Output Total 550 Balance 537 - Medications Medications: Current Medications Albuterol/Ipratropium (Duoneb 3 Mg/0.5 Mg (3 Ml) Ud) 3 ml IH Q2H PRN PRN Reason: Shortness of Breath Last Admin: 12/01/17 05:20 Dose: 3 ml Albuterol/Ipratropium (Duoneb 3 Mg/0.5 Mg (3 Ml) Ud) 3 ml IH [id number] [facility] Last Admin: 12/02/17 07:30 Dose: 3 ml Amlodipine Besylate (Norvasc) 10 mg PO DAILY [facility] Last Admin: 12/01/17 10:40 Dose: 10 mg Artificial Tears (Artificial Tears) 1 ml OU TID PRN PRN Reason: Dry eyes Last Admin: 11/30/17 16:00 Dose: 1 drop Aspirin (Aspirin Chewable) 81 mg PO DAILY [facility] Last Admin: 12/01/17 10:40 Dose: 81 mg Hydralazine HCl (Apresoline) 10 mg IVP Q6H PRN PRN Reason: SBP>170 Last Admin: 11/30/17 20:02 Dose: 10 mg Cefepime HCl (Maxipime 2gm) 2 gm in 100 mls @ 100 mls/hr IVPB Q12 [facility] PRN Reason: Protocol Stop: 12/03/17 22:01 Last Admin: 12/02/17 10:02 Dose: 100 mls/hr Nicardipine HCl (Cardene Iv Premix) 20 mg in 200 mls @ 100 mls/hr IV .Q2H PRN; Protocol; 10 MG/HR PRN Reason: TITRATE PER MD ORDER Last Admin: 11/29/17 16:15 Dose: 100 mls/hr Insulin Human Regular 100 (units/ Sodium Chloride) 100 mls @ 4 mls/hr IV .Q24H PRN; Protocol; 4 UNITS/HR PRN Reason: TITRATE PER MD ORDER Heparin Sodium/Sodium Chloride (Heparin 52073 Units/250ml 1/2 Normal Saline) 25 ,000 units in 250 mls @ 12.474 mls/hr IV .Q20H3M [facility]; 10 UNITS/KG/HR PRN Reason: Protocol Last Titration: 12/02/17 06:19 Dose: 12 units/kg/hr, 14.969 mls/hr Levetiracetam 1,000 mg/ Sodium (Chloride) 110 mls @ 460 mls/hr IV Q12 [facility] Last Admin: 12/01/17 22:44 Dose: 460 mls/hr Daptomycin 780 mg/ Sodium (Chloride) 100 mls @ 200 mls/hr IV QOD [facility] Stop: 12/11/17 10:29 Last Admin: 12/01/17 10:34 Dose: 200 mls/hr Propofol (Diprivan) 1,000 mg in 100 mls @ 3.919 mls/hr IV .Q24H PRN; Protocol; 5 MCG/KG/MIN PRN Reason: TITRATE PER MD ORDER Last Admin: 12/02/17 06:17 Dose: 25 mcg/kg/min, 19.595 mls/hr Lorazepam (Ativan) 2 mg IVP Q6H PRN; Protocol PRN Reason: Seizure activity Last Admin: 12/02/17 10:16 Dose: 2 mg Methylprednisolone (Solu-Medrol) 20 mg IVP Q8H [facility] Last Admin: 12/02/17 09:57 Dose: 20 mg Metoprolol Tartrate (Lopressor) 50 mg PO BID [facility] Last Admin: 12/01/17 17:19 Dose: 50 mg Oxcarbazepine (Trileptal) 300 mg PO BID [facility] PRN Reason: Protocol Pantoprazole Sodium (Protonix Inj) 40 mg IVP Q12 [facility] Last Admin: 12/01/17 22:52 Dose: 40 mg - Labs Labs: 12/02/17 06:10 12/02/17 06:10 PT 11.6 SECONDS (9.4-12.5) 12/02/17 06:10 INR 1.01 (0.93-1.08) 12/02/17 06:10 APTT 58.0 Seconds (25.1-36.5) H 12/02/17 09:15 - Constitutional Appears: No Acute Distress - Head Exam Head Exam: NORMAL INSPECTION - Eye Exam Eye Exam: Normal appearance Additional comments: pupils sluggishly reactive - ENT Exam ENT Exam: Normal Exam - Neck Exam Neck Exam: Normal Inspection - Respiratory Exam Respiratory Exam: Clear to Ausculation Bilateral. absent: Rales, Rhonchi, Wheezes Additional comments: Intubated - Cardiovascular Exam Cardiovascular Exam: RRR, +S1, +S2. absent: Gallop, Rubs, Murmur - GI/Abdominal Exam GI & Abdominal Exam: Soft. absent: Distended, Guarding, Tenderness, Rebound - Extremities Exam Extremities Exam: Normal Inspection - Neurological Exam Neurological Exam: absent: Alert, Awake, Oriented x3 - Skin Skin Exam: Dry, Intact, Normal Color, Warm Assessment and Plan - Assessment and Plan (Free Text) Assessment: Patient is a 57 yo F with unknown PMHx admitted for evaluation and treatment for cardiac arrest with ROSC. Plan: Ventilator-dependent respiratory failure s/p Cardiac Arrest - Vent management per ICU - c/w heparin drip - CXR showed no active disease - Echo- LVEF 55.6% , mild anterior wall hypokinesis - Hypothermic protocol completed - Cardio consulted- appreciate recommendations Altered Mental Status; Seizures - Cont keppra from 1000 mg IVdaily to q 12 - Head CT negative - Repeat Head CT ordered, f/u results - Digoxin, ASA, phenytoin, EtOH serum negative - UDS positive for benzodiazepines - Levetiracetam level ordered - EEG ordered and pending - Aspiration precautions - Seizure precautions - High risk fall precautions - Neurochecks - Neuro consulted appreciate recommendations Leukocytosis - WBC 20.9 -> 15 -> 22.9 -> 22.0 -> 15.3 - Blood cultures- gram positive cocci - Infectious disease consulted- appreciate recommendations - Cont Daptomycin renally-adjusted and Cefepime - F/u repeat blood, urine cx, PCT, CXR Lactic Acidosis - Likely 2/2 hypoxia - resolved Transaminitis - AST/ALT downtrending - Serum tylenol negative - Hep panel negative Anemia - Hgb stable - Microcytic, hypochromic - Iron studies ordered and previewed- TIBC is low LAURITA - Cr 2.0 - elevated - nephrology consulted- appreciate recommendations- checking urine lytes and microscopy - IVF - Cont to monitor GI/DVT PPx - Protonix - Heparin Patient seen and discussed in detail with Dr. Phan. Dillan Cain, PGY1 <Ashley Phan - Last Filed: 12/03/17 14:06> Objective - Vital Signs/Intake and Output Vital Signs (last 24 hours): Temp Pulse Resp BP Pulse Ox 100.6 F H 97 H 27 H 150/59 L 100 12/03/17 00:00 12/03/17 09:04 12/03/17 12:40 12/03/17 09:04 12/03/17 12:40 Intake and Output: 12/03/17 12/03/17 06:59 18:59 Intake Total 960 100 Output Total 875 Balance 85 100 - Medications Medications: Current Medications Albuterol/Ipratropium (Duoneb 3 Mg/0.5 Mg (3 Ml) Ud) 3 ml IH Q2H PRN PRN Reason: Shortness of Breath Last Admin: 12/01/17 05:20 Dose: 3 ml Albuterol/Ipratropium (Duoneb 3 Mg/0.5 Mg (3 Ml) Ud) 3 ml IH [id number] [facility] Last Admin: 12/03/17 13:42 Dose: 3 ml Amlodipine Besylate (Norvasc) 10 mg PO DAILY [facility] Last Admin: 12/03/17 09:04 Dose: 10 mg Artificial Tears (Artificial Tears) 1 ml OU TID PRN PRN Reason: Dry eyes Last Admin: 11/30/17 16:00 Dose: 1 drop Aspirin (Aspirin Chewable) 81 mg PO DAILY [facility] Last Admin: 12/03/17 09:06 Dose: 81 mg Enoxaparin Sodium (Lovenox) 30 mg SC DAILY [facility] PRN Reason: Protocol Last Admin: 12/03/17 09:07 Dose: 30 mg Hydralazine HCl (Apresoline) 10 mg IVP Q6H PRN PRN Reason: SBP>170 Last Admin: 11/30/17 20:02 Dose: 10 mg Cefepime HCl (Maxipime 2gm) 2 gm in 100 mls @ 100 mls/hr IVPB Q12 [facility] PRN Reason: Protocol Stop: 12/03/17 22:01 Last Admin: 12/03/17 09:06 Dose: 100 mls/hr Nicardipine HCl (Cardene Iv Premix) 20 mg in 200 mls @ 100 mls/hr IV .Q2H PRN; Protocol; 10 MG/HR PRN Reason: TITRATE PER MD ORDER Last Admin: 11/29/17 16:15 Dose: 100 mls/hr Insulin Human Regular 100 (units/ Sodium Chloride) 100 mls @ 4 mls/hr IV .Q24H PRN; Protocol; 4 UNITS/HR PRN Reason: TITRATE PER MD ORDER Levetiracetam 1,000 mg/ Sodium (Chloride) 110 mls @ 460 mls/hr IV Q12 [facility] Last Admin: 12/02/17 22:29 Dose: 460 mls/hr Propofol (Diprivan) 1,000 mg in 100 mls @ 3.919 mls/hr IV .Q24H PRN; Protocol; 5 MCG/KG/MIN PRN Reason: TITRATE PER MD ORDER Last Admin: 12/03/17 12:40 Dose: 40 mcg/kg/min, 31.352 mls/hr Lorazepam (Ativan) 2 mg IVP Q6H PRN; Protocol PRN Reason: Seizure activity Last Admin: 12/03/17 07:55 Dose: 2 mg Methylprednisolone (Solu-Medrol) 20 mg IVP Q8H [facility] Last Admin: 12/03/17 08:17 Dose: 20 mg Metoprolol Tartrate (Lopressor) 50 mg PO BID [facility] Last Admin: 12/03/17 09:04 Dose: 50 mg Oxcarbazepine (Trileptal) 300 mg PO BID [facility] PRN Reason: Protocol Last Admin: 12/02/17 17:02 Dose: 300 mg Pantoprazole Sodium (Protonix Inj) 40 mg IVP Q12 [facility] Last Admin: 12/03/17 09:06 Dose: 40 mg Valproate Sodium (Depakene Oral Soln) 500 mg PO BID [facility] Last Admin: 12/03/17 09:06 Dose: 500 mg - Labs Labs: 12/03/17 06:42 12/03/17 06:42 PT 10.6 SECONDS (9.4-12.5) 12/03/17 06:42 INR 0.92 (0.93-1.08) L 12/03/17 06:42 APTT 21.9 Seconds (25.1-36.5) L 12/03/17 06:42 Attending/Attestation - Attestation I have personally seen and examined this patient.: Yes I have fully participated in the care of the patient.: Yes I have reviewed all pertinent clinical information, including history, physical exam and plan: Yes Notes (Text): 12/03/17 13:59 Attending note; Patient seen and examined with resident in ICU. Patient is a 57-year-old female admitted post cardiac arrest at home. Patient was shocked multiple times with return of spontaneous circulation. The exact downtime is not known. Currently patient is intubated and sedated. patient with anoxic encephalopathy. CT head with diffuse swelling and loss of mares and white matter differentiation consistent with anoxic encephalopathy. Not responding to stimulus. History of seizure disorder. Continue Keppra. EKG showed focal seizure. started on valproic acid. Elevated troponin; post cardiac arrest/defibrillation. Will discontinue heparin drip. Follow-up with property assistant closely. Hypertension; continue nicardipine drip. Acute renal insufficiency; monitor urine output closely. Nephrology evaluation appreciated. Gram-acid of bacteremia one out of 2 bottles. On cefepime. Repeat culture is negative. Leukocytosis; improving. Prognosis is poor. Monitor the patient closely in ICU.
[2017-12-02 12:04] LABS: COMPLEMENT C4 40.4 mg/dL (14.0-44.0)
[2017-12-02 12:25] LABS: HEPATITIS B SURFACE AG Negative (NEGATIVE)
--- NOTE | 2017-12-02 12:28 | CP.PCM.PN ---
Subjective - Date & Time of Evaluation Date of Evaluation: 12/02/17 Time of Evaluation: 12:25 - Subjective Subjective: Ms. Hunter was seen and examined at the bedside in ICU. She is on mechanical ventilator on PRVC mode with occasional breathing over the set ventilator setting. She is on a propofol drip to control myoclonic jerking seen in her shoulder and right upper extremity. She remains with + corneal reflex, weak gag reflex, minimal response to pain stimuli.GCS-4T. CT scan of the head showed cerebral edema and swelling without mares and white matter differentiation. This is consistent with cerebral anoxic injury. Updated the patient's son with regards with patient's condition and pending EEG findings, will have a family discussion with treatment options for the patient. Objective - Vital Signs/Intake and Output Vital Signs (last 24 hours): Temp Pulse Resp BP Pulse Ox 100.9 F H 110 H 24 144/65 98 12/02/17 06:30 12/02/17 11:31 12/01/17 01:20 12/02/17 11:31 12/02/17 06:30 Intake and Output: 12/02/17 12/02/17 06:59 18:59 Intake Total 1087 100 Output Total 550 Balance 537 100 - Medications Medications: Current Medications Albuterol/Ipratropium (Duoneb 3 Mg/0.5 Mg (3 Ml) Ud) 3 ml IH Q2H PRN PRN Reason: Shortness of Breath Last Admin: 12/01/17 05:20 Dose: 3 ml Albuterol/Ipratropium (Duoneb 3 Mg/0.5 Mg (3 Ml) Ud) 3 ml IH [id number] [facility] Last Admin: 12/02/17 07:30 Dose: 3 ml Amlodipine Besylate (Norvasc) 10 mg PO DAILY [facility] Last Admin: 12/02/17 11:00 Dose: 10 mg Artificial Tears (Artificial Tears) 1 ml OU TID PRN PRN Reason: Dry eyes Last Admin: 11/30/17 16:00 Dose: 1 drop Aspirin (Aspirin Chewable) 81 mg PO DAILY [facility] Last Admin: 12/02/17 10:30 Dose: 81 mg Hydralazine HCl (Apresoline) 10 mg IVP Q6H PRN PRN Reason: SBP>170 Last Admin: 11/30/17 20:02 Dose: 10 mg Cefepime HCl (Maxipime 2gm) 2 gm in 100 mls @ 100 mls/hr IVPB Q12 [facility] PRN Reason: Protocol Stop: 12/03/17 22:01 Last Admin: 12/02/17 10:02 Dose: 100 mls/hr Nicardipine HCl (Cardene Iv Premix) 20 mg in 200 mls @ 100 mls/hr IV .Q2H PRN; Protocol; 10 MG/HR PRN Reason: TITRATE PER MD ORDER Last Admin: 11/29/17 16:15 Dose: 100 mls/hr Insulin Human Regular 100 (units/ Sodium Chloride) 100 mls @ 4 mls/hr IV .Q24H PRN; Protocol; 4 UNITS/HR PRN Reason: TITRATE PER MD ORDER Heparin Sodium/Sodium Chloride (Heparin 50136 Units/250ml 1/2 Normal Saline) 25 ,000 units in 250 mls @ 12.474 mls/hr IV .Q20H3M [facility]; 10 UNITS/KG/HR PRN Reason: Protocol Last Titration: 12/02/17 06:19 Dose: 12 units/kg/hr, 14.969 mls/hr Levetiracetam 1,000 mg/ Sodium (Chloride) 110 mls @ 460 mls/hr IV Q12 [facility] Last Admin: 12/01/17 22:44 Dose: 460 mls/hr Daptomycin 780 mg/ Sodium (Chloride) 100 mls @ 200 mls/hr IV QOD [facility] Stop: 12/11/17 10:29 Last Admin: 12/01/17 10:34 Dose: 200 mls/hr Propofol (Diprivan) 1,000 mg in 100 mls @ 3.919 mls/hr IV .Q24H PRN; Protocol; 5 MCG/KG/MIN PRN Reason: TITRATE PER MD ORDER Last Admin: 12/02/17 12:22 Dose: 25 mcg/kg/min, 19.595 mls/hr Lorazepam (Ativan) 2 mg IVP Q6H PRN; Protocol PRN Reason: Seizure activity Last Admin: 12/02/17 10:16 Dose: 2 mg Methylprednisolone (Solu-Medrol) 20 mg IVP Q8H [facility] Last Admin: 12/02/17 09:57 Dose: 20 mg Metoprolol Tartrate (Lopressor) 50 mg PO BID [facility] Last Admin: 12/02/17 11:31 Dose: 50 mg Oxcarbazepine (Trileptal) 300 mg PO BID [facility] PRN Reason: Protocol Pantoprazole Sodium (Protonix Inj) 40 mg IVP Q12 [facility] Last Admin: 12/02/17 11:32 Dose: 40 mg - Labs Labs: 12/02/17 06:10 12/02/17 06:10 PT 11.6 SECONDS (9.4-12.5) 12/02/17 06:10 INR 1.01 (0.93-1.08) 12/02/17 06:10 APTT 58.0 Seconds (25.1-36.5) H 12/02/17 09:15 - Constitutional Appears: No Acute Distress - Head Exam Head Exam: NORMAL INSPECTION - Eye Exam Pupil Exam: Miosis, PERRL Additional comments: sluggish - Neurological Exam Neuro motor strength exam: Left Upper Extremity: 0, Right Upper Extremity: 0, Left Lower Extremity: 0, Right Lower Extremity: 0 Additional comments: GCS-4T Assessment and Plan (1) Seizure Assessment & Plan: Case discussed with Dr. Waller, continue all current medical regimen. Pebnding EEG results to help assist with possible treatment options for the patient. Status: Acute
[2017-12-02 12:42] LABS: HEPATITIS C ANTIBODY NEGATIVE (NEGATIVE)
[2017-12-02] MEDS ORDERED: levETIRAcetam 1,000 MG in Sodium Chloride 0.9% 100 ML IV ONE (16:42)
--- NOTE | 2017-12-02 16:57 | PCM.EEG ---
Electroencephalogram Report - Electroencephalogram Report Procedure Date: 12/02/17 Interpretation: Prelilm report: two focal 3 hz spike and wave seizures that arose from the left frontotemporal region Impression: abnormal eeg. two seizures originating from left hemisphere
[2017-12-02] MEDS ORDERED: Divalproex 500 mg DR(BID formulation) PO SCH (18:00)
--- NOTE | 2017-12-02 18:17 | PN ---
DATE: 12/02/2017 REASON FOR CONSULTATION AND FOLLOWUP: Status post cardiac arrest, status post CPR, status post intubated, hypothermic sepsis rule out anoxic encephalopathy. The patient is going for the CAT scan today. SUBJECTIVE: The patient's condition is being unchanged, going on way to CAT scan. PHYSICAL EXAMINATION GENERAL: Not in any apparent distress, being intubated, minimal gag reflex, no spontaneous movement of the limb. VITAL SIGNS: Temperature 100.9, heart rate 111, blood pressure 142/61. HEENT: PERRLA. Extraocular muscles intact. NECK: Supple. No carotid bruit or thyromegaly. CHEST: Clear to auscultation. HEART: S1 and S2 regular. ABDOMEN: Soft. EXTREMITIES: Clubbing and cyanosis negative. LABORATORY DATA: Blood workup as follows: WBC 15.3, hemoglobin 7.8, hematocrit 24.8 and platelet count 251. Chemistry shows sodium 144, potassium 3.6, chloride 111, carbon dioxide 22, anion gap of 14, BUN 36 and creatinine 2. IMPRESSION: Multiorgan dysfunction, kidney injury, acute; status post cardiorespiratory failure, rule out anoxic encephalopathy, cardiac arrest. No evidence of acute myocardial infarction. Admitting troponin 0.06, repeat is 1.3 and then 3.29. In face of acute resuscitation CPR curtailed, I think is minimal as well as the renal insufficiency. I doubt if it is an AL, but needs to rule out anoxic encephalopathy. The patient is going for CAT scan of the head. Depending on the CAT scan, if the CAT scan anoxic encephalopathy, we will discontinue heparin. Previous CAT scan shows two-view cerebral edema with loss of mares matter differentiation finding consists of anoxic injury that is dated 11/30/2017. Discussed with . We will discontinue heparin and continue deep vein thrombosis prophylaxis dose. Because as I mentioned, I doubt whether it is acute myocardial infarction. Even if it looks like not convertible, we will continue heparin drip. The patient is dropping H and H. It will be more detrimental because of the chance of bleeding. We will follow with you. We can put low dose DVT prophylaxis from tomorrow. Renal adjusted was 30 mg daily for DVT prophylaxis. Overall, the patient's condition is critical. 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 The patient had echocardiography done on 11/29/2017 that revealed ejection fraction 55%, normal right atrial size, normal right ventricular, mild mitral regurgitation, trace tricuspid regurgitation, trace pulmonary insufficiency, right ventricular systolic pressure is 35, overall ejection fraction 55%. Continue supportive care as mentioned. Prognosis is poor. Thank you, Dr. Ambrose, for providing us the opportunity in taking care of the patient, Yary Hunter. Catherine Dc MD
[2017-12-02] MEDS: levETIRAcetam 1,000 MG in Sodium Chloride 0.9% 100 ML IV SCH ×2 (18:34→22:29)
[2017-12-02] MEDS ORDERED: Valproic Acid 250 mg/5 ml UD Cup PO ONE (19:15)
--- NOTE | 2017-12-02 19:40 | CP.PCM.PN ---
Objective - Vital Signs/Intake and Output Vital Signs (last 24 hours): Temp Pulse Resp BP Pulse Ox 100.4 F H 92 H 20 138/60 100 12/02/17 17:00 12/02/17 18:38 12/02/17 09:00 12/02/17 18:38 12/02/17 17:00 Intake and Output: 12/02/17 12/03/17 18:59 06:59 Intake Total 200 Output Total 100 Balance 100 - Medications Medications: Current Medications Albuterol/Ipratropium (Duoneb 3 Mg/0.5 Mg (3 Ml) Ud) 3 ml IH Q2H PRN PRN Reason: Shortness of Breath Last Admin: 12/01/17 05:20 Dose: 3 ml Albuterol/Ipratropium (Duoneb 3 Mg/0.5 Mg (3 Ml) Ud) 3 ml IH [id number] [facility] Last Admin: 12/02/17 13:32 Dose: 3 ml Amlodipine Besylate (Norvasc) 10 mg PO DAILY [facility] Last Admin: 12/02/17 11:00 Dose: 10 mg Artificial Tears (Artificial Tears) 1 ml OU TID PRN PRN Reason: Dry eyes Last Admin: 11/30/17 16:00 Dose: 1 drop Aspirin (Aspirin Chewable) 81 mg PO DAILY [facility] Last Admin: 12/02/17 10:30 Dose: 81 mg Enoxaparin Sodium (Lovenox) 30 mg SC DAILY [facility] PRN Reason: Protocol Heparin Sodium (Porcine) (Heparin) 5,000 units SC Q12 [facility] PRN Reason: Protocol Hydralazine HCl (Apresoline) 10 mg IVP Q6H PRN PRN Reason: SBP>170 Last Admin: 11/30/17 20:02 Dose: 10 mg Cefepime HCl (Maxipime 2gm) 2 gm in 100 mls @ 100 mls/hr IVPB Q12 [facility] PRN Reason: Protocol Stop: 12/03/17 22:01 Last Admin: 12/02/17 10:02 Dose: 100 mls/hr Nicardipine HCl (Cardene Iv Premix) 20 mg in 200 mls @ 100 mls/hr IV .Q2H PRN; Protocol; 10 MG/HR PRN Reason: TITRATE PER MD ORDER Last Admin: 11/29/17 16:15 Dose: 100 mls/hr Insulin Human Regular 100 (units/ Sodium Chloride) 100 mls @ 4 mls/hr IV .Q24H PRN; Protocol; 4 UNITS/HR PRN Reason: TITRATE PER MD ORDER Levetiracetam 1,000 mg/ Sodium (Chloride) 110 mls @ 460 mls/hr IV Q12 [facility] Last Admin: 12/02/17 18:34 Dose: 460 mls/hr Daptomycin 780 mg/ Sodium (Chloride) 100 mls @ 200 mls/hr IV QOD [facility] Stop: 12/11/17 10:29 Last Admin: 12/01/17 10:34 Dose: 200 mls/hr Propofol (Diprivan) 1,000 mg in 100 mls @ 3.919 mls/hr IV .Q24H PRN; Protocol; 5 MCG/KG/MIN PRN Reason: TITRATE PER MD ORDER Last Admin: 12/02/17 16:51 Dose: 40 mcg/kg/min, 31.352 mls/hr Lorazepam (Ativan) 2 mg IVP Q6H PRN; Protocol PRN Reason: Seizure activity Last Admin: 12/02/17 14:17 Dose: 2 mg Methylprednisolone (Solu-Medrol) 20 mg IVP Q8H [facility] Last Admin: 12/02/17 17:01 Dose: 20 mg Metoprolol Tartrate (Lopressor) 50 mg PO BID [facility] Last Admin: 12/02/17 18:38 Dose: 50 mg Oxcarbazepine (Trileptal) 300 mg PO BID [facility] PRN Reason: Protocol Last Admin: 12/02/17 17:02 Dose: 300 mg Pantoprazole Sodium (Protonix Inj) 40 mg IVP Q12 [facility] Last Admin: 12/02/17 11:32 Dose: 40 mg Valproate Sodium (Depakene Oral Soln) 500 mg PO BID [facility] - Labs Labs: 12/02/17 06:10 12/02/17 06:10 PT 11.6 SECONDS (9.4-12.5) 12/02/17 06:10 INR 1.01 (0.93-1.08) 12/02/17 06:10 APTT 58.0 Seconds (25.1-36.5) H 12/02/17 09:15 Assessment and Plan (1) Acute kidney injury Status: Acute (2) SIRS (systemic inflammatory response syndrome) Status: Acute (3) HTN (hypertension) Status: Acute (4) Hematuria Status: Acute
[2017-12-03] MEDS: MethylPREDNISolone 40 mg Vial IVP SCH ×3 (01:15→17:17)
[2017-12-03] MEDS: Albuterol-Ipratrop 3 mg / 0.5 (3 ml) UD IH SCH ×4 (02:19→19:45)
[2017-12-03] MEDS: Propofol 10 mg/ml 1,000 MG/100 ML VIAL IV PRN ×7 (02:30→23:19)
[2017-12-03 06:53] LABS: BASO # 0.02 K/mm3 (0.0-2.0); BASO % 0.2 % (0.0-3.0); EOS # 0.1 (0.0-0.7); EOS % 0.6 % (1.5-5.0); GRAN # 7.41 (1.4-6.5); GRAN % 64.8 % (50.0-68.0); LYMPH # 3.1 (1.2-3.4); LYMPH % 26.9 % (22.0-35.0); MEAN CELL VOLUME 72.3 fl (80.0-105.0); MEAN CORPUSCULAR HEMOGLOBIN 23.8 pg (25.0-35.0); MEAN CORPUSCULAR HGB CONC 32.8 g/dl (31.0-37.0); MEAN PLATELET VOLUME 9.7 fl (7.0-11.0); MONO # 0.9 (0.1-0.6); MONO % 7.5 % (1.0-6.0); RBC 2.82 10^6/uL (3.5-6.1); RED CELL DISTRIBUTION WIDTH 15.9 % (11.5-14.5); WHITE BLOOD COUNT 11.4 10^3/ul (4.5-11.0)
[2017-12-03 06:57] LABS: INR 0.92 (0.93-1.08); PARTIAL THROMBOPLASTIN TIME 21.9 Seconds (25.1-36.5); PROTHROMBIN TIME 10.6 SECONDS (9.4-12.5)
[2017-12-03 07:39] LABS: ALB/GLOB RATIO 1.2 (1.1-1.8); ALBUMIN 2.9 g/dL (3.0-4.8); CALCIUM 8.3 mg/dL (8.4-10.5)
[2017-12-03 07:49] LABS: HEMOGLOBIN 6.7 g/dL (12.0-16.0)
[2017-12-03 07:57] LABS: ARTERIAL BLOOD GAS HCO3 15.5 mmol/L (21-28); ARTERIAL BLOOD GAS O2 SAT 99.4 % (95-98); ARTERIAL BLOOD GAS PCO2 25 mm/Hg (35-45); ARTERIAL BLOOD GAS TCO2 16.3 mmol.L (22-28)
--- NOTE | 2017-12-03 08:34 | RAD ---
HISTORY: intubated COMPARISON: 12/02/2017 FINDINGS: Endotracheal tube terminates 2 cm proximal to the mayte. The nasogastric tube terminates in the stomach. The left central venous line terminates at the cavoatrial junction. LUNGS: The lungs are clear. PLEURA: No significant pleural effusion identified, no pneumothorax apparent. CARDIOVASCULAR: There is persistent cardiomegaly. OSSEOUS STRUCTURES: No significant abnormalities. VISUALIZED UPPER ABDOMEN: Normal. OTHER FINDINGS: None. IMPRESSION: No acute findings. Stable position of endotracheal tube, nasogastric tube and left central venous line.
[2017-12-03] MEDS: Cefepime IV 2 gm in NS 2 GM/100 ML BAG IVPB SCH ×2 (09:06→22:19)
[2017-12-03] MEDS: Valproic Acid 250 mg/5 ml UD Cup PO SCH ×2 (09:06→17:17)
[2017-12-03] MEDS: Enoxaparin 30 mg Syringe SC SCH (09:07)
--- NOTE | 2017-12-03 10:15 | CP.PCM.PN ---
Subjective - Date & Time of Evaluation Date of Evaluation: 12/03/17 Time of Evaluation: 10:00 - Subjective Subjective: Continues to be on the ventilator, opens eyes spontaneously but does not follow commands. Still with low grade fevers. Objective - Vital Signs/Intake and Output Vital Signs (last 24 hours): Temp Pulse Resp BP Pulse Ox 100.6 F H 68 20 126/51 L 100 12/03/17 00:00 12/03/17 06:30 12/03/17 01:07 12/03/17 06:30 12/03/17 06:30 Intake and Output: 12/03/17 12/03/17 06:59 18:59 Intake Total 960 Output Total 875 Balance 85 - Medications Medications: Current Medications Albuterol/Ipratropium (Duoneb 3 Mg/0.5 Mg (3 Ml) Ud) 3 ml IH Q2H PRN PRN Reason: Shortness of Breath Last Admin: 12/01/17 05:20 Dose: 3 ml Albuterol/Ipratropium (Duoneb 3 Mg/0.5 Mg (3 Ml) Ud) 3 ml IH [id number] [facility] Last Admin: 12/03/17 08:05 Dose: 3 ml Amlodipine Besylate (Norvasc) 10 mg PO DAILY [facility] Last Admin: 12/02/17 11:00 Dose: 10 mg Artificial Tears (Artificial Tears) 1 ml OU TID PRN PRN Reason: Dry eyes Last Admin: 11/30/17 16:00 Dose: 1 drop Aspirin (Aspirin Chewable) 81 mg PO DAILY [facility] Last Admin: 12/02/17 10:30 Dose: 81 mg Enoxaparin Sodium (Lovenox) 30 mg SC DAILY [facility] PRN Reason: Protocol Hydralazine HCl (Apresoline) 10 mg IVP Q6H PRN PRN Reason: SBP>170 Last Admin: 11/30/17 20:02 Dose: 10 mg Cefepime HCl (Maxipime 2gm) 2 gm in 100 mls @ 100 mls/hr IVPB Q12 [facility] PRN Reason: Protocol Stop: 12/03/17 22:01 Last Admin: 12/02/17 22:29 Dose: 100 mls/hr Nicardipine HCl (Cardene Iv Premix) 20 mg in 200 mls @ 100 mls/hr IV .Q2H PRN; Protocol; 10 MG/HR PRN Reason: TITRATE PER MD ORDER Last Admin: 11/29/17 16:15 Dose: 100 mls/hr Insulin Human Regular 100 (units/ Sodium Chloride) 100 mls @ 4 mls/hr IV .Q24H PRN; Protocol; 4 UNITS/HR PRN Reason: TITRATE PER MD ORDER Levetiracetam 1,000 mg/ Sodium (Chloride) 110 mls @ 460 mls/hr IV Q12 [facility] Last Admin: 12/02/17 22:29 Dose: 460 mls/hr Propofol (Diprivan) 1,000 mg in 100 mls @ 3.919 mls/hr IV .Q24H PRN; Protocol; 5 MCG/KG/MIN PRN Reason: TITRATE PER MD ORDER Last Admin: 12/03/17 05:12 Dose: 40 mcg/kg/min, 31.352 mls/hr Potassium Chloride (Potassium Chloride 20 Meq/100 Ml) 20 meq in 100 mls @ 50 mls/hr IVPB Q2H [facility] Stop: 12/03/17 11:59 Last Admin: 12/03/17 08:18 Dose: 50 mls/hr Lorazepam (Ativan) 2 mg IVP Q6H PRN; Protocol PRN Reason: Seizure activity Last Admin: 12/03/17 07:55 Dose: 2 mg Methylprednisolone (Solu-Medrol) 20 mg IVP Q8H [facility] Last Admin: 12/03/17 08:17 Dose: 20 mg Metoprolol Tartrate (Lopressor) 50 mg PO BID [facility] Last Admin: 12/02/17 18:38 Dose: 50 mg Oxcarbazepine (Trileptal) 300 mg PO BID [facility] PRN Reason: Protocol Last Admin: 12/02/17 17:02 Dose: 300 mg Pantoprazole Sodium (Protonix Inj) 40 mg IVP Q12 [facility] Last Admin: 12/02/17 22:31 Dose: 40 mg Valproate Sodium (Depakene Oral Soln) 500 mg PO BID [facility] - Labs Labs: 12/03/17 06:42 12/03/17 06:42 PT 10.6 SECONDS (9.4-12.5) 12/03/17 06:42 INR 0.92 (0.93-1.08) L 12/03/17 06:42 APTT 21.9 Seconds (25.1-36.5) L 12/03/17 06:42 - Constitutional Appears: Chronically Ill, Other (intubated, sedated) - Head Exam Head Exam: NORMAL INSPECTION - ENT Exam Additional comments: ET tube in place - Neck Exam Additional comments: right sided central venous catheter in place - Respiratory Exam Respiratory Exam: Decreased Breath Sounds - Cardiovascular Exam Cardiovascular Exam: +S1, +S2 - GI/Abdominal Exam GI & Abdominal Exam: Soft. absent: Tenderness Assessment and Plan - Assessment and Plan (Free Text) Plan: Assessment Systemic inflammatory response syndrome with ventilator-dependent respiratory failure, acute renal failure after patient was found in cardiorespiratory arrest , with anoxic brain injury (probable central fever with improving leukocytosis) , unlikely sepsis from coagulase negative staph bacteremia since the blood cx were taken at the time the central venous catheter was placed and it only grew in one set (and now only 2 out of 8 bottles - repeat blood cx are negative) and the patient has no indwelling vascular catheter or hardware prior to the current CVC placed 11/28/2017) seizure disorder morbid obesity with BMI 49 Plan has been given a dose of IV Daptomycin renally-adjusted and on Cefepime day 5; repeat CXR does not show infiltrates; repeat blood from 12/01 are negative x 1 day - if these continue to be negative, will d/c antibiotics will continue to monitor clinically overall prognosis is poor
--- NOTE | 2017-12-03 11:03 | PN ---
DATE: 12/03/2017 REASON FOR CONSULTATION AND FOLLOWUP: Status post cardiac arrest, status post CPR, status post intubated, hypothermic sepsis, rule out anoxic encephalopathy, seizure. SUBJECTIVE: The patient remains on the vent, having seizure activity. PHYSICAL EXAMINATION: GENERAL: Having seizure, now being intubated. VITAL SIGNS: Temperature afebrile, heart rate 97, blood pressure 150/59. HEENT: PERRLA. Extraocular muscles intact. NECK: Supple. No carotid bruit or thyromegaly. CHEST: Clear to auscultation. HEART: S1 and S2 regular. ABDOMEN: Soft. EXTREMITIES: Clubbing and cyanosis negative. LABORATORY DATA: Blood workup as follows: WBC 11.4, hemoglobin 6.7, hematocrit 20.4, platelet count 219. IMPRESSION: Status post cardiopulmonary resuscitation, status post intubated, anoxic encephalopathy, dropping hemoglobin and hematocrit, seizure disorder probably secondary to anoxic encephalopathy, morbid obesity. RECOMMENDATIONS: Continue supportive care. group home prognosis is guarded. Continue DVT prophylaxis. Heparin was discontinued. Continue anti-seizure medication. Overall, the patient's condition is critical, prognosis is extremely poor. We will follow with you. Discussed with house staff taking care of the patient, Yary Hunter, in ICU. Catherine Dc MD
--- NOTE | 2017-12-03 13:07 | CP.PCM.PN ---
<Krystian Cain - Last Filed: 12/03/17 12:59> Subjective - Date & Time of Evaluation Date of Evaluation: 12/03/17 Time of Evaluation: 12:59 - Subjective Subjective: Medicine Progress Note Pt seen and examined at bedside. No acute overnight events. Pt intubated and sedated. Patient noted to have seizures on EEG and continuing to have seizures when given sedation holiday. Further ROS limited due to patient's current mental status. Objective - Vital Signs/Intake and Output Vital Signs (last 24 hours): Temp Pulse Resp BP Pulse Ox 100.6 F H 97 H 27 H 150/59 L 100 12/03/17 00:00 12/03/17 09:04 12/03/17 12:40 12/03/17 09:04 12/03/17 12:40 Intake and Output: 12/03/17 12/03/17 06:59 18:59 Intake Total 960 0 Output Total 875 Balance 85 0 - Medications Medications: Current Medications Albuterol/Ipratropium (Duoneb 3 Mg/0.5 Mg (3 Ml) Ud) 3 ml IH Q2H PRN PRN Reason: Shortness of Breath Last Admin: 12/01/17 05:20 Dose: 3 ml Albuterol/Ipratropium (Duoneb 3 Mg/0.5 Mg (3 Ml) Ud) 3 ml IH [id number] [facility] Last Admin: 12/03/17 08:05 Dose: 3 ml Amlodipine Besylate (Norvasc) 10 mg PO DAILY [facility] Last Admin: 12/03/17 09:04 Dose: 10 mg Artificial Tears (Artificial Tears) 1 ml OU TID PRN PRN Reason: Dry eyes Last Admin: 11/30/17 16:00 Dose: 1 drop Aspirin (Aspirin Chewable) 81 mg PO DAILY [facility] Last Admin: 12/03/17 09:06 Dose: 81 mg Enoxaparin Sodium (Lovenox) 30 mg SC DAILY [facility] PRN Reason: Protocol Last Admin: 12/03/17 09:07 Dose: 30 mg Hydralazine HCl (Apresoline) 10 mg IVP Q6H PRN PRN Reason: SBP>170 Last Admin: 11/30/17 20:02 Dose: 10 mg Cefepime HCl (Maxipime 2gm) 2 gm in 100 mls @ 100 mls/hr IVPB Q12 [facility] PRN Reason: Protocol Stop: 12/03/17 22:01 Last Admin: 12/03/17 09:06 Dose: 100 mls/hr Nicardipine HCl (Cardene Iv Premix) 20 mg in 200 mls @ 100 mls/hr IV .Q2H PRN; Protocol; 10 MG/HR PRN Reason: TITRATE PER MD ORDER Last Admin: 11/29/17 16:15 Dose: 100 mls/hr Insulin Human Regular 100 (units/ Sodium Chloride) 100 mls @ 4 mls/hr IV .Q24H PRN; Protocol; 4 UNITS/HR PRN Reason: TITRATE PER MD ORDER Levetiracetam 1,000 mg/ Sodium (Chloride) 110 mls @ 460 mls/hr IV Q12 [facility] Last Admin: 12/02/17 22:29 Dose: 460 mls/hr Propofol (Diprivan) 1,000 mg in 100 mls @ 3.919 mls/hr IV .Q24H PRN; Protocol; 5 MCG/KG/MIN PRN Reason: TITRATE PER MD ORDER Last Titration: 12/03/17 09:43 Dose: 40 mcg/kg/min, 31.352 mls/hr Lorazepam (Ativan) 2 mg IVP Q6H PRN; Protocol PRN Reason: Seizure activity Last Admin: 12/03/17 07:55 Dose: 2 mg Methylprednisolone (Solu-Medrol) 20 mg IVP Q8H [facility] Last Admin: 12/03/17 08:17 Dose: 20 mg Metoprolol Tartrate (Lopressor) 50 mg PO BID [facility] Last Admin: 12/03/17 09:04 Dose: 50 mg Oxcarbazepine (Trileptal) 300 mg PO BID [facility] PRN Reason: Protocol Last Admin: 12/02/17 17:02 Dose: 300 mg Pantoprazole Sodium (Protonix Inj) 40 mg IVP Q12 [facility] Last Admin: 12/03/17 09:06 Dose: 40 mg Valproate Sodium (Depakene Oral Soln) 500 mg PO BID [facility] Last Admin: 12/03/17 09:06 Dose: 500 mg - Labs Labs: 12/03/17 06:42 12/03/17 06:42 PT 10.6 SECONDS (9.4-12.5) 12/03/17 06:42 INR 0.92 (0.93-1.08) L 12/03/17 06:42 APTT 21.9 Seconds (25.1-36.5) L 12/03/17 06:42 - Constitutional Appears: No Acute Distress - Head Exam Head Exam: NORMAL INSPECTION - Eye Exam Additional comments: pupils sluggishly reactive - ENT Exam ENT Exam: Normal Exam Additional comments: intubated - Neck Exam Neck Exam: Normal Inspection - Respiratory Exam Respiratory Exam: Clear to Ausculation Bilateral. absent: Rales, Rhonchi, Wheezes - Cardiovascular Exam Cardiovascular Exam: RRR, +S1, +S2. absent: Gallop, Rubs, Murmur - GI/Abdominal Exam GI & Abdominal Exam: Soft. absent: Distended, Guarding, Tenderness, Rebound - Extremities Exam Extremities Exam: Normal Inspection - Neurological Exam Neurological Exam: absent: Alert, Awake, Oriented x3 - Psychiatric Exam Psychiatric exam: Normal Affect, Normal Mood - Skin Skin Exam: Dry, Intact, Normal Color, Warm Assessment and Plan - Assessment and Plan (Free Text) Assessment: Patient is a 57 yo F with unknown PMHx admitted for evaluation and treatment for cardiac arrest with ROSC. Plan: Ventilator-dependent respiratory failure s/p Cardiac Arrest - Vent management per ICU - Heparin drip discontinued - CXR showed no active disease - Echo- LVEF 55.6% , mild anterior wall hypokinesis - Hypothermic protocol completed - Cardio consulted- appreciate recommendations Altered Mental Status; Seizures - Cont keppra from 1000 mg IVdaily to q 12 - Head CT negative - Repeat Head CT consistent with anoxic brain injury - Digoxin, ASA, phenytoin, EtOH serum negative - UDS positive for benzodiazepines - Levetiracetam level ordered - EEG showed 2 seizures originating in left hemisphere - Aspiration precautions - Seizure precautions - High risk fall precautions - Neurochecks - Neuro consulted appreciate recommendations Leukocytosis - WBC downtrending - Blood cultures- gram positive cocci - Repeat cultures negative - Infectious disease consulted- appreciate recommendations - Cont Daptomycin renally-adjusted and Cefepime ID will dc if cultures continue to be negative Lactic Acidosis - Likely 2/2 hypoxia - resolved Transaminitis - AST/ALT downtrending - Likely 2/2 shock liver - Serum tylenol negative - Hep panel negative Anemia - Hgb 6.7 today - Discussed with family and they are requesting that no blood products be given - Microcytic, hypochromic - Iron studies ordered and previewed- TIBC is low LAURITA - Cr elevated, stable - nephrology consulted- appreciate recommendations - IVF - Cont to monitor GI/DVT PPx - Protonix - Lovenox Disp: Palliative care consulted. On going discussion with family about continued vs. de-escalation of care. Patient seen and discussed in detail with Dr. Phan. Dillan Cain, PGY1 <Ashley Phan - Last Filed: 12/03/17 14:13> Objective - Vital Signs/Intake and Output Vital Signs (last 24 hours): Temp Pulse Resp BP Pulse Ox 100.6 F H 97 H 27 H 150/59 L 100 12/03/17 00:00 12/03/17 09:04 12/03/17 12:40 12/03/17 09:04 12/03/17 12:40 Intake and Output: 12/03/17 12/03/17 06:59 18:59 Intake Total 960 100 Output Total 875 Balance 85 100 - Medications Medications: Current Medications Albuterol/Ipratropium (Duoneb 3 Mg/0.5 Mg (3 Ml) Ud) 3 ml IH Q2H PRN PRN Reason: Shortness of Breath Last Admin: 12/01/17 05:20 Dose: 3 ml Albuterol/Ipratropium (Duoneb 3 Mg/0.5 Mg (3 Ml) Ud) 3 ml IH [id number] [facility] Last Admin: 12/03/17 13:42 Dose: 3 ml Amlodipine Besylate (Norvasc) 10 mg PO DAILY [facility] Last Admin: 12/03/17 09:04 Dose: 10 mg Artificial Tears (Artificial Tears) 1 ml OU TID PRN PRN Reason: Dry eyes Last Admin: 11/30/17 16:00 Dose: 1 drop Aspirin (Aspirin Chewable) 81 mg PO DAILY [facility] Last Admin: 12/03/17 09:06 Dose: 81 mg Enoxaparin Sodium (Lovenox) 30 mg SC DAILY [facility] PRN Reason: Protocol Last Admin: 12/03/17 09:07 Dose: 30 mg Hydralazine HCl (Apresoline) 10 mg IVP Q6H PRN PRN Reason: SBP>170 Last Admin: 11/30/17 20:02 Dose: 10 mg Cefepime HCl (Maxipime 2gm) 2 gm in 100 mls @ 100 mls/hr IVPB Q12 [facility] PRN Reason: Protocol Stop: 12/03/17 22:01 Last Admin: 12/03/17 09:06 Dose: 100 mls/hr Nicardipine HCl (Cardene Iv Premix) 20 mg in 200 mls @ 100 mls/hr IV .Q2H PRN; Protocol; 10 MG/HR PRN Reason: TITRATE PER MD ORDER Last Admin: 11/29/17 16:15 Dose: 100 mls/hr Insulin Human Regular 100 (units/ Sodium Chloride) 100 mls @ 4 mls/hr IV .Q24H PRN; Protocol; 4 UNITS/HR PRN Reason: TITRATE PER MD ORDER Levetiracetam 1,000 mg/ Sodium (Chloride) 110 mls @ 460 mls/hr IV Q12 [facility] Last Admin: 12/02/17 22:29 Dose: 460 mls/hr Propofol (Diprivan) 1,000 mg in 100 mls @ 3.919 mls/hr IV .Q24H PRN; Protocol; 5 MCG/KG/MIN PRN Reason: TITRATE PER MD ORDER Last Admin: 12/03/17 12:40 Dose: 40 mcg/kg/min, 31.352 mls/hr Lorazepam (Ativan) 2 mg IVP Q6H PRN; Protocol PRN Reason: Seizure activity Last Admin: 12/03/17 07:55 Dose: 2 mg Methylprednisolone (Solu-Medrol) 20 mg IVP Q8H [facility] Last Admin: 12/03/17 08:17 Dose: 20 mg Metoprolol Tartrate (Lopressor) 50 mg PO BID [facility] Last Admin: 12/03/17 09:04 Dose: 50 mg Oxcarbazepine (Trileptal) 300 mg PO BID [facility] PRN Reason: Protocol Last Admin: 12/02/17 17:02 Dose: 300 mg Pantoprazole Sodium (Protonix Inj) 40 mg IVP Q12 [facility] Last Admin: 12/03/17 09:06 Dose: 40 mg Valproate Sodium (Depakene Oral Soln) 500 mg PO BID [facility] Last Admin: 12/03/17 09:06 Dose: 500 mg - Labs Labs: 12/03/17 06:42 12/03/17 06:42 PT 10.6 SECONDS (9.4-12.5) 12/03/17 06:42 INR 0.92 (0.93-1.08) L 12/03/17 06:42 APTT 21.9 Seconds (25.1-36.5) L 12/03/17 06:42 Attending/Attestation - Attestation I have personally seen and examined this patient.: Yes I have fully participated in the care of the patient.: Yes I have reviewed all pertinent clinical information, including history, physical exam and plan: Yes Notes (Text): 12/03/17 14:07 Attending note; Patient seen and examined with resident in ICU. Patient is a 57-year-old female admitted post cardiac arrest at home. Patient was shocked multiple times with return of spontaneous circulation. The exact downtime is not known. Currently patient is intubated and sedated. patient with anoxic encephalopathy. CT head with diffuse swelling and loss of mares and white matter differentiation consistent with anoxic encephalopathy. Not responding to stimulus. History of seizure disorder. currently on Keppra and valproic acid. Medication adjusted by neurology. repeat EKG ordered today. Elevated troponin; post cardiac arrest/defibrillation. Follow-up with sailor closely. Anemia; no active bleeding noted. Family refused blood transfusion. Acute renal insufficiency; monitor urine output closely. Nephrology evaluation appreciated. Gram-acid of bacteremia one out of 2 bottles. On cefepime. Repeat culture is negative. Leukocytosis; improving. Prognosis is poor. will follow-up with neurology closely. possibility of terminal weaning. We will get palliative care evaluation. Monitor the patient closely in ICU. 12/03/17 14:11
--- NOTE | 2017-12-03 13:48 | CP.PCM.PN ---
Subjective - Date & Time of Evaluation Date of Evaluation: 12/03/17 Time of Evaluation: 13:30 - Subjective Subjective: Patient continues to have right arm focal twitching. Rest of her neuro exam is unchanged and she is now on propofol drip. No brainstem reflexes present, no response to painful stimuli, no dolls eyes noted. Started on depakote 500 mg bid in addition to keppra. Objective - Vital Signs/Intake and Output Vital Signs (last 24 hours): Temp Pulse Resp BP Pulse Ox 100.6 F H 97 H 27 H 150/59 L 100 12/03/17 00:00 12/03/17 09:04 12/03/17 12:40 12/03/17 09:04 12/03/17 12:40 Intake and Output: 12/03/17 12/03/17 06:59 18:59 Intake Total 960 100 Output Total 875 Balance 85 100 - Medications Medications: Current Medications Albuterol/Ipratropium (Duoneb 3 Mg/0.5 Mg (3 Ml) Ud) 3 ml IH Q2H PRN PRN Reason: Shortness of Breath Last Admin: 12/01/17 05:20 Dose: 3 ml Albuterol/Ipratropium (Duoneb 3 Mg/0.5 Mg (3 Ml) Ud) 3 ml IH [id number] [facility] Last Admin: 12/03/17 08:05 Dose: 3 ml Amlodipine Besylate (Norvasc) 10 mg PO DAILY [facility] Last Admin: 12/03/17 09:04 Dose: 10 mg Artificial Tears (Artificial Tears) 1 ml OU TID PRN PRN Reason: Dry eyes Last Admin: 11/30/17 16:00 Dose: 1 drop Aspirin (Aspirin Chewable) 81 mg PO DAILY [facility] Last Admin: 12/03/17 09:06 Dose: 81 mg Enoxaparin Sodium (Lovenox) 30 mg SC DAILY [facility] PRN Reason: Protocol Last Admin: 12/03/17 09:07 Dose: 30 mg Hydralazine HCl (Apresoline) 10 mg IVP Q6H PRN PRN Reason: SBP>170 Last Admin: 11/30/17 20:02 Dose: 10 mg Cefepime HCl (Maxipime 2gm) 2 gm in 100 mls @ 100 mls/hr IVPB Q12 [facility] PRN Reason: Protocol Stop: 12/03/17 22:01 Last Admin: 12/03/17 09:06 Dose: 100 mls/hr Nicardipine HCl (Cardene Iv Premix) 20 mg in 200 mls @ 100 mls/hr IV .Q2H PRN; Protocol; 10 MG/HR PRN Reason: TITRATE PER MD ORDER Last Admin: 11/29/17 16:15 Dose: 100 mls/hr Insulin Human Regular 100 (units/ Sodium Chloride) 100 mls @ 4 mls/hr IV .Q24H PRN; Protocol; 4 UNITS/HR PRN Reason: TITRATE PER MD ORDER Levetiracetam 1,000 mg/ Sodium (Chloride) 110 mls @ 460 mls/hr IV Q12 [facility] Last Admin: 12/02/17 22:29 Dose: 460 mls/hr Propofol (Diprivan) 1,000 mg in 100 mls @ 3.919 mls/hr IV .Q24H PRN; Protocol; 5 MCG/KG/MIN PRN Reason: TITRATE PER MD ORDER Last Admin: 12/03/17 12:40 Dose: 40 mcg/kg/min, 31.352 mls/hr Lorazepam (Ativan) 2 mg IVP Q6H PRN; Protocol PRN Reason: Seizure activity Last Admin: 12/03/17 07:55 Dose: 2 mg Methylprednisolone (Solu-Medrol) 20 mg IVP Q8H [facility] Last Admin: 12/03/17 08:17 Dose: 20 mg Metoprolol Tartrate (Lopressor) 50 mg PO BID [facility] Last Admin: 12/03/17 09:04 Dose: 50 mg Oxcarbazepine (Trileptal) 300 mg PO BID [facility] PRN Reason: Protocol Last Admin: 12/02/17 17:02 Dose: 300 mg Pantoprazole Sodium (Protonix Inj) 40 mg IVP Q12 [facility] Last Admin: 12/03/17 09:06 Dose: 40 mg Valproate Sodium (Depakene Oral Soln) 500 mg PO BID [facility] Last Admin: 12/03/17 09:06 Dose: 500 mg - Labs Labs: 12/03/17 06:42 12/03/17 06:42 PT 10.6 SECONDS (9.4-12.5) 12/03/17 06:42 INR 0.92 (0.93-1.08) L 12/03/17 06:42 APTT 21.9 Seconds (25.1-36.5) L 12/03/17 06:42 Assessment and Plan - Assessment and Plan (Free Text) Assessment: 57 yr old woman with focal seizures originating from left temporal region, with severe anoxic encephalopathy. Her prognosis is poor, and we will review the new EEG to determine any change. In addition, we will need to increase the keppra. PLan: 1. Increase keppra to 1500 mg bid. 2 Continue depakote at 500 mg bid. 3. Family to discuss weaning protocol. Dr. Waller
--- NOTE | 2017-12-03 14:28 | CP.CCUPN ---
CCU Subjective - Physician Review Subjective (Free Text): Patient seen and evaluated at bedside. Patient was observed to be having a seizure at the time. ROS not obtained due to intubation and sedation. CCU Objective - Vital Signs / Intake & Output Vital Signs (Last 4 hours): Vital Signs Resp Pulse Ox 12/03/17 12:40 27 H 100 Intake and Output (Last 8hrs): Intake & Output 12/02/17 12/03/17 12/03/17 22:59 06:59 14:59 Intake Total 1795 760 100 Output Total 600 875 Balance 1195 -115 100 Intake: IV 895 760 100 right internal jugular 650 560 Tube Feeding 300 Other 600 Output: Urine 600 775 Urethral ([place]) 600 775 Stool 100 Other: # Bowel Movements 0 - Physical Exam Head: Positive for: Atraumatic, Normocephalic Pupils: Positive for: Other (pupillary reflex in tact) Extroacular Muscles: Positive for: Other (opens eyes spontaneously and now on sternal rub) Mouth: Positive for: Dry, Other (+ gag, ETT tube in oropharynx) Respiratory/Chest: Positive for: Clear to Auscultation. Negative for: Wheezes Cardiovascular: Positive for: Regular Rate and Rhythm Abdomen: Negative for: Distention Breast/Axillary: Positive for: Other (moist axilla) Upper Extremity: Positive for: Normal Inspection, Other (spontaneous non- purposeful movement of upper extremities) Lower Extremity: Positive for: Normal Inspection, Other (no movement) Neurological: Negative for: GCS=15 (3), Speech Normal Skin: Positive for: Warm Psychiatric: Positive for: Other (sedated) - Medications Active Medications: Active Medications Generic Name Dose Route Start Last Admin Trade Name Freq PRN Reason Stop Dose Admin Albuterol/Ipratropium 3 ml 12/01/17 05:09 12/01/17 05:20 Duoneb 3 Mg/0.5 Mg (3 Ml) Ud IH 3 ml Q2H PRN Administration Shortness of Breath Albuterol/Ipratropium 3 ml 12/01/17 20:00 12/03/17 13:42 Duoneb 3 Mg/0.5 Mg (3 Ml) Ud IH 3 ml [id number] ANTONINO Administration Amlodipine Besylate 10 mg 11/30/17 10:00 12/03/17 09:04 Norvasc PO 10 mg DAILY ANTONINO Administration Artificial Tears 1 ml 11/30/17 12:49 11/30/17 16:00 Artificial Tears OU 1 drop TID PRN Administration Dry eyes Aspirin 81 mg 11/30/17 10:00 12/03/17 09:06 Aspirin Chewable PO 81 mg DAILY ANTONINO Administration Enoxaparin Sodium 30 mg 12/03/17 10:00 12/03/17 09:07 Lovenox SC 30 mg DAILY ANTONINO Administration Protocol Hydralazine HCl 10 mg 11/30/17 09:49 11/30/17 20:02 Apresoline IVP 10 mg Q6H PRN Administration SBP>170 Cefepime HCl 2 gm in 100 mls @ 100 mls/hr 11/28/17 22:00 12/03/17 09:06 Maxipime 2gm IVPB 12/03/17 22:01 100 mls/hr Q12 ANTONINO Administration Protocol Nicardipine HCl 20 mg in 200 mls @ 100 mls/hr 11/29/17 16:36 11/29/17 16:15 Cardene Iv Premix IV 100 mls/hr .Q2H PRN Administration TITRATE PER MD ORDER Protocol 10 MG/HR Insulin Human Regular 100 100 mls @ 4 mls/hr 11/29/17 17:32 units/ Sodium Chloride IV .Q24H PRN TITRATE PER MD ORDER Protocol 4 UNITS/HR Levetiracetam 1,000 mg/ Sodium 110 mls @ 460 mls/hr 12/01/17 10:00 12/02/17 22:29 Chloride IV 460 mls/hr Q12 ANTONINO Administration Propofol 1,000 mg in 100 mls @ 3.919 mls/hr 12/01/17 11:42 12/03/17 12:40 Diprivan IV 40 mcg/kg/min .Q24H PRN 31.352 mls/hr TITRATE PER MD ORDER Administration Protocol 5 MCG/KG/MIN Lorazepam 2 mg 12/01/17 07:35 12/03/17 07:55 Ativan IVP 2 mg Q6H PRN Administration Seizure activity Protocol Methylprednisolone 20 mg 11/30/17 08:45 12/03/17 08:17 Solu-Medrol IVP 20 mg Q8H ANTONINO Administration Metoprolol Tartrate 50 mg 12/01/17 10:00 12/03/17 09:04 Lopressor PO 50 mg BID ANTONINO Administration Oxcarbazepine 300 mg 12/02/17 11:00 12/02/17 17:02 Trileptal PO 300 mg BID ANTONINO Administration Protocol Pantoprazole Sodium 40 mg 11/28/17 22:00 12/03/17 09:06 Protonix Inj IVP 40 mg Q12 ANTONINO Administration Valproate Sodium 500 mg 12/03/17 10:00 12/03/17 09:06 Depakene Oral Soln PO 500 mg BID ANTONINO Administration - Patient Studies Lab Studies: Microbiology Studies 12/01/17 18:15 Urine Culture - Final Urine,[place] No Growth (<1,000 CFU/ML) 12/01/17 17:00 Gram Stain - Final Trachasp Sputum Culture - Final No growth. 12/01/17 16:30 Blood Culture - Preliminary Blood-Venous NO GROWTH AFTER 24 HOURS 12/01/17 16:15 Blood Culture - Preliminary Blood-Venous NO GROWTH AFTER 24 HOURS 11/28/17 20:30 S.aureus & Coag-Neg Staph PNA FISH - Final Blood Blood Culture - Final Coagulase Neg Staphylococcus Gram Stain - Final Lab Studies 12/03/17 12/03/17 12/03/17 Range/Units 11:27 10:43 09:35 WBC (4.5-11.0) 10^3/ul RBC (3.5-6.1) 10^6/uL Hgb (12.0-16.0) g/dL Hct (36.0-48.0) % MCV (80.0-105.0) fl MCH (25.0-35.0) pg MCHC (31.0-37.0) g/dl RDW (11.5-14.5) % Plt Count (120.0-450.0) 10^3/uL MPV (7.0-11.0) fl Gran % (50.0-68.0) % Lymph % (Auto) (22.0-35.0) % [place] % (Auto) (1.0-6.0) % Eos % (Auto) (1.5-5.0) % Baso % (Auto) (0.0-3.0) % Gran # (1.4-6.5) Lymph # (Auto) (1.2-3.4) [place] # (Auto) (0.1-0.6) Eos # (Auto) (0.0-0.7) Baso # (Auto) (0.0-2.0) K/mm3 PT (9.4-12.5) SECONDS INR (0.93-1.08) APTT (25.1-36.5) Seconds pCO2 (35-45) mm/Hg pO2 (80-100) mm/Hg HCO3 (21-28) mmol/L ABG pH (7.35-7.45) ABG Total CO2 (22-28) mmol.L ABG O2 Saturation (95-98) % ABG Base Excess (-2.0-3.0) mmol/L ABG Potassium (3.6-5.2) mmol/L Glucose (65-105) mg/dl Lactate (0.7-2.1) mmol/L FiO2 % Sodium (132-148) mmol/L Potassium (3.6-5.0) mmol/L Chloride (98-107) mmol/L Carbon Dioxide (21-33) mmol/L Anion Gap (10-20) BUN (7-21) mg/dL Creatinine (0.7-1.2) mg/dl Est GFR ( Amer) Est GFR (Non-Af Amer) POC Glucose (mg/dL) 141 H (65-110) mg/dL Random Glucose (70-110) mg/dL Calcium (8.4-10.5) mg/dL Ionized Calcium (4.80-5.60) mg/dL Magnesium (1.7-2.2) mg/dL Total Bilirubin (0.2-1.3) mg/dL AST (14-36) U/L ALT (7-56) U/L Alkaline Phosphatase (38-126) U/L Total Protein (5.8-8.3) g/dL Albumin (3.0-4.8) g/dL Globulin gm/dL Albumin/Globulin Ratio (1.1-1.8) Arterial Blood Potassium (3.6-5.2) mmol/L Bound Carbamazepine (1.0-3.0) mcg/mL Topiramate (see note) mcg/mL HIV 1&2 Ag/Ab, 4th Gen (Nonreactive) Blood Type O POSITIVE Blood Type Confirm O POSITIVE Antibody Screen Negative BBK History Checked No verified bt 12/03/17 12/03/17 12/03/17 Range/Units 07:46 07:02 06:42 WBC (4.5-11.0) 10^3/ul RBC (3.5-6.1) 10^6/uL Hgb (12.0-16.0) g/dL Hct (36.0-48.0) % MCV (80.0-105.0) fl MCH (25.0-35.0) pg MCHC (31.0-37.0) g/dl RDW (11.5-14.5) % Plt Count (120.0-450.0) 10^3/uL MPV (7.0-11.0) fl Gran % (50.0-68.0) % Lymph % (Auto) (22.0-35.0) % [place] % (Auto) (1.0-6.0) % Eos % (Auto) (1.5-5.0) % Baso % (Auto) (0.0-3.0) % Gran # (1.4-6.5) Lymph # (Auto) (1.2-3.4) [place] # (Auto) (0.1-0.6) Eos # (Auto) (0.0-0.7) Baso # (Auto) (0.0-2.0) K/mm3 PT (9.4-12.5) SECONDS INR (0.93-1.08) APTT (25.1-36.5) Seconds pCO2 25 L (35-45) mm/Hg pO2 174.0 H (80-100) mm/Hg HCO3 15.5 L (21-28) mmol/L ABG pH 7.40 (7.35-7.45) ABG Total CO2 16.3 L (22-28) mmol.L ABG O2 Saturation 99.4 H (95-98) % ABG Base Excess -7.5 L (-2.0-3.0) mmol/L ABG Potassium 2.3 L* (3.6-5.2) mmol/L Glucose 91 (65-105) mg/dl Lactate 0.8 (0.7-2.1) mmol/L FiO2 40.0 % Sodium 147.0 (132-148) mmol/L Potassium (3.6-5.0) mmol/L Chloride 124.0 H (98-107) mmol/L Carbon Dioxide (21-33) mmol/L Anion Gap (10-20) BUN (7-21) mg/dL Creatinine (0.7-1.2) mg/dl Est GFR ( Amer) Est GFR (Non-Af Amer) POC Glucose (mg/dL) 120 H (65-110) mg/dL Random Glucose (70-110) mg/dL Calcium (8.4-10.5) mg/dL Ionized Calcium (4.80-5.60) mg/dL Magnesium 2.3 H (1.7-2.2) mg/dL Total Bilirubin (0.2-1.3) mg/dL AST (14-36) U/L ALT (7-56) U/L Alkaline Phosphatase (38-126) U/L Total Protein (5.8-8.3) g/dL Albumin (3.0-4.8) g/dL Globulin gm/dL Albumin/Globulin Ratio (1.1-1.8) Arterial Blood Potassium 2.3 L* (3.6-5.2) mmol/L Bound Carbamazepine (1.0-3.0) mcg/mL Topiramate (see note) mcg/mL HIV 1&2 Ag/Ab, 4th Gen (Nonreactive) Blood Type Blood Type Confirm Antibody Screen BBK History Checked 12/03/17 12/03/17 12/03/17 Range/Units 06:42 06:42 06:42 WBC 11.4 H D (4.5-11.0) 10^3/ul RBC 2.82 L (3.5-6.1) 10^6/uL Hgb 6.7 L* (12.0-16.0) g/dL Hct 20.4 L* (36.0-48.0) % MCV 72.3 L (80.0-105.0) fl MCH 23.8 L (25.0-35.0) pg MCHC 32.8 (31.0-37.0) g/dl RDW 15.9 H (11.5-14.5) % Plt Count 212 (120.0-450.0) 10^3/uL MPV 9.7 (7.0-11.0) fl Gran % 64.8 (50.0-68.0) % Lymph % (Auto) 26.9 (22.0-35.0) % [place] % (Auto) 7.5 H (1.0-6.0) % Eos % (Auto) 0.6 L (1.5-5.0) % Baso % (Auto) 0.2 (0.0-3.0) % Gran # 7.41 H (1.4-6.5) Lymph # (Auto) 3.1 (1.2-3.4) [place] # (Auto) 0.9 H (0.1-0.6) Eos # (Auto) 0.1 (0.0-0.7) Baso # (Auto) 0.02 (0.0-2.0) K/mm3 PT 10.6 (9.4-12.5) SECONDS INR 0.92 L (0.93-1.08) APTT 21.9 L (25.1-36.5) Seconds pCO2 (35-45) mm/Hg pO2 (80-100) mm/Hg HCO3 (21-28) mmol/L ABG pH (7.35-7.45) ABG Total CO2 (22-28) mmol.L ABG O2 Saturation (95-98) % ABG Base Excess (-2.0-3.0) mmol/L ABG Potassium (3.6-5.2) mmol/L Glucose (65-105) mg/dl Lactate (0.7-2.1) mmol/L FiO2 % Sodium 141 (132-148) mmol/L Potassium 3.3 L (3.6-5.0) mmol/L Chloride 112 H (98-107) mmol/L Carbon Dioxide 20 L (21-33) mmol/L Anion Gap 12 (10-20) BUN 35 H (7-21) mg/dL Creatinine 1.9 H (0.7-1.2) mg/dl Est GFR ( Amer) 33 Est GFR (Non-Af Amer) 27 POC Glucose (mg/dL) (65-110) mg/dL Random Glucose 120 H (70-110) mg/dL Calcium 8.3 L (8.4-10.5) mg/dL Ionized Calcium (4.80-5.60) mg/dL Magnesium (1.7-2.2) mg/dL Total Bilirubin 0.4 (0.2-1.3) mg/dL AST 89 H D (14-36) U/L ALT 76 H (7-56) U/L Alkaline Phosphatase 71 (38-126) U/L Total Protein 5.4 L (5.8-8.3) g/dL Albumin 2.9 L (3.0-4.8) g/dL Globulin 2.5 gm/dL Albumin/Globulin Ratio 1.2 (1.1-1.8) Arterial Blood Potassium (3.6-5.2) mmol/L Bound Carbamazepine (1.0-3.0) mcg/mL Topiramate (see note) mcg/mL HIV 1&2 Ag/Ab, 4th Gen (Nonreactive) Blood Type Blood Type Confirm Antibody Screen BBK History Checked 12/02/17 12/02/17 12/02/17 Range/Units 22:42 18:45 14:56 WBC (4.5-11.0) 10^3/ul RBC (3.5-6.1) 10^6/uL Hgb (12.0-16.0) g/dL Hct (36.0-48.0) % MCV (80.0-105.0) fl MCH (25.0-35.0) pg MCHC (31.0-37.0) g/dl RDW (11.5-14.5) % Plt Count (120.0-450.0) 10^3/uL MPV (7.0-11.0) fl Gran % (50.0-68.0) % Lymph % (Auto) (22.0-35.0) % [place] % (Auto) (1.0-6.0) % Eos % (Auto) (1.5-5.0) % Baso % (Auto) (0.0-3.0) % Gran # (1.4-6.5) Lymph # (Auto) (1.2-3.4) [place] # (Auto) (0.1-0.6) Eos # (Auto) (0.0-0.7) Baso # (Auto) (0.0-2.0) K/mm3 PT (9.4-12.5) SECONDS INR (0.93-1.08) APTT (25.1-36.5) Seconds pCO2 (35-45) mm/Hg pO2 (80-100) mm/Hg HCO3 (21-28) mmol/L ABG pH (7.35-7.45) ABG Total CO2 (22-28) mmol.L ABG O2 Saturation (95-98) % ABG Base Excess (-2.0-3.0) mmol/L ABG Potassium (3.6-5.2) mmol/L Glucose (65-105) mg/dl Lactate (0.7-2.1) mmol/L FiO2 % Sodium (132-148) mmol/L Potassium (3.6-5.0) mmol/L Chloride (98-107) mmol/L Carbon Dioxide (21-33) mmol/L Anion Gap (10-20) BUN (7-21) mg/dL Creatinine (0.7-1.2) mg/dl Est GFR ( Amer) Est GFR (Non-Af Amer) POC Glucose (mg/dL) 116 H 116 H 138 H (65-110) mg/dL Random Glucose (70-110) mg/dL Calcium (8.4-10.5) mg/dL Ionized Calcium (4.80-5.60) mg/dL Magnesium (1.7-2.2) mg/dL Total Bilirubin (0.2-1.3) mg/dL AST (14-36) U/L ALT (7-56) U/L Alkaline Phosphatase (38-126) U/L Total Protein (5.8-8.3) g/dL Albumin (3.0-4.8) g/dL Globulin gm/dL Albumin/Globulin Ratio (1.1-1.8) Arterial Blood Potassium (3.6-5.2) mmol/L Bound Carbamazepine (1.0-3.0) mcg/mL Topiramate (see note) mcg/mL HIV 1&2 Ag/Ab, 4th Gen (Nonreactive) Blood Type Blood Type Confirm Antibody Screen BBK History Checked 12/02/17 12/02/17 11/29/17 Range/Units 06:10 06:00 15:05 WBC (4.5-11.0) 10^3/ul RBC (3.5-6.1) 10^6/uL Hgb (12.0-16.0) g/dL Hct (36.0-48.0) % MCV (80.0-105.0) fl MCH (25.0-35.0) pg MCHC (31.0-37.0) g/dl RDW (11.5-14.5) % Plt Count (120.0-450.0) 10^3/uL MPV (7.0-11.0) fl Gran % (50.0-68.0) % Lymph % (Auto) (22.0-35.0) % [place] % (Auto) (1.0-6.0) % Eos % (Auto) (1.5-5.0) % Baso % (Auto) (0.0-3.0) % Gran # (1.4-6.5) Lymph # (Auto) (1.2-3.4) [place] # (Auto) (0.1-0.6) Eos # (Auto) (0.0-0.7) Baso # (Auto) (0.0-2.0) K/mm3 PT (9.4-12.5) SECONDS INR (0.93-1.08) APTT (25.1-36.5) Seconds pCO2 (35-45) mm/Hg pO2 (80-100) mm/Hg HCO3 (21-28) mmol/L ABG pH (7.35-7.45) ABG Total CO2 (22-28) mmol.L ABG O2 Saturation (95-98) % ABG Base Excess (-2.0-3.0) mmol/L ABG Potassium (3.6-5.2) mmol/L Glucose (65-105) mg/dl Lactate (0.7-2.1) mmol/L FiO2 % Sodium (132-148) mmol/L Potassium (3.6-5.0) mmol/L Chloride (98-107) mmol/L Carbon Dioxide (21-33) mmol/L Anion Gap (10-20) BUN (7-21) mg/dL Creatinine (0.7-1.2) mg/dl Est GFR ( Amer) Est GFR (Non-Af Amer) POC Glucose (mg/dL) (65-110) mg/dL Random Glucose (70-110) mg/dL Calcium (8.4-10.5) mg/dL Ionized Calcium 4.6 L (4.80-5.60) mg/dL Magnesium (1.7-2.2) mg/dL Total Bilirubin (0.2-1.3) mg/dL AST (14-36) U/L ALT (7-56) U/L Alkaline Phosphatase (38-126) U/L Total Protein (5.8-8.3) g/dL Albumin (3.0-4.8) g/dL Globulin gm/dL Albumin/Globulin Ratio (1.1-1.8) Arterial Blood Potassium (3.6-5.2) mmol/L Bound Carbamazepine 0.7 L (1.0-3.0) mcg/mL Topiramate (see note) mcg/mL HIV 1&2 Ag/Ab, 4th Gen Nonreactive (Nonreactive) Blood Type Blood Type Confirm Antibody Screen BBK History Checked 11/29/17 Range/Units 06:30 WBC (4.5-11.0) 10^3/ul RBC (3.5-6.1) 10^6/uL Hgb (12.0-16.0) g/dL Hct (36.0-48.0) % MCV (80.0-105.0) fl MCH (25.0-35.0) pg MCHC (31.0-37.0) g/dl RDW (11.5-14.5) % Plt Count (120.0-450.0) 10^3/uL MPV (7.0-11.0) fl Gran % (50.0-68.0) % Lymph % (Auto) (22.0-35.0) % [place] % (Auto) (1.0-6.0) % Eos % (Auto) (1.5-5.0) % Baso % (Auto) (0.0-3.0) % Gran # (1.4-6.5) Lymph # (Auto) (1.2-3.4) [place] # (Auto) (0.1-0.6) Eos # (Auto) (0.0-0.7) Baso # (Auto) (0.0-2.0) K/mm3 PT (9.4-12.5) SECONDS INR (0.93-1.08) APTT (25.1-36.5) Seconds pCO2 (35-45) mm/Hg pO2 (80-100) mm/Hg HCO3 (21-28) mmol/L ABG pH (7.35-7.45) ABG Total CO2 (22-28) mmol.L ABG O2 Saturation (95-98) % ABG Base Excess (-2.0-3.0) mmol/L ABG Potassium (3.6-5.2) mmol/L Glucose (65-105) mg/dl Lactate (0.7-2.1) mmol/L FiO2 % Sodium (132-148) mmol/L Potassium (3.6-5.0) mmol/L Chloride (98-107) mmol/L Carbon Dioxide (21-33) mmol/L Anion Gap (10-20) BUN (7-21) mg/dL Creatinine (0.7-1.2) mg/dl Est GFR ( Amer) Est GFR (Non-Af Amer) POC Glucose (mg/dL) (65-110) mg/dL Random Glucose (70-110) mg/dL Calcium (8.4-10.5) mg/dL Ionized Calcium (4.80-5.60) mg/dL Magnesium (1.7-2.2) mg/dL Total Bilirubin (0.2-1.3) mg/dL AST (14-36) U/L ALT (7-56) U/L Alkaline Phosphatase (38-126) U/L Total Protein (5.8-8.3) g/dL Albumin (3.0-4.8) g/dL Globulin gm/dL Albumin/Globulin Ratio (1.1-1.8) Arterial Blood Potassium (3.6-5.2) mmol/L Bound Carbamazepine (1.0-3.0) mcg/mL Topiramate 3.1 (see note) mcg/mL HIV 1&2 Ag/Ab, 4th Gen (Nonreactive) Blood Type Blood Type Confirm Antibody Screen BBK History Checked Laboratory Results - last 24 hr 11/29/17 11/29/17 12/02/17 06:30 15:05 06:00 WBC RBC Hgb Hct MCV MCH MCHC RDW Plt Count MPV Gran % Lymph % (Auto) [place] % (Auto) Eos % (Auto) Baso % (Auto) Gran # Lymph # (Auto) [place] # (Auto) Eos # (Auto) Baso # (Auto) PT INR APTT pCO2 pO2 HCO3 ABG pH ABG Total CO2 ABG O2 Saturation ABG Base Excess ABG Potassium Glucose Lactate FiO2 Sodium Potassium Chloride Carbon Dioxide Anion Gap BUN Creatinine Est GFR ( Amer) Est GFR (Non-Af Amer) POC Glucose (mg/dL) Random Glucose Calcium Ionized Calcium 4.6 L Magnesium Total Bilirubin AST ALT Alkaline Phosphatase Total Protein Albumin Globulin Albumin/Globulin Ratio Arterial Blood Potassium Bound Carbamazepine 0.7 L Topiramate 3.1 HIV 1&2 Ag/Ab, 4th Gen Blood Type Blood Type Confirm Antibody Screen BBK History Checked 12/02/17 12/02/17 12/02/17 06:10 14:56 18:45 WBC RBC Hgb Hct MCV MCH MCHC RDW Plt Count MPV Gran % Lymph % (Auto) [place] % (Auto) Eos % (Auto) Baso % (Auto) Gran # Lymph # (Auto) [place] # (Auto) Eos # (Auto) Baso # (Auto) PT INR APTT pCO2 pO2 HCO3 ABG pH ABG Total CO2 ABG O2 Saturation ABG Base Excess ABG Potassium Glucose Lactate FiO2 Sodium Potassium Chloride Carbon Dioxide Anion Gap BUN Creatinine Est GFR ( Amer) Est GFR (Non-Af Amer) POC Glucose (mg/dL) 138 H 116 H Random Glucose Calcium Ionized Calcium Magnesium Total Bilirubin AST ALT Alkaline Phosphatase Total Protein Albumin Globulin Albumin/Globulin Ratio Arterial Blood Potassium Bound Carbamazepine Topiramate HIV 1&2 Ag/Ab, 4th Gen Nonreactive Blood Type Blood Type Confirm Antibody Screen BBK History Checked 12/02/17 12/03/17 12/03/17 22:42 06:42 06:42 WBC 11.4 H D RBC 2.82 L Hgb 6.7 L* Hct 20.4 L* MCV 72.3 L MCH 23.8 L MCHC 32.8 RDW 15.9 H Plt Count 212 MPV 9.7 Gran % 64.8 Lymph % (Auto) 26.9 [place] % (Auto) 7.5 H Eos % (Auto) 0.6 L Baso % (Auto) 0.2 Gran # 7.41 H Lymph # (Auto) 3.1 [place] # (Auto) 0.9 H Eos # (Auto) 0.1 Baso # (Auto) 0.02 PT INR APTT pCO2 pO2 HCO3 ABG pH ABG Total CO2 ABG O2 Saturation ABG Base Excess ABG Potassium Glucose Lactate FiO2 Sodium 141 Potassium 3.3 L Chloride 112 H Carbon Dioxide 20 L Anion Gap 12 BUN 35 H Creatinine 1.9 H Est GFR ( Amer) 33 Est GFR (Non-Af Amer) 27 POC Glucose (mg/dL) 116 H Random Glucose 120 H Calcium 8.3 L Ionized Calcium Magnesium Total Bilirubin 0.4 AST 89 H D ALT 76 H Alkaline Phosphatase 71 Total Protein 5.4 L Albumin 2.9 L Globulin 2.5 Albumin/Globulin Ratio 1.2 Arterial Blood Potassium Bound Carbamazepine Topiramate HIV 1&2 Ag/Ab, 4th Gen Blood Type Blood Type Confirm Antibody Screen BBK History Checked 12/03/17 12/03/17 12/03/17 06:42 06:42 07:02 WBC RBC Hgb Hct MCV MCH MCHC RDW Plt Count MPV Gran % Lymph % (Auto) [place] % (Auto) Eos % (Auto) Baso % (Auto) Gran # Lymph # (Auto) [place] # (Auto) Eos # (Auto) Baso # (Auto) PT 10.6 INR 0.92 L APTT 21.9 L pCO2 pO2 HCO3 ABG pH ABG Total CO2 ABG O2 Saturation ABG Base Excess ABG Potassium Glucose Lactate FiO2 Sodium Potassium Chloride Carbon Dioxide Anion Gap BUN Creatinine Est GFR ( Amer) Est GFR (Non-Af Amer) POC Glucose (mg/dL) 120 H Random Glucose Calcium Ionized Calcium Magnesium 2.3 H Total Bilirubin AST ALT Alkaline Phosphatase Total Protein Albumin Globulin Albumin/Globulin Ratio Arterial Blood Potassium Bound Carbamazepine Topiramate HIV 1&2 Ag/Ab, 4th Gen Blood Type Blood Type Confirm Antibody Screen BBK History Checked 12/03/17 12/03/17 12/03/17 07:46 09:35 10:43 WBC RBC Hgb Hct MCV MCH MCHC RDW Plt Count MPV Gran % Lymph % (Auto) [place] % (Auto) Eos % (Auto) Baso % (Auto) Gran # Lymph # (Auto) [place] # (Auto) Eos # (Auto) Baso # (Auto) PT INR APTT pCO2 25 L pO2 174.0 H HCO3 15.5 L ABG pH 7.40 ABG Total CO2 16.3 L ABG O2 Saturation 99.4 H ABG Base Excess -7.5 L ABG Potassium 2.3 L* Glucose 91 Lactate 0.8 FiO2 40.0 Sodium 147.0 Potassium Chloride 124.0 H Carbon Dioxide Anion Gap BUN Creatinine Est GFR ( Amer) Est GFR (Non-Af Amer) POC Glucose (mg/dL) Random Glucose Calcium Ionized Calcium Magnesium Total Bilirubin AST ALT Alkaline Phosphatase Total Protein Albumin Globulin Albumin/Globulin Ratio Arterial Blood Potassium 2.3 L* Bound Carbamazepine Topiramate HIV 1&2 Ag/Ab, 4th Gen Blood Type O POSITIVE Blood Type Confirm O POSITIVE Antibody Screen Negative BBK History Checked No verified bt 12/03/17 11:27 WBC RBC Hgb Hct MCV MCH MCHC RDW Plt Count MPV Gran % Lymph % (Auto) [place] % (Auto) Eos % (Auto) Baso % (Auto) Gran # Lymph # (Auto) [place] # (Auto) Eos # (Auto) Baso # (Auto) PT INR APTT pCO2 pO2 HCO3 ABG pH ABG Total CO2 ABG O2 Saturation ABG Base Excess ABG Potassium Glucose Lactate FiO2 Sodium Potassium Chloride Carbon Dioxide Anion Gap BUN Creatinine Est GFR ( Amer) Est GFR (Non-Af Amer) POC Glucose (mg/dL) 141 H Random Glucose Calcium Ionized Calcium Magnesium Total Bilirubin AST ALT Alkaline Phosphatase Total Protein Albumin Globulin Albumin/Globulin Ratio Arterial Blood Potassium Bound Carbamazepine Topiramate HIV 1&2 Ag/Ab, 4th Gen Blood Type Blood Type Confirm Antibody Screen BBK History Checked Fingerstick Blood Sugar Results: 120 Review of Systems - Review of Systems Systems not reviewed;Unavailable: Intubated Assessment/Plan - Assessment and Plan (Free Text) Assessment: 57 F presenting s/p cardiac arrest due to primary cardiac event presenting with cardiogenic shock and multi-organ system failure. Neuro -Intubated and sedated on propofol -Repeat CT done; reveals anoxic brain injury -Neurology on consult -Seziure activity observed; repeat EEG today 12/03 -Continue with Keppra q12h (increased dosage to 1500 BID- can go up to 4000 mg per day due to patient's weight), Ativan PRN, valproic acid and trileptal added -Patient should be monitored with constant EEG which cannot be done at this facility, transfer although considered cannot be done due to patient's unstable status -Continue with neuro checks, aspiration precautions, seizure precautions, and head above bed 35 degrees -Considering anoxic brain injury finding -Family states they will have a final discussion regarding terminal extubation today with the rest of the family Cardiovascular -Maintain MAP>65 -Cardiology on consult -Continue norvasc, aspirin, heparin, hydralazine, metoprolol as per Cardio -Maintain normotensive Pulmonary -Maintain SpO2>92% -Continue with duonebs -Currently on PRVC 40 5 20 400 Gastrointestinal -Receiving tube feedings -Continue with GI prophylaxis Renal -Maintain euvolemia -Maintain electrolytes and replete as needed Endocrine -Maintain euglycemia and normothermia Infectious disease -Blood cultures positive for bacteremia -ID on consult -Continue with cefepime and daptomycin -Continue with aspiration precautions Hematologic -Continue to monitor H&H -Patient currently has a Hemoglobin of 6.7, how ever patient's son has decided against blood transfusions.
[2017-12-03] MEDS: levETIRAcetam 1,000 MG in Sodium Chloride 0.9% 100 ML IV SCH (14:37)
--- NOTE | 2017-12-03 15:32 | CP.CCUPN ---
<Lorenzo Stern - Last Filed: 12/03/17 15:31> CCU Subjective - Physician Review Subjective (Free Text): [facility] Progress Note Patient Name: DEDRICK WEBB Date of : 64 Patient Status: Inpatient Attending Provider: Ashley Phan Date: 12/03/17 14:24 Initialization Date: 12/03/17 14:24 CCU Subjective - Physician Review Subjective (Free Text): Patient seen and evaluated at bedside. Patient was observed to be having a seizure at the time. ROS not obtained due to intubation and sedation. CCU Objective - Vital Signs / Intake & Output Vital Signs (Last 4 hours): Vital Signs Resp Pulse Ox 12/03/17 12:40 27 H 100 Intake and Output (Last 8hrs): Intake & Output 12/02/17 12/03/17 12/03/17 22:59 06:59 14:59 Intake Total 1795 760 100 Output Total 600 875 Balance 1195 -115 100 Intake: IV 895 760 100 right internal jugular 650 560 Tube Feeding 300 Other 600 Output: Urine 600 775 Urethral ([place]) 600 775 Stool 100 Other: # Bowel Movements 0 - Physical Exam Head: Positive for: Atraumatic, Normocephalic Pupils: Positive for: Other (pupillary reflex in tact) Extroacular Muscles: Positive for: Other (opens eyes spontaneously and now on sternal rub) Mouth: Positive for: Dry, Other (+ gag, ETT tube in oropharynx) Respiratory/Chest: Positive for: Clear to Auscultation. Negative for: Wheezes Cardiovascular: Positive for: Regular Rate and Rhythm Abdomen: Negative for: Distention Breast/Axillary: Positive for: Other (moist axilla) Upper Extremity: Positive for: Normal Inspection, Other (spontaneous non- purposeful movement of upper extremities) Lower Extremity: Positive for: Normal Inspection, Other (no movement) Neurological: Negative for: GCS=15 (3), Speech Normal Skin: Positive for: Warm Psychiatric: Positive for: Other (sedated) - Medications Active Medications: Active Medications Generic Name Dose Route Start Last Admin Trade Name Freq PRN Reason Stop Dose Admin Albuterol/Ipratropium 3 ml 12/01/17 05:09 12/01/17 05:20 Duoneb 3 Mg/0.5 Mg (3 Ml) Ud IH 3 ml Q2H PRN Administration Shortness of Breath Albuterol/Ipratropium 3 ml 12/01/17 20:00 12/03/17 13:42 Duoneb 3 Mg/0.5 Mg (3 Ml) Ud IH 3 ml [id number] ANTONINO Administration Amlodipine Besylate 10 mg 11/30/17 10:00 12/03/17 09:04 Norvasc PO 10 mg DAILY ANTONINO Administration Artificial Tears 1 ml 11/30/17 12:49 11/30/17 16:00 Artificial Tears OU 1 drop TID PRN Administration Dry eyes Aspirin 81 mg 11/30/17 10:00 12/03/17 09:06 Aspirin Chewable PO 81 mg DAILY ANTONINO Administration Enoxaparin Sodium 30 mg 12/03/17 10:00 12/03/17 09:07 Lovenox SC 30 mg DAILY ANTONINO Administration Protocol Hydralazine HCl 10 mg 11/30/17 09:49 11/30/17 20:02 Apresoline IVP 10 mg Q6H PRN Administration SBP>170 Cefepime HCl 2 gm in 100 mls @ 100 mls/hr 11/28/17 22:00 12/03/17 09:06 Maxipime 2gm IVPB 12/03/17 22:01 100 mls/hr Q12 ANTONINO Administration Protocol Nicardipine HCl 20 mg in 200 mls @ 100 mls/hr 11/29/17 16:36 11/29/17 16:15 Cardene Iv Premix IV 100 mls/hr .Q2H PRN Administration TITRATE PER MD ORDER Protocol 10 MG/HR Insulin Human Regular 100 100 mls @ 4 mls/hr 11/29/17 17:32 units/ Sodium Chloride IV .Q24H PRN TITRATE PER MD ORDER Protocol 4 UNITS/HR Levetiracetam 1,000 mg/ Sodium 110 mls @ 460 mls/hr 12/01/17 10:00 12/02/17 22:29 Chloride IV 460 mls/hr Q12 ANTONINO Administration Propofol 1,000 mg in 100 mls @ 3.919 mls/hr 12/01/17 11:42 12/03/17 12:40 Diprivan IV 40 mcg/kg/min .Q24H PRN 31.352 mls/hr TITRATE PER MD ORDER Administration Protocol 5 MCG/KG/MIN Lorazepam 2 mg 12/01/17 07:35 12/03/17 07:55 Ativan IVP 2 mg Q6H PRN Administration Seizure activity Protocol Methylprednisolone 20 mg 11/30/17 08:45 12/03/17 08:17 Solu-Medrol IVP 20 mg Q8H ANTONINO Administration Metoprolol Tartrate 50 mg 12/01/17 10:00 12/03/17 09:04 Lopressor PO 50 mg BID ANTONINO Administration Oxcarbazepine 300 mg 12/02/17 11:00 12/02/17 17:02 Trileptal PO 300 mg BID ANTONINO Administration Protocol Pantoprazole Sodium 40 mg 11/28/17 22:00 12/03/17 09:06 Protonix Inj IVP 40 mg Q12 ANTONINO Administration Valproate Sodium 500 mg 12/03/17 10:00 12/03/17 09:06 Depakene Oral Soln PO 500 mg BID ANTONINO Administration - Patient Studies Lab Studies: Microbiology Studies 12/01/17 18:15 Urine Culture - Final Urine,[place] No Growth (<1,000 CFU/ML) 12/01/17 17:00 Gram Stain - Final Trachasp Sputum Culture - Final No growth. 12/01/17 16:30 Blood Culture - Preliminary Blood-Venous NO GROWTH AFTER 24 HOURS 12/01/17 16:15 Blood Culture - Preliminary Blood-Venous NO GROWTH AFTER 24 HOURS 11/28/17 20:30 S.aureus & Coag-Neg Staph PNA FISH - Final Blood Blood Culture - Final Coagulase Neg Staphylococcus Gram Stain - Final Lab Studies 12/03/17 12/03/17 12/03/17 Range/Units 11:27 10:43 09:35 WBC (4.5-11.0) 10^3/ul RBC (3.5-6.1) 10^6/uL Hgb (12.0-16.0) g/dL Hct (36.0-48.0) % MCV (80.0-105.0) fl MCH (25.0-35.0) pg MCHC (31.0-37.0) g/dl RDW (11.5-14.5) % Plt Count (120.0-450.0) 10^3/uL MPV (7.0-11.0) fl Gran % (50.0-68.0) % Lymph % (Auto) (22.0-35.0) % [place] % (Auto) (1.0-6.0) % Eos % (Auto) (1.5-5.0) % Baso % (Auto) (0.0-3.0) % Gran # (1.4-6.5) Lymph # (Auto) (1.2-3.4) [place] # (Auto) (0.1-0.6) Eos # (Auto) (0.0-0.7) Baso # (Auto) (0.0-2.0) K/mm3 PT (9.4-12.5) SECONDS INR (0.93-1.08) APTT (25.1-36.5) Seconds pCO2 (35-45) mm/Hg pO2 (80-100) mm/Hg HCO3 (21-28) mmol/L ABG pH (7.35-7.45) ABG Total CO2 (22-28) mmol.L ABG O2 Saturation (95-98) % ABG Base Excess (-2.0-3.0) mmol/L ABG Potassium (3.6-5.2) mmol/L Glucose (65-105) mg/dl Lactate (0.7-2.1) mmol/L FiO2 % Sodium (132-148) mmol/L Potassium (3.6-5.0) mmol/L Chloride (98-107) mmol/L Carbon Dioxide (21-33) mmol/L Anion Gap (10-20) BUN (7-21) mg/dL Creatinine (0.7-1.2) mg/dl Est GFR ( Amer) Est GFR (Non-Af Amer) POC Glucose (mg/dL) 141 H (65-110) mg/dL Random Glucose (70-110) mg/dL Calcium (8.4-10.5) mg/dL Ionized Calcium (4.80-5.60) mg/dL Magnesium (1.7-2.2) mg/dL Total Bilirubin (0.2-1.3) mg/dL AST (14-36) U/L ALT (7-56) U/L Alkaline Phosphatase (38-126) U/L Total Protein (5.8-8.3) g/dL Albumin (3.0-4.8) g/dL Globulin gm/dL Albumin/Globulin Ratio (1.1-1.8) Arterial Blood Potassium (3.6-5.2) mmol/L Bound Carbamazepine (1.0-3.0) mcg/mL Topiramate (see note) mcg/mL HIV 1&2 Ag/Ab, 4th Gen (Nonreactive) Blood Type O POSITIVE Blood Type Confirm O POSITIVE Antibody Screen Negative BBK History Checked No verified bt 12/03/17 12/03/17 12/03/17 Range/Units 07:46 07:02 06:42 WBC (4.5-11.0) 10^3/ul RBC (3.5-6.1) 10^6/uL Hgb (12.0-16.0) g/dL Hct (36.0-48.0) % MCV (80.0-105.0) fl MCH (25.0-35.0) pg MCHC (31.0-37.0) g/dl RDW (11.5-14.5) % Plt Count (120.0-450.0) 10^3/uL MPV (7.0-11.0) fl Gran % (50.0-68.0) % Lymph % (Auto) (22.0-35.0) % [place] % (Auto) (1.0-6.0) % Eos % (Auto) (1.5-5.0) % Baso % (Auto) (0.0-3.0) % Gran # (1.4-6.5) Lymph # (Auto) (1.2-3.4) [place] # (Auto) (0.1-0.6) Eos # (Auto) (0.0-0.7) Baso # (Auto) (0.0-2.0) K/mm3 PT (9.4-12.5) SECONDS INR (0.93-1.08) APTT (25.1-36.5) Seconds pCO2 25 L (35-45) mm/Hg pO2 174.0 H (80-100) mm/Hg HCO3 15.5 L (21-28) mmol/L ABG pH 7.40 (7.35-7.45) ABG Total CO2 16.3 L (22-28) mmol.L ABG O2 Saturation 99.4 H (95-98) % ABG Base Excess -7.5 L (-2.0-3.0) mmol/L ABG Potassium 2.3 L* (3.6-5.2) mmol/L Glucose 91 (65-105) mg/dl Lactate 0.8 (0.7-2.1) mmol/L FiO2 40.0 % Sodium 147.0 (132-148) mmol/L Potassium (3.6-5.0) mmol/L Chloride 124.0 H (98-107) mmol/L Carbon Dioxide (21-33) mmol/L Anion Gap (10-20) BUN (7-21) mg/dL Creatinine (0.7-1.2) mg/dl Est GFR ( Amer) Est GFR (Non-Af Amer) POC Glucose (mg/dL) 120 H (65-110) mg/dL Random Glucose (70-110) mg/dL Calcium (8.4-10.5) mg/dL Ionized Calcium (4.80-5.60) mg/dL Magnesium 2.3 H (1.7-2.2) mg/dL Total Bilirubin (0.2-1.3) mg/dL AST (14-36) U/L ALT (7-56) U/L Alkaline Phosphatase (38-126) U/L Total Protein (5.8-8.3) g/dL Albumin (3.0-4.8) g/dL Globulin gm/dL Albumin/Globulin Ratio (1.1-1.8) Arterial Blood Potassium 2.3 L* (3.6-5.2) mmol/L Bound Carbamazepine (1.0-3.0) mcg/mL Topiramate (see note) mcg/mL HIV 1&2 Ag/Ab, 4th Gen (Nonreactive) Blood Type Blood Type Confirm Antibody Screen BBK History Checked 12/03/17 12/03/17 12/03/17 Range/Units 06:42 06:42 06:42 WBC 11.4 H D (4.5-11.0) 10^3/ul RBC 2.82 L (3.5-6.1) 10^6/uL Hgb 6.7 L* (12.0-16.0) g/dL Hct 20.4 L* (36.0-48.0) % MCV 72.3 L (80.0-105.0) fl MCH 23.8 L (25.0-35.0) pg MCHC 32.8 (31.0-37.0) g/dl RDW 15.9 H (11.5-14.5) % Plt Count 212 (120.0-450.0) 10^3/uL MPV 9.7 (7.0-11.0) fl Gran % 64.8 (50.0-68.0) % Lymph % (Auto) 26.9 (22.0-35.0) % [place] % (Auto) 7.5 H (1.0-6.0) % Eos % (Auto) 0.6 L (1.5-5.0) % Baso % (Auto) 0.2 (0.0-3.0) % Gran # 7.41 H (1.4-6.5) Lymph # (Auto) 3.1 (1.2-3.4) [place] # (Auto) 0.9 H (0.1-0.6) Eos # (Auto) 0.1 (0.0-0.7) Baso # (Auto) 0.02 (0.0-2.0) K/mm3 PT 10.6 (9.4-12.5) SECONDS INR 0.92 L (0.93-1.08) APTT 21.9 L (25.1-36.5) Seconds pCO2 (35-45) mm/Hg pO2 (80-100) mm/Hg HCO3 (21-28) mmol/L ABG pH (7.35-7.45) ABG Total CO2 (22-28) mmol.L ABG O2 Saturation (95-98) % ABG Base Excess (-2.0-3.0) mmol/L ABG Potassium (3.6-5.2) mmol/L Glucose (65-105) mg/dl Lactate (0.7-2.1) mmol/L FiO2 % Sodium 141 (132-148) mmol/L Potassium 3.3 L (3.6-5.0) mmol/L Chloride 112 H (98-107) mmol/L Carbon Dioxide 20 L (21-33) mmol/L Anion Gap 12 (10-20) BUN 35 H (7-21) mg/dL Creatinine 1.9 H (0.7-1.2) mg/dl Est GFR ( Amer) 33 Est GFR (Non-Af Amer) 27 POC Glucose (mg/dL) (65-110) mg/dL Random Glucose 120 H (70-110) mg/dL Calcium 8.3 L (8.4-10.5) mg/dL Ionized Calcium (4.80-5.60) mg/dL Magnesium (1.7-2.2) mg/dL Total Bilirubin 0.4 (0.2-1.3) mg/dL AST 89 H D (14-36) U/L ALT 76 H (7-56) U/L Alkaline Phosphatase 71 (38-126) U/L Total Protein 5.4 L (5.8-8.3) g/dL Albumin 2.9 L (3.0-4.8) g/dL Globulin 2.5 gm/dL Albumin/Globulin Ratio 1.2 (1.1-1.8) Arterial Blood Potassium (3.6-5.2) mmol/L Bound Carbamazepine (1.0-3.0) mcg/mL Topiramate (see note) mcg/mL HIV 1&2 Ag/Ab, 4th Gen (Nonreactive) Blood Type Blood Type Confirm Antibody Screen BBK History Checked 12/02/17 12/02/17 12/02/17 Range/Units 22:42 18:45 14:56 WBC (4.5-11.0) 10^3/ul RBC (3.5-6.1) 10^6/uL Hgb (12.0-16.0) g/dL Hct (36.0-48.0) % MCV (80.0-105.0) fl MCH (25.0-35.0) pg MCHC (31.0-37.0) g/dl RDW (11.5-14.5) % Plt Count (120.0-450.0) 10^3/uL MPV (7.0-11.0) fl Gran % (50.0-68.0) % Lymph % (Auto) (22.0-35.0) % [place] % (Auto) (1.0-6.0) % Eos % (Auto) (1.5-5.0) % Baso % (Auto) (0.0-3.0) % Gran # (1.4-6.5) Lymph # (Auto) (1.2-3.4) [place] # (Auto) (0.1-0.6) Eos # (Auto) (0.0-0.7) Baso # (Auto) (0.0-2.0) K/mm3 PT (9.4-12.5) SECONDS INR (0.93-1.08) APTT (25.1-36.5) Seconds pCO2 (35-45) mm/Hg pO2 (80-100) mm/Hg HCO3 (21-28) mmol/L ABG pH (7.35-7.45) ABG Total CO2 (22-28) mmol.L ABG O2 Saturation (95-98) % ABG Base Excess (-2.0-3.0) mmol/L ABG Potassium (3.6-5.2) mmol/L Glucose (65-105) mg/dl Lactate (0.7-2.1) mmol/L FiO2 % Sodium (132-148) mmol/L Potassium (3.6-5.0) mmol/L Chloride (98-107) mmol/L Carbon Dioxide (21-33) mmol/L Anion Gap (10-20) BUN (7-21) mg/dL Creatinine (0.7-1.2) mg/dl Est GFR ( Amer) Est GFR (Non-Af Amer) POC Glucose (mg/dL) 116 H 116 H 138 H (65-110) mg/dL Random Glucose (70-110) mg/dL Calcium (8.4-10.5) mg/dL Ionized Calcium (4.80-5.60) mg/dL Magnesium (1.7-2.2) mg/dL Total Bilirubin (0.2-1.3) mg/dL AST (14-36) U/L ALT (7-56) U/L Alkaline Phosphatase (38-126) U/L Total Protein (5.8-8.3) g/dL Albumin (3.0-4.8) g/dL Globulin gm/dL Albumin/Globulin Ratio (1.1-1.8) Arterial Blood Potassium (3.6-5.2) mmol/L Bound Carbamazepine (1.0-3.0) mcg/mL Topiramate (see note) mcg/mL HIV 1&2 Ag/Ab, 4th Gen (Nonreactive) Blood Type Blood Type Confirm Antibody Screen BBK History Checked 12/02/17 12/02/17 11/29/17 Range/Units 06:10 06:00 15:05 WBC (4.5-11.0) 10^3/ul RBC (3.5-6.1) 10^6/uL Hgb (12.0-16.0) g/dL Hct (36.0-48.0) % MCV (80.0-105.0) fl MCH (25.0-35.0) pg MCHC (31.0-37.0) g/dl RDW (11.5-14.5) % Plt Count (120.0-450.0) 10^3/uL MPV (7.0-11.0) fl Gran % (50.0-68.0) % Lymph % (Auto) (22.0-35.0) % [place] % (Auto) (1.0-6.0) % Eos % (Auto) (1.5-5.0) % Baso % (Auto) (0.0-3.0) % Gran # (1.4-6.5) Lymph # (Auto) (1.2-3.4) [place] # (Auto) (0.1-0.6) Eos # (Auto) (0.0-0.7) Baso # (Auto) (0.0-2.0) K/mm3 PT (9.4-12.5) SECONDS INR (0.93-1.08) APTT (25.1-36.5) Seconds pCO2 (35-45) mm/Hg pO2 (80-100) mm/Hg HCO3 (21-28) mmol/L ABG pH (7.35-7.45) ABG Total CO2 (22-28) mmol.L ABG O2 Saturation (95-98) % ABG Base Excess (-2.0-3.0) mmol/L ABG Potassium (3.6-5.2) mmol/L Glucose (65-105) mg/dl Lactate (0.7-2.1) mmol/L FiO2 % Sodium (132-148) mmol/L Potassium (3.6-5.0) mmol/L Chloride (98-107) mmol/L Carbon Dioxide (21-33) mmol/L Anion Gap (10-20) BUN (7-21) mg/dL Creatinine (0.7-1.2) mg/dl Est GFR ( Amer) Est GFR (Non-Af Amer) POC Glucose (mg/dL) (65-110) mg/dL Random Glucose (70-110) mg/dL Calcium (8.4-10.5) mg/dL Ionized Calcium 4.6 L (4.80-5.60) mg/dL Magnesium (1.7-2.2) mg/dL Total Bilirubin (0.2-1.3) mg/dL AST (14-36) U/L ALT (7-56) U/L Alkaline Phosphatase (38-126) U/L Total Protein (5.8-8.3) g/dL Albumin (3.0-4.8) g/dL Globulin gm/dL Albumin/Globulin Ratio (1.1-1.8) Arterial Blood Potassium (3.6-5.2) mmol/L Bound Carbamazepine 0.7 L (1.0-3.0) mcg/mL Topiramate (see note) mcg/mL HIV 1&2 Ag/Ab, 4th Gen Nonreactive (Nonreactive) Blood Type Blood Type Confirm Antibody Screen BBK History Checked 11/29/17 Range/Units 06:30 WBC (4.5-11.0) 10^3/ul RBC (3.5-6.1) 10^6/uL Hgb (12.0-16.0) g/dL Hct (36.0-48.0) % MCV (80.0-105.0) fl MCH (25.0-35.0) pg MCHC (31.0-37.0) g/dl RDW (11.5-14.5) % Plt Count (120.0-450.0) 10^3/uL MPV (7.0-11.0) fl Gran % (50.0-68.0) % Lymph % (Auto) (22.0-35.0) % [place] % (Auto) (1.0-6.0) % Eos % (Auto) (1.5-5.0) % Baso % (Auto) (0.0-3.0) % Gran # (1.4-6.5) Lymph # (Auto) (1.2-3.4) [place] # (Auto) (0.1-0.6) Eos # (Auto) (0.0-0.7) Baso # (Auto) (0.0-2.0) K/mm3 PT (9.4-12.5) SECONDS INR (0.93-1.08) APTT (25.1-36.5) Seconds pCO2 (35-45) mm/Hg pO2 (80-100) mm/Hg HCO3 (21-28) mmol/L ABG pH (7.35-7.45) ABG Total CO2 (22-28) mmol.L ABG O2 Saturation (95-98) % ABG Base Excess (-2.0-3.0) mmol/L ABG Potassium (3.6-5.2) mmol/L Glucose (65-105) mg/dl Lactate (0.7-2.1) mmol/L FiO2 % Sodium (132-148) mmol/L Potassium (3.6-5.0) mmol/L Chloride (98-107) mmol/L Carbon Dioxide (21-33) mmol/L Anion Gap (10-20) BUN (7-21) mg/dL Creatinine (0.7-1.2) mg/dl Est GFR ( Amer) Est GFR (Non-Af Amer) POC Glucose (mg/dL) (65-110) mg/dL Random Glucose (70-110) mg/dL Calcium (8.4-10.5) mg/dL Ionized Calcium (4.80-5.60) mg/dL Magnesium (1.7-2.2) mg/dL Total Bilirubin (0.2-1.3) mg/dL AST (14-36) U/L ALT (7-56) U/L Alkaline Phosphatase (38-126) U/L Total Protein (5.8-8.3) g/dL Albumin (3.0-4.8) g/dL Globulin gm/dL Albumin/Globulin Ratio (1.1-1.8) Arterial Blood Potassium (3.6-5.2) mmol/L Bound Carbamazepine (1.0-3.0) mcg/mL Topiramate 3.1 (see note) mcg/mL HIV 1&2 Ag/Ab, 4th Gen (Nonreactive) Blood Type Blood Type Confirm Antibody Screen BBK History Checked Laboratory Results - last 24 hr 11/29/17 11/29/17 12/02/17 06:30 15:05 06:00 WBC RBC Hgb Hct MCV MCH MCHC RDW Plt Count MPV Gran % Lymph % (Auto) [place] % (Auto) Eos % (Auto) Baso % (Auto) Gran # Lymph # (Auto) [place] # (Auto) Eos # (Auto) Baso # (Auto) PT INR APTT pCO2 pO2 HCO3 ABG pH ABG Total CO2 ABG O2 Saturation ABG Base Excess ABG Potassium Glucose Lactate FiO2 Sodium Potassium Chloride Carbon Dioxide Anion Gap BUN Creatinine Est GFR ( Amer) Est GFR (Non-Af Amer) POC Glucose (mg/dL) Random Glucose Calcium Ionized Calcium 4.6 L Magnesium Total Bilirubin AST ALT Alkaline Phosphatase Total Protein Albumin Globulin Albumin/Globulin Ratio Arterial Blood Potassium Bound Carbamazepine 0.7 L Topiramate 3.1 HIV 1&2 Ag/Ab, 4th Gen Blood Type Blood Type Confirm Antibody Screen BBK History Checked 12/02/17 12/02/17 12/02/17 06:10 14:56 18:45 WBC RBC Hgb Hct MCV MCH MCHC RDW Plt Count MPV Gran % Lymph % (Auto) [place] % (Auto) Eos % (Auto) Baso % (Auto) Gran # Lymph # (Auto) [place] # (Auto) Eos # (Auto) Baso # (Auto) PT INR APTT pCO2 pO2 HCO3 ABG pH ABG Total CO2 ABG O2 Saturation ABG Base Excess ABG Potassium Glucose Lactate FiO2 Sodium Potassium Chloride Carbon Dioxide Anion Gap BUN Creatinine Est GFR ( Amer) Est GFR (Non-Af Amer) POC Glucose (mg/dL) 138 H 116 H Random Glucose Calcium Ionized Calcium Magnesium Total Bilirubin AST ALT Alkaline Phosphatase Total Protein Albumin Globulin Albumin/Globulin Ratio Arterial Blood Potassium Bound Carbamazepine Topiramate HIV 1&2 Ag/Ab, 4th Gen Nonreactive Blood Type Blood Type Confirm Antibody Screen BBK History Checked 12/02/17 12/03/17 12/03/17 22:42 06:42 06:42 WBC 11.4 H D RBC 2.82 L Hgb 6.7 L* Hct 20.4 L* MCV 72.3 L MCH 23.8 L MCHC 32.8 RDW 15.9 H Plt Count 212 MPV 9.7 Gran % 64.8 Lymph % (Auto) 26.9 [place] % (Auto) 7.5 H Eos % (Auto) 0.6 L Baso % (Auto) 0.2 Gran # 7.41 H Lymph # (Auto) 3.1 [place] # (Auto) 0.9 H Eos # (Auto) 0.1 Baso # (Auto) 0.02 PT INR APTT pCO2 pO2 HCO3 ABG pH ABG Total CO2 ABG O2 Saturation ABG Base Excess ABG Potassium Glucose Lactate FiO2 Sodium 141 Potassium 3.3 L Chloride 112 H Carbon Dioxide 20 L Anion Gap 12 BUN 35 H Creatinine 1.9 H Est GFR ( Amer) 33 Est GFR (Non-Af Amer) 27 POC Glucose (mg/dL) 116 H Random Glucose 120 H Calcium 8.3 L Ionized Calcium Magnesium Total Bilirubin 0.4 AST 89 H D ALT 76 H Alkaline Phosphatase 71 Total Protein 5.4 L Albumin 2.9 L Globulin 2.5 Albumin/Globulin Ratio 1.2 Arterial Blood Potassium Bound Carbamazepine Topiramate HIV 1&2 Ag/Ab, 4th Gen Blood Type Blood Type Confirm Antibody Screen BBK History Checked 12/03/17 12/03/17 12/03/17 06:42 06:42 07:02 WBC RBC Hgb Hct MCV MCH MCHC RDW Plt Count MPV Gran % Lymph % (Auto) [place] % (Auto) Eos % (Auto) Baso % (Auto) Gran # Lymph # (Auto) [place] # (Auto) Eos # (Auto) Baso # (Auto) PT 10.6 INR 0.92 L APTT 21.9 L pCO2 pO2 HCO3 ABG pH ABG Total CO2 ABG O2 Saturation ABG Base Excess ABG Potassium Glucose Lactate FiO2 Sodium Potassium Chloride Carbon Dioxide Anion Gap BUN Creatinine Est GFR ( Amer) Est GFR (Non-Af Amer) POC Glucose (mg/dL) 120 H Random Glucose Calcium Ionized Calcium Magnesium 2.3 H Total Bilirubin AST ALT Alkaline Phosphatase Total Protein Albumin Globulin Albumin/Globulin Ratio Arterial Blood Potassium Bound Carbamazepine Topiramate HIV 1&2 Ag/Ab, 4th Gen Blood Type Blood Type Confirm Antibody Screen BBK History Checked 12/03/17 12/03/17 12/03/17 07:46 09:35 10:43 WBC RBC Hgb Hct MCV MCH MCHC RDW Plt Count MPV Gran % Lymph % (Auto) [place] % (Auto) Eos % (Auto) Baso % (Auto) Gran # Lymph # (Auto) [place] # (Auto) Eos # (Auto) Baso # (Auto) PT INR APTT pCO2 25 L pO2 174.0 H HCO3 15.5 L ABG pH 7.40 ABG Total CO2 16.3 L ABG O2 Saturation 99.4 H ABG Base Excess -7.5 L ABG Potassium 2.3 L* Glucose 91 Lactate 0.8 FiO2 40.0 Sodium 147.0 Potassium Chloride 124.0 H Carbon Dioxide Anion Gap BUN Creatinine Est GFR ( Amer) Est GFR (Non-Af Amer) POC Glucose (mg/dL) Random Glucose Calcium Ionized Calcium Magnesium Total Bilirubin AST ALT Alkaline Phosphatase Total Protein Albumin Globulin Albumin/Globulin Ratio Arterial Blood Potassium 2.3 L* Bound Carbamazepine Topiramate HIV 1&2 Ag/Ab, 4th Gen Blood Type O POSITIVE Blood Type Confirm O POSITIVE Antibody Screen Negative BBK History Checked No verified bt 12/03/17 11:27 WBC RBC Hgb Hct MCV MCH MCHC RDW Plt Count MPV Gran % Lymph % (Auto) [place] % (Auto) Eos % (Auto) Baso % (Auto) Gran # Lymph # (Auto) [place] # (Auto) Eos # (Auto) Baso # (Auto) PT INR APTT pCO2 pO2 HCO3 ABG pH ABG Total CO2 ABG O2 Saturation ABG Base Excess ABG Potassium Glucose Lactate FiO2 Sodium Potassium Chloride Carbon Dioxide Anion Gap BUN Creatinine Est GFR ( Amer) Est GFR (Non-Af Amer) POC Glucose (mg/dL) 141 H Random Glucose Calcium Ionized Calcium Magnesium Total Bilirubin AST ALT Alkaline Phosphatase Total Protein Albumin Globulin Albumin/Globulin Ratio Arterial Blood Potassium Bound Carbamazepine Topiramate HIV 1&2 Ag/Ab, 4th Gen Blood Type Blood Type Confirm Antibody Screen BBK History Checked Fingerstick Blood Sugar Results: 120 Review of Systems - Review of Systems Systems not reviewed;Unavailable: Intubated Assessment/Plan - Assessment and Plan (Free Text) Assessment: 57 F presenting s/p cardiac arrest due to primary cardiac event presenting with cardiogenic shock and multi-organ system failure. Neuro -Intubated and sedated on propofol -Repeat CT done; reveals anoxic brain injury -Neurology on consult -Seziure activity observed; repeat EEG today 12/03 -Continue with Keppra q12h (increased dosage to 1500 BID- can go up to 4000 mg per day due to patient's weight), Ativan PRN, valproic acid and trileptal added -Patient should be monitored with constant EEG which cannot be done at this facility, transfer although considered cannot be done due to patient's unstable status -Continue with neuro checks, aspiration precautions, seizure precautions, and head above bed 35 degrees -Considering anoxic brain injury finding -Family states they will have a final discussion regarding terminal extubation today with the rest of the family Cardiovascular -Maintain MAP>65 -Cardiology on consult -Continue norvasc, aspirin, heparin, hydralazine, metoprolol as per Cardio -Maintain normotensive Pulmonary -Maintain SpO2>92% -Continue with duonebs -Currently on PRVC 40 5 20 400 Gastrointestinal -Receiving tube feedings -Continue with GI prophylaxis Renal -Maintain euvolemia -Maintain electrolytes and replete as needed Endocrine -Maintain euglycemia and normothermia Infectious disease -Blood cultures positive for bacteremia -ID on consult -Continue with cefepime -Continue with aspiration precautions Hematologic -Continue to monitor H&H -Patient currently has a Hemoglobin of 6.7, how ever patient's son has decided against blood transfusions. Disposition: Patient's family does not want any further intervention and will discuss with rest of family regarding terminal extubation. CCU Objective - Vital Signs / Intake & Output Vital Signs (Last 4 hours): Vital Signs Pulse Resp BP Pulse Ox 12/03/17 15:00 93 H 130/52 L 96 12/03/17 14:42 111 H 12/03/17 14:41 112 H 12/03/17 14:40 115 H 12/03/17 14:30 78 139/58 L 100 12/03/17 14:00 95 H 150/67 100 12/03/17 13:30 86 138/69 100 12/03/17 13:01 76 145/64 100 12/03/17 12:40 27 H 100 12/03/17 12:30 95 H 161/92 H 100 12/03/17 12:00 79 140/62 100 Intake and Output (Last 8hrs): Intake & Output 12/03/17 12/03/17 12/03/17 06:59 14:59 22:59 Intake Total 760 100 Output Total 875 Balance -115 100 Intake: IV 760 100 right internal jugular 560 Output: Urine 775 Urethral ([place]) 775 Stool 100 - Physical Exam Head: Positive for: Atraumatic, Normocephalic Pupils: Positive for: Other (pupillary reflex in tact) Extroacular Muscles: Positive for: Other (opens eyes spontaneously and now on sternal rub) Mouth: Positive for: Dry, Other (+ gag, ETT tube in oropharynx) Respiratory/Chest: Positive for: Clear to Auscultation. Negative for: Wheezes Cardiovascular: Positive for: Regular Rate and Rhythm Abdomen: Negative for: Distention Breast/Axillary: Positive for: Other (moist axilla) Upper Extremity: Positive for: Normal Inspection, Other (spontaneous non- purposeful movement of upper extremities) Lower Extremity: Positive for: Normal Inspection, Other (no movement) Neurological: Negative for: GCS=15 (3), Speech Normal Skin: Positive for: Warm Psychiatric: Positive for: Other (sedated) - Medications Active Medications: Active Medications Generic Name Dose Route Start Last Admin Trade Name Freq PRN Reason Stop Dose Admin Albuterol/Ipratropium 3 ml 12/01/17 05:09 12/01/17 05:20 Duoneb 3 Mg/0.5 Mg (3 Ml) Ud IH 3 ml Q2H PRN Administration Shortness of Breath Albuterol/Ipratropium 3 ml 12/01/17 20:00 12/03/17 13:42 Duoneb 3 Mg/0.5 Mg (3 Ml) Ud IH 3 ml [id number] ANTONINO Administration Amlodipine Besylate 10 mg 11/30/17 10:00 12/03/17 09:04 Norvasc PO 10 mg DAILY ANTONINO Administration Artificial Tears 1 ml 11/30/17 12:49 11/30/17 16:00 Artificial Tears OU 1 drop TID PRN Administration Dry eyes Aspirin 81 mg 11/30/17 10:00 12/03/17 09:06 Aspirin Chewable PO 81 mg DAILY ANTONINO Administration Enoxaparin Sodium 30 mg 12/03/17 10:00 12/03/17 09:07 Lovenox SC 30 mg DAILY ANTONINO Administration Protocol Hydralazine HCl 10 mg 11/30/17 09:49 11/30/17 20:02 Apresoline IVP 10 mg Q6H PRN Administration SBP>170 Cefepime HCl 2 gm in 100 mls @ 100 mls/hr 11/28/17 22:00 12/03/17 09:06 Maxipime 2gm IVPB 12/03/17 22:01 100 mls/hr Q12 ANTONINO Administration Protocol Nicardipine HCl 20 mg in 200 mls @ 100 mls/hr 11/29/17 16:36 11/29/17 16:15 Cardene Iv Premix IV 100 mls/hr .Q2H PRN Administration TITRATE PER MD ORDER Protocol 10 MG/HR Insulin Human Regular 100 100 mls @ 4 mls/hr 11/29/17 17:32 units/ Sodium Chloride IV .Q24H PRN TITRATE PER MD ORDER Protocol 4 UNITS/HR Propofol 1,000 mg in 100 mls @ 3.919 mls/hr 12/01/17 11:42 12/03/17 12:40 Diprivan IV 40 mcg/kg/min .Q24H PRN 31.352 mls/hr TITRATE PER MD ORDER Administration Protocol 5 MCG/KG/MIN Levetiracetam 1,500 mg/ Sodium 115 mls @ 460 mls/hr 12/03/17 14:35 Chloride IV Q12 ANTONINO Lorazepam 2 mg 12/01/17 07:35 12/03/17 14:54 Ativan IVP 2 mg Q6H PRN Administration Seizure activity Protocol Methylprednisolone 20 mg 11/30/17 08:45 12/03/17 08:17 Solu-Medrol IVP 20 mg Q8H ANTONINO Administration Metoprolol Tartrate 50 mg 12/01/17 10:00 12/03/17 09:04 Lopressor PO 50 mg BID ANTONINO Administration Oxcarbazepine 300 mg 12/02/17 11:00 12/03/17 11:48 Trileptal PO 300 mg BID ANTONINO Administration Protocol Pantoprazole Sodium 40 mg 11/28/17 22:00 12/03/17 09:06 Protonix Inj IVP 40 mg Q12 ANTONINO Administration Valproate Sodium 500 mg 12/03/17 10:00 12/03/17 09:06 Depakene Oral Soln PO 500 mg BID ANTONINO Administration - Patient Studies Lab Studies: Microbiology Studies 12/01/17 18:15 Urine Culture - Final Urine,Bojor[place] No Growth (<1,000 CFU/ML) 12/01/17 17:00 Gram Stain - Final Trachasp Sputum Culture - Final No growth. 12/01/17 16:30 Blood Culture - Preliminary Blood-Venous NO GROWTH AFTER 24 HOURS 12/01/17 16:15 Blood Culture - Preliminary Blood-Venous NO GROWTH AFTER 24 HOURS Lab Studies 12/03/17 12/03/17 12/03/17 Range/Units 11:27 10:43 09:35 WBC (4.5-11.0) 10^3/ul RBC (3.5-6.1) 10^6/uL Hgb (12.0-16.0) g/dL Hct (36.0-48.0) % MCV (80.0-105.0) fl MCH (25.0-35.0) pg MCHC (31.0-37.0) g/dl RDW (11.5-14.5) % Plt Count (120.0-450.0) 10^3/uL MPV (7.0-11.0) fl Gran % (50.0-68.0) % Lymph % (Auto) (22.0-35.0) % [place] % (Auto) (1.0-6.0) % Eos % (Auto) (1.5-5.0) % Baso % (Auto) (0.0-3.0) % Gran # (1.4-6.5) Lymph # (Auto) (1.2-3.4) [place] # (Auto) (0.1-0.6) Eos # (Auto) (0.0-0.7) Baso # (Auto) (0.0-2.0) K/mm3 PT (9.4-12.5) SECONDS INR (0.93-1.08) APTT (25.1-36.5) Seconds pCO2 (35-45) mm/Hg pO2 (80-100) mm/Hg HCO3 (21-28) mmol/L ABG pH (7.35-7.45) ABG Total CO2 (22-28) mmol.L ABG O2 Saturation (95-98) % ABG Base Excess (-2.0-3.0) mmol/L ABG Potassium (3.6-5.2) mmol/L Glucose (65-105) mg/dl Lactate (0.7-2.1) mmol/L FiO2 % Sodium (132-148) mmol/L Potassium (3.6-5.0) mmol/L Chloride (98-107) mmol/L Carbon Dioxide (21-33) mmol/L Anion Gap (10-20) BUN (7-21) mg/dL Creatinine (0.7-1.2) mg/dl Est GFR ( Amer) Est GFR (Non-Af Amer) POC Glucose (mg/dL) 141 H (65-110) mg/dL Random Glucose (70-110) mg/dL Calcium (8.4-10.5) mg/dL Ionized Calcium (4.80-5.60) mg/dL Magnesium (1.7-2.2) mg/dL Total Bilirubin (0.2-1.3) mg/dL AST (14-36) U/L ALT (7-56) U/L Alkaline Phosphatase (38-126) U/L Total Protein (5.8-8.3) g/dL Albumin (3.0-4.8) g/dL Globulin gm/dL Albumin/Globulin Ratio (1.1-1.8) Arterial Blood Potassium (3.6-5.2) mmol/L Bound Carbamazepine (1.0-3.0) mcg/mL Topiramate (see note) mcg/mL HIV 1&2 Ag/Ab, 4th Gen (Nonreactive) Blood Type O POSITIVE Blood Type Confirm O POSITIVE Antibody Screen Negative BBK History Checked No verified bt 12/03/17 12/03/17 12/03/17 Range/Units 07:46 07:02 06:42 WBC (4.5-11.0) 10^3/ul RBC (3.5-6.1) 10^6/uL Hgb (12.0-16.0) g/dL Hct (36.0-48.0) % MCV (80.0-105.0) fl MCH (25.0-35.0) pg MCHC (31.0-37.0) g/dl RDW (11.5-14.5) % Plt Count (120.0-450.0) 10^3/uL MPV (7.0-11.0) fl Gran % (50.0-68.0) % Lymph % (Auto) (22.0-35.0) % [place] % (Auto) (1.0-6.0) % Eos % (Auto) (1.5-5.0) % Baso % (Auto) (0.0-3.0) % Gran # (1.4-6.5) Lymph # (Auto) (1.2-3.4) [place] # (Auto) (0.1-0.6) Eos # (Auto) (0.0-0.7) Baso # (Auto) (0.0-2.0) K/mm3 PT (9.4-12.5) SECONDS INR (0.93-1.08) APTT (25.1-36.5) Seconds pCO2 25 L (35-45) mm/Hg pO2 174.0 H (80-100) mm/Hg HCO3 15.5 L (21-28) mmol/L ABG pH 7.40 (7.35-7.45) ABG Total CO2 16.3 L (22-28) mmol.L ABG O2 Saturation 99.4 H (95-98) % ABG Base Excess -7.5 L (-2.0-3.0) mmol/L ABG Potassium 2.3 L* (3.6-5.2) mmol/L Glucose 91 (65-105) mg/dl Lactate 0.8 (0.7-2.1) mmol/L FiO2 40.0 % Sodium 147.0 (132-148) mmol/L Potassium (3.6-5.0) mmol/L Chloride 124.0 H (98-107) mmol/L Carbon Dioxide (21-33) mmol/L Anion Gap (10-20) BUN (7-21) mg/dL Creatinine (0.7-1.2) mg/dl Est GFR ( Amer) Est GFR (Non-Af Amer) POC Glucose (mg/dL) 120 H (65-110) mg/dL Random Glucose (70-110) mg/dL Calcium (8.4-10.5) mg/dL Ionized Calcium (4.80-5.60) mg/dL Magnesium 2.3 H (1.7-2.2) mg/dL Total Bilirubin (0.2-1.3) mg/dL AST (14-36) U/L ALT (7-56) U/L Alkaline Phosphatase (38-126) U/L Total Protein (5.8-8.3) g/dL Albumin (3.0-4.8) g/dL Globulin gm/dL Albumin/Globulin Ratio (1.1-1.8) Arterial Blood Potassium 2.3 L* (3.6-5.2) mmol/L Bound Carbamazepine (1.0-3.0) mcg/mL Topiramate (see note) mcg/mL HIV 1&2 Ag/Ab, 4th Gen (Nonreactive) Blood Type Blood Type Confirm Antibody Screen BBK History Checked 12/03/17 12/03/17 12/03/17 Range/Units 06:42 06:42 06:42 WBC 11.4 H D (4.5-11.0) 10^3/ul RBC 2.82 L (3.5-6.1) 10^6/uL Hgb 6.7 L* (12.0-16.0) g/dL Hct 20.4 L* (36.0-48.0) % MCV 72.3 L (80.0-105.0) fl MCH 23.8 L (25.0-35.0) pg MCHC 32.8 (31.0-37.0) g/dl RDW 15.9 H (11.5-14.5) % Plt Count 212 (120.0-450.0) 10^3/uL MPV 9.7 (7.0-11.0) fl Gran % 64.8 (50.0-68.0) % Lymph % (Auto) 26.9 (22.0-35.0) % [place] % (Auto) 7.5 H (1.0-6.0) % Eos % (Auto) 0.6 L (1.5-5.0) % Baso % (Auto) 0.2 (0.0-3.0) % Gran # 7.41 H (1.4-6.5) Lymph # (Auto) 3.1 (1.2-3.4) [place] # (Auto) 0.9 H (0.1-0.6) Eos # (Auto) 0.1 (0.0-0.7) Baso # (Auto) 0.02 (0.0-2.0) K/mm3 PT 10.6 (9.4-12.5) SECONDS INR 0.92 L (0.93-1.08) APTT 21.9 L (25.1-36.5) Seconds pCO2 (35-45) mm/Hg pO2 (80-100) mm/Hg HCO3 (21-28) mmol/L ABG pH (7.35-7.45) ABG Total CO2 (22-28) mmol.L ABG O2 Saturation (95-98) % ABG Base Excess (-2.0-3.0) mmol/L ABG Potassium (3.6-5.2) mmol/L Glucose (65-105) mg/dl Lactate (0.7-2.1) mmol/L FiO2 % Sodium 141 (132-148) mmol/L Potassium 3.3 L (3.6-5.0) mmol/L Chloride 112 H (98-107) mmol/L Carbon Dioxide 20 L (21-33) mmol/L Anion Gap 12 (10-20) BUN 35 H (7-21) mg/dL Creatinine 1.9 H (0.7-1.2) mg/dl Est GFR ( Amer) 33 Est GFR (Non-Af Amer) 27 POC Glucose (mg/dL) (65-110) mg/dL Random Glucose 120 H (70-110) mg/dL Calcium 8.3 L (8.4-10.5) mg/dL Ionized Calcium (4.80-5.60) mg/dL Magnesium (1.7-2.2) mg/dL Total Bilirubin 0.4 (0.2-1.3) mg/dL AST 89 H D (14-36) U/L ALT 76 H (7-56) U/L Alkaline Phosphatase 71 (38-126) U/L Total Protein 5.4 L (5.8-8.3) g/dL Albumin 2.9 L (3.0-4.8) g/dL Globulin 2.5 gm/dL Albumin/Globulin Ratio 1.2 (1.1-1.8) Arterial Blood Potassium (3.6-5.2) mmol/L Bound Carbamazepine (1.0-3.0) mcg/mL Topiramate (see note) mcg/mL HIV 1&2 Ag/Ab, 4th Gen (Nonreactive) Blood Type Blood Type Confirm Antibody Screen BBK History Checked 12/02/17 12/02/17 12/02/17 Range/Units 22:42 18:45 06:10 WBC (4.5-11.0) 10^3/ul RBC (3.5-6.1) 10^6/uL Hgb (12.0-16.0) g/dL Hct (36.0-48.0) % MCV (80.0-105.0) fl MCH (25.0-35.0) pg MCHC (31.0-37.0) g/dl RDW (11.5-14.5) % Plt Count (120.0-450.0) 10^3/uL MPV (7.0-11.0) fl Gran % (50.0-68.0) % Lymph % (Auto) (22.0-35.0) % [place] % (Auto) (1.0-6.0) % Eos % (Auto) (1.5-5.0) % Baso % (Auto) (0.0-3.0) % Gran # (1.4-6.5) Lymph # (Auto) (1.2-3.4) [place] # (Auto) (0.1-0.6) Eos # (Auto) (0.0-0.7) Baso # (Auto) (0.0-2.0) K/mm3 PT (9.4-12.5) SECONDS INR (0.93-1.08) APTT (25.1-36.5) Seconds pCO2 (35-45) mm/Hg pO2 (80-100) mm/Hg HCO3 (21-28) mmol/L ABG pH (7.35-7.45) ABG Total CO2 (22-28) mmol.L ABG O2 Saturation (95-98) % ABG Base Excess (-2.0-3.0) mmol/L ABG Potassium (3.6-5.2) mmol/L Glucose (65-105) mg/dl Lactate (0.7-2.1) mmol/L FiO2 % Sodium (132-148) mmol/L Potassium (3.6-5.0) mmol/L Chloride (98-107) mmol/L Carbon Dioxide (21-33) mmol/L Anion Gap (10-20) BUN (7-21) mg/dL Creatinine (0.7-1.2) mg/dl Est GFR ( Amer) Est GFR (Non-Af Amer) POC Glucose (mg/dL) 116 H 116 H (65-110) mg/dL Random Glucose (70-110) mg/dL Calcium (8.4-10.5) mg/dL Ionized Calcium (4.80-5.60) mg/dL Magnesium (1.7-2.2) mg/dL Total Bilirubin (0.2-1.3) mg/dL AST (14-36) U/L ALT (7-56) U/L Alkaline Phosphatase (38-126) U/L Total Protein (5.8-8.3) g/dL Albumin (3.0-4.8) g/dL Globulin gm/dL Albumin/Globulin Ratio (1.1-1.8) Arterial Blood Potassium (3.6-5.2) mmol/L Bound Carbamazepine (1.0-3.0) mcg/mL Topiramate (see note) mcg/mL HIV 1&2 Ag/Ab, 4th Gen Nonreactive (Nonreactive) Blood Type Blood Type Confirm Antibody Screen BBK History Checked 12/02/17 11/29/17 11/29/17 Range/Units 06:00 15:05 06:30 WBC (4.5-11.0) 10^3/ul RBC (3.5-6.1) 10^6/uL Hgb (12.0-16.0) g/dL Hct (36.0-48.0) % MCV (80.0-105.0) fl MCH (25.0-35.0) pg MCHC (31.0-37.0) g/dl RDW (11.5-14.5) % Plt Count (120.0-450.0) 10^3/uL MPV (7.0-11.0) fl Gran % (50.0-68.0) % Lymph % (Auto) (22.0-35.0) % [place] % (Auto) (1.0-6.0) % Eos % (Auto) (1.5-5.0) % Baso % (Auto) (0.0-3.0) % Gran # (1.4-6.5) Lymph # (Auto) (1.2-3.4) [place] # (Auto) (0.1-0.6) Eos # (Auto) (0.0-0.7) Baso # (Auto) (0.0-2.0) K/mm3 PT (9.4-12.5) SECONDS INR (0.93-1.08) APTT (25.1-36.5) Seconds pCO2 (35-45) mm/Hg pO2 (80-100) mm/Hg HCO3 (21-28) mmol/L ABG pH (7.35-7.45) ABG Total CO2 (22-28) mmol.L ABG O2 Saturation (95-98) % ABG Base Excess (-2.0-3.0) mmol/L ABG Potassium (3.6-5.2) mmol/L Glucose (65-105) mg/dl Lactate (0.7-2.1) mmol/L FiO2 % Sodium (132-148) mmol/L Potassium (3.6-5.0) mmol/L Chloride (98-107) mmol/L Carbon Dioxide (21-33) mmol/L Anion Gap (10-20) BUN (7-21) mg/dL Creatinine (0.7-1.2) mg/dl Est GFR ( Amer) Est GFR (Non-Af Amer) POC Glucose (mg/dL) (65-110) mg/dL Random Glucose (70-110) mg/dL Calcium (8.4-10.5) mg/dL Ionized Calcium 4.6 L (4.80-5.60) mg/dL Magnesium (1.7-2.2) mg/dL Total Bilirubin (0.2-1.3) mg/dL AST (14-36) U/L ALT (7-56) U/L Alkaline Phosphatase (38-126) U/L Total Protein (5.8-8.3) g/dL Albumin (3.0-4.8) g/dL Globulin gm/dL Albumin/Globulin Ratio (1.1-1.8) Arterial Blood Potassium (3.6-5.2) mmol/L Bound Carbamazepine 0.7 L (1.0-3.0) mcg/mL Topiramate 3.1 (see note) mcg/mL HIV 1&2 Ag/Ab, 4th Gen (Nonreactive) Blood Type Blood Type Confirm Antibody Screen BBK History Checked Laboratory Results - last 24 hr 11/29/17 11/29/17 12/02/17 06:30 15:05 06:00 WBC RBC Hgb Hct MCV MCH MCHC RDW Plt Count MPV Gran % Lymph % (Auto) [place] % (Auto) Eos % (Auto) Baso % (Auto) Gran # Lymph # (Auto) [place] # (Auto) Eos # (Auto) Baso # (Auto) PT INR APTT pCO2 pO2 HCO3 ABG pH ABG Total CO2 ABG O2 Saturation ABG Base Excess ABG Potassium Glucose Lactate FiO2 Sodium Potassium Chloride Carbon Dioxide Anion Gap BUN Creatinine Est GFR ( Amer) Est GFR (Non-Af Amer) POC Glucose (mg/dL) Random Glucose Calcium Ionized Calcium 4.6 L Magnesium Total Bilirubin AST ALT Alkaline Phosphatase Total Protein Albumin Globulin Albumin/Globulin Ratio Arterial Blood Potassium Bound Carbamazepine 0.7 L Topiramate 3.1 HIV 1&2 Ag/Ab, 4th Gen Blood Type Blood Type Confirm Antibody Screen BBK History Checked 12/02/17 12/02/17 12/02/17 06:10 18:45 22:42 WBC RBC Hgb Hct MCV MCH MCHC RDW Plt Count MPV Gran % Lymph % (Auto) [place] % (Auto) Eos % (Auto) Baso % (Auto) Gran # Lymph # (Auto) [place] # (Auto) Eos # (Auto) Baso # (Auto) PT INR APTT pCO2 pO2 HCO3 ABG pH ABG Total CO2 ABG O2 Saturation ABG Base Excess ABG Potassium Glucose Lactate FiO2 Sodium Potassium Chloride Carbon Dioxide Anion Gap BUN Creatinine Est GFR ( Amer) Est GFR (Non-Af Amer) POC Glucose (mg/dL) 116 H 116 H Random Glucose Calcium Ionized Calcium Magnesium Total Bilirubin AST ALT Alkaline Phosphatase Total Protein Albumin Globulin Albumin/Globulin Ratio Arterial Blood Potassium Bound Carbamazepine Topiramate HIV 1&2 Ag/Ab, 4th Gen Nonreactive Blood Type Blood Type Confirm Antibody Screen BBK History Checked 12/03/17 12/03/17 12/03/17 06:42 06:42 06:42 WBC 11.4 H D RBC 2.82 L Hgb 6.7 L* Hct 20.4 L* MCV 72.3 L MCH 23.8 L MCHC 32.8 RDW 15.9 H Plt Count 212 MPV 9.7 Gran % 64.8 Lymph % (Auto) 26.9 [place] % (Auto) 7.5 H Eos % (Auto) 0.6 L Baso % (Auto) 0.2 Gran # 7.41 H Lymph # (Auto) 3.1 [place] # (Auto) 0.9 H Eos # (Auto) 0.1 Baso # (Auto) 0.02 PT 10.6 INR 0.92 L APTT 21.9 L pCO2 pO2 HCO3 ABG pH ABG Total CO2 ABG O2 Saturation ABG Base Excess ABG Potassium Glucose Lactate FiO2 Sodium 141 Potassium 3.3 L Chloride 112 H Carbon Dioxide 20 L Anion Gap 12 BUN 35 H Creatinine 1.9 H Est GFR ( Amer) 33 Est GFR (Non-Af Amer) 27 POC Glucose (mg/dL) Random Glucose 120 H Calcium 8.3 L Ionized Calcium Magnesium Total Bilirubin 0.4 AST 89 H D ALT 76 H Alkaline Phosphatase 71 Total Protein 5.4 L Albumin 2.9 L Globulin 2.5 Albumin/Globulin Ratio 1.2 Arterial Blood Potassium Bound Carbamazepine Topiramate HIV 1&2 Ag/Ab, 4th Gen Blood Type Blood Type Confirm Antibody Screen BBK History Checked 12/03/17 12/03/17 12/03/17 06:42 07:02 07:46 WBC RBC Hgb Hct MCV MCH MCHC RDW Plt Count MPV Gran % Lymph % (Auto) [place] % (Auto) Eos % (Auto) Baso % (Auto) Gran # Lymph # (Auto) [place] # (Auto) Eos # (Auto) Baso # (Auto) PT INR APTT pCO2 25 L pO2 174.0 H HCO3 15.5 L ABG pH 7.40 ABG Total CO2 16.3 L ABG O2 Saturation 99.4 H ABG Base Excess -7.5 L ABG Potassium 2.3 L* Glucose 91 Lactate 0.8 FiO2 40.0 Sodium 147.0 Potassium Chloride 124.0 H Carbon Dioxide Anion Gap BUN Creatinine Est GFR ( Amer) Est GFR (Non-Af Amer) POC Glucose (mg/dL) 120 H Random Glucose Calcium Ionized Calcium Magnesium 2.3 H Total Bilirubin AST ALT Alkaline Phosphatase Total Protein Albumin Globulin Albumin/Globulin Ratio Arterial Blood Potassium 2.3 L* Bound Carbamazepine Topiramate HIV 1&2 Ag/Ab, 4th Gen Blood Type Blood Type Confirm Antibody Screen BBK History Checked 12/03/17 12/03/17 12/03/17 09:35 10:43 11:27 WBC RBC Hgb Hct MCV MCH MCHC RDW Plt Count MPV Gran % Lymph % (Auto) [place] % (Auto) Eos % (Auto) Baso % (Auto) Gran # Lymph # (Auto) [place] # (Auto) Eos # (Auto) Baso # (Auto) PT INR APTT pCO2 pO2 HCO3 ABG pH ABG Total CO2 ABG O2 Saturation ABG Base Excess ABG Potassium Glucose Lactate FiO2 Sodium Potassium Chloride Carbon Dioxide Anion Gap BUN Creatinine Est GFR ( Amer) Est GFR (Non-Af Amer) POC Glucose (mg/dL) 141 H Random Glucose Calcium Ionized Calcium Magnesium Total Bilirubin AST ALT Alkaline Phosphatase Total Protein Albumin Globulin Albumin/Globulin Ratio Arterial Blood Potassium Bound Carbamazepine Topiramate HIV 1&2 Ag/Ab, 4th Gen Blood Type O POSITIVE Blood Type Confirm O POSITIVE Antibody Screen Negative BBK History Checked No verified bt Fingerstick Blood Sugar Results: 120 <Matthew River - Last Filed: 12/03/17 16:03> CCU Objective - Vital Signs / Intake & Output Vital Signs (Last 4 hours): Vital Signs Pulse Resp BP Pulse Ox 12/03/17 15:00 93 H 130/52 L 96 12/03/17 14:42 111 H 12/03/17 14:41 112 H 12/03/17 14:40 115 H 12/03/17 14:30 78 139/58 L 100 12/03/17 14:00 95 H 150/67 100 12/03/17 13:30 86 138/69 100 12/03/17 13:01 76 145/64 100 12/03/17 12:40 27 H 100 12/03/17 12:30 95 H 161/92 H 100 Intake and Output (Last 8hrs): Intake & Output 12/03/17 12/03/17 12/03/17 06:59 14:59 22:59 Intake Total 760 100 100 Output Total 875 Balance -115 100 100 Intake: IV 760 100 100 right internal jugular 560 Output: Urine 775 Urethral (Bojorquez) 775 Stool 100 - Medications Active Medications: Active Medications Generic Name Dose Route Start Last Admin Trade Name Freq PRN Reason Stop Dose Admin Albuterol/Ipratropium 3 ml 12/01/17 05:09 12/01/17 05:20 Duoneb 3 Mg/0.5 Mg (3 Ml) Ud IH 3 ml Q2H PRN Administration Shortness of Breath Albuterol/Ipratropium 3 ml 12/01/17 20:00 12/03/17 13:42 Duoneb 3 Mg/0.5 Mg (3 Ml) Ud IH 3 ml [id number] ANTONINO Administration Amlodipine Besylate 10 mg 11/30/17 10:00 12/03/17 09:04 Norvasc PO 10 mg DAILY ANTONINO Administration Artificial Tears 1 ml 11/30/17 12:49 11/30/17 16:00 Artificial Tears OU 1 drop TID PRN Administration Dry eyes Aspirin 81 mg 11/30/17 10:00 12/03/17 09:06 Aspirin Chewable PO 81 mg DAILY ANTONINO Administration Enoxaparin Sodium 30 mg 12/03/17 10:00 12/03/17 09:07 Lovenox SC 30 mg DAILY ANTONINO Administration Protocol Hydralazine HCl 10 mg 11/30/17 09:49 11/30/17 20:02 Apresoline IVP 10 mg Q6H PRN Administration SBP>170 Cefepime HCl 2 gm in 100 mls @ 100 mls/hr 11/28/17 22:00 12/03/17 09:06 Maxipime 2gm IVPB 12/03/17 22:01 100 mls/hr Q12 ANTONINO Administration Protocol Nicardipine HCl 20 mg in 200 mls @ 100 mls/hr 11/29/17 16:36 11/29/17 16:15 Cardene Iv Premix IV 100 mls/hr .Q2H PRN Administration TITRATE PER MD ORDER Protocol 10 MG/HR Insulin Human Regular 100 100 mls @ 4 mls/hr 11/29/17 17:32 units/ Sodium Chloride IV .Q24H PRN TITRATE PER MD ORDER Protocol 4 UNITS/HR Propofol 1,000 mg in 100 mls @ 3.919 mls/hr 12/01/17 11:42 12/03/17 15:37 Diprivan IV 40 mcg/kg/min .Q24H PRN 31.352 mls/hr TITRATE PER MD ORDER Administration Protocol 5 MCG/KG/MIN Levetiracetam 1,500 mg/ Sodium 115 mls @ 460 mls/hr 12/03/17 14:35 Chloride IV Q12 ANTONINO Lorazepam 2 mg 12/01/17 07:35 12/03/17 14:54 Ativan IVP 2 mg Q6H PRN Administration Seizure activity Protocol Methylprednisolone 20 mg 11/30/17 08:45 12/03/17 08:17 Solu-Medrol IVP 20 mg Q8H ANTONINO Administration Metoprolol Tartrate 50 mg 12/01/17 10:00 12/03/17 09:04 Lopressor PO 50 mg BID ANTONINO Administration Oxcarbazepine 300 mg 12/02/17 11:00 12/03/17 11:48 Trileptal PO 300 mg BID ANTONINO Administration Protocol Pantoprazole Sodium 40 mg 11/28/17 22:00 12/03/17 09:06 Protonix Inj IVP 40 mg Q12 ANTONINO Administration Valproate Sodium 500 mg 12/03/17 10:00 12/03/17 09:06 Depakene Oral Soln PO 500 mg BID ANTONINO Administration - Patient Studies Lab Studies: Microbiology Studies 12/01/17 18:15 Urine Culture - Final Urine,Bojorquez No Growth (<1,000 CFU/ML) 12/01/17 17:00 Gram Stain - Final Trachasp Sputum Culture - Final No growth. 12/01/17 16:30 Blood Culture - Preliminary Blood-Venous NO GROWTH AFTER 24 HOURS 12/01/17 16:15 Blood Culture - Preliminary Blood-Venous NO GROWTH AFTER 24 HOURS Lab Studies 12/03/17 12/03/17 12/03/17 Range/Units 11:27 10:43 09:35 WBC (4.5-11.0) 10^3/ul RBC (3.5-6.1) 10^6/uL Hgb (12.0-16.0) g/dL Hct (36.0-48.0) % MCV (80.0-105.0) fl MCH (25.0-35.0) pg MCHC (31.0-37.0) g/dl RDW (11.5-14.5) % Plt Count (120.0-450.0) 10^3/uL MPV (7.0-11.0) fl Gran % (50.0-68.0) % Lymph % (Auto) (22.0-35.0) % [place] % (Auto) (1.0-6.0) % Eos % (Auto) (1.5-5.0) % Baso % (Auto) (0.0-3.0) % Gran # (1.4-6.5) Lymph # (Auto) (1.2-3.4) [place] # (Auto) (0.1-0.6) Eos # (Auto) (0.0-0.7) Baso # (Auto) (0.0-2.0) K/mm3 PT (9.4-12.5) SECONDS INR (0.93-1.08) APTT (25.1-36.5) Seconds pCO2 (35-45) mm/Hg pO2 (80-100) mm/Hg HCO3 (21-28) mmol/L ABG pH (7.35-7.45) ABG Total CO2 (22-28) mmol.L ABG O2 Saturation (95-98) % ABG Base Excess (-2.0-3.0) mmol/L ABG Potassium (3.6-5.2) mmol/L Glucose (65-105) mg/dl Lactate (0.7-2.1) mmol/L FiO2 % Sodium (132-148) mmol/L Potassium (3.6-5.0) mmol/L Chloride (98-107) mmol/L Carbon Dioxide (21-33) mmol/L Anion Gap (10-20) BUN (7-21) mg/dL Creatinine (0.7-1.2) mg/dl Est GFR ( Amer) Est GFR (Non-Af Amer) POC Glucose (mg/dL) 141 H (65-110) mg/dL Random Glucose (70-110) mg/dL Calcium (8.4-10.5) mg/dL Ionized Calcium (4.80-5.60) mg/dL Magnesium (1.7-2.2) mg/dL Total Bilirubin (0.2-1.3) mg/dL AST (14-36) U/L ALT (7-56) U/L Alkaline Phosphatase (38-126) U/L Total Protein (5.8-8.3) g/dL Albumin (3.0-4.8) g/dL Globulin gm/dL Albumin/Globulin Ratio (1.1-1.8) Arterial Blood Potassium (3.6-5.2) mmol/L Bound Carbamazepine (1.0-3.0) mcg/mL Topiramate (see note) mcg/mL Proteinase 3 (PR3) (<1.0) AI Myeloperoxidase Ab (<1.0) AI HIV 1&2 Ag/Ab, 4th Gen (Nonreactive) Blood Type O POSITIVE Blood Type Confirm O POSITIVE Antibody Screen Negative BBK History Checked No verified bt 12/03/17 12/03/17 12/03/17 Range/Units 07:46 07:02 06:42 WBC (4.5-11.0) 10^3/ul RBC (3.5-6.1) 10^6/uL Hgb (12.0-16.0) g/dL Hct (36.0-48.0) % MCV (80.0-105.0) fl MCH (25.0-35.0) pg MCHC (31.0-37.0) g/dl RDW (11.5-14.5) % Plt Count (120.0-450.0) 10^3/uL MPV (7.0-11.0) fl Gran % (50.0-68.0) % Lymph % (Auto) (22.0-35.0) % [place]iscoe % (Auto) (1.0-6.0) % Eos % (Auto) (1.5-5.0) % Baso % (Auto) (0.0-3.0) % Gran # (1.4-6.5) Lymph # (Auto) (1.2-3.4) [place]iscoe # (Auto) (0.1-0.6) Eos # (Auto) (0.0-0.7) Baso # (Auto) (0.0-2.0) K/mm3 PT (9.4-12.5) SECONDS INR (0.93-1.08) APTT (25.1-36.5) Seconds pCO2 25 L (35-45) mm/Hg pO2 174.0 H (80-100) mm/Hg HCO3 15.5 L (21-28) mmol/L ABG pH 7.40 (7.35-7.45) ABG Total CO2 16.3 L (22-28) mmol.L ABG O2 Saturation 99.4 H (95-98) % ABG Base Excess -7.5 L (-2.0-3.0) mmol/L ABG Potassium 2.3 L* (3.6-5.2) mmol/L Glucose 91 (65-105) mg/dl Lactate 0.8 (0.7-2.1) mmol/L FiO2 40.0 % Sodium 147.0 (132-148) mmol/L Potassium (3.6-5.0) mmol/L Chloride 124.0 H (98-107) mmol/L Carbon Dioxide (21-33) mmol/L Anion Gap (10-20) BUN (7-21) mg/dL Creatinine (0.7-1.2) mg/dl Est GFR ( Amer) Est GFR (Non-Af Amer) POC Glucose (mg/dL) 120 H (65-110) mg/dL Random Glucose (70-110) mg/dL Calcium (8.4-10.5) mg/dL Ionized Calcium (4.80-5.60) mg/dL Magnesium 2.3 H (1.7-2.2) mg/dL Total Bilirubin (0.2-1.3) mg/dL AST (14-36) U/L ALT (7-56) U/L Alkaline Phosphatase (38-126) U/L Total Protein (5.8-8.3) g/dL Albumin (3.0-4.8) g/dL Globulin gm/dL Albumin/Globulin Ratio (1.1-1.8) Arterial Blood Potassium 2.3 L* (3.6-5.2) mmol/L Bound Carbamazepine (1.0-3.0) mcg/mL Topiramate (see note) mcg/mL Proteinase 3 (PR3) (<1.0) AI Myeloperoxidase Ab (<1.0) AI HIV 1&2 Ag/Ab, 4th Gen (Nonreactive) Blood Type Blood Type Confirm Antibody Screen BBK History Checked 12/03/17 12/03/17 12/03/17 Range/Units 06:42 06:42 06:42 WBC 11.4 H D (4.5-11.0) 10^3/ul RBC 2.82 L (3.5-6.1) 10^6/uL Hgb 6.7 L* (12.0-16.0) g/dL Hct 20.4 L* (36.0-48.0) % MCV 72.3 L (80.0-105.0) fl MCH 23.8 L (25.0-35.0) pg MCHC 32.8 (31.0-37.0) g/dl RDW 15.9 H (11.5-14.5) % Plt Count 212 (120.0-450.0) 10^3/uL MPV 9.7 (7.0-11.0) fl Gran % 64.8 (50.0-68.0) % Lymph % (Auto) 26.9 (22.0-35.0) % [place]iscoe % (Auto) 7.5 H (1.0-6.0) % Eos % (Auto) 0.6 L (1.5-5.0) % Baso % (Auto) 0.2 (0.0-3.0) % Gran # 7.41 H (1.4-6.5) Lymph # (Auto) 3.1 (1.2-3.4) [place]e # (Auto) 0.9 H (0.1-0.6) Eos # (Auto) 0.1 (0.0-0.7) Baso # (Auto) 0.02 (0.0-2.0) K/mm3 PT 10.6 (9.4-12.5) SECONDS INR 0.92 L (0.93-1.08) APTT 21.9 L (25.1-36.5) Seconds pCO2 (35-45) mm/Hg pO2 (80-100) mm/Hg HCO3 (21-28) mmol/L ABG pH (7.35-7.45) ABG Total CO2 (22-28) mmol.L ABG O2 Saturation (95-98) % ABG Base Excess (-2.0-3.0) mmol/L ABG Potassium (3.6-5.2) mmol/L Glucose (65-105) mg/dl Lactate (0.7-2.1) mmol/L FiO2 % Sodium 141 (132-148) mmol/L Potassium 3.3 L (3.6-5.0) mmol/L Chloride 112 H (98-107) mmol/L Carbon Dioxide 20 L (21-33) mmol/L Anion Gap 12 (10-20) BUN 35 H (7-21) mg/dL Creatinine 1.9 H (0.7-1.2) mg/dl Est GFR ( Amer) 33 Est GFR (Non-Af Amer) 27 POC Glucose (mg/dL) (65-110) mg/dL Random Glucose 120 H (70-110) mg/dL Calcium 8.3 L (8.4-10.5) mg/dL Ionized Calcium (4.80-5.60) mg/dL Magnesium (1.7-2.2) mg/dL Total Bilirubin 0.4 (0.2-1.3) mg/dL AST 89 H D (14-36) U/L ALT 76 H (7-56) U/L Alkaline Phosphatase 71 (38-126) U/L Total Protein 5.4 L (5.8-8.3) g/dL Albumin 2.9 L (3.0-4.8) g/dL Globulin 2.5 gm/dL Albumin/Globulin Ratio 1.2 (1.1-1.8) Arterial Blood Potassium (3.6-5.2) mmol/L Bound Carbamazepine (1.0-3.0) mcg/mL Topiramate (see note) mcg/mL Proteinase 3 (PR3) (<1.0) AI Myeloperoxidase Ab (<1.0) AI HIV 1&2 Ag/Ab, 4th Gen (Nonreactive) Blood Type Blood Type Confirm Antibody Screen BBK History Checked 12/02/17 12/02/17 12/02/17 Range/Units 22:42 18:45 06:10 WBC (4.5-11.0) 10^3/ul RBC (3.5-6.1) 10^6/uL Hgb (12.0-16.0) g/dL Hct (36.0-48.0) % MCV (80.0-105.0) fl MCH (25.0-35.0) pg MCHC (31.0-37.0) g/dl RDW (11.5-14.5) % Plt Count (120.0-450.0) 10^3/uL MPV (7.0-11.0) fl Gran % (50.0-68.0) % Lymph % (Auto) (22.0-35.0) % [place] % (Auto) (1.0-6.0) % Eos % (Auto) (1.5-5.0) % Baso % (Auto) (0.0-3.0) % Gran # (1.4-6.5) Lymph # (Auto) (1.2-3.4) [place] # (Auto) (0.1-0.6) Eos # (Auto) (0.0-0.7) Baso # (Auto) (0.0-2.0) K/mm3 PT (9.4-12.5) SECONDS INR (0.93-1.08) APTT (25.1-36.5) Seconds pCO2 (35-45) mm/Hg pO2 (80-100) mm/Hg HCO3 (21-28) mmol/L ABG pH (7.35-7.45) ABG Total CO2 (22-28) mmol.L ABG O2 Saturation (95-98) % ABG Base Excess (-2.0-3.0) mmol/L ABG Potassium (3.6-5.2) mmol/L Glucose (65-105) mg/dl Lactate (0.7-2.1) mmol/L FiO2 % Sodium (132-148) mmol/L Potassium (3.6-5.0) mmol/L Chloride (98-107) mmol/L Carbon Dioxide (21-33) mmol/L Anion Gap (10-20) BUN (7-21) mg/dL Creatinine (0.7-1.2) mg/dl Est GFR ( Amer) Est GFR (Non-Af Amer) POC Glucose (mg/dL) 116 H 116 H (65-110) mg/dL Random Glucose (70-110) mg/dL Calcium (8.4-10.5) mg/dL Ionized Calcium (4.80-5.60) mg/dL Magnesium (1.7-2.2) mg/dL Total Bilirubin (0.2-1.3) mg/dL AST (14-36) U/L ALT (7-56) U/L Alkaline Phosphatase (38-126) U/L Total Protein (5.8-8.3) g/dL Albumin (3.0-4.8) g/dL Globulin gm/dL Albumin/Globulin Ratio (1.1-1.8) Arterial Blood Potassium (3.6-5.2) mmol/L Bound Carbamazepine (1.0-3.0) mcg/mL Topiramate (see note) mcg/mL Proteinase 3 (PR3) <1.0 (<1.0) AI Myeloperoxidase Ab <1.0 (<1.0) AI HIV 1&2 Ag/Ab, 4th Gen Nonreactive (Nonreactive) Blood Type Blood Type Confirm Antibody Screen BBK History Checked 12/02/17 11/29/17 11/29/17 Range/Units 06:00 15:05 06:30 WBC (4.5-11.0) 10^3/ul RBC (3.5-6.1) 10^6/uL Hgb (12.0-16.0) g/dL Hct (36.0-48.0) % MCV (80.0-105.0) fl MCH (25.0-35.0) pg MCHC (31.0-37.0) g/dl RDW (11.5-14.5) % Plt Count (120.0-450.0) 10^3/uL MPV (7.0-11.0) fl Gran % (50.0-68.0) % Lymph % (Auto) (22.0-35.0) % [place] % (Auto) (1.0-6.0) % Eos % (Auto) (1.5-5.0) % Baso % (Auto) (0.0-3.0) % Gran # (1.4-6.5) Lymph # (Auto) (1.2-3.4) [place] # (Auto) (0.1-0.6) Eos # (Auto) (0.0-0.7) Baso # (Auto) (0.0-2.0) K/mm3 PT (9.4-12.5) SECONDS INR (0.93-1.08) APTT (25.1-36.5) Seconds pCO2 (35-45) mm/Hg pO2 (80-100) mm/Hg HCO3 (21-28) mmol/L ABG pH (7.35-7.45) ABG Total CO2 (22-28) mmol.L ABG O2 Saturation (95-98) % ABG Base Excess (-2.0-3.0) mmol/L ABG Potassium (3.6-5.2) mmol/L Glucose (65-105) mg/dl Lactate (0.7-2.1) mmol/L FiO2 % Sodium (132-148) mmol/L Potassium (3.6-5.0) mmol/L Chloride (98-107) mmol/L Carbon Dioxide (21-33) mmol/L Anion Gap (10-20) BUN (7-21) mg/dL Creatinine (0.7-1.2) mg/dl Est GFR ( Amer) Est GFR (Non-Af Amer) POC Glucose (mg/dL) (65-110) mg/dL Random Glucose (70-110) mg/dL Calcium (8.4-10.5) mg/dL Ionized Calcium 4.6 L (4.80-5.60) mg/dL Magnesium (1.7-2.2) mg/dL Total Bilirubin (0.2-1.3) mg/dL AST (14-36) U/L ALT (7-56) U/L Alkaline Phosphatase (38-126) U/L Total Protein (5.8-8.3) g/dL Albumin (3.0-4.8) g/dL Globulin gm/dL Albumin/Globulin Ratio (1.1-1.8) Arterial Blood Potassium (3.6-5.2) mmol/L Bound Carbamazepine 0.7 L (1.0-3.0) mcg/mL Topiramate 3.1 (see note) mcg/mL Proteinase 3 (PR3) (<1.0) AI Myeloperoxidase Ab (<1.0) AI HIV 1&2 Ag/Ab, 4th Gen (Nonreactive) Blood Type Blood Type Confirm Antibody Screen BBK History Checked Laboratory Results - last 24 hr 11/29/17 11/29/17 12/02/17 06:30 15:05 06:00 WBC RBC Hgb Hct MCV MCH MCHC RDW Plt Count MPV Gran % Lymph % (Auto) [place] % (Auto) Eos % (Auto) Baso % (Auto) Gran # Lymph # (Auto) [place] # (Auto) Eos # (Auto) Baso # (Auto) PT INR APTT pCO2 pO2 HCO3 ABG pH ABG Total CO2 ABG O2 Saturation ABG Base Excess ABG Potassium Glucose Lactate FiO2 Sodium Potassium Chloride Carbon Dioxide Anion Gap BUN Creatinine Est GFR ( Amer) Est GFR (Non-Af Amer) POC Glucose (mg/dL) Random Glucose Calcium Ionized Calcium 4.6 L Magnesium Total Bilirubin AST ALT Alkaline Phosphatase Total Protein Albumin Globulin Albumin/Globulin Ratio Arterial Blood Potassium Bound Carbamazepine 0.7 L Topiramate 3.1 Proteinase 3 (PR3) Myeloperoxidase Ab HIV 1&2 Ag/Ab, 4th Gen Blood Type Blood Type Confirm Antibody Screen BBK History Checked 12/02/17 12/02/17 12/02/17 06:10 18:45 22:42 WBC RBC Hgb Hct MCV MCH MCHC RDW Plt Count MPV Gran % Lymph % (Auto) [place] % (Auto) Eos % (Auto) Baso % (Auto) Gran # Lymph # (Auto) [place] # (Auto) Eos # (Auto) Baso # (Auto) PT INR APTT pCO2 pO2 HCO3 ABG pH ABG Total CO2 ABG O2 Saturation ABG Base Excess ABG Potassium Glucose Lactate FiO2 Sodium Potassium Chloride Carbon Dioxide Anion Gap BUN Creatinine Est GFR ( Amer) Est GFR (Non-Af Amer) POC Glucose (mg/dL) 116 H 116 H Random Glucose Calcium Ionized Calcium Magnesium Total Bilirubin AST ALT Alkaline Phosphatase Total Protein Albumin Globulin Albumin/Globulin Ratio Arterial Blood Potassium Bound Carbamazepine Topiramate Proteinase 3 (PR3) <1.0 Myeloperoxidase Ab <1.0 HIV 1&2 Ag/Ab, 4th Gen Nonreactive Blood Type Blood Type Confirm Antibody Screen BBK History Checked 12/03/17 12/03/17 12/03/17 06:42 06:42 06:42 WBC 11.4 H D RBC 2.82 L Hgb 6.7 L* Hct 20.4 L* MCV 72.3 L MCH 23.8 L MCHC 32.8 RDW 15.9 H Plt Count 212 MPV 9.7 Gran % 64.8 Lymph % (Auto) 26.9 [place] % (Auto) 7.5 H Eos % (Auto) 0.6 L Baso % (Auto) 0.2 Gran # 7.41 H Lymph # (Auto) 3.1 [place] # (Auto) 0.9 H Eos # (Auto) 0.1 Baso # (Auto) 0.02 PT 10.6 INR 0.92 L APTT 21.9 L pCO2 pO2 HCO3 ABG pH ABG Total CO2 ABG O2 Saturation ABG Base Excess ABG Potassium Glucose Lactate FiO2 Sodium 141 Potassium 3.3 L Chloride 112 H Carbon Dioxide 20 L Anion Gap 12 BUN 35 H Creatinine 1.9 H Est GFR ( Amer) 33 Est GFR (Non-Af Amer) 27 POC Glucose (mg/dL) Random Glucose 120 H Calcium 8.3 L Ionized Calcium Magnesium Total Bilirubin 0.4 AST 89 H D ALT 76 H Alkaline Phosphatase 71 Total Protein 5.4 L Albumin 2.9 L Globulin 2.5 Albumin/Globulin Ratio 1.2 Arterial Blood Potassium Bound Carbamazepine Topiramate Proteinase 3 (PR3) Myeloperoxidase Ab HIV 1&2 Ag/Ab, 4th Gen Blood Type Blood Type Confirm Antibody Screen BBK History Checked 12/03/17 12/03/17 12/03/17 06:42 07:02 07:46 WBC RBC Hgb Hct MCV MCH MCHC RDW Plt Count MPV Gran % Lymph % (Auto) [place] % (Auto) Eos % (Auto) Baso % (Auto) Gran # Lymph # (Auto) [place] # (Auto) Eos # (Auto) Baso # (Auto) PT INR APTT pCO2 25 L pO2 174.0 H HCO3 15.5 L ABG pH 7.40 ABG Total CO2 16.3 L ABG O2 Saturation 99.4 H ABG Base Excess -7.5 L ABG Potassium 2.3 L* Glucose 91 Lactate 0.8 FiO2 40.0 Sodium 147.0 Potassium Chloride 124.0 H Carbon Dioxide Anion Gap BUN Creatinine Est GFR ( Amer) Est GFR (Non-Af Amer) POC Glucose (mg/dL) 120 H Random Glucose Calcium Ionized Calcium Magnesium 2.3 H Total Bilirubin AST ALT Alkaline Phosphatase Total Protein Albumin Globulin Albumin/Globulin Ratio Arterial Blood Potassium 2.3 L* Bound Carbamazepine Topiramate Proteinase 3 (PR3) Myeloperoxidase Ab HIV 1&2 Ag/Ab, 4th Gen Blood Type Blood Type Confirm Antibody Screen BBK History Checked 05/01/18 05/01/18 05/01/18 09:35 10:43 11:27 WBC RBC Hgb Hct MCV MCH MCHC RDW Plt Count MPV Gran % Lymph % (Auto) [place] % (Auto) Eos % (Auto) Baso % (Auto) Gran # Lymph # (Auto) [place] # (Auto) Eos # (Auto) Baso # (Auto) PT INR APTT pCO2 pO2 HCO3 ABG pH ABG Total CO2 ABG O2 Saturation ABG Base Excess ABG Potassium Glucose Lactate FiO2 Sodium Potassium Chloride Carbon Dioxide Anion Gap BUN Creatinine Est GFR ( Amer) Est GFR (Non-Af Amer) POC Glucose (mg/dL) 141 H Random Glucose Calcium Ionized Calcium Magnesium Total Bilirubin AST ALT Alkaline Phosphatase Total Protein Albumin Globulin Albumin/Globulin Ratio Arterial Blood Potassium Bound Carbamazepine Topiramate Proteinase 3 (PR3) Myeloperoxidase Ab HIV 1&2 Ag/Ab, 4th Gen Blood Type O POSITIVE Blood Type Confirm O POSITIVE Antibody Screen Negative BBK History Checked No verified bt Attending/Attestation - Attestation I have personally seen and examined this patient.: Yes I have fully participated in the care of the patient.: Yes I have reviewed all pertinent clinical information: Yes Notes (Text): 12/03/17 16:00 he patient was seen and examined at the bedside. Patient care was discussed with resident and ICU team in MDR rounds. Medical records, lab studies, and imaging were reviewed and management issues were discussed and formulated. Last 24H events reviewed. Agree with above treatment plans as outlined in 's note with addition of the following: Cardiopulmonary Arrest \ Acute Respiratory Failure \ Hypoxemia \ LAURITA on CKD \ Sepsis \ Seizures \ Anoxic Brain injury \ Anemia -hemodynamic monitoring to maintain MAP>65; continue ASA; cardiology team following -mechanical ventilation to maintain Spo2>90 Pao2>60; current mode PRVC -monitor for TV 6ml\kg IBW and plateau pressure <30 -ABG reviewed and CXR reviewed -continue nebs and steroids -Continue broad spectrum Abx as per ID team and f\u cultures -f\u Bun\Cr and U\o; renal team f\u -continue antiseizure meds as per neuro team and f\u repeat EEG; seizure precautions and Ativan PRN -CT head is consistent with anoxic brain injury -tube feeds diet and aspiration precautions -f\u serial H\H; family refuses blood transfusion at this time -DVT \ PUD prophylaxis -Family requesting no further escalation of care and would like to proceed with terminal extubation tomorrow CCM time 30min
[2017-12-03 15:37] LABS: PROTEINASE-3 <1.0 AI (<1.0)
[2017-12-03 16:30] VITALS: TEMP 100.3
--- NOTE | 2017-12-03 18:03 | CP.PCM.CON ---
History of Present Illness - History of Present Illness History of Present Illness: Palliative consult requested by Dr Zackary Phan Reason: Goals of care 57 year old female with history of brought in by EMS after being found unresponsive at home> ACLS>intubated. CT of head showing cerebral edema/ anoxic brain injury. EEG spikes and wave seizures in left frontotemporal region. PMH: seizure disorder, HTN. Social History: unknown. Family History: unknown. There is no Advanced Directive on file Review of Systems: intubated, unable to obtain Past Patient History - Infectious Disease Hx of Infectious Diseases: None - Past Social History Smoking Status: Unknown If Ever Smoked - CARDIAC Hx Hypertension: Yes - NEUROLOGICAL Hx Seizures: Yes - MUSCULOSKELETAL/RHEUMATOLOGICAL Hx Falls: Yes (SEIZURES) - PSYCHIATRIC Hx Substance Use: No Meds Allergies/Adverse Reactions: Allergies Allergy/AdvReac Type Severity Reaction Status Date / Time Unobtainable Allergy Verified 11/28/17 17:09 - Medications Medications: Current Medications Albuterol/Ipratropium (Duoneb 3 Mg/0.5 Mg (3 Ml) Ud) 3 ml IH Q2H PRN PRN Reason: Shortness of Breath Last Admin: 12/01/17 05:20 Dose: 3 ml Albuterol/Ipratropium (Duoneb 3 Mg/0.5 Mg (3 Ml) Ud) 3 ml IH [id number] [facility] Last Admin: 12/03/17 13:42 Dose: 3 ml Amlodipine Besylate (Norvasc) 10 mg PO DAILY [facility] Last Admin: 12/03/17 09:04 Dose: 10 mg Artificial Tears (Artificial Tears) 1 ml OU TID PRN PRN Reason: Dry eyes Last Admin: 11/30/17 16:00 Dose: 1 drop Aspirin (Aspirin Chewable) 81 mg PO DAILY [facility] Last Admin: 12/03/17 09:06 Dose: 81 mg Enoxaparin Sodium (Lovenox) 30 mg SC DAILY [facility] PRN Reason: Protocol Last Admin: 12/03/17 09:07 Dose: 30 mg Hydralazine HCl (Apresoline) 10 mg IVP Q6H PRN PRN Reason: SBP>170 Last Admin: 11/30/17 20:02 Dose: 10 mg Cefepime HCl (Maxipime 2gm) 2 gm in 100 mls @ 100 mls/hr IVPB Q12 [facility] PRN Reason: Protocol Stop: 12/03/17 22:01 Last Admin: 12/03/17 09:06 Dose: 100 mls/hr Nicardipine HCl (Cardene Iv Premix) 20 mg in 200 mls @ 100 mls/hr IV .Q2H PRN; Protocol; 10 MG/HR PRN Reason: TITRATE PER MD ORDER Last Admin: 11/29/17 16:15 Dose: 100 mls/hr Insulin Human Regular 100 (units/ Sodium Chloride) 100 mls @ 4 mls/hr IV .Q24H PRN; Protocol; 4 UNITS/HR PRN Reason: TITRATE PER MD ORDER Propofol (Diprivan) 1,000 mg in 100 mls @ 3.919 mls/hr IV .Q24H PRN; Protocol; 5 MCG/KG/MIN PRN Reason: TITRATE PER MD ORDER Last Titration: 12/03/17 17:52 Dose: 50 mcg/kg/min, 39.191 mls/hr Levetiracetam 1,500 mg/ Sodium (Chloride) 115 mls @ 460 mls/hr IV Q12 [facility] Lorazepam (Ativan) 2 mg IVP Q15MIN PRN; Protocol PRN Reason: Seizure activity Methylprednisolone (Solu-Medrol) 20 mg IVP Q8H [facility] Last Admin: 12/03/17 17:17 Dose: 20 mg Metoprolol Tartrate (Lopressor) 50 mg PO BID [facility] Last Admin: 12/03/17 17:17 Dose: 50 mg Oxcarbazepine (Trileptal) 300 mg PO BID [facility] PRN Reason: Protocol Last Admin: 12/03/17 17:18 Dose: 300 mg Pantoprazole Sodium (Protonix Inj) 40 mg IVP Q12 [facility] Last Admin: 12/03/17 09:06 Dose: 40 mg Valproate Sodium (Depakene Oral Soln) 500 mg PO BID [facility] Last Admin: 12/03/17 17:17 Dose: 500 mg Physical Exam - Constitutional Appears: No Acute Distress - Head Exam Head Exam: NORMOCEPHALIC - Eye Exam Eye Exam: Normal appearance - ENT Exam ENT Exam: Mucous Membranes Moist - Respiratory Exam Respiratory Exam: Decreased Breath Sounds - Cardiovascular Exam Cardiovascular Exam: REGULAR RHYTHM, JVD, +S1, +S2 - GI/Abdominal Exam GI & Abdominal Exam: Hypoactive Bowel Sounds, Soft - Extremities Exam Extremities exam: Positive for: pedal edema, pedal pulses present - Neurological Exam Neurological exam: Altered - Skin Skin Exam: Dry, Warm - Additional Findings Additional findings: palliative performance scale rating 10% Results - Vital Signs Recent Vital Signs: Last Vital Signs Temp 100.3 F H 12/03/17 16:30 Pulse 73 12/03/17 17:17 Resp 27 H 12/03/17 12:40 BP 131/54 L 12/03/17 17:17 Pulse Ox 100 12/03/17 16:00 - Labs Result Diagrams: 12/03/17 06:42 12/03/17 06:42 Labs: Laboratory Results - last 24 hr 11/29/17 11/29/17 12/02/17 06:30 15:05 06:00 WBC RBC Hgb Hct MCV MCH MCHC RDW Plt Count MPV Gran % Lymph % (Auto) [place] % (Auto) Eos % (Auto) Baso % (Auto) Gran # Lymph # (Auto) [place] # (Auto) Eos # (Auto) Baso # (Auto) PT INR APTT pCO2 pO2 HCO3 ABG pH ABG Total CO2 ABG O2 Saturation ABG Base Excess ABG Potassium Glucose Lactate FiO2 Sodium Potassium Chloride Carbon Dioxide Anion Gap BUN Creatinine Est GFR ( Amer) Est GFR (Non-Af Amer) POC Glucose (mg/dL) Random Glucose Calcium Ionized Calcium 4.6 L Magnesium Total Bilirubin AST ALT Alkaline Phosphatase Total Protein Albumin Globulin Albumin/Globulin Ratio Arterial Blood Potassium Bound Carbamazepine 0.7 L Topiramate 3.1 Proteinase 3 (PR3) Myeloperoxidase Ab HIV 1&2 Ag/Ab, 4th Gen Blood Type Blood Type Confirm Antibody Screen BBK History Checked 12/02/17 12/02/17 12/02/17 06:10 18:45 22:42 WBC RBC Hgb Hct MCV MCH MCHC RDW Plt Count MPV Gran % Lymph % (Auto) [place] % (Auto) Eos % (Auto) Baso % (Auto) Gran # Lymph # (Auto) [place] # (Auto) Eos # (Auto) Baso # (Auto) PT INR APTT pCO2 pO2 HCO3 ABG pH ABG Total CO2 ABG O2 Saturation ABG Base Excess ABG Potassium Glucose Lactate FiO2 Sodium Potassium Chloride Carbon Dioxide Anion Gap BUN Creatinine Est GFR ( Amer) Est GFR (Non-Af Amer) POC Glucose (mg/dL) 116 H 116 H Random Glucose Calcium Ionized Calcium Magnesium Total Bilirubin AST ALT Alkaline Phosphatase Total Protein Albumin Globulin Albumin/Globulin Ratio Arterial Blood Potassium Bound Carbamazepine Topiramate Proteinase 3 (PR3) <1.0 Myeloperoxidase Ab <1.0 HIV 1&2 Ag/Ab, 4th Gen Nonreactive Blood Type Blood Type Confirm Antibody Screen BBK History Checked 12/03/17 12/03/17 12/03/17 06:42 06:42 06:42 WBC 11.4 H D RBC 2.82 L Hgb 6.7 L* Hct 20.4 L* MCV 72.3 L MCH 23.8 L MCHC 32.8 RDW 15.9 H Plt Count 212 MPV 9.7 Gran % 64.8 Lymph % (Auto) 26.9 [place] % (Auto) 7.5 H Eos % (Auto) 0.6 L Baso % (Auto) 0.2 Gran # 7.41 H Lymph # (Auto) 3.1 [place] # (Auto) 0.9 H Eos # (Auto) 0.1 Baso # (Auto) 0.02 PT 10.6 INR 0.92 L APTT 21.9 L pCO2 pO2 HCO3 ABG pH ABG Total CO2 ABG O2 Saturation ABG Base Excess ABG Potassium Glucose Lactate FiO2 Sodium 141 Potassium 3.3 L Chloride 112 H Carbon Dioxide 20 L Anion Gap 12 BUN 35 H Creatinine 1.9 H Est GFR ( Amer) 33 Est GFR (Non-Af Amer) 27 POC Glucose (mg/dL) Random Glucose 120 H Calcium 8.3 L Ionized Calcium Magnesium Total Bilirubin 0.4 AST 89 H D ALT 76 H Alkaline Phosphatase 71 Total Protein 5.4 L Albumin 2.9 L Globulin 2.5 Albumin/Globulin Ratio 1.2 Arterial Blood Potassium Bound Carbamazepine Topiramate Proteinase 3 (PR3) Myeloperoxidase Ab HIV 1&2 Ag/Ab, 4th Gen Blood Type Blood Type Confirm Antibody Screen BBK History Checked 12/03/17 12/03/17 12/03/17 06:42 07:02 07:46 WBC RBC Hgb Hct MCV MCH MCHC RDW Plt Count MPV Gran % Lymph % (Auto) [place] % (Auto) Eos % (Auto) Baso % (Auto) Gran # Lymph # (Auto) [place] # (Auto) Eos # (Auto) Baso # (Auto) PT INR APTT pCO2 25 L pO2 174.0 H HCO3 15.5 L ABG pH 7.40 ABG Total CO2 16.3 L ABG O2 Saturation 99.4 H ABG Base Excess -7.5 L ABG Potassium 2.3 L* Glucose 91 Lactate 0.8 FiO2 40.0 Sodium 147.0 Potassium Chloride 124.0 H Carbon Dioxide Anion Gap BUN Creatinine Est GFR ( Amer) Est GFR (Non-Af Amer) POC Glucose (mg/dL) 120 H Random Glucose Calcium Ionized Calcium Magnesium 2.3 H Total Bilirubin AST ALT Alkaline Phosphatase Total Protein Albumin Globulin Albumin/Globulin Ratio Arterial Blood Potassium 2.3 L* Bound Carbamazepine Topiramate Proteinase 3 (PR3) Myeloperoxidase Ab HIV 1&2 Ag/Ab, 4th Gen Blood Type Blood Type Confirm Antibody Screen BBK History Checked 12/03/17 12/03/17 12/03/17 09:35 10:43 11:27 WBC RBC Hgb Hct MCV MCH MCHC RDW Plt Count MPV Gran % Lymph % (Auto) [place] % (Auto) Eos % (Auto) Baso % (Auto) Gran # Lymph # (Auto) [place] # (Auto) Eos # (Auto) Baso # (Auto) PT INR APTT pCO2 pO2 HCO3 ABG pH ABG Total CO2 ABG O2 Saturation ABG Base Excess ABG Potassium Glucose Lactate FiO2 Sodium Potassium Chloride Carbon Dioxide Anion Gap BUN Creatinine Est GFR ( Amer) Est GFR (Non-Af Amer) POC Glucose (mg/dL) 141 H Random Glucose Calcium Ionized Calcium Magnesium Total Bilirubin AST ALT Alkaline Phosphatase Total Protein Albumin Globulin Albumin/Globulin Ratio Arterial Blood Potassium Bound Carbamazepine Topiramate Proteinase 3 (PR3) Myeloperoxidase Ab HIV 1&2 Ag/Ab, 4th Gen Blood Type O POSITIVE Blood Type Confirm O POSITIVE Antibody Screen Negative BBK History Checked No verified bt Assessment & Plan - Assessment and Plan (Free Text) Assessment: 57 year old female with history of HTN, seizures who was admitted s/p cardiac arrest with anoxic brain injury, SIRS, LAURITA, anemia,hematuria and seizures Patients son and at bedside. Son spoke with flight security specialist and understands patients medical condition. He is aware of the benefits and burdens of life prolonging interventions. Son expressed that his mother would not want to be kept alive under these circumstances. He is coming to terms with the the gravity of this situation. He has made his mother DNR/DNI. Son has also decided to proceed with terminal extubation tomorrow. Extubation process explained. End of life counseling provided. Psychosocial support given. Spiritual support declined at this time. Time spent with family in goals of care and end of life counseling, 30 minutes Plan: Goals of care and advance care planning: DNR/DNI End of life counseling ID, Renal, Cardiology, Neurology,Pulmonary notes reviewed. Medications reviewed. Continue current medical management
--- NOTE | 2017-12-03 19:19 | CP.PCM.PN ---
Subjective - Date & Time of Evaluation Date of Evaluation: 12/03/17 Time of Evaluation: 11:00 - Subjective Subjective: Patient seizing immediately upon withdrawal of propofol; Objective - Vital Signs/Intake and Output Vital Signs (last 24 hours): Temp Pulse Resp BP Pulse Ox 100.3 F H 85 27 H 128/45 L 100 12/03/17 16:30 12/03/17 18:00 12/03/17 12:40 12/03/17 18:00 12/03/17 18:00 Intake and Output: 12/03/17 12/04/17 18:59 06:59 Intake Total 2303 Output Total 630 Balance 1673 - Medications Medications: Current Medications Albuterol/Ipratropium (Duoneb 3 Mg/0.5 Mg (3 Ml) Ud) 3 ml IH Q2H PRN PRN Reason: Shortness of Breath Last Admin: 12/01/17 05:20 Dose: 3 ml Albuterol/Ipratropium (Duoneb 3 Mg/0.5 Mg (3 Ml) Ud) 3 ml IH [id number] [facility] Last Admin: 12/03/17 13:42 Dose: 3 ml Amlodipine Besylate (Norvasc) 10 mg PO DAILY [facility] Last Admin: 12/03/17 09:04 Dose: 10 mg Artificial Tears (Artificial Tears) 1 ml OU TID PRN PRN Reason: Dry eyes Last Admin: 11/30/17 16:00 Dose: 1 drop Aspirin (Aspirin Chewable) 81 mg PO DAILY [facility] Last Admin: 12/03/17 09:06 Dose: 81 mg Enoxaparin Sodium (Lovenox) 30 mg SC DAILY [facility] PRN Reason: Protocol Last Admin: 12/03/17 09:07 Dose: 30 mg Hydralazine HCl (Apresoline) 10 mg IVP Q6H PRN PRN Reason: SBP>170 Last Admin: 11/30/17 20:02 Dose: 10 mg Cefepime HCl (Maxipime 2gm) 2 gm in 100 mls @ 100 mls/hr IVPB Q12 [facility] PRN Reason: Protocol Stop: 12/03/17 22:01 Last Admin: 12/03/17 09:06 Dose: 100 mls/hr Nicardipine HCl (Cardene Iv Premix) 20 mg in 200 mls @ 100 mls/hr IV .Q2H PRN; Protocol; 10 MG/HR PRN Reason: TITRATE PER MD ORDER Last Admin: 11/29/17 16:15 Dose: 100 mls/hr Insulin Human Regular 100 (units/ Sodium Chloride) 100 mls @ 4 mls/hr IV .Q24H PRN; Protocol; 4 UNITS/HR PRN Reason: TITRATE PER MD ORDER Propofol (Diprivan) 1,000 mg in 100 mls @ 3.919 mls/hr IV .Q24H PRN; Protocol; 5 MCG/KG/MIN PRN Reason: TITRATE PER MD ORDER Last Titration: 12/03/17 17:52 Dose: 50 mcg/kg/min, 39.191 mls/hr Levetiracetam 1,500 mg/ Sodium (Chloride) 115 mls @ 460 mls/hr IV Q12 [facility] Lorazepam (Ativan) 2 mg IVP Q15MIN PRN; Protocol PRN Reason: Seizure activity Last Admin: 12/03/17 18:00 Dose: 2 mg Methylprednisolone (Solu-Medrol) 20 mg IVP Q8H [facility] Last Admin: 12/03/17 17:17 Dose: 20 mg Metoprolol Tartrate (Lopressor) 50 mg PO BID [facility] Last Admin: 12/03/17 17:17 Dose: 50 mg Oxcarbazepine (Trileptal) 300 mg PO BID [facility] PRN Reason: Protocol Last Admin: 12/03/17 17:18 Dose: 300 mg Pantoprazole Sodium (Protonix Inj) 40 mg IVP Q12 [facility] Last Admin: 12/03/17 09:06 Dose: 40 mg Valproate Sodium (Depakene Oral Soln) 500 mg PO BID [facility] Last Admin: 12/03/17 17:17 Dose: 500 mg - Labs Labs: 12/03/17 06:42 12/03/17 06:42 PT 10.6 SECONDS (9.4-12.5) 12/03/17 06:42 INR 0.92 (0.93-1.08) L 12/03/17 06:42 APTT 21.9 Seconds (25.1-36.5) L 12/03/17 06:42 - Constitutional Appears: Non-toxic, No Acute Distress - Respiratory Exam Respiratory Exam: Rales Additional comments: tachypneic - Cardiovascular Exam Cardiovascular Exam: +S1, +S2. absent: Gallop - GI/Abdominal Exam GI & Abdominal Exam: Soft. absent: Distended - Extremities Exam Additional comments: moderately edematous legs; - Neurological Exam Additional comments: sedated; - Skin Skin Exam: Warm. absent: Cyanosis Assessment and Plan (1) Acute kidney injury Assessment & Plan: LAURITA, slightly improved; ATN by urine sediment; still question of underlying GN due to hematuria/proteinuria; serologic workup in progress, however, given family's decision to opt for terminal extubation, will not pursue further workup ; Status: Acute (2) SIRS (systemic inflammatory response syndrome) Status: Acute (3) HTN (hypertension) Assessment & Plan: Stable on metoprolol only, continue same; Status: Acute (4) Hematuria Assessment & Plan: See above; Status: Acute
[2017-12-03] MEDS: levETIRAcetam 1,500 MG in Sodium Chloride 0.9% 100 ML IV SCH (22:19)
[2017-12-04] MEDS: MethylPREDNISolone 40 mg Vial IVP SCH ×2 (01:00→10:26)
[2017-12-04] MEDS: Albuterol-Ipratrop 3 mg / 0.5 (3 ml) UD IH SCH ×2 (01:11→07:31)
[2017-12-04] MEDS: Propofol 10 mg/ml 1,000 MG/100 ML VIAL IV PRN ×2 (02:03→05:15)
[2017-12-04 05:58] LABS: ARTERIAL BLOOD GAS HCO3 18.3 mmol/L (21-28); ARTERIAL BLOOD GAS O2 SAT 100.1 % (95-98); ARTERIAL BLOOD GAS PCO2 31 mm/Hg (35-45); ARTERIAL BLOOD GAS PH 7.38 (7.35-7.45); ARTERIAL BLOOD GAS TCO2 19.3 mmol.L (22-28)
[2017-12-04 07:20] LABS: BASO # 0.03 K/mm3 (0.0-2.0); BASO % 0.3 % (0.0-3.0); EOS # 0.2 (0.0-0.7); EOS % 2.3 % (1.5-5.0); GRAN # 6.31 (1.4-6.5); GRAN % 67.4 % (50.0-68.0); LYMPH # 2.1 (1.2-3.4); LYMPH % 21.9 % (22.0-35.0); MEAN CELL VOLUME 73.7 fl (80.0-105.0); MEAN CORPUSCULAR HEMOGLOBIN 23.7 pg (25.0-35.0); MEAN CORPUSCULAR HGB CONC 32.1 g/dl (31.0-37.0); MEAN PLATELET VOLUME 9.6 fl (7.0-11.0); MONO # 0.8 (0.1-0.6); MONO % 8.1 % (1.0-6.0); RBC 2.66 10^6/uL (3.5-6.1); RED CELL DISTRIBUTION WIDTH 16.1 % (11.5-14.5); WHITE BLOOD COUNT 9.4 10^3/ul (4.5-11.0)
[2017-12-04 07:32] LABS: ALB/GLOB RATIO 1.2 (1.1-1.8); ALBUMIN 2.9 g/dL (3.0-4.8); CALCIUM 8.5 mg/dL (8.4-10.5)
[2017-12-04 07:33] LABS: INR 0.87 (0.93-1.08); PARTIAL THROMBOPLASTIN TIME 23.3 Seconds (25.1-36.5)
[2017-12-04 07:36] LABS: HEMOGLOBIN 6.3 g/dL (12.0-16.0)
--- NOTE | 2017-12-04 09:34 | RAD ---
HISTORY: intubated COMPARISON: December 03, 2017. FINDINGS: LUNGS: No active pulmonary disease. PLEURA: No significant pleural effusion identified, no pneumothorax apparent. CARDIOVASCULAR: Cardiomegaly. No evidence of acute, significant cardiovascular disease. Venous access catheter in satisfactory position. OSSEOUS STRUCTURES: No significant abnormalities. VISUALIZED UPPER ABDOMEN: Normal. OTHER FINDINGS: Satisfactory position ventilatory, vascular and nasogastric apparatus. IMPRESSION: No active pulmonary disease. Satisfactory position of recently placed venous access catheter. Remaining support apparatus in satisfactory position.
[2017-12-04] MEDS ORDERED: Morphine 4 mg/ml ISec IVP STA ×2 (10:17→10:50)
[2017-12-04] MEDS: levETIRAcetam 1,500 MG in Sodium Chloride 0.9% 100 ML IV SCH (10:19)
[2017-12-04] MEDS ORDERED: DiphenhydrAMINE 50 mg/ml Inj IVP PRN (10:22)
[2017-12-04] MEDS: Valproic Acid 250 mg/5 ml UD Cup PO SCH (10:27)
[2017-12-04] MEDS: Enoxaparin 30 mg Syringe SC SCH (10:28)
[2017-12-04] MEDS ORDERED: Morphine PCA 1 mg/ml (30ml) 30 ML IV PRN ×2 (11:21→11:45)
--- NOTE | 2017-12-04 12:38 | CP.PCM.PN ---
Subjective - Date & Time of Evaluation Date of Evaluation: 12/04/17 Time of Evaluation: 10:00 - Subjective Subjective: intubated, unresponsive. No acute events overnight Objective - Vital Signs/Intake and Output Vital Signs (last 24 hours): Temp Pulse Resp BP Pulse Ox 100.3 F H 56 L 20 110/54 L 56 L 12/03/17 16:30 12/04/17 06:30 12/04/17 07:31 12/04/17 06:30 12/04/17 07:31 Intake and Output: 12/04/17 12/04/17 06:59 18:59 Intake Total 1365 100 Output Total 350 Balance 1015 100 - Medications Medications: Current Medications Albuterol/Ipratropium (Duoneb 3 Mg/0.5 Mg (3 Ml) Ud) 3 ml IH Q2H PRN PRN Reason: Shortness of Breath Last Admin: 12/01/17 05:20 Dose: 3 ml Diphenhydramine HCl (Benadryl) 50 mg IVP Q4H PRN PRN Reason: Allergy symptoms Last Admin: 12/04/17 10:33 Dose: 50 mg Nicardipine HCl (Cardene Iv Premix) 20 mg in 200 mls @ 100 mls/hr IV .Q2H PRN; Protocol; 10 MG/HR PRN Reason: TITRATE PER MD ORDER Last Admin: 11/29/17 16:15 Dose: 100 mls/hr Levetiracetam 1,500 mg/ Sodium (Chloride) 115 mls @ 460 mls/hr IV Q12 [facility] [place] Last Admin: 12/04/17 10:19 Dose: 460 mls/hr Morphine Sulfate (Morphine Junior Sales Representative 1 Mg/Ml) 30 mls @ 2 mls/hr IV PRN PRN; Protocol ; 2 MG/HR PRN Reason: HOUSE CALLS NURSE PER MD ORDER Lorazepam (Ativan) 2 mg IVP Q15MIN PRN; Protocol PRN Reason: Seizure activity Last Admin: 12/04/17 11:11 Dose: 2 mg Scopolamine (Transderm-Scop) 1 patch TD Q3D [facility] [place] Last Admin: 12/04/17 10:34 Dose: 1 patch Valproate Sodium (Depakene Oral Soln) 500 mg PO BID [facility] [place] Last Admin: 12/04/17 10:27 Dose: Not Given - Labs Labs: 12/04/17 05:00 12/04/17 05:00 PT 10.0 SECONDS (9.4-12.5) 12/04/17 05:00 INR 0.87 (0.93-1.08) L 12/04/17 05:00 APTT 23.3 Seconds (25.1-36.5) L 12/04/17 05:00 - Constitutional Appears: Chronically Ill - Eye Exam Eye Exam: Normal appearance - ENT Exam ENT Exam: Mucous Membranes Moist - Respiratory Exam Respiratory Exam: Decreased Breath Sounds - Cardiovascular Exam Cardiovascular Exam: REGULAR RHYTHM, +S1, +S2 - GI/Abdominal Exam GI & Abdominal Exam: Soft - Neurological Exam Additional comments: vegetative - Skin Skin Exam: Dry, Warm Assessment and Plan - Assessment and Plan (Free Text) Assessment: 57 rosy old female with hsity of HTN and seizure who is admitted s/p cardiopulmonary arrest with anoxic brasin injury, LAURITA, anemia, hematuria. Patient's son and daughter in law at bedside. Family has decided to proceed with terminal extubation. Family aware that the patient is not expected to survive. Family requesting that patient be kept comfortable. Psychosocial support and end of life counseling provided Time spent with family in goals of care and end of life counseling, 40 minutes Plan: Morphine 4mg IVP, Ativan 2 mg IVP, Benadryl 50 mg prior to extubation. Morphine 2 mg IV as needed IVP, Morphine 2 mg continuos HOUSE CALLS NURSE End of life counseling
--- NOTE | 2017-12-04 13:26 | CP.CCUPN ---
<Lorenzo Stern - Last Filed: 12/04/17 14:26> CCU Subjective - Physician Review Subjective (Free Text): Patient seen and examined at bedside in no acute distress. Patient was not seizing at the time. ROS not obtained as patient intubated and sedated. CCU Objective - Vital Signs / Intake & Output Intake and Output (Last 8hrs): Intake & Output 12/03/17 12/04/17 12/04/17 22:59 06:59 14:59 Intake Total 2380 1188 100 Output Total 630 350 Balance 1750 838 100 Intake: IV 1180 828 100 right internal jugular 780 628 Oral 300 Tube Feeding 900 360 Output: Urine 600 350 Urethral (Bojorquez) 600 350 Emesis 30 Other: # Bowel Movements 1 - Physical Exam Head: Positive for: Atraumatic, Normocephalic Pupils: Positive for: Other (pupillary reflex in tact) Extroacular Muscles: Positive for: Other (opens eyes spontaneously and now on sternal rub) Mouth: Positive for: Dry, Other (+ gag, ETT tube in oropharynx) Respiratory/Chest: Positive for: Clear to Auscultation. Negative for: Wheezes Cardiovascular: Positive for: Regular Rate and Rhythm Abdomen: Negative for: Distention Upper Extremity: Positive for: Normal Inspection, Other (spontaneous non- purposeful movement of upper extremities) Lower Extremity: Positive for: Normal Inspection Neurological: Negative for: GCS=15 (3), Speech Normal Skin: Positive for: Warm Psychiatric: Positive for: Other (sedated) - Medications Active Medications: Active Medications Generic Name Dose Route Start Last Admin Trade Name Freq PRN Reason Stop Dose Admin Albuterol/Ipratropium 3 ml 12/01/17 05:09 12/01/17 05:20 Duoneb 3 Mg/0.5 Mg (3 Ml) Ud IH 3 ml Q2H PRN Administration Shortness of Breath Diphenhydramine HCl 50 mg 12/04/17 10:22 12/04/17 10:33 Benadryl IVP 50 mg Q4H PRN Administration Allergy symptoms Nicardipine HCl 20 mg in 200 mls @ 100 mls/hr 11/29/17 16:36 11/29/17 16:15 Cardene Iv Premix IV 100 mls/hr .Q2H PRN Administration TITRATE PER MD ORDER Protocol 10 MG/HR Levetiracetam 1,500 mg/ Sodium 115 mls @ 460 mls/hr 12/03/17 14:35 12/04/17 10:19 Chloride IV 460 mls/hr Q12 ANTONINO Administration Morphine Sulfate 30 mls @ 2 mls/hr 12/04/17 11:45 Morphine Electrical Systems Designer 1 Mg/Ml IV PRN PRN KNIT GOODS MENDER PER MD ORDER Protocol 2 MG/HR Lorazepam 2 mg 12/03/17 17:55 12/04/17 11:11 Ativan IVP 2 mg Q15MIN PRN Administration Seizure activity Protocol Scopolamine 1 patch 12/04/17 10:30 12/04/17 10:34 Transderm-Scop TD 1 patch Q3D ANTONINO Administration Valproate Sodium 500 mg 12/03/17 10:00 12/04/17 10:27 Depakene Oral Soln PO Not Given BID ANTONINO - Patient Studies Lab Studies: Microbiology Studies 12/01/17 16:30 Blood Culture - Preliminary Blood-Venous NO GROWTH AFTER 48 HOURS 12/01/17 16:15 Blood Culture - Preliminary Blood-Venous NO GROWTH AFTER 48 HOURS 12/01/17 18:15 Urine Culture - Final Urine,Bojorquez No Growth (<1,000 CFU/ML) 12/01/17 17:00 Gram Stain - Final Trachasp Sputum Culture - Final No growth. Lab Studies 12/04/17 12/04/17 12/04/17 Range/Units 07:30 06:54 05:50 WBC (4.5-11.0) 10^3/ul RBC (3.5-6.1) 10^6/uL Hgb (12.0-16.0) g/dL Hct (36.0-48.0) % MCV (80.0-105.0) fl MCH (25.0-35.0) pg MCHC (31.0-37.0) g/dl RDW (11.5-14.5) % Plt Count (120.0-450.0) 10^3/uL MPV (7.0-11.0) fl Gran % (50.0-68.0) % Lymph % (Auto) (22.0-35.0) % [place] % (Auto) (1.0-6.0) % Eos % (Auto) (1.5-5.0) % Baso % (Auto) (0.0-3.0) % Gran # (1.4-6.5) Lymph # (Auto) (1.2-3.4) [place] # (Auto) (0.1-0.6) Eos # (Auto) (0.0-0.7) Baso # (Auto) (0.0-2.0) K/mm3 PT (9.4-12.5) SECONDS INR (0.93-1.08) APTT (25.1-36.5) Seconds pCO2 31 L (35-45) mm/Hg pO2 145.0 H (80-100) mm/Hg HCO3 18.3 L (21-28) mmol/L ABG pH 7.38 (7.35-7.45) ABG Total CO2 19.3 L (22-28) mmol.L ABG O2 Saturation 100.1 H (95-98) % ABG Base Excess -5.7 L (-2.0-3.0) mmol/L ABG Potassium 3.2 L (3.6-5.2) mmol/L Glucose 103 (65-105) mg/dl Lactate 0.8 (0.7-2.1) mmol/L FiO2 40.0 % Sodium 144.0 (132-148) mmol/L Potassium (3.6-5.0) mmol/L Chloride 122.0 H (98-107) mmol/L Carbon Dioxide (21-33) mmol/L Anion Gap (10-20) BUN (7-21) mg/dL Creatinine (0.7-1.2) mg/dl Est GFR ( Amer) Est GFR (Non-Af Amer) POC Glucose (mg/dL) 122 H 128 H (65-110) mg/dL Random Glucose (70-110) mg/dL Calcium (8.4-10.5) mg/dL Ionized Calcium (4.80-5.60) mg/dL Total Bilirubin (0.2-1.3) mg/dL AST (14-36) U/L ALT (7-56) U/L Alkaline Phosphatase (38-126) U/L Total Protein (5.8-8.3) g/dL Albumin (3.0-4.8) g/dL Globulin gm/dL Albumin/Globulin Ratio (1.1-1.8) Arterial Blood Potassium 3.2 L (3.6-5.2) mmol/L Urine Eosinophils Urine Osmolality (300-1000) mosm/kg Ur Random Creatinine mg/dL U Random Total Protein mg/L Ur Random Uric Acid mg/dL Proteinase 3 (PR3) (<1.0) AI Myeloperoxidase Ab (<1.0) AI 12/04/17 12/04/17 12/04/17 Range/Units 05:00 05:00 05:00 WBC 9.4 (4.5-11.0) 10^3/ul RBC 2.66 L (3.5-6.1) 10^6/uL Hgb 6.3 L* (12.0-16.0) g/dL Hct 19.6 L* (36.0-48.0) % MCV 73.7 L (80.0-105.0) fl MCH 23.7 L (25.0-35.0) pg MCHC 32.1 (31.0-37.0) g/dl RDW 16.1 H (11.5-14.5) % Plt Count 203 (120.0-450.0) 10^3/uL MPV 9.6 (7.0-11.0) fl Gran % 67.4 (50.0-68.0) % Lymph % (Auto) 21.9 L (22.0-35.0) % [place] % (Auto) 8.1 H (1.0-6.0) % Eos % (Auto) 2.3 (1.5-5.0) % Baso % (Auto) 0.3 (0.0-3.0) % Gran # 6.31 (1.4-6.5) Lymph # (Auto) 2.1 (1.2-3.4) [place] # (Auto) 0.8 H (0.1-0.6) Eos # (Auto) 0.2 (0.0-0.7) Baso # (Auto) 0.03 (0.0-2.0) K/mm3 PT 10.0 (9.4-12.5) SECONDS INR 0.87 L (0.93-1.08) APTT 23.3 L (25.1-36.5) Seconds pCO2 (35-45) mm/Hg pO2 (80-100) mm/Hg HCO3 (21-28) mmol/L ABG pH (7.35-7.45) ABG Total CO2 (22-28) mmol.L ABG O2 Saturation (95-98) % ABG Base Excess (-2.0-3.0) mmol/L ABG Potassium (3.6-5.2) mmol/L Glucose (65-105) mg/dl Lactate (0.7-2.1) mmol/L FiO2 % Sodium 142 (132-148) mmol/L Potassium 3.5 L (3.6-5.0) mmol/L Chloride 112 H (98-107) mmol/L Carbon Dioxide 21 (21-33) mmol/L Anion Gap 12 (10-20) BUN 36 H (7-21) mg/dL Creatinine 1.7 H (0.7-1.2) mg/dl Est GFR ( Amer) 38 Est GFR (Non-Af Amer) 31 POC Glucose (mg/dL) (65-110) mg/dL Random Glucose 113 H (70-110) mg/dL Calcium 8.5 (8.4-10.5) mg/dL Ionized Calcium (4.80-5.60) mg/dL Total Bilirubin 0.3 (0.2-1.3) mg/dL AST 73 H (14-36) U/L ALT 62 H (7-56) U/L Alkaline Phosphatase 65 (38-126) U/L Total Protein 5.4 L (5.8-8.3) g/dL Albumin 2.9 L (3.0-4.8) g/dL Globulin 2.4 gm/dL Albumin/Globulin Ratio 1.2 (1.1-1.8) Arterial Blood Potassium (3.6-5.2) mmol/L Urine Eosinophils Urine Osmolality (300-1000) mosm/kg Ur Random Creatinine mg/dL U Random Total Protein mg/L Ur Random Uric Acid mg/dL Proteinase 3 (PR3) (<1.0) AI Myeloperoxidase Ab (<1.0) AI 12/04/17 12/03/17 12/03/17 Range/Units 03:54 18:17 17:50 WBC (4.5-11.0) 10^3/ul RBC (3.5-6.1) 10^6/uL Hgb (12.0-16.0) g/dL Hct (36.0-48.0) % MCV (80.0-105.0) fl MCH (25.0-35.0) pg MCHC (31.0-37.0) g/dl RDW (11.5-14.5) % Plt Count (120.0-450.0) 10^3/uL MPV (7.0-11.0) fl Gran % (50.0-68.0) % Lymph % (Auto) (22.0-35.0) % [place] % (Auto) (1.0-6.0) % Eos % (Auto) (1.5-5.0) % Baso % (Auto) (0.0-3.0) % Gran # (1.4-6.5) Lymph # (Auto) (1.2-3.4) [place] # (Auto) (0.1-0.6) Eos # (Auto) (0.0-0.7) Baso # (Auto) (0.0-2.0) K/mm3 PT (9.4-12.5) SECONDS INR (0.93-1.08) APTT (25.1-36.5) Seconds pCO2 (35-45) mm/Hg pO2 (80-100) mm/Hg HCO3 (21-28) mmol/L ABG pH (7.35-7.45) ABG Total CO2 (22-28) mmol.L ABG O2 Saturation (95-98) % ABG Base Excess (-2.0-3.0) mmol/L ABG Potassium (3.6-5.2) mmol/L Glucose (65-105) mg/dl Lactate (0.7-2.1) mmol/L FiO2 % Sodium (132-148) mmol/L Potassium (3.6-5.0) mmol/L Chloride (98-107) mmol/L Carbon Dioxide (21-33) mmol/L Anion Gap (10-20) BUN (7-21) mg/dL Creatinine (0.7-1.2) mg/dl Est GFR ( Amer) Est GFR (Non-Af Amer) POC Glucose (mg/dL) 127 H 91 (65-110) mg/dL Random Glucose (70-110) mg/dL Calcium (8.4-10.5) mg/dL Ionized Calcium (4.80-5.60) mg/dL Total Bilirubin (0.2-1.3) mg/dL AST (14-36) U/L ALT (7-56) U/L Alkaline Phosphatase (38-126) U/L Total Protein (5.8-8.3) g/dL Albumin (3.0-4.8) g/dL Globulin gm/dL Albumin/Globulin Ratio (1.1-1.8) Arterial Blood Potassium (3.6-5.2) mmol/L Urine Eosinophils Negative Urine Osmolality (300-1000) mosm/kg Ur Random Creatinine mg/dL U Random Total Protein mg/L Ur Random Uric Acid mg/dL Proteinase 3 (PR3) (<1.0) AI Myeloperoxidase Ab (<1.0) AI 12/03/17 12/02/17 12/02/17 Range/Units 17:50 06:10 06:00 WBC (4.5-11.0) 10^3/ul RBC (3.5-6.1) 10^6/uL Hgb (12.0-16.0) g/dL Hct (36.0-48.0) % MCV (80.0-105.0) fl MCH (25.0-35.0) pg MCHC (31.0-37.0) g/dl RDW (11.5-14.5) % Plt Count (120.0-450.0) 10^3/uL MPV (7.0-11.0) fl Gran % (50.0-68.0) % Lymph % (Auto) (22.0-35.0) % [place] % (Auto) (1.0-6.0) % Eos % (Auto) (1.5-5.0) % Baso % (Auto) (0.0-3.0) % Gran # (1.4-6.5) Lymph # (Auto) (1.2-3.4) [place] # (Auto) (0.1-0.6) Eos # (Auto) (0.0-0.7) Baso # (Auto) (0.0-2.0) K/mm3 PT (9.4-12.5) SECONDS INR (0.93-1.08) APTT (25.1-36.5) Seconds pCO2 (35-45) mm/Hg pO2 (80-100) mm/Hg HCO3 (21-28) mmol/L ABG pH (7.35-7.45) ABG Total CO2 (22-28) mmol.L ABG O2 Saturation (95-98) % ABG Base Excess (-2.0-3.0) mmol/L ABG Potassium (3.6-5.2) mmol/L Glucose (65-105) mg/dl Lactate (0.7-2.1) mmol/L FiO2 % Sodium (132-148) mmol/L Potassium (3.6-5.0) mmol/L Chloride (98-107) mmol/L Carbon Dioxide (21-33) mmol/L Anion Gap (10-20) BUN (7-21) mg/dL Creatinine (0.7-1.2) mg/dl Est GFR ( Amer) Est GFR (Non-Af Amer) POC Glucose (mg/dL) (65-110) mg/dL Random Glucose (70-110) mg/dL Calcium (8.4-10.5) mg/dL Ionized Calcium 4.6 L (4.80-5.60) mg/dL Total Bilirubin (0.2-1.3) mg/dL AST (14-36) U/L ALT (7-56) U/L Alkaline Phosphatase (38-126) U/L Total Protein (5.8-8.3) g/dL Albumin (3.0-4.8) g/dL Globulin gm/dL Albumin/Globulin Ratio (1.1-1.8) Arterial Blood Potassium (3.6-5.2) mmol/L Urine Eosinophils Urine Osmolality 492 (300-1000) mosm/kg Ur Random Creatinine 99 mg/dL U Random Total Protein 102 mg/L Ur Random Uric Acid 35.1 mg/dL Proteinase 3 (PR3) <1.0 (<1.0) AI Myeloperoxidase Ab <1.0 (<1.0) AI Laboratory Results - last 24 hr 12/02/17 12/02/17 12/03/17 06:00 06:10 17:50 WBC RBC Hgb Hct MCV MCH MCHC RDW Plt Count MPV Gran % Lymph % (Auto) [place] % (Auto) Eos % (Auto) Baso % (Auto) Gran # Lymph # (Auto) [place] # (Auto) Eos # (Auto) Baso # (Auto) PT INR APTT pCO2 pO2 HCO3 ABG pH ABG Total CO2 ABG O2 Saturation ABG Base Excess ABG Potassium Glucose Lactate FiO2 Sodium Potassium Chloride Carbon Dioxide Anion Gap BUN Creatinine Est GFR ( Amer) Est GFR (Non-Af Amer) POC Glucose (mg/dL) Random Glucose Calcium Ionized Calcium 4.6 L Total Bilirubin AST ALT Alkaline Phosphatase Total Protein Albumin Globulin Albumin/Globulin Ratio Arterial Blood Potassium Urine Eosinophils Urine Osmolality 492 Ur Random Creatinine 99 U Random Total Protein 102 Ur Random Uric Acid 35.1 Proteinase 3 (PR3) <1.0 Myeloperoxidase Ab <1.0 12/03/17 12/03/17 12/04/17 17:50 18:17 03:54 WBC RBC Hgb Hct MCV MCH MCHC RDW Plt Count MPV Gran % Lymph % (Auto) [place] % (Auto) Eos % (Auto) Baso % (Auto) Gran # Lymph # (Auto) [place] # (Auto) Eos # (Auto) Baso # (Auto) PT INR APTT pCO2 pO2 HCO3 ABG pH ABG Total CO2 ABG O2 Saturation ABG Base Excess ABG Potassium Glucose Lactate FiO2 Sodium Potassium Chloride Carbon Dioxide Anion Gap BUN Creatinine Est GFR ( Amer) Est GFR (Non-Af Amer) POC Glucose (mg/dL) 91 127 H Random Glucose Calcium Ionized Calcium Total Bilirubin AST ALT Alkaline Phosphatase Total Protein Albumin Globulin Albumin/Globulin Ratio Arterial Blood Potassium Urine Eosinophils Negative Urine Osmolality Ur Random Creatinine U Random Total Protein Ur Random Uric Acid Proteinase 3 (PR3) Myeloperoxidase Ab 12/04/17 12/04/17 12/04/17 05:00 05:00 05:00 WBC 9.4 RBC 2.66 L Hgb 6.3 L* Hct 19.6 L* MCV 73.7 L MCH 23.7 L MCHC 32.1 RDW 16.1 H Plt Count 203 MPV 9.6 Gran % 67.4 Lymph % (Auto) 21.9 L [place] % (Auto) 8.1 H Eos % (Auto) 2.3 Baso % (Auto) 0.3 Gran # 6.31 Lymph # (Auto) 2.1 [place] # (Auto) 0.8 H Eos # (Auto) 0.2 Baso # (Auto) 0.03 PT 10.0 INR 0.87 L APTT 23.3 L pCO2 pO2 HCO3 ABG pH ABG Total CO2 ABG O2 Saturation ABG Base Excess ABG Potassium Glucose Lactate FiO2 Sodium 142 Potassium 3.5 L Chloride 112 H Carbon Dioxide 21 Anion Gap 12 BUN 36 H Creatinine 1.7 H Est GFR ( Amer) 38 Est GFR (Non-Af Amer) 31 POC Glucose (mg/dL) Random Glucose 113 H Calcium 8.5 Ionized Calcium Total Bilirubin 0.3 AST 73 H ALT 62 H Alkaline Phosphatase 65 Total Protein 5.4 L Albumin 2.9 L Globulin 2.4 Albumin/Globulin Ratio 1.2 Arterial Blood Potassium Urine Eosinophils Urine Osmolality Ur Random Creatinine U Random Total Protein Ur Random Uric Acid Proteinase 3 (PR3) Myeloperoxidase Ab 12/04/17 12/04/17 12/04/17 05:50 06:54 07:30 WBC RBC Hgb Hct MCV MCH MCHC RDW Plt Count MPV Gran % Lymph % (Auto) [place] % (Auto) Eos % (Auto) Baso % (Auto) Gran # Lymph # (Auto) [place] # (Auto) Eos # (Auto) Baso # (Auto) PT INR APTT pCO2 31 L pO2 145.0 H HCO3 18.3 L ABG pH 7.38 ABG Total CO2 19.3 L ABG O2 Saturation 100.1 H ABG Base Excess -5.7 L ABG Potassium 3.2 L Glucose 103 Lactate 0.8 FiO2 40.0 Sodium 144.0 Potassium Chloride 122.0 H Carbon Dioxide Anion Gap BUN Creatinine Est GFR ( Amer) Est GFR (Non-Af Amer) POC Glucose (mg/dL) 128 H 122 H Random Glucose Calcium Ionized Calcium Total Bilirubin AST ALT Alkaline Phosphatase Total Protein Albumin Globulin Albumin/Globulin Ratio Arterial Blood Potassium 3.2 L Urine Eosinophils Urine Osmolality Ur Random Creatinine U Random Total Protein Ur Random Uric Acid Proteinase 3 (PR3) Myeloperoxidase Ab Fingerstick Blood Sugar Results: 128 Review of Systems - Review of Systems Systems not reviewed;Unavailable: Intubated Assessment/Plan - Assessment and Plan (Free Text) Assessment: Assessment 57 year old female with a past medical history of seizures, DM, CAD, hypertension presenting s/p cardiac arrest with ROSC due to primary cardiac event complicated by multi organ failure. Plan -Patient made DNR/DNI -Terminal extubation -Comfort care with morphine drip, benadryl, scopolamine <Daryl Nina B - Last Filed: 12/04/17 14:59> CCU Objective - Vital Signs / Intake & Output Intake and Output (Last 8hrs): Intake & Output 12/03/17 12/04/17 12/04/17 22:59 06:59 14:59 Intake Total 2380 1188 130 Output Total 630 350 Balance 1750 838 130 Intake: IV 1180 828 130 right internal jugular 780 628 Oral 300 Tube Feeding 900 360 Output: Urine 600 350 Urethral (Bojorquez) 600 350 Emesis 30 Other: # Bowel Movements 1 - Medications Active Medications: Active Medications Generic Name Dose Route Start Last Admin Trade Name Freq PRN Reason Stop Dose Admin Albuterol/Ipratropium 3 ml 12/01/17 05:09 12/01/17 05:20 Duoneb 3 Mg/0.5 Mg (3 Ml) Ud IH 3 ml Q2H PRN Administration Shortness of Breath Diphenhydramine HCl 50 mg 12/04/17 10:22 12/04/17 10:33 Benadryl IVP 50 mg Q4H PRN Administration Allergy symptoms Nicardipine HCl 20 mg in 200 mls @ 100 mls/hr 11/29/17 16:36 11/29/17 16:15 Cardene Iv Premix IV 100 mls/hr .Q2H PRN Administration TITRATE PER MD ORDER Protocol 10 MG/HR Levetiracetam 1,500 mg/ Sodium 115 mls @ 460 mls/hr 12/03/17 14:35 12/04/17 10:19 Chloride IV 460 mls/hr Q12 ANTONINO Administration Morphine Sulfate 30 mls @ 2 mls/hr 12/04/17 11:45 12/04/17 14:39 Morphine Electrical Systems Designer 1 Mg/Ml IV Infused PRN PRN Titration KNIT [employer] MENDER PER MD ORDER Protocol 2 MG/HR Lorazepam 2 mg 12/03/17 17:55 12/04/17 11:11 Ativan IVP 2 mg Q15MIN PRN Administration Seizure activity Protocol Scopolamine 1 patch 12/04/17 10:30 12/04/17 10:34 Transderm-Scop TD 1 patch Q3D ANTONINO Administration Valproate Sodium 500 mg 12/03/17 10:00 12/04/17 10:27 Depakene Oral Soln PO Not Given BID ANTONINO - Patient Studies Lab Studies: Microbiology Studies 12/01/17 16:30 Blood Culture - Preliminary Blood-Venous NO GROWTH AFTER 48 HOURS 12/01/17 16:15 Blood Culture - Preliminary Blood-Venous NO GROWTH AFTER 48 HOURS 12/01/17 18:15 Urine Culture - Final Urine,Bojorquez No Growth (<1,000 CFU/ML) 12/01/17 17:00 Gram Stain - Final Trachasp Sputum Culture - Final No growth. Lab Studies 12/04/17 12/04/17 12/04/17 Range/Units 07:30 06:54 05:50 WBC (4.5-11.0) 10^3/ul RBC (3.5-6.1) 10^6/uL Hgb (12.0-16.0) g/dL Hct (36.0-48.0) % MCV (80.0-105.0) fl MCH (25.0-35.0) pg MCHC (31.0-37.0) g/dl RDW (11.5-14.5) % Plt Count (120.0-450.0) 10^3/uL MPV (7.0-11.0) fl Gran % (50.0-68.0) % Lymph % (Auto) (22.0-35.0) % [place] % (Auto) (1.0-6.0) % Eos % (Auto) (1.5-5.0) % Baso % (Auto) (0.0-3.0) % Gran # (1.4-6.5) Lymph # (Auto) (1.2-3.4) [place] # (Auto) (0.1-0.6) Eos # (Auto) (0.0-0.7) Baso # (Auto) (0.0-2.0) K/mm3 PT (9.4-12.5) SECONDS INR (0.93-1.08) APTT (25.1-36.5) Seconds pCO2 31 L (35-45) mm/Hg pO2 145.0 H (80-100) mm/Hg HCO3 18.3 L (21-28) mmol/L ABG pH 7.38 (7.35-7.45) ABG Total CO2 19.3 L (22-28) mmol.L ABG O2 Saturation 100.1 H (95-98) % ABG Base Excess -5.7 L (-2.0-3.0) mmol/L ABG Potassium 3.2 L (3.6-5.2) mmol/L Glucose 103 (65-105) mg/dl Lactate 0.8 (0.7-2.1) mmol/L FiO2 40.0 % Sodium 144.0 (132-148) mmol/L Potassium (3.6-5.0) mmol/L Chloride 122.0 H (98-107) mmol/L Carbon Dioxide (21-33) mmol/L Anion Gap (10-20) BUN (7-21) mg/dL Creatinine (0.7-1.2) mg/dl Est GFR ( Amer) Est GFR (Non-Af Amer) POC Glucose (mg/dL) 122 H 128 H (65-110) mg/dL Random Glucose (70-110) mg/dL Calcium (8.4-10.5) mg/dL Total Bilirubin (0.2-1.3) mg/dL AST (14-36) U/L ALT (7-56) U/L Alkaline Phosphatase (38-126) U/L Total Protein (5.8-8.3) g/dL Albumin (3.0-4.8) g/dL Globulin gm/dL Albumin/Globulin Ratio (1.1-1.8) Arterial Blood Potassium 3.2 L (3.6-5.2) mmol/L Urine Eosinophils Urine Osmolality (300-1000) mosm/kg Ur Random Creatinine mg/dL U Random Total Protein mg/L Ur Random Uric Acid mg/dL Proteinase 3 (PR3) (<1.0) AI Myeloperoxidase Ab (<1.0) AI 12/04/17 12/04/17 12/04/17 Range/Units 05:00 05:00 05:00 WBC 9.4 (4.5-11.0) 10^3/ul RBC 2.66 L (3.5-6.1) 10^6/uL Hgb 6.3 L* (12.0-16.0) g/dL Hct 19.6 L* (36.0-48.0) % MCV 73.7 L (80.0-105.0) fl MCH 23.7 L (25.0-35.0) pg MCHC 32.1 (31.0-37.0) g/dl RDW 16.1 H (11.5-14.5) % Plt Count 203 (120.0-450.0) 10^3/uL MPV 9.6 (7.0-11.0) fl Gran % 67.4 (50.0-68.0) % Lymph % (Auto) 21.9 L (22.0-35.0) % [place] % (Auto) 8.1 H (1.0-6.0) % Eos % (Auto) 2.3 (1.5-5.0) % Baso % (Auto) 0.3 (0.0-3.0) % Gran # 6.31 (1.4-6.5) Lymph # (Auto) 2.1 (1.2-3.4) [place] # (Auto) 0.8 H (0.1-0.6) Eos # (Auto) 0.2 (0.0-0.7) Baso # (Auto) 0.03 (0.0-2.0) K/mm3 PT 10.0 (9.4-12.5) SECONDS INR 0.87 L (0.93-1.08) APTT 23.3 L (25.1-36.5) Seconds pCO2 (35-45) mm/Hg pO2 (80-100) mm/Hg HCO3 (21-28) mmol/L ABG pH (7.35-7.45) ABG Total CO2 (22-28) mmol.L ABG O2 Saturation (95-98) % ABG Base Excess (-2.0-3.0) mmol/L ABG Potassium (3.6-5.2) mmol/L Glucose (65-105) mg/dl Lactate (0.7-2.1) mmol/L FiO2 % Sodium 142 (132-148) mmol/L Potassium 3.5 L (3.6-5.0) mmol/L Chloride 112 H (98-107) mmol/L Carbon Dioxide 21 (21-33) mmol/L Anion Gap 12 (10-20) BUN 36 H (7-21) mg/dL Creatinine 1.7 H (0.7-1.2) mg/dl Est GFR ( Amer) 38 Est GFR (Non-Af Amer) 31 POC Glucose (mg/dL) (65-110) mg/dL Random Glucose 113 H (70-110) mg/dL Calcium 8.5 (8.4-10.5) mg/dL Total Bilirubin 0.3 (0.2-1.3) mg/dL AST 73 H (14-36) U/L ALT 62 H (7-56) U/L Alkaline Phosphatase 65 (38-126) U/L Total Protein 5.4 L (5.8-8.3) g/dL Albumin 2.9 L (3.0-4.8) g/dL Globulin 2.4 gm/dL Albumin/Globulin Ratio 1.2 (1.1-1.8) Arterial Blood Potassium (3.6-5.2) mmol/L Urine Eosinophils Urine Osmolality (300-1000) mosm/kg Ur Random Creatinine mg/dL U Random Total Protein mg/L Ur Random Uric Acid mg/dL Proteinase 3 (PR3) (<1.0) AI Myeloperoxidase Ab (<1.0) AI 12/04/17 12/03/17 12/03/17 Range/Units 03:54 18:17 17:50 WBC (4.5-11.0) 10^3/ul RBC (3.5-6.1) 10^6/uL Hgb (12.0-16.0) g/dL Hct (36.0-48.0) % MCV (80.0-105.0) fl MCH (25.0-35.0) pg MCHC (31.0-37.0) g/dl RDW (11.5-14.5) % Plt Count (120.0-450.0) 10^3/uL MPV (7.0-11.0) fl Gran % (50.0-68.0) % Lymph % (Auto) (22.0-35.0) % [place] % (Auto) (1.0-6.0) % Eos % (Auto) (1.5-5.0) % Baso % (Auto) (0.0-3.0) % Gran # (1.4-6.5) Lymph # (Auto) (1.2-3.4) [place] # (Auto) (0.1-0.6) Eos # (Auto) (0.0-0.7) Baso # (Auto) (0.0-2.0) K/mm3 PT (9.4-12.5) SECONDS INR (0.93-1.08) APTT (25.1-36.5) Seconds pCO2 (35-45) mm/Hg pO2 (80-100) mm/Hg HCO3 (21-28) mmol/L ABG pH (7.35-7.45) ABG Total CO2 (22-28) mmol.L ABG O2 Saturation (95-98) % ABG Base Excess (-2.0-3.0) mmol/L ABG Potassium (3.6-5.2) mmol/L Glucose (65-105) mg/dl Lactate (0.7-2.1) mmol/L FiO2 % Sodium (132-148) mmol/L Potassium (3.6-5.0) mmol/L Chloride (98-107) mmol/L Carbon Dioxide (21-33) mmol/L Anion Gap (10-20) BUN (7-21) mg/dL Creatinine (0.7-1.2) mg/dl Est GFR ( Amer) Est GFR (Non-Af Amer) POC Glucose (mg/dL) 127 H 91 (65-110) mg/dL Random Glucose (70-110) mg/dL Calcium (8.4-10.5) mg/dL Total Bilirubin (0.2-1.3) mg/dL AST (14-36) U/L ALT (7-56) U/L Alkaline Phosphatase (38-126) U/L Total Protein (5.8-8.3) g/dL Albumin (3.0-4.8) g/dL Globulin gm/dL Albumin/Globulin Ratio (1.1-1.8) Arterial Blood Potassium (3.6-5.2) mmol/L Urine Eosinophils Negative Urine Osmolality (300-1000) mosm/kg Ur Random Creatinine mg/dL U Random Total Protein mg/L Ur Random Uric Acid mg/dL Proteinase 3 (PR3) (<1.0) AI Myeloperoxidase Ab (<1.0) AI 05/01/18 04/30/18 Range/Units 17:50 06:10 WBC (4.5-11.0) 10^3/ul RBC (3.5-6.1) 10^6/uL Hgb (12.0-16.0) g/dL Hct (36.0-48.0) % MCV (80.0-105.0) fl MCH (25.0-35.0) pg MCHC (31.0-37.0) g/dl RDW (11.5-14.5) % Plt Count (120.0-450.0) 10^3/uL MPV (7.0-11.0) fl Gran % (50.0-68.0) % Lymph % (Auto) (22.0-35.0) % [place] % (Auto) (1.0-6.0) % Eos % (Auto) (1.5-5.0) % Baso % (Auto) (0.0-3.0) % Gran # (1.4-6.5) Lymph # (Auto) (1.2-3.4) [place] # (Auto) (0.1-0.6) Eos # (Auto) (0.0-0.7) Baso # (Auto) (0.0-2.0) K/mm3 PT (9.4-12.5) SECONDS INR (0.93-1.08) APTT (25.1-36.5) Seconds pCO2 (35-45) mm/Hg pO2 (80-100) mm/Hg HCO3 (21-28) mmol/L ABG pH (7.35-7.45) ABG Total CO2 (22-28) mmol.L ABG O2 Saturation (95-98) % ABG Base Excess (-2.0-3.0) mmol/L ABG Potassium (3.6-5.2) mmol/L Glucose (65-105) mg/dl Lactate (0.7-2.1) mmol/L FiO2 % Sodium (132-148) mmol/L Potassium (3.6-5.0) mmol/L Chloride (98-107) mmol/L Carbon Dioxide (21-33) mmol/L Anion Gap (10-20) BUN (7-21) mg/dL Creatinine (0.7-1.2) mg/dl Est GFR ( Amer) Est GFR (Non-Af Amer) POC Glucose (mg/dL) (65-110) mg/dL Random Glucose (70-110) mg/dL Calcium (8.4-10.5) mg/dL Total Bilirubin (0.2-1.3) mg/dL AST (14-36) U/L ALT (7-56) U/L Alkaline Phosphatase (38-126) U/L Total Protein (5.8-8.3) g/dL Albumin (3.0-4.8) g/dL Globulin gm/dL Albumin/Globulin Ratio (1.1-1.8) Arterial Blood Potassium (3.6-5.2) mmol/L Urine Eosinophils Urine Osmolality 492 (300-1000) mosm/kg Ur Random Creatinine 99 mg/dL U Random Total Protein 102 mg/L Ur Random Uric Acid 35.1 mg/dL Proteinase 3 (PR3) <1.0 (<1.0) AI Myeloperoxidase Ab <1.0 (<1.0) AI Laboratory Results - last 24 hr 12/02/17 12/03/17 12/03/17 06:10 17:50 17:50 WBC RBC Hgb Hct MCV MCH MCHC RDW Plt Count MPV Gran % Lymph % (Auto) [place] % (Auto) Eos % (Auto) Baso % (Auto) Gran # Lymph # (Auto) [place] # (Auto) Eos # (Auto) Baso # (Auto) PT INR APTT pCO2 pO2 HCO3 ABG pH ABG Total CO2 ABG O2 Saturation ABG Base Excess ABG Potassium Glucose Lactate FiO2 Sodium Potassium Chloride Carbon Dioxide Anion Gap BUN Creatinine Est GFR ( Amer) Est GFR (Non-Af Amer) POC Glucose (mg/dL) Random Glucose Calcium Total Bilirubin AST ALT Alkaline Phosphatase Total Protein Albumin Globulin Albumin/Globulin Ratio Arterial Blood Potassium Urine Eosinophils Negative Urine Osmolality 492 Ur Random Creatinine 99 U Random Total Protein 102 Ur Random Uric Acid 35.1 Proteinase 3 (PR3) <1.0 Myeloperoxidase Ab <1.0 12/03/17 12/04/17 12/04/17 18:17 03:54 05:00 WBC 9.4 RBC 2.66 L Hgb 6.3 L* Hct 19.6 L* MCV 73.7 L MCH 23.7 L MCHC 32.1 RDW 16.1 H Plt Count 203 MPV 9.6 Gran % 67.4 Lymph % (Auto) 21.9 L [place] % (Auto) 8.1 H Eos % (Auto) 2.3 Baso % (Auto) 0.3 Gran # 6.31 Lymph # (Auto) 2.1 [place] # (Auto) 0.8 H Eos # (Auto) 0.2 Baso # (Auto) 0.03 PT INR APTT pCO2 pO2 HCO3 ABG pH ABG Total CO2 ABG O2 Saturation ABG Base Excess ABG Potassium Glucose Lactate FiO2 Sodium Potassium Chloride Carbon Dioxide Anion Gap BUN Creatinine Est GFR ( Amer) Est GFR (Non-Af Amer) POC Glucose (mg/dL) 91 127 H Random Glucose Calcium Total Bilirubin AST ALT Alkaline Phosphatase Total Protein Albumin Globulin Albumin/Globulin Ratio Arterial Blood Potassium Urine Eosinophils Urine Osmolality Ur Random Creatinine U Random Total Protein Ur Random Uric Acid Proteinase 3 (PR3) Myeloperoxidase Ab 12/04/17 12/04/17 12/04/17 05:00 05:00 05:50 WBC RBC Hgb Hct MCV MCH MCHC RDW Plt Count MPV Gran % Lymph % (Auto) [place] % (Auto) Eos % (Auto) Baso % (Auto) Gran # Lymph # (Auto) [place] # (Auto) Eos # (Auto) Baso # (Auto) PT 10.0 INR 0.87 L APTT 23.3 L pCO2 31 L pO2 145.0 H HCO3 18.3 L ABG pH 7.38 ABG Total CO2 19.3 L ABG O2 Saturation 100.1 H ABG Base Excess -5.7 L ABG Potassium 3.2 L Glucose 103 Lactate 0.8 FiO2 40.0 Sodium 142 144.0 Potassium 3.5 L Chloride 112 H 122.0 H Carbon Dioxide 21 Anion Gap 12 BUN 36 H Creatinine 1.7 H Est GFR ( Amer) 38 Est GFR (Non-Af Amer) 31 POC Glucose (mg/dL) Random Glucose 113 H Calcium 8.5 Total Bilirubin 0.3 AST 73 H ALT 62 H Alkaline Phosphatase 65 Total Protein 5.4 L Albumin 2.9 L Globulin 2.4 Albumin/Globulin Ratio 1.2 Arterial Blood Potassium 3.2 L Urine Eosinophils Urine Osmolality Ur Random Creatinine U Random Total Protein Ur Random Uric Acid Proteinase 3 (PR3) Myeloperoxidase Ab 12/04/17 12/04/17 06:54 07:30 WBC RBC Hgb Hct MCV MCH MCHC RDW Plt Count MPV Gran % Lymph % (Auto) [place] % (Auto) Eos % (Auto) Baso % (Auto) Gran # Lymph # (Auto) [place] # (Auto) Eos # (Auto) Baso # (Auto) PT INR APTT pCO2 pO2 HCO3 ABG pH ABG Total CO2 ABG O2 Saturation ABG Base Excess ABG Potassium Glucose Lactate FiO2 Sodium Potassium Chloride Carbon Dioxide Anion Gap BUN Creatinine Est GFR ( Amer) Est GFR (Non-Af Amer) POC Glucose (mg/dL) 128 H 122 H Random Glucose Calcium Total Bilirubin AST ALT Alkaline Phosphatase Total Protein Albumin Globulin Albumin/Globulin Ratio Arterial Blood Potassium Urine Eosinophils Urine Osmolality Ur Random Creatinine U Random Total Protein Ur Random Uric Acid Proteinase 3 (PR3) Myeloperoxidase Ab Attending/Attestation - Attestation I have personally seen and examined this patient.: Yes I have fully participated in the care of the patient.: Yes I have reviewed all pertinent clinical information: Yes Notes (Text): 12/04/17 14:57 57 yo female s/p cardiac arrest, cardiogenic shock, anoxic brain injury. Family decided to proceed with terminal extubation and conversion to palliative care/ comfort care/. Their wishes will be honored. ccm time 40 min
--- NOTE | 2017-12-04 14:27 | CP.PCM.DIS ---
<Krystian Cain - Last Filed: 12/04/17 14:03> Provider - Provider Date of Admission: 11/28/17 18:20 Attending physician: Ashley Phan MD Primary care physician: Sara Dupree DO Consults: Cardio: Quentin Neuro: Alvinya Nephro: Janetti ID: [email or web address] Palliative: Paramonte Time Spent in preparation of Discharge (in minutes): 45 Hospital Course - Lab Results Lab Results: Micro Results 12/01/17 16:30 Blood-Venous Blood Culture - Preliminary NO GROWTH AFTER 48 HOURS 12/01/17 16:15 Blood-Venous Blood Culture - Preliminary NO GROWTH AFTER 48 HOURS 12/01/17 18:15 Urine,Bojorquez Urine Culture - Final No Growth (<1,000 CFU/ML) 12/01/17 17:00 Trachasp Gram Stain - Final 12/01/17 17:00 Trachasp Sputum Culture - Final No growth. 11/28/17 20:30 Blood S.aureus & Coag-Neg Staph PNA FISH - Final 11/28/17 20:30 Blood Blood Culture - Final Coagulase Neg Staphylococcus 11/28/17 20:30 Blood Gram Stain - Final 11/28/17 19:45 Naris MRSA Culture (Admit) - Final MRSA NOT DETECTED 11/28/17 21:40 Urine Urine Culture - Final No Growth (<1,000 CFU/ML) Most Recent Lab Values WBC 9.4 10^3/ul (4.5-11.0) 12/04/17 05:00 RBC 2.66 10^6/uL (3.5-6.1) L 12/04/17 05:00 Hgb 6.3 g/dL (12.0-16.0) L* 12/04/17 05:00 Hct 19.6 % (36.0-48.0) L* 12/04/17 05:00 MCV 73.7 fl (80.0-105.0) L 12/04/17 05:00 MCH 23.7 pg (25.0-35.0) L 12/04/17 05:00 MCHC 32.1 g/dl (31.0-37.0) 12/04/17 05:00 RDW 16.1 % (11.5-14.5) H 12/04/17 05:00 Plt Count 203 10^3/uL (120.0-450.0) 12/04/17 05:00 MPV 9.6 fl (7.0-11.0) 12/04/17 05:00 Gran % 67.4 % (50.0-68.0) 12/04/17 05:00 Lymph % (Auto) 21.9 % (22.0-35.0) L 12/04/17 05:00 Power % (Auto) 8.1 % (1.0-6.0) H 12/04/17 05:00 Eos % (Auto) 2.3 % (1.5-5.0) 12/04/17 05:00 Baso % (Auto) 0.3 % (0.0-3.0) 12/04/17 05:00 Gran # 6.31 (1.4-6.5) 12/04/17 05:00 Lymph # (Auto) 2.1 (1.2-3.4) 12/04/17 05:00 Power # (Auto) 0.8 (0.1-0.6) H 12/04/17 05:00 Eos # (Auto) 0.2 (0.0-0.7) 12/04/17 05:00 Baso # (Auto) 0.03 K/mm3 (0.0-2.0) 12/04/17 05:00 PT 10.0 SECONDS (9.4-12.5) 12/04/17 05:00 INR 0.87 (0.93-1.08) L 12/04/17 05:00 APTT 23.3 Seconds (25.1-36.5) L 12/04/17 05:00 pCO2 31 mm/Hg (35-45) L 12/04/17 05:50 pO2 145.0 mm/Hg (80-100) H 12/04/17 05:50 HCO3 18.3 mmol/L (21-28) L 12/04/17 05:50 ABG pH 7.38 (7.35-7.45) 12/04/17 05:50 ABG Total CO2 19.3 mmol.L (22-28) L 12/04/17 05:50 ABG O2 Saturation 100.1 % (95-98) H 12/04/17 05:50 ABG Base Excess -5.7 mmol/L (-2.0-3.0) L 12/04/17 05:50 ABG Potassium 3.2 mmol/L (3.6-5.2) L 12/04/17 05:50 VBG pH 7.11 (7.32-7.43) L* 11/29/17 06:50 VBG pCO2 59.0 (40-60) 11/29/17 06:50 VBG HCO3 18.7 mmol/l (21-28) L 11/29/17 06:50 VBG Total CO2 20.5 mmol.L (22-28) L 11/29/17 06:50 VBG O2 Sat (Calc) 77.4 % (40-65) H 11/29/17 06:50 VBG Base Excess -11.3 mmol/L (0.0-2.0) L 11/29/17 06:50 VBG Potassium 3.9 mmol/L (3.6-5.2) 11/29/17 06:50 Sodium 144.0 mmol/L (132-148) 12/04/17 05:50 Chloride 122.0 mmol/L (98-107) H 12/04/17 05:50 Glucose 103 mg/dl (65-105) 12/04/17 05:50 Lactate 0.8 mmol/L (0.7-2.1) 12/04/17 05:50 Mechanical Rate 20 11/29/17 09:10 FiO2 40.0 % 12/04/17 05:50 Tidal Volume 400 11/29/17 09:10 PEEP 5 11/29/17 09:10 Sodium 142 mmol/L (132-148) 12/04/17 05:00 Potassium 3.5 mmol/L (3.6-5.0) L 12/04/17 05:00 Chloride 112 mmol/L (98-107) H 12/04/17 05:00 Carbon Dioxide 21 mmol/L (21-33) 12/04/17 05:00 Anion Gap 12 (10-20) 12/04/17 05:00 BUN 36 mg/dL (7-21) H 12/04/17 05:00 Creatinine 1.7 mg/dl (0.7-1.2) H 12/04/17 05:00 Est GFR ( Amer) 38 12/04/17 05:00 Est GFR (Non-Af Amer) 31 12/04/17 05:00 POC Glucose (mg/dL) 122 mg/dL (65-110) H 12/04/17 07:30 Random Glucose 113 mg/dL (70-110) H 12/04/17 05:00 Hemoglobin A1c 6.0 % (4.2-6.5) 11/28/17 18:00 Calcium 8.5 mg/dL (8.4-10.5) 12/04/17 05:00 Ionized Calcium 4.6 mg/dL (4.80-5.60) L 12/02/17 06:00 Phosphorus 3.8 mg/dL (2.5-4.5) 12/01/17 04:30 Magnesium 2.3 mg/dL (1.7-2.2) H 12/03/17 06:42 Iron 104 ug/dL (45-180) 11/28/17 17:18 TIBC 264 ug/dL (265-497) L 11/28/17 17:18 % Saturation 40 % (20-55) 11/28/17 17:18 Ferritin 1140.0 ng/mL 11/28/17 17:18 Total Bilirubin 0.3 mg/dL (0.2-1.3) 12/04/17 05:00 AST 73 U/L (14-36) H 12/04/17 05:00 ALT 62 U/L (7-56) H 12/04/17 05:00 Alkaline Phosphatase 65 U/L (38-126) 12/04/17 05:00 Total Creatine Kinase 156 U/L (35-230) 11/28/17 17:45 Troponin I 3.29 ng/mL H* D 11/29/17 06:50 Total Protein 5.4 g/dL (5.8-8.3) L 12/04/17 05:00 Albumin 2.9 g/dL (3.0-4.8) L 12/04/17 05:00 Globulin 2.4 gm/dL 12/04/17 05:00 Albumin/Globulin Ratio 1.2 (1.1-1.8) 12/04/17 05:00 Triglycerides 3074 mg/dL (35-160) H 11/29/17 06:50 Cholesterol 170 mg/dL (130-200) 11/29/17 06:50 LDL Cholesterol Direct < 30 mg/dL (0-129) 11/29/17 06:50 HDL Cholesterol 79 mg/dL (29-60) H 11/29/17 06:50 Procalcitonin 1.37 NG/ML (0.19-0.49) H 12/01/17 16:30 TSH 3rd Generation 4.41 mIU/mL (0.46-4.68) 11/28/17 18:00 Arterial Blood Potassium 3.2 mmol/L (3.6-5.2) L 12/04/17 05:50 Venous Blood Potassium 3.9 mmol/L (3.6-5.2) 11/29/17 06:50 Urine Color Yellow (YELLOW) 12/01/17 18:15 Urine Appearance Cloudy (CLEAR) 12/01/17 18:15 Urine pH 6.0 (4.7-8.0) 12/01/17 18:15 Ur Specific [place] 1.025 (1.005-1.035) 12/01/17 18:15 Urine Protein 100 mg/dL (<30 mg/dL) H 12/01/17 18:15 Urine Glucose (UA) Negative mg/dL (NEGATIVE) 12/01/17 18:15 Urine Ketones Negative mg/dL (NEGATIVE) 12/01/17 18:15 Urine Blood Large (NEGATIVE) H 12/01/17 18:15 Urine Nitrate Negative (NEGATIVE) 12/01/17 18:15 Urine Bilirubin Negative (NEGATIVE) 12/01/17 18:15 Urine Urobilinogen 0.2 E.U./dL (<1 E.U./dL) 12/01/17 18:15 Ur Leukocyte Esterase Small Tree/uL (NEGATIVE) H 12/01/17 18:15 Urine RBC Tntc /hpf (0-2) 12/01/17 18:15 Urine WBC 10 - 15 /hpf (0-6) 12/01/17 18:15 Ur Epithelial Cells 6 - 8 /hpf (0-5) 12/01/17 18:15 Amorphous Sediment Trace 11/30/17 12:45 Urine Bacteria Many (NEG) 12/01/17 18:15 Coarse Granular Casts Small /hpf (0-2) H 12/01/17 18:15 Urine Eosinophils Negative 12/03/17 17:50 Urine Osmolality 492 mosm/kg (300-1000) 12/03/17 17:50 Ur Random Creatinine 99 mg/dL 12/03/17 17:50 U Random Total Protein 102 mg/L 12/03/17 17:50 Ur Random Sodium 57 meq/L 11/30/17 12:45 Ur Random Uric Acid 35.1 mg/dL 12/03/17 17:50 Digoxin < 0.4 ng/mL (0.8-2.0) L 11/28/17 17:45 Salicylates < 1 mg/dL (2.0-20.0) L 11/28/17 17:45 Urine Opiates Screen Negative (NEGATIVE) 11/28/17 21:40 Urine Methadone Screen Negative (NEGATIVE) 11/28/17 21:40 Acetaminophen < 10.0 ug/ml (10.0-20.0) L 11/28/17 17:45 Ur Barbiturates Screen Negative (NEGATIVE) 11/28/17 21:40 Phenytoin < 3 ug/mL (10-20) L 11/28/17 17:45 Bound Carbamazepine 0.7 mcg/mL (1.0-3.0) L 11/29/17 15:05 Topiramate 3.1 mcg/mL (see note) 11/29/17 06:30 Levetiracetam 12.2 mcg/mL 11/28/17 20:30 Ur Phencyclidine Scrn Negative (NEGATIVE) 11/28/17 21:40 Ur Amphetamines Screen Negative (NEGATIVE) 11/28/17 21:40 U Benzodiazepines Scrn Positive (NEGATIVE) 11/28/17 21:40 U Oth Cocaine Metabols Negative (NEGATIVE) 11/28/17 21:40 U Cannabinoids Screen Negative (NEGATIVE) 11/28/17 21:40 Alcohol, Quantitative < 10 mg/dL (0-10) 11/28/17 17:45 Proteinase 3 (PR3) <1.0 AI (<1.0) 12/02/17 06:10 Myeloperoxidase Ab <1.0 AI (<1.0) 12/02/17 06:10 Complement C3 128.0 mg/dL (88.0-165.0) 12/02/17 08:20 Complement C4 40.4 mg/dL (14.0-44.0) 12/02/17 08:20 Hepatitis A IgM Ab Negative (NEGATIVE) 11/28/17 20:30 Hep Bs Antigen Negative (NEGATIVE) 12/02/17 06:10 Hep B Core IgM Ab Negative (NEGATIVE) 11/28/17 20:30 Hepatitis C Antibody Negative (NEGATIVE) 12/02/17 06:10 HIV 1&2 Ag/Ab, 4th Gen Nonreactive (Nonreactive) 12/02/17 06:10 Influenza Typ A,B (EIA) Negative for flu a/b (NEGATIVE) 12/01/17 18:15 Blood Type O POSITIVE 12/03/17 09:35 Blood Type Confirm O POSITIVE 12/03/17 10:43 Antibody Screen Negative 12/03/17 09:35 BBK History Checked No verified bt 12/03/17 09:35 - Hospital Course Hospital Course: Pt is a 57 yo F with PMH of seizures brought in by EMS due to cardiac arrest. Per EMS, patient lives in an apartment and the neighbor who lives below her heard a loud thump and called EMS. On arrival, patient was found to be in cardiac arrest, pulseless and asystole. In the field, the patient was intubated , given multiple rounds of epinephrine, and eventually converted into ventricular fibrillation. At that point, she was defibrillated multiple times and ROSC was achieved. Of note, patient's daughter was also in cardiac arrest, but was pronounced in the field. In the ED, UDS positive for benzodiazepines. Keppra level was found to be 12.2. Topiramate level was found to be 3.1. Head CT was negative. Troponin was elevated. Liver enzymes were elevated likely 2/2 to shock liver. The patient was admitted to the ICU intubated, sedated, started on hypothermic protocol and heparin drip. Cardio was consulted, recommendations were appreciated. Neuro was consulted. Keppra and depakote drip were started. Patient was to found have clinical seizures and seizures on EEG x2 originating in the left temporal region. Neuro recommended constant EEG monitoring, but could not be transferred to another facility with this capability due to her unstable status. ID was consulted due to positive blood culture likely 2/2 hypothermic protocol. IV antibiotics were started and recommendations were appreciated. Nephro was consulted due to LAURITA and found to have a component of ATN as well. Work up was started, however due to prognosis and family wishes, further workup was stopped. During hospital course, head CT was repeated which was consistent with anoxic brain injury. Hgb dropped below 7.0. However, after discussion with family about patient's findings and prognosis they decided that they did not want blood products to be given. Palliative care was consulted, who discussed goals of care with family. As the patient was suffering from severe anoxic encephalopathy and multi-organ system failure, the family made the decision to make her DNR/DNI and terminally extubate her. The patient passed and was pronounced at 1:48 pm on 12/04/17. Family was notified, counselled , and condolences given. Primary was notified. Discharge Diagnosis - Multi-organ system failure - Severe Anoxic Encephalopathy - Ventilator dependent respiratory failure s/p cardiac arrest - Focal Seizures - Bactermia - LAURITA - Anemia Discharge Plan - Follow Up Plan Condition: Disposition: WITH WITHOUT AUTOPSY Referrals: Sara Dupree DO [Primary Care Provider] - Follow up with primary <Ashley Phan - Last Filed: 12/04/17 16:56> Provider - Provider Date of Admission: 11/28/17 18:20 Attending physician: Ashley Phan MD Primary care physician: Sara Dupree DO Hospital Course - Lab Results Lab Results: Micro Results 12/01/17 16:30 Blood-Venous Blood Culture - Preliminary NO GROWTH AFTER 3 DAYS 12/01/17 16:15 Blood-Venous Blood Culture - Preliminary NO GROWTH AFTER 3 DAYS 12/01/17 18:15 Urine,Bojorquez Urine Culture - Final No Growth (<1,000 CFU/ML) 12/01/17 17:00 Trachasp Gram Stain - Final 12/01/17 17:00 Trachasp Sputum Culture - Final No growth. 11/28/17 20:30 Blood S.aureus & Coag-Neg Staph PNA FISH - Final 11/28/17 20:30 Blood Blood Culture - Final Coagulase Neg Staphylococcus 11/28/17 20:30 Blood Gram Stain - Final 11/28/17 19:45 Naris MRSA Culture (Admit) - Final MRSA NOT DETECTED 11/28/17 21:40 Urine Urine Culture - Final No Growth (<1,000 CFU/ML) Most Recent Lab Values WBC 9.4 10^3/ul (4.5-11.0) 12/04/17 05:00 RBC 2.66 10^6/uL (3.5-6.1) L 12/04/17 05:00 Hgb 6.3 g/dL (12.0-16.0) L* 12/04/17 05:00 Hct 19.6 % (36.0-48.0) L* 12/04/17 05:00 MCV 73.7 fl (80.0-105.0) L 12/04/17 05:00 MCH 23.7 pg (25.0-35.0) L 12/04/17 05:00 MCHC 32.1 g/dl (31.0-37.0) 12/04/17 05:00 RDW 16.1 % (11.5-14.5) H 12/04/17 05:00 Plt Count 203 10^3/uL (120.0-450.0) 12/04/17 05:00 MPV 9.6 fl (7.0-11.0) 12/04/17 05:00 Gran % 67.4 % (50.0-68.0) 12/04/17 05:00 Lymph % (Auto) 21.9 % (22.0-35.0) L 12/04/17 05:00 Power % (Auto) 8.1 % (1.0-6.0) H 12/04/17 05:00 Eos % (Auto) 2.3 % (1.5-5.0) 12/04/17 05:00 Baso % (Auto) 0.3 % (0.0-3.0) 12/04/17 05:00 Gran # 6.31 (1.4-6.5) 12/04/17 05:00 Lymph # (Auto) 2.1 (1.2-3.4) 12/04/17 05:00 Power # (Auto) 0.8 (0.1-0.6) H 12/04/17 05:00 Eos # (Auto) 0.2 (0.0-0.7) 12/04/17 05:00 Baso # (Auto) 0.03 K/mm3 (0.0-2.0) 12/04/17 05:00 PT 10.0 SECONDS (9.4-12.5) 12/04/17 05:00 INR 0.87 (0.93-1.08) L 12/04/17 05:00 APTT 23.3 Seconds (25.1-36.5) L 12/04/17 05:00 pCO2 31 mm/Hg (35-45) L 12/04/17 05:50 pO2 145.0 mm/Hg (80-100) H 12/04/17 05:50 HCO3 18.3 mmol/L (21-28) L 12/04/17 05:50 ABG pH 7.38 (7.35-7.45) 12/04/17 05:50 ABG Total CO2 19.3 mmol.L (22-28) L 12/04/17 05:50 ABG O2 Saturation 100.1 % (95-98) H 12/04/17 05:50 ABG Base Excess -5.7 mmol/L (-2.0-3.0) L 12/04/17 05:50 ABG Potassium 3.2 mmol/L (3.6-5.2) L 12/04/17 05:50 VBG pH 7.11 (7.32-7.43) L* 11/29/17 06:50 VBG pCO2 59.0 (40-60) 11/29/17 06:50 VBG HCO3 18.7 mmol/l (21-28) L 11/29/17 06:50 VBG Total CO2 20.5 mmol.L (22-28) L 11/29/17 06:50 VBG O2 Sat (Calc) 77.4 % (40-65) H 11/29/17 06:50 VBG Base Excess -11.3 mmol/L (0.0-2.0) L 11/29/17 06:50 VBG Potassium 3.9 mmol/L (3.6-5.2) 11/29/17 06:50 Sodium 144.0 mmol/L (132-148) 12/04/17 05:50 Chloride 122.0 mmol/L (98-107) H 12/04/17 05:50 Glucose 103 mg/dl (65-105) 12/04/17 05:50 Lactate 0.8 mmol/L (0.7-2.1) 12/04/17 05:50 Mechanical Rate 20 11/29/17 09:10 FiO2 40.0 % 12/04/17 05:50 Tidal Volume 400 11/29/17 09:10 PEEP 5 11/29/17 09:10 Sodium 142 mmol/L (132-148) 12/04/17 05:00 Potassium 3.5 mmol/L (3.6-5.0) L 12/04/17 05:00 Chloride 112 mmol/L (98-107) H 12/04/17 05:00 Carbon Dioxide 21 mmol/L (21-33) 12/04/17 05:00 Anion Gap 12 (10-20) 12/04/17 05:00 BUN 36 mg/dL (7-21) H 12/04/17 05:00 Creatinine 1.7 mg/dl (0.7-1.2) H 12/04/17 05:00 Est GFR ( Amer) 38 12/04/17 05:00 Est GFR (Non-Af Amer) 31 12/04/17 05:00 POC Glucose (mg/dL) 122 mg/dL (65-110) H 12/04/17 07:30 Random Glucose 113 mg/dL (70-110) H 12/04/17 05:00 Hemoglobin A1c 6.0 % (4.2-6.5) 11/28/17 18:00 Calcium 8.5 mg/dL (8.4-10.5) 12/04/17 05:00 Ionized Calcium 4.6 mg/dL (4.80-5.60) L 12/02/17 06:00 Phosphorus 3.8 mg/dL (2.5-4.5) 12/01/17 04:30 Magnesium 2.3 mg/dL (1.7-2.2) H 12/03/17 06:42 Iron 104 ug/dL (45-180) 11/28/17 17:18 TIBC 264 ug/dL (265-497) L 11/28/17 17:18 % Saturation 40 % (20-55) 11/28/17 17:18 Ferritin 1140.0 ng/mL 11/28/17 17:18 Total Bilirubin 0.3 mg/dL (0.2-1.3) 12/04/17 05:00 AST 73 U/L (14-36) H 12/04/17 05:00 ALT 62 U/L (7-56) H 12/04/17 05:00 Alkaline Phosphatase 65 U/L (38-126) 12/04/17 05:00 Total Creatine Kinase 156 U/L (35-230) 11/28/17 17:45 Troponin I 3.29 ng/mL H* D 11/29/17 06:50 Total Protein 5.4 g/dL (5.8-8.3) L 12/04/17 05:00 Albumin 2.9 g/dL (3.0-4.8) L 12/04/17 05:00 Globulin 2.4 gm/dL 12/04/17 05:00 Albumin/Globulin Ratio 1.2 (1.1-1.8) 12/04/17 05:00 Triglycerides 3074 mg/dL (35-160) H 11/29/17 06:50 Cholesterol 170 mg/dL (130-200) 11/29/17 06:50 LDL Cholesterol Direct < 30 mg/dL (0-129) 11/29/17 06:50 HDL Cholesterol 79 mg/dL (29-60) H 11/29/17 06:50 Procalcitonin 1.37 NG/ML (0.19-0.49) H 12/01/17 16:30 TSH 3rd Generation 4.41 mIU/mL (0.46-4.68) 11/28/17 18:00 Arterial Blood Potassium 3.2 mmol/L (3.6-5.2) L 12/04/17 05:50 Venous Blood Potassium 3.9 mmol/L (3.6-5.2) 11/29/17 06:50 Urine Color Yellow (YELLOW) 12/01/17 18:15 Urine Appearance Cloudy (CLEAR) 12/01/17 18:15 Urine pH 6.0 (4.7-8.0) 12/01/17 18:15 Ur Specific [place] 1.025 (1.005-1.035) 12/01/17 18:15 Urine Protein 100 mg/dL (<30 mg/dL) H 12/01/17 18:15 Urine Glucose (UA) Negative mg/dL (NEGATIVE) 12/01/17 18:15 Urine Ketones Negative mg/dL (NEGATIVE) 12/01/17 18:15 Urine Blood Large (NEGATIVE) H 12/01/17 18:15 Urine Nitrate Negative (NEGATIVE) 12/01/17 18:15 Urine Bilirubin Negative (NEGATIVE) 12/01/17 18:15 Urine Urobilinogen 0.2 E.U./dL (<1 E.U./dL) 12/01/17 18:15 Ur Leukocyte Esterase Small Tree/uL (NEGATIVE) H 12/01/17 18:15 Urine RBC Tntc /hpf (0-2) 12/01/17 18:15 Urine WBC 10 - 15 /hpf (0-6) 12/01/17 18:15 Ur Epithelial Cells 6 - 8 /hpf (0-5) 12/01/17 18:15 Amorphous Sediment Trace 11/30/17 12:45 Urine Bacteria Many (NEG) 12/01/17 18:15 Coarse Granular Casts Small /hpf (0-2) H 12/01/17 18:15 Urine Eosinophils Negative 12/03/17 17:50 Urine Osmolality 492 mosm/kg (300-1000) 12/03/17 17:50 Ur Random Creatinine 99 mg/dL 12/03/17 17:50 U Random Total Protein 102 mg/L 12/03/17 17:50 Ur Random Sodium 57 meq/L 11/30/17 12:45 Ur Random Uric Acid 35.1 mg/dL 12/03/17 17:50 Digoxin < 0.4 ng/mL (0.8-2.0) L 11/28/17 17:45 Salicylates < 1 mg/dL (2.0-20.0) L 11/28/17 17:45 Urine Opiates Screen Negative (NEGATIVE) 11/28/17 21:40 Urine Methadone Screen Negative (NEGATIVE) 11/28/17 21:40 Acetaminophen < 10.0 ug/ml (10.0-20.0) L 11/28/17 17:45 Ur Barbiturates Screen Negative (NEGATIVE) 11/28/17 21:40 Phenytoin < 3 ug/mL (10-20) L 11/28/17 17:45 Bound Carbamazepine 0.7 mcg/mL (1.0-3.0) L 11/29/17 15:05 Topiramate 3.1 mcg/mL (see note) 11/29/17 06:30 Levetiracetam 12.2 mcg/mL 11/28/17 20:30 Ur Phencyclidine Scrn Negative (NEGATIVE) 11/28/17 21:40 Ur Amphetamines Screen Negative (NEGATIVE) 11/28/17 21:40 U Benzodiazepines Scrn Positive (NEGATIVE) 11/28/17 21:40 U Oth Cocaine Metabols Negative (NEGATIVE) 11/28/17 21:40 U Cannabinoids Screen Negative (NEGATIVE) 11/28/17 21:40 Alcohol, Quantitative < 10 mg/dL (0-10) 11/28/17 17:45 Proteinase 3 (PR3) <1.0 AI (<1.0) 12/02/17 06:10 Myeloperoxidase Ab <1.0 AI (<1.0) 12/02/17 06:10 Complement C3 128.0 mg/dL (88.0-165.0) 12/02/17 08:20 Complement C4 40.4 mg/dL (14.0-44.0) 12/02/17 08:20 Hepatitis A IgM Ab Negative (NEGATIVE) 11/28/17 20:30 Hep Bs Antigen Negative (NEGATIVE) 12/02/17 06:10 Hep B Core IgM Ab Negative (NEGATIVE) 11/28/17 20:30 Hepatitis C Antibody Negative (NEGATIVE) 12/02/17 06:10 HIV 1&2 Ag/Ab, 4th Gen Nonreactive (Nonreactive) 12/02/17 06:10 Influenza Typ A,B (EIA) Negative for flu a/b (NEGATIVE) 12/01/17 18:15 Blood Type O POSITIVE 12/03/17 09:35 Blood Type Confirm O POSITIVE 12/03/17 10:43 Antibody Screen Negative 12/03/17 09:35 BBK History Checked No verified bt 12/03/17 09:35 Attending/Attestation - Attestation I have personally seen and examined this patient.: Yes I have fully participated in the care of the patient.: Yes I have reviewed all pertinent clinical information, including history, physical exam and plan: Yes Notes (Text): 12/04/17 16:55 Attending note; Patient is a 57-year-old female admitted post cardiac arrest at home. Patient was shocked multiple times with return of spontaneous circulation. The exact downtime is not known. Currently patient is intubated and sedated. patient with anoxic encephalopathy. CT head with diffuse swelling and loss of mares and white matter differentiation consistent with anoxic encephalopathy. Not responding to stimulus. History of seizure disorder. currently on Keppra and valproic acid. Medication adjusted by neurology. repeat EKG ordered today. Elevated troponin; post cardiac arrest/defibrillation. 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 Anemia; no active bleeding noted. Family refused blood transfusion. Acute renal insufficiency; monitor urine output closely. Nephrology evaluation appreciated. Gram-acid of bacteremia one out of 2 bottles. On cefepime. Repeat culture is negative. family agreed for terminal weaning. Patient at 1;48 pm today.
--- NOTE | 2017-12-04 14:40 | PN ---
DATE: 12/04/2017 REASON FOR CONSULTATION: Followup status post cardiac arrest, status post CPR, status post intubated, hypothermic sepsis, anoxic encephalopathy, seizure. SUBJECTIVE: The patient is still being intubated, being fed. OBJECTIVE: GENERAL: No response to the verbal stimuli. VITAL SIGNS: Temperature afebrile, heart rate 56, blood pressure 110/54. HEENT: PERRLA. Extraocular muscles intact. NECK: Supple. No carotid bruit or thyromegaly. CHEST: Clear to auscultation. HEART: S1 and S2 regular. ABDOMEN: Soft. EXTREMITIES: Clubbing and cyanosis negative. LABORATORY DATA: Blood workup as follows; WBC 9.4, hemoglobin , hematocrit 19.6, platelet count 203. Chemistry shows sodium 142, potassium 3.5, chloride 112, carbon dioxide 21, anion gap of 12, BUN 36, creatinine 1.7. IMPRESSION: Anoxic encephalopathy, seizure disorder, intubated. Positive troponin. I doubt it is myocardial infarction, most likely secondary to , status post cardiopulmonary resuscitation, but cannot rule out coronary artery disease, acute kidney injury, dropping hemoglobin and hematocrit, seizure disorder, morbid obesity. RECOMMENDATION: Continue supportive care. Prognosis is extremely poor. Continue DVT prophylaxis. Resident told me the patient is for terminal extubation. Code status is DNR/DNI. If the patient is for terminal extubation, then we will sign off and glad to follow up p.r.n. Thank you, Dr. Phan, for providing us the opportunity in taking care of the patient, Yary Hunter. We will follow with you. Catherine Dc MD
--- NOTE | 2017-12-04 15:03 | CP.PCM.PRO ---
Pronouncement of Note - Clinical Findings Physical Exam: No Response Verbal/Painful Stimuli, Absent Peripheral Pulses{ Carotid & Femoral}, Absent Heart & Breath Sounds, No Pupillary Light Reflex, No Corneal Reflex, Pupils Fixed & Dilated, Absence of Vital Signs - Pronouncement Time Time of Pronouncement of : 13:48 - Notifications Pronouncement Notifications: Family Notified, Atending Notified Accounts Receivable Representative Notified: No - Autopsy Autopsy Requested: No - [place] [id number]
[2017-12-04 15:21] VITALS: BP 127/58; RESP 5; O2SAT 62
--- NOTE | 2017-12-04 16:22 | CP.PCM.PN ---
Subjective - Date & Time of Evaluation Date of Evaluation: 12/04/17 Time of Evaluation: 08:00 - Subjective Subjective: Patient continues to be on the ventilator, poorly responsive, still with low grade fevers. There is discussion about terminal extubation for the patient. Objective - Vital Signs/Intake and Output Vital Signs (last 24 hours): Temp Pulse Resp BP Pulse Ox 100.3 F H 56 L 20 110/54 L 56 L 12/03/17 16:30 12/04/17 06:30 12/04/17 07:31 12/04/17 06:30 12/04/17 07:31 Intake and Output: 12/04/17 12/04/17 06:59 18:59 Intake Total 1365 Output Total 350 Balance 1015 - Medications Medications: Current Medications Albuterol/Ipratropium (Duoneb 3 Mg/0.5 Mg (3 Ml) Ud) 3 ml IH Q2H PRN PRN Reason: Shortness of Breath Last Admin: 12/01/17 05:20 Dose: 3 ml Albuterol/Ipratropium (Duoneb 3 Mg/0.5 Mg (3 Ml) Ud) 3 ml IH [id number] [facility] Last Admin: 12/04/17 07:31 Dose: 3 ml Amlodipine Besylate (Norvasc) 10 mg PO DAILY [facility] Last Admin: 12/03/17 09:04 Dose: 10 mg Artificial Tears (Artificial Tears) 1 ml OU TID PRN PRN Reason: Dry eyes Last Admin: 11/30/17 16:00 Dose: 1 drop Aspirin (Aspirin Chewable) 81 mg PO DAILY [facility] Last Admin: 12/03/17 09:06 Dose: 81 mg Enoxaparin Sodium (Lovenox) 30 mg SC DAILY [facility] PRN Reason: Protocol Last Admin: 12/03/17 09:07 Dose: 30 mg Hydralazine HCl (Apresoline) 10 mg IVP Q6H PRN PRN Reason: SBP>170 Last Admin: 11/30/17 20:02 Dose: 10 mg Nicardipine HCl (Cardene Iv Premix) 20 mg in 200 mls @ 100 mls/hr IV .Q2H PRN; Protocol; 10 MG/HR PRN Reason: TITRATE PER MD ORDER Last Admin: 11/29/17 16:15 Dose: 100 mls/hr Insulin Human Regular 100 (units/ Sodium Chloride) 100 mls @ 4 mls/hr IV .Q24H PRN; Protocol; 4 UNITS/HR PRN Reason: TITRATE PER MD ORDER Propofol (Diprivan) 1,000 mg in 100 mls @ 3.919 mls/hr IV .Q24H PRN; Protocol; 5 MCG/KG/MIN PRN Reason: TITRATE PER MD ORDER Last Admin: 12/04/17 05:15 Dose: 35 mcg/kg/min, 27.433 mls/hr Levetiracetam 1,500 mg/ Sodium (Chloride) 115 mls @ 460 mls/hr IV Q12 [facility] Last Admin: 12/03/17 22:19 Dose: 460 mls/hr Lorazepam (Ativan) 2 mg IVP Q15MIN PRN; Protocol PRN Reason: Seizure activity Last Admin: 12/03/17 18:00 Dose: 2 mg Methylprednisolone (Solu-Medrol) 20 mg IVP Q8H [facility] Last Admin: 12/04/17 01:00 Dose: 20 mg Metoprolol Tartrate (Lopressor) 50 mg PO BID [facility] Last Admin: 12/03/17 17:17 Dose: 50 mg Oxcarbazepine (Trileptal) 300 mg PO BID [facility] PRN Reason: Protocol Last Admin: 12/03/17 17:18 Dose: 300 mg Pantoprazole Sodium (Protonix Inj) 40 mg IVP Q12 [facility] Last Admin: 12/03/17 21:57 Dose: 40 mg Valproate Sodium (Depakene Oral Soln) 500 mg PO BID [facility] Last Admin: 12/03/17 17:17 Dose: 500 mg - Labs Labs: 12/04/17 05:00 12/04/17 05:00 PT 10.0 SECONDS (9.4-12.5) 12/04/17 05:00 INR 0.87 (0.93-1.08) L 12/04/17 05:00 APTT 23.3 Seconds (25.1-36.5) L 12/04/17 05:00 - Constitutional Appears: Chronically Ill, Other (intubated, poorly responsive) - Head Exam Head Exam: NORMAL INSPECTION - ENT Exam Additional comments: ET tube in place - Respiratory Exam Respiratory Exam: Decreased Breath Sounds - Cardiovascular Exam Cardiovascular Exam: +S1, +S2 - GI/Abdominal Exam GI & Abdominal Exam: Soft. absent: Tenderness Assessment and Plan - Assessment and Plan (Free Text) Plan: Assessment Systemic inflammatory response syndrome with ventilator-dependent respiratory failure, acute renal failure after patient was found in cardiorespiratory arrest , with anoxic brain injury (probable central fever with improving leukocytosis) , unlikely sepsis from coagulase negative staph bacteremia since the blood cx were taken at the time the central venous catheter was placed and it only grew in one set (and now only 2 out of 8 bottles - repeat blood cx are negative) and the patient has no indwelling vascular catheter or hardware prior to the current CVC placed 11/28/2017) seizure disorder morbid obesity with BMI 49 Plan has been given a dose of IV Daptomycin renally-adjusted and was on Cefepime day 5; repeat cultures have been negative - patient is now off antibiotics overall prognosis is poor patient is for terminal extubation
[2017-12-04 18:26] VITALS: PULSE 40
== END 2017-12-04 13:48 | DRG 881 ==
LOC: ED 17:08 → MERGE 18:20 → ERH 18:20 → CCU 19:27
PROVIDERS: ADMIT Hospitalist; ATTEND Internal Medicine
PROC: 5A1955Z Respiratory Ventilation, Greater than 96 Consecutive Hours (ICD-10-PCS; principal; 2017-11-29)
PROC: 05HM33Z Insertion of Infusion Device into Right Internal Jugular Vein, Percutaneous Approach (ICD-10-PCS; 2017-12-01)
PROC: B543ZZA Ultrasonography of Right Jugular Veins, Guidance (ICD-10-PCS; 2017-12-01)
DX: J96.01 Acute respiratory failure with hypoxia (principal); G93.1 Anoxic brain damage, not elsewhere classified; Z99.11 Dependence on respirator [ventilator] status; N17.0 Acute kidney failure with tubular necrosis; K72.00 Acute and subacute hepatic failure without coma; R78.81 Bacteremia; I49.01 Ventricular fibrillation; E87.2 Acidosis; N18.9 Chronic kidney disease, unspecified; R57.0 Cardiogenic shock; G93.6 Cerebral edema; I12.9 Hypertensive chronic kidney disease with stage 1 through stage 4 chronic kidney disease, or unspecified chronic kidney disease; E66.01 Morbid (severe) obesity due to excess calories; G40.909 Epilepsy, unspecified, not intractable, without status epilepticus; Z68.42 Body mass index [BMI] 45.0-49.9, adult; J98.01 Acute bronchospasm; I25.10 Atherosclerotic heart disease of native coronary artery without angina pectoris; Z66 Do not resuscitate; I16.0 Hypertensive urgency; D64.9 Anemia, unspecified; E83.51 Hypocalcemia; E83.42 Hypomagnesemia